=== PATIENT | female | born 1965 | race Caucasian/White ===

== ENCOUNTER 2023-01-10 15:01 | Outpatient (OUT) | payer BC, SELFPAY ==
--- NOTE | 2023-01-10 15:10 | XR_ITS ---
[address] [address] Patient Name: KAYLEEN BINGHAM MRN: [id number] date: 1965 Sex: F Assigned Patient Location: LAB Current Patient Location: LAB Accession/Order Number: [id number] Exam Date: 01/10/2023 15:10 Report Date: 01/10/2023 15:39 At the request of: SHAY MURO Procedure: XR chest 2V PROCEDURE: XR chest 2V DATE: 01/10/2023 2:10 PM CDT COMPARISONS: 12/12/2016 CLINICAL INDICATION: 57 years Female ACUTE COUGH R05.1 FINDINGS: The cardiomediastinal silhouette and pulmonary vasculature are within normal limits. The lungs are clear. There is no evidence of pleural effusion or pneumothorax. XR/XR chest 2V IMPRESSION: Chest radiograph is within normal limits. Electronically authenticated by: MONE PERALES Date: 01/10/2023 15:39
[2023-01-10 15:14] LABS: Basophils Percent Auto 0.5 % (0.2-2.0); Eosinophils Absolute Auto 0.3 10^3/uL (0.0-0.7); Eosinophils Percent Auto 5.9 % (0.9-7.0); Hematocrit 36.6 % (36.0-48.0); Immature Granulocytes Abs Auto 0.01 10^3/uL (0.00-0.03); Immature Granulocytes Pct Auto 0.2 % (0.0-0.5); Lymphocytes Percent Auto 22.7 % (20.5-60.0); Mean Corpuscular HGB Conc 32.8 g/dL (29.9-35.2); Mean Corpuscular Hemoglobin 28.1 pg (26.7-34.0); Mean Corpuscular Volume 85.7 fL (81.0-99.0); Mean Platelet Volume 10.2 fL (9.5-13.5); Monocytes Absolute Auto 0.4 10^3/uL (0.3-0.8); Monocytes Percent Auto 9.4 % (1.7-12.0); Neutrophils Absolute Auto 2.6 10^3/uL (1.4-6.5); Neutrophils Percent Auto 61.3 % (43.0-75.0); Platelet Count 180 10^3/uL (150-450); Red Blood Count 4.27 10^6/uL (4.20-5.40); Red Cell Distribution Width 13.1 % (11.0-15.0); White Blood Count 4.3 10^3/uL (4.0-11.0)
[2023-01-10 15:34] LABS: Alanine Aminotransferase 34 U/L (14-59); Albumin Globulin Ratio 1.4; Albumin Level 3.9 g/dL (3.4-5.0); Alkaline Phosphatase 67 U/L (46-116); Anion Gap 9.5; Aspartate Amino Transferase 24 U/L (15-37); BUN Creatinine Ratio 21.6; Bilirubin Total 0.3 mg/dL (0.2-1.0); Calcium 9.1 mg/dL (8.5-10.1); Carbon Dioxide 27.5 mmol/L (21.0-32.0); Chloride 109 mmol/L (98-107); Estimated GFR (African America >60 (>=60); Estimated GFR (Non-African Ame 56 (>=60); Globulin 2.8 g/dL; Glucose 110 mg/dL (74-106); Sodium 142 mmol/L (136-145); Total Protein 6.7 g/dL (6.4-8.2)
== END 2023-01-10 15:02 | disposition home or self-care (01) ==
LOC: LAB 15:01
PROVIDERS: PCP Family Medicine; Visit Provider Family Medicine
DX: R05.1 Acute cough (principal)
CPT/HCPCS: 36415; 71046; 80053; 85025

== ENCOUNTER 2023-02-16 14:08 | Outpatient (OUT) | payer BC, SELFPAY ==
--- NOTE | 2023-02-16 | CT_ITS ---
[address] [address] Patient Name: KAYLEEN BINGHAM MRN: [id number] date: 1965 Sex: F Assigned Patient Location: CARD Current Patient Location: Accession/Order Number: [id number] Exam Date: 02/16/2023 14:32 Report Date: 02/17/2023 07:52 At the request of: RODNEY GARCIA Procedure: CT chest high res EXAMINATION: CT chest high res HISTORY: Chronic cough R05.3 COMPARISON: No relevant comparison available. TECHNIQUE: Axial images were obtained at 10 mm intervals during inspiration and expiration in the supine and prone positions. No IV contrast given. Dose reduction techniques were achieved by using automated exposure control and/or adjustment of mA and/or kV according to patient size and/or use of iterative reconstruction technique. FINDINGS: LUNGS: A few calcified granulomas. No infiltrates or mass. No significant chronic interstitial changes or air trapping. PLEURA: No mass, effusion, or pneumothorax. COLIN: Calcified right hilar lymph nodes compatible with chronic granulomatous disease. MEDIASTINUM: A few calcified lymph nodes. CHEST WALL: No mass or axillary adenopathy LIMITED ABDOMEN: No suspicious findings. Limited images of the upper abdomen. OTHER: Negative. CT/CT chest high res IMPRESSION: 1. No infiltrates or acute findings. 2. No significant chronic interstitial changes. 3. Incidental chronic granulomatous disease. Electronically authenticated by: JOSEFINA CLAYTON Date: 02/17/2023 07:52
--- NOTE | 2023-02-16 13:45 | RT_ITS ---
[facility] Test Date: 2023-02-16 Pat Name: KAYLEEN BINGHAM Department: Room: - Gender: Female Parish Worker: Darwin Kauffman RRT : 1965 Requested By: Richardson Nolen Order Number: [id number] Reading MD: Richardson Nolen Interpretive Statements Pulmonary function testing was completed according to ATS criteria. Findings were considered accurate and reproducible, with exception of DLCO which did not meet ATS standards. Both pre- and post-bronchodilator values utilized for spirometry. Due to software limitations, any prior studies are unavailable for comparison. Spirometry (based on pre-bronchodilator values): -FEV1/FVC: Low normal @ 73% -FEV1: Normal @ 112% -FVC: Normal @ 119% -There is no significant bronchodilator response. Lung volumes by plethysmography (based on pre-bronchodilator values): -RV: Normal @ 109% -TLC: High normal @ 120% Diffusion capacity: -DLCO: Normal @ 100% when corrected for Hb 12g/dL Flow-volume loop: -Normal variant 'knee shape' Impressions: -Spirometry trends towards a mild obstructive pattern. Normal lung volumes and diffusion capacity. Study may suggest a mild underlying obstructive process such as asthma. Clinical correlation required. Electronically Signed On 02-16-2023 17:27:41 EDT by Richardson Nolen
[2023-02-16] MEDS: ALBUTEROL SULFATE 2.5 MG/3 ML VIAL NEB IH (14:17)
== END 2023-02-16 14:09 | disposition home or self-care (01) ==
LOC: CARD 14:08
PROVIDERS: PCP Family Medicine; Visit Provider Internal Medicine
DX: R05.3 Chronic cough (principal)
CPT/HCPCS: 71250; 94060; 94726; 94729

== ENCOUNTER 2023-05-10 09:08 | Outpatient (OUT) | payer BC, SELFPAY ==
--- NOTE | 2023-05-10 | XR_ITS ---
[address] [address] Patient Name: KAYLEEN BINGHAM MRN: [id number] date: 1965 Sex: F Assigned Patient Location: Current Patient Location: [facility] Accession/Order Number: [id number] Exam Date: 05/10/2023 09:25 Report Date: 05/10/2023 15:49 At the request of: RAYMOND RODRIGUEZ Procedure: XR ankle RT min 3V PROCEDURE: XR ankle RT min 3V COMPARISON: None. HISTORY: RIGHT ANKLE PAIN FINDINGS: BONES:No acute fracture or dislocation. Minimal degenerative changes with marginal osteophyte formation SOFT TISSUES:Negative. No visible soft tissue swelling. EFFUSION:None visible. OTHER: Negative. XR/XR ankle RT min 3V IMPRESSION: Minimal degenerative change Electronically authenticated by: ROCCO CORTEZ Date: 05/10/2023 15:49
--- OUTSIDE RECORDS SUMMARY | 2023-05-18 05:28 | XMS_ITS | CCD ---
Author Name Unknown Address [address] [place] [address] Organization [facility] Care Team Providers Care Full Service Supervisor Name Role Phone Shay Muro Unavailable RAYMOND SMITH Consulting Unavailable RAYMOND SMITH Attending Unavailable VERONICA, DR DAY Primary Care Unavailable RAYMOND SMITH Admitting Unavailable RAYMOND SMITH Consulting Unavailable RAYMOND SMITH Attending Unavailable VERONICA, DR DAY Primary Care Unavailable RAYMOND SMITH Admitting Unavailable BLESSING ., MARIBEL PRIEST Consulting Unavailable SONU II, DODIE Consulting Unavailable FILUTZE, CORDELIA Consulting Unavailable RENETTA SORTO Attending Unavailable MISC, DR DEJESUS Primary Care Unavailable MACARIO, RENETTA Admitting Unavailable ZIEBER, DR JOSEFINA Otero Consulting Unavailable RENETTA SORTO Consulting Unavailable VERONICA, DR DAY Attending Unavailable VERONICA, DR DAY Admitting Unavailable MISEdmundo, DR DEJESUS Primary Care Unavailable VERONICA, DR DAY Consulting Unavailable MISC, DR DJEESUS Primary Care Unavailable VERONICA, DR DAY Consulting Unavailable VERONICA, DR DAY Attending Unavailable VERONICA, DR DAY Admitting Unavailable RAYMOND SMITH Consulting Unavailable MISC, DR DEJESUS Primary Care Unavailable RAYMOND SMITH Attending Unavailable RAYMOND SMITH Admitting Unavailable DELGADOPOLO Gutierrez Consulting Unavailable MISC, DR DEJESUS Primary Care Unavailable RAYMOND SMITH Admitting Unavailable RAYMOND SMITH Attending Unavailable DO Shay Muro Primary Care Provider [phone] DO Vivian Denis Attending Provider DO Shay Muro Attending Provider [phone] Shay Muro Attending Unavailable Shay Muro Primary Care Unavailable Shay Muro Admitting Unavailable Vivian Denis Admitting Unavailable Shay Muro Primary Care Unavailable Vivian Denis Attending Unavailable VIVIAN DENIS Attending Unavailable Medications Current Medications Medication Drug Class(es) Dates Sig (Normalized) Sig (Original) acyclovir 400 mg oral tablet (12 sources) Herpesvirus Nucleoside Analog DNA Polymerase Inhibitor, Herpes Simplex Virus Nucleoside Analog DNA Polymerase Inhibitor, Herpes Zoster Virus Nucleoside Analog DNA Polymerase Inhibitor Start: 09-25-2015 take 1 tablet by mouth four times daily as needed Acyclovir 400 MG 1 tablet Orally qid prn Aug, Active amoxicillin 875 mg / clavulanate 125 mg oral tablet (3 sources) Penicillin-class Antibacterial Start: 01-24-2023 take 1 tablet by mouth every twelve hours Amoxicillin-Pot Clavulanate 875-125 MG 1 tablet Orally every 12 hrs for 10 days Dec, Active azithromycin 250 mg oral tablet (3 sources) Macrolide Antimicrobial Start: 08-17-2022 Zithromax Z-Mayank 250 MG as directed Orally as directed Jul, Active 30 actuat fluticasone furoate 0.1 mg/actuat / umeclidinium 0.0625 mg/actuat / vilanterol 0.025 mg/actuat dry powder inhaler (4 sources) Anticholinergic, Corticosteroid, beta2-Adrenergic Agonist Start: 01-17-2023 take 1 puff(s) by inhalation once daily Trelegy Ellipta 100-62.5-25 MCG/ACT 1 puff Inhalation Once a day sample Dec, Active methylPREDNISolone 4 mg oral tablet (3 sources) Corticosteroid Start: 08-17-2022 Medrol 4 MG as directed Orally as directed Jul, Active Problems Active Problems Problem Classification Problem Date Documented Date Episodic/Chronic Acquired foot deformities (1 source) Other acquired deformities of left foot; Translations: [OTHER ACQUIRED DEFORMITIES LT FOOT] Onset: 07-13-2022 Episodic Asthma (1 source) Unspecified asthma, uncomplicated; Translations: [UNSPECIFIED ASTHMA UNCOMPLICATED] Onset: 07-13-2022 Chronic Diseases of mouth; excluding dental (13 sources) Disorder of lip; Translations: [Diseases of lips] Episodic Diseases of white blood cells (12 sources) Leukopenia; Translations: [Decreased white blood cell count, unspecified] Chronic Disorders of lipid metabolism (13 sources) Hyperlipidemia; Translations: [Hyperlipidemia, unspecified] Onset: 07-13-2022 Chronic Essential hypertension (1 source) Essential (primary) hypertension; Translations: [ESSENTIAL PRIMARY HYPERTENSION] Onset: 07-13-2022 Chronic Osteoarthritis (1 source) Primary osteoarthritis, left ankle and foot; Translations: [PRIMARY OSTEOARTHRITIS LT ANK FOOT] Onset: 04-26-2022 Chronic Other connective tissue disease (1 source) Plantar fascial fibromatosis; Translations: [PLANTAR FASCIAL FIBROMATOSIS] Onset: 04-26-2022 Episodic Other connective tissue disease (1 source) Pain in left hand Episodic Other lower respiratory disease (1 source) Shortness of breath; Translations: [Shortness of breath] Onset: 08-17-2022 Episodic Other lower respiratory disease (1 source) Shortness of breath Episodic Other nervous system disorders (1 source) Unspecified mononeuropathy of left lower limb; Translations: [UNS MONONEUROPATHY LEFT LOWER LIMB] Onset: 07-13-2022 Chronic Other nervous system disorders (5 sources) Lesion of plantar nerve, left lower limb; Translations: [LESION PLANTAR NERVE LT LOWER LIMB] Onset: 06-28-2022 Chronic Other non-traumatic joint disorders (12 sources) Shoulder pain; Translations: [Pain in right shoulder] Episodic Other non-traumatic joint disorders (12 sources) Ankle pain; Translations: [Pain in left ankle and joints of left foot] Episodic Unclassified (4 sources) CONTACT W/AND (SUSP) EXPOS COVID-19; Translations: [CONTACT W/AND (SUSP) EXPOS COVID-19] Onset: 11-04-2021 Unclassified (1 source) COUGH, UNSPECIFIED; Translations: [COUGH, UNSPECIFIED] Onset: 11-04-2021 Unclassified (1 source) Encounter for screening mammogram for malignant neoplasm of breast; Translations: [Encounter for screening mammogram for malignant neoplasm of breast] Onset: 08-09-2022 Past or Other Problems Problem Classification Problem Date Documented Da te Episodic/Chronic Other connective tissue disease (4 sources) Pain in left foot; Translations: [PAIN IN LEFT FOOT] Onset: 03-09-2022 Episodic Unclassified (2 sources) Exposure to COVID-19 virus Z20.822 Onset: 09-01-2021 Resolved: 10-28-2021 Unclassified (2 sources) Cough R05.9 Onset: 10-28-2021 Resolved: 10-28-2021 Unclassified (1 source) CONTACT W/AND (SUSP) EXPOS COVID-19; Translations: [CONTACT W/AND (SUSP) EXPOS COVID-19] Onset: 10-28-2021 Unclassified (1 source) Acute cough R05.1 Unclassified (1 source) Persistent cough R05.3 Viral infection (2 sources) COVID-19; Translations: [COVID-19] Onset: 08-17-2022 Results Test Name Value Interpretation Reference Range Facil ity RSVon 01-17-2023 RSV Ag IA Ql (Unsp spec) Negative [employer] Other Alanine aminotransferase [En zymatic activity/volume] in Serum or PlasmaOrdered By: Shay Muro on 08-17-2022 ALT [Catalytic activity/Vol] 26 U/L Normal 7-52 U/ L [facility] Albumin [Mass/volume] in Ser um or Plasma by Bromocresol green (BCG) dye binding methoOrdered By: Shay Muro on 08-17-2022 Albumin BCG dye [Mass/Vol] 4.5 g/dL 3.5-5.7 [facility] Alkaline phosphatase [Enzyma tic activity/volume] in Serum or PlasmaOrdered By: Shay Muro on 08-17-2022 ALP [Catalytic activity/Vol] 59 U/L Normal 34-104 U/L [facility] Aspartate aminotransferase [ Enzymatic activity/volume] in Serum or PlasmaOrdered By: Shay Muro on 08-17-2022 AST [Catalytic activity/Vol] 26 U/L Normal 13-39 U /L [facility] Basophils Auto (Bld) [#/Vol] Ordered By: Shay Muro on 08-17-2022 Basophils (Bld) [#/Vol] 0.0 10*3/uL 0.0-0.2 [facility] Basophils/100 WBC Auto (Bld) Ordered By: Shay Muro on 08-17-2022 Basophils/100 WBC (Bld) 0.4 % . [facility] Bilirubin.total [Mass/volume ] in Serum or PlasmaOrdered By: Shay Muro on 08-17-2022 Bilirubin [Mass/Vol] 0.2 mg/dL 0.3-1.0 [facility] Calcium [Mass/volume] in Ser um or PlasmaOrdered By: Shay Muro on 08-17-2022 Calcium [Mass/Vol] 10.0 mg/dL 8.6-10.3 [facility] Carbon dioxide, total [Moles /volume] in Serum or PlasmaOrdered By: Shay Muro on 08-17-2022 CO2 [Moles/Vol] 25.6 mmol/L 21.0-31.0 [facility] Chloride [Moles/volume] in S francis or PlasmaOrdered By: Shay Muro on 08-17-2022 Chloride [Moles/Vol] 106 mmol/L Normal 98-107 mmol/L [facility] Complete Blood Count Auto Di ffon 08-17-2022 Basophils (Bld) [#/Vol] 0.0 10*3/uL Normal 0.0-0.2 [facility] Comment on above: Order Comment: Reaso n for Exam COVID-19;Shortness of breath on exertion Result Comment: PERF ORMED BY: [place] [address] PATHOLOGIST CUTTER BARREL DRUM LISANDRA OLVERA M.D. Performed By: #### C MP, CBC #### [facility] [address] [place] [address] [place] Basophils/100 WBC (Bld) 0.4 % Normal . [facility] Comment on above: Order Comment: Reaso n for Exam COVID-19;Shortness of breath on exertion Performed By: #### C MP, CBC #### [facility] [address] [place] [address] [place] Eosinophils (Bld) [#/Vol] 0.1 10*3/uL Normal 0.0-0.45 [facility] Comment on above: Order Comment: Reaso n for Exam COVID-19;Shortness of breath on exertion Performed By: #### C MP, CBC #### [facility] [address] [place] [address] [place] Eosinophils/100 WBC (Bld) 0.9 % Normal . [facility] Comment on above: Order Comment: Reaso n for Exam COVID-19;Shortness of breath on exertion Performed By: #### C MP, CBC #### [address] Erythrocyte distribution wid th (RBC) [Ratio] 13.5 % Normal 11.9-15.3 [facility] Comment on above: Order Comment: Reaso n for Exam COVID-19;Shortness of breath on exertion Performed By: #### C MP, CBC #### [address] Hematocrit (Bld) [Volume fraction] 38.8 % Normal 34.0-46.4 [facility] Comment on above: Order Comment: Reaso n for Exam COVID-19;Shortness of breath on exertion Performed By: #### C MP, CBC #### [address] Hemoglobin (Bld) [Mass/Vol] 12.6 g/dL Normal 11.8-15. 4 [facility] Comment on above: Order Comment: Reaso n for Exam COVID-19;Shortness of breath on exertion Performed By: #### C MP, CBC #### [address] Lymphocytes (Bld) [#/Vol] 0.6 10*3/uL Low 1.00-4.8 [facility] Comment on above: Order Comment: Reaso n for Exam COVID-19;Shortness of breath on exertion Performed By: #### C MP, CBC #### [place] [address] [place] Lymphocytes/100 WBC (Bld) 10.9 % Normal . [facility] Comment on above: Order Comment: Reaso n for Exam COVID-19;Shortness of breath on exertion Performed By: #### C MP, CBC #### [address] MCH (RBC) [Entitic mass] 28.2 pg Normal 24.7-34.3 [facility] Comment on above: Order Comment: Reaso n for Exam COVID-19;Shortness of breath on exertion Performed By: #### C MP, CBC #### [facility] [address] MCV (RBC) [Entitic vol] 86.7 fL Normal 80-100 [facility] Comment on above: Order Comment: Reaso n for Exam COVID-19;Shortness of breath on exertion Performed By: #### C MP, CBC #### [facility] [address] Mean Corpuscular HGB Conc 32.5 g/dL Normal 32.0-35.0 [facility] Comment on above: Order Comment: Reaso n for Exam COVID-19;Shortness of breath on exertion Performed By: #### C MP, CBC #### [address] Monocytes (Bld) [#/Vol] 0.1 10*3/uL Normal 0.0-0.8 [facility] Comment on above: Order Comment: Reaso n for Exam COVID-19;Shortness of breath on exertion Performed By: #### C MP, CBC #### [place] [address] [place] Monocytes/100 WBC (Bld) 2.6 % Normal . [facility] Comment on above: Order Comment: Reaso n for Exam COVID-19;Shortness of breath on exertion Performed By: #### C MP, CBC #### [facility] [address] [place] [address] [place] Neutrophils (Bld) [#/Vol] 5.0 10*3/uL Normal 1.8-7.7 [facility] Comment on above: Order Comment: Reaso n for Exam COVID-19;Shortness of breath on exertion Performed By: #### C MP, CBC #### [address] Neutrophils/100 WBC (Bld) 85.2 % Normal . [facility] Comment on above: Order Comment: Reaso n for Exam COVID-19;Shortness of breath on exertion Performed By: #### C MP, CBC #### [facility] [address] NRBC% 0.0 /100{WBC} Normal 0-0.5 [facility] Comment on above: Order Comment: Reaso n for Exam COVID-19;Shortness of breath on exertion Performed By: #### C MP, CBC #### [facility] [address] Platelet mean volume (Bld) [Entitic vol] 9.7 fL Normal 6.3-10.7 [facility] Comment on above: Order Comment: Reaso n for Exam COVID-19;Shortness of breath on exertion Performed By: #### C MP, CBC #### [facility] [address] Platelets (Bld) [#/Vol] 190 10*3/uL Normal 150-450 [facility] Comment on above: Order Comment: Reaso n for Exam COVID-19;Shortness of breath on exertion Performed By: #### C MP, CBC #### [facility] [address] RBC (Bld) [#/Vol] 4.48 10*6/uL Normal 3.60-5.00 [facility] Comment on above: Order Comment: Reaso n for Exam COVID-19;Shortness of breath on exertion Performed By: #### C MP, CBC #### [facility] [address] WBC (Bld) [#/Vol] 5.8 10*3/uL Normal 3.8-11.6 [facility] Comment on above: Order Comment: Reaso n for Exam COVID-19;Shortness of breath on exertion Performed By: #### C MP, CBC #### [facility] [address] Basophils (Bld) [#/Vol] 0.966305718 10*3/uL Normal 0.0-0.2 10*3/uL [employer] Other Basophils/100 WBC (Bld) 0.400 % . % [employer] Other Eosinophils (Bld) [#/Vol] 0.538891154 10*3/uL Normal 0.0-0.45 10*3/uL [employer] Other Eosinophils/100 WBC (Bld) 0.900 % . % [employer] Other Erythrocyte distribution width (RBC) [Ratio] 13.500 % Normal 11.9-15.3 % [employer] Other Hematocrit (Bld) [Volume fraction] 38.800 % Normal 34.0-46.4 % [employer] Other Hemoglobin (Bld) [Mass/Vol] 12.271978 g/dL Normal 11.8-15.4 g/dL [employer] Other Lymphocytes (Bld) [#/Vol] 0.857031475 10*3/uL Low 1.00-4.8 10*3/uL [employer] Other Lymphocytes/100 WBC (Bld) 10.900 % . % [employer] Other MCH (RBC) [Entitic mass] 28.2000 pg Normal 24.7-34.3 pg [employer] Other MCV (RBC) [Entitic vol] 86.7000 fL Normal 80-100 fL [employer] Other Monocytes (Bld) [#/Vol] 0.871075510 10*3/uL Normal 0.0-0.8 10*3/uL [employer] Other Monocytes/100 WBC (Bld) 2.600 % . % [employer] Other Neutrophils (Bld) [#/Vol] 5.156222940 10*3/uL Normal 1.8-7.7 10*3/uL [employer] Other Neutrophils/100 WBC (Bld) 85.200 % . % [employer] Other Platelet mean volume (Bld) [Entitic vol] 9.7000 fL Normal 6.3-10.7 fL [employer] Other WBC (Bld) [#/Vol] 5.610396770 10*3/uL Normal 3.8-11.6 10*3/uL [employer] Other Complete Blood Count Auto Diff 5.8 10*3/uL Normal 3.8-11.6 10*3/uL [employer] Other Complete Blood Count Auto Diff 32.5 g/dL Normal 32.0-35.0 g/dL [employer] Other Complete Blood Count Auto Diff 0.0 /100{WBC} Normal 0-0.5 /100{WBC} [employer] Other Comprehensive Metabolic Pane [facility] 08-17-2022 Albumin [Mass/Vol] 4.5 g/dL Normal 3.5-5.7 [facility] Comment on above: Order Comment: Reaso n for Exam COVID-19;Shortness of breath on exertion Performed By: #### C MP, CBC #### [facility] [address] Albumin/Globulin [Mass ratio] 2.0 {ratio} Normal [facility] Comment on above: Order Comment: Reaso n for Exam COVID-19;Shortness of breath on exertion Performed By: #### C MP, CBC #### [facility] [address] [place] [address] [place] ALP [Catalytic activity/Vol] 59 U/L Normal 34-104 [facility] Comment on above: Order Comment: Reaso n for Exam COVID-19;Shortness of breath on exertion Result Comment: PERF ORMED BY: [place] [address] PATHOLOGIST CUTTER BARREL DRUM LISANDRA OLVERA M.D. Performed By: #### C MP, CBC #### [facility] [address] [place] [id number] [facility] ALT [Catalytic activity/Vol] 26 U/L Normal 7-52 [facility] Comment on above: Order Comment: Reaso n for Exam COVID-19;Shortness of breath on exertion Performed By: #### C MP, CBC #### [facility] [address] Anion gap [Moles/Vol] 10.9 mmol/L Normal 6.0-15.0 [facility] Comment on above: Order Comment: Reaso n for Exam COVID-19;Shortness of breath on exertion Performed By: #### C MP, CBC #### [facility] [address] AST [Catalytic activity/Vol] 26 U/L Normal 13-39 [facility] Comment on above: Order Comment: Reaso n for Exam COVID-19;Shortness of breath on exertion Performed By: #### C MP, CBC #### [facility] [address] Bilirubin [Mass/Vol] 0.2 mg/dL Low 0.3-1.0 [facility] Comment on above: Order Comment: Reaso n for Exam COVID-19;Shortness of breath on exertion Performed By: #### C MP, CBC #### [facility] [address] Calcium [Mass/Vol] 10.0 mg/dL Normal 8.6-10.3 [facility] Comment on above: Order Comment: Reaso n for Exam COVID-19;Shortness of breath on exertion Performed By: #### C MP, CBC #### [facility] [address] [place] [id number] [place] Chloride [Moles/Vol] 106 mmol/L Normal 98-107 [facility] Comment on above: Order Comment: Reaso n for Exam COVID-19;Shortness of breath on exertion Performed By: #### C MP, CBC #### [facility] [address] [place] [address] [place] CO2 [Moles/Vol] 25.6 mmol/L Normal 21.0-31.0 [facility] Comment on above: Order Comment: Reaso n for Exam COVID-19;Shortness of breath on exertion Performed By: #### C MP, CBC #### [facility] [address] Creatinine [Mass/Vol] 0.92 mg/dL Normal 0.60-1.20 [facility] Comment on above: Order Comment: Reaso n for Exam COVID-19;Shortness of breath on exertion Performed By: #### C MP, CBC #### [facility] [address] GFR/1.73 sq M.predicted MDRD (S/P/Bld) [Vol rate/Area] mL/min/{1.73_m2} Normal [facility] Comment on above: Order Comment: Reaso n for Exam COVID-19;Shortness of breath on exertion Performed By: #### C MP, CBC #### [facility] [address] Globulin (S) [Mass/Vol] 2.2 g/dL Normal [facility] Comment on above: Order Comment: Reaso n for Exam COVID-19;Shortness of breath on exertion Performed By: #### C MP, CBC #### [facility] [address] Glucose [Mass/Vol] 134 mg/dL High 74-109 [facility] Comment on above: Order Comment: Reaso n for Exam COVID-19;Shortness of breath on exertion Result Comment: [place] Glucose Reference Range is dependent on time and content of last meal. Glucose of more than 200 mg/dL in a nonstressed, ambulatory subject supports the diagnosis of Diabetes Mellitus. ADA recommended reference range Performed By: #### C MP, CBC #### [facility] [address] Potassium [Moles/Vol] 4.5 mmol/L Normal 3.5-5.1 [facility] Comment on above: Order Comment: Reaso n for Exam COVID-19;Shortness of breath on exertion Performed By: #### C MP, CBC #### [facility] [address] [place] [id number] [place] Protein [Mass/Vol] 6.7 g/dL Normal 6.4-8.9 [facility] Comment on above: Order Comment: Reaso n for Exam COVID-19;Shortness of breath on exertion Performed By: #### C MP, CBC #### [facility] [address] [place] [id number] [place] Sodium [Moles/Vol] 138 mmol/L Normal 136-145 [facility] Comment on above: Order Comment: Reaso n for Exam COVID-19;Shortness of breath on exertion Performed By: #### C MP, CBC #### [facility] [address] [place] [address] [place] Urea nitrogen [Mass/Vol] 16 mg/dL Normal 7-25 [facility] Comment on above: Order Comment: Reaso n for Exam COVID-19;Shortness of breath on exertion Performed By: #### C MP, CBC #### [facility] [address] [place] [id number] [place] Albumin [Mass/Vol] 4.322571 g/dL Normal 3.5-5.7 g/dL N [employer] Other Bilirubin [Mass/Vol] 0.8687263 mg/dL Low 0.3-1.0 mg /dL [employer] Other Calcium [Mass/Vol] 10.8036784 mg/dL Normal 8.6-10.3 mg /dL [employer] Other CO2 [Moles/Vol] 25.65112450 mmol/L Normal 21.0-31.0 mmol/L [employer] Other Creatinine [Mass/Vol] 0.44477469 mg/dL Normal 0.60-1.2 0 mg/dL [employer] Other Potassium [Moles/Vol] 4.85827419 mmol/L Normal 3.5-5.1 mmol/L [employer] Other Protein [Mass/Vol] 6.518259 g/dL Normal 6.4-8.9 g/dL N [facility] [employer] Other Comprehensive Metabolic Panel 2.2 g/dL [facility] [employer] Other Comprehensive Metabolic Pane lOrdered By: Shay Muro on 08-17-2022 GFR/1.73 sq M.predicted MDRD (S/P/Bld) [Vol rate/Area] mL/min/{1.73_m2} [facility] Creatinine [Mass/volume] in Serum or PlasmaOrdered By: Shay Muro on 08-17-2022 Creatinine [Mass/Vol] 0.92 mg/dL 0.60-1.20 [facility] Eosinophils Auto (Bld) [#/Vo l]Ordered By: Shay Muro on 08-17-2022 Eosinophils (Bld) [#/Vol] 0.1 10*3/uL 0.0-0.45 [facility] Eosinophils/100 WBC Auto (Bl d)Ordered By: Shay Muro on 08-17-2022 Eosinophils/100 WBC (Bld) 0.9 % . [facility] Erythrocyte distribution wid th Auto (RBC) [Ratio]Ordered By: Shay Muro on 08-17-2022 Erythrocyte distribution wid th (RBC) [Ratio] 13.5 % 11.9-15.3 [facility] Erythrocytes [#/volume] in B lood by Automated countOrdered By: Shay Muro on 08-17-2022 RBC (Bld) [#/Vol] 4.48 10*6/uL Normal 3.60-5.00 [facility] Globulin Calc (S) [Mass/Vol] Ordered By: Shay Muro on 08-17-2022 Globulin (S) [Mass/Vol] 2.2 g/dL [facility] Glucose [Mass/volume] in Ser um or PlasmaOrdered By: Shay Muro on 08-17-2022 Glucose [Mass/Vol] 134 mg/dL High 74-109 mg/dL [facility] Comment on above: ADA recommended refe rence rangeRandom Glucose Reference Range is dependent on time and content of last meal. Glucose of more than 200 mg/dL in a nonstressed, ambulatory subject supports the diagnosis of Diabetes Mellitus. Hematocrit Auto (Bld) [Volum e fraction]Ordered By: Shay Muro on 08-17-2022 Hematocrit (Bld) [Volume fraction] 38.8 % 3 4.0-46.4 [facility] Hemoglobin [Mass/volume] in BloodOrdered By: Shay Muro on 08-17-2022 Hemoglobin (Bld) [Mass/Vol] 12.6 g/dL 11.8-15. 4 [facility] Leukocytes [#/volume] correc hermelinda for nucleated erythrocytes in Blood by Automated counOrdered By: Shay Muro on 08-17-2022 WBC corrected for nucl RBC A uto (Bld) [#/Vol] 5.8 10*3/uL 3.8-11.6 [facility] Lymphocytes Auto (Bld) [#/Vo l]Ordered By: Shay Muro on 08-17-2022 Lymphocytes (Bld) [#/Vol] 0.6 10*3/uL 1.00-4.8 [facility] Lymphocytes/100 WBC Auto (Bl d)Ordered By: Shay Muro on 08-17-2022 Lymphocytes/100 WBC (Bld) 10.9 % . [facility] MCH Auto (RBC) [Entitic mass ]Ordered By: Shay Muro on 08-17-2022 MCH (RBC) [Entitic mass] 28.2 pg 24.7-34.3 [facility] MCHC Auto (RBC) [Mass/Vol]Or dered By: Shay Muro on 08-17-2022 MCHC (RBC) [Mass/Vol] 32.5 g/dL 32.0-35.0 [facility] MCV Auto (RBC) [Entitic vol] Ordered By: Shay Muro on 08-17-2022 MCV (RBC) [Entitic vol] 86.7 fL 80-100 [facility] Monocytes Auto (Bld) [#/Vol] Ordered By: Shay Muro on 08-17-2022 Monocytes (Bld) [#/Vol] 0.1 10*3/uL 0.0-0.8 [facility] Monocytes/100 WBC Auto (Bld) Ordered By: Shay Muro on 08-17-2022 Monocytes/100 WBC (Bld) 2.6 % . [facility] Neutrophils Auto (Bld) [#/Vo l]Ordered By: Shay Muro on 08-17-2022 Neutrophils (Bld) [#/Vol] 5.0 10*3/uL 1.8-7.7 [facility] Neutrophils/100 WBC Auto (Bl d)Ordered By: Shay Muro on 08-17-2022 Neutrophils/100 WBC (Bld) 85.2 % . [facility] No Panel InformationOrdered By: Shay Muro on 08-17-2022 Pharmacy Creatinine Clearance (Chem N/A [facility] Nucleated erythrocytes [Pres ence] in Blood by Automated countOrdered By: Shay Muro on 08-17-2022 Nucleated RBC Auto Ql (Bld) 0.0 /100{WBC} 0-0.5 [facility] Platelet mean volume Auto (B ld) [Entitic vol]Ordered By: Shay Muro on 08-17-2022 Platelet mean volume (Bld) [Entitic vol] 9.7 fL 6.3-10.7 [facility] Platelets [#/volume] in Bloo d by Automated countOrdered By: Shay Muro on 08-17-2022 Platelets (Bld) [#/Vol] 190 10*3/uL Normal 150-450 10* 3/uL [facility] Potassium [Moles/volume] in Serum or PlasmaOrdered By: Shay Muro on 08-17-2022 Potassium [Moles/Vol] 4.5 mmol/L 3.5-5.1 [facility] Protein [Mass/volume] in Ser um or PlasmaOrdered By: Shay Muro on 08-17-2022 Protein [Mass/Vol] 6.7 g/dL 6.4-8.9 [facility] Serum or plasma albumin/glob ulin mass ratioOrdered By: Shay Muro on 08-17-2022 Albumin/Globulin [Mass ratio] 2.0 {ratio} [facility] Serum or plasma anion gap de terminationOrdered By: Shay Muro on 08-17-2022 Anion gap [Moles/Vol] 10.9 mmol/L 6.0-15.0 [facility] Sodium [Moles/volume] in Ser um or PlasmaOrdered By: Shay Muro on 08-17-2022 Sodium [Moles/Vol] 138 mmol/L Normal 136-145 mmol/L [facility] Urea nitrogen [Mass/volume] in Serum or PlasmaOrdered By: Shay Muro on 08-17-2022 Urea nitrogen [Mass/Vol] 16 mg/dL Normal 7-25 mg/dL [facility] WBC Auto (Bld) [#/Vol]Ordere d By: Shay Muro on 08-17-2022 WBC (Bld) [#/Vol] 5.8 10*3/uL 3.8-11.6 [facility] XR chest 2V*on 08-17-2022 XR chest 2V* [facility] [place] [address] XRay Report Signed Patient: Kayleen Bingham MR#: [id number] [id number] : 1965 Acct:[id number] Age/Sex: 57 / F ADM Date: 08/17/22 Loc: [place] Room: Type: [facility] Attending Dr: Shay Muro DO Copies to: Shay Muro DO Ordering Provider: Shay Muro DO Date of Service: 08/17/22 XR/XR chest 2V*: COVID-19;Shortness of breath on exertion Plain film chest2 view HISTORY:Shortness of breath COMPARISON:04/02/2020 FINDINGS: SUPPORT DEVICES: None POSTSURGICAL CHANGES:None HEART: Within normal limits PULMONARY COLIN:Within normal limits MEDIASTINUM:Unremarkable LUNGS AND PLEURA: No acute lung process, pleural effusion or pneumothorax identified. BONY STRUCTURES: Intact ADDITIONAL FINDINGS None XR/XR chest 2V* IMPRESSION: No acute process. Impression dictated by: Andrew Lockett M.D.08/17/2022 7:08 PM Dictation Location: [place] [address] Transcribed By: [facility] 08/17/22 190 Dictated By: Andrew Lockett DO 08/17/221906 Signed By: 08/17/221907 Normal [facility] SARS-CoV-2 (COVID-19) RNA JOSÉ MIGUEL+probe Ql (Unsp spec) XR/XR chest 2V*: COVID-19;Shortness of breath on exertion [employer] Other XR chest 2V* [facility] [employer] Other XR chest 2V* [facility] Main [facility] [employer] Other XR chest 2V* [address] [place] [address] [employer] Other XR chest 2V* [place] [address] [facility] [employer] Other XR chest 2V* XRay Report [employer] Other XR chest 2V* Signed [employer] Other XR chest 2V* Patient: Kayleen Bingham MR#: [id number] [place] [employer] Other XR chest 2V* 683 [employer] Other XR chest 2V* : 1965 Acct:[id number] [employer] Other XR chest 2V* Age/Sex: 57 / F ADM Date: 08/17/22 [employer] Other XR chest 2V* Loc: [place] Room: Type: [facility] [employer] Other XR chest 2V* Attending Dr: Shay Muro DO [employer] Other XR chest 2V* Copies to: Shay Muro DO [employer] Other XR chest 2V* Ordering Provider: Shay Muro DO [employer] Other XR chest 2V* Date of Service: 08/17/22 [employer] Other XR chest 2V* Plain film chest2 view [employer] Other XR chest 2V* HISTORY:Shortness of breath [employer] Other XR chest 2V* COMPARISON:04/02/2020 No rt [employer] Other XR chest 2V* FINDINGS: [employer] Other XR chest 2V* SUPPORT DEVICES: None [facility] [employer] Other XR chest 2V* POSTSURGICAL CHANGES:None [employer] Other XR chest 2V* HEART: Within normal limits [employer] Other XR chest 2V* PULMONARY COLIN:Within normal limits [employer] Other XR chest 2V* MEDIASTINUM:Unremarkable [employer] Other XR chest 2V* LUNGS AND PLEURA: No acute lung process, pleural effusion or pneumothorax identified. [employer] Other XR chest 2V* BONY STRUCTURES: Intact [employer] Other XR chest 2V* ADDITIONAL FINDINGS None [employer] Other XR chest 2V* XR/XR chest 2V* [employer] Other XR chest 2V* IMPRESSION: No acute process. [employer] Other XR chest 2V* Impression dictated by: Andrew Lockett M.D.08/17/2022 7:08 PM [employer] Other XR chest 2V* Dictation Location: [place] [address] [employer] Other XR chest 2V* Transcribed By: ROXANNA 08/17/22 1908 [employer] Other XR chest 2V* Dictated By: James Lockett DO 08/17/221906 [facility] [employer] Other XR chest 2V* Signed By: [employer] Other XR chest 2V* 08/17/221907 [facility] [employer] Other MM screening mammo BI w/CADo n 08-09-2022 MM screening mammo BI w/CAD [facility] Main [place] [address] [place] [address] Mammography Report Signed Patient: Kayleen Bingham MR#: [id number] [id number] : 1965 Acct:[id number] Age/Sex: 57 / F ADM Date: 08/09/22 Loc: [place] Room: Type: [facility] Attending Dr: Vivian Denis DO Copies to: DO ESHA Cramer MONA DO Ordering Provider: VIVIAN DENIS DO Date of Service: 08/09/22 MM/MM screening mammo BI w/CAD: screening;Encounter for screening mammogram for malignant ne BILATERAL Screening Full Field digital mammogram with 3-D imaging. Full field digital CC and MLO imaging performed. CAD utilized. COMPARISON: 06/24/2020 HISTORY:Annual screening BREAST COMPOSITION: Scattered fibroglandular densities of the breast parenchyma identified BENIGN BREAST CALCIFICATIONS: Present VASCULAR CALCIFICATIONS:None DEVELOPING ARCHITECTURAL DISTORTION:None DEVELOPING BREAST NODULE:None DEVELOPING MALIGNANT CALCIFICATIONS:None AXILLARY LYMPH NODES:Normal POSTSURGICAL CHANGES:None MM/MM screening mammo BI w/CAD IMPRESSION:No mammographic evidence of malignancy. Routine follow-up recommended in one year. RESULT CODE: 1 Negative DENSITY CODE: 2 (approximately 25-50% glandular) FOLLOW UP: 1YR THE FALSE-NEGATIVE RATE OF MAMMOGRAPHY IS APPROXIMATELY 10%. IMAGING OF A PALPABLE ABNORMALITY MUST BE BASED ON CLINICAL GROUNDS. PATIENT WAS ENTERED INTO A REMINDER SYSTEM WITH A TARGET DUE DATE FOR THE NEXT MAMMOGRAM. Impression dictated by: Andrew Lockett M.D.08/09/2022 4:24 PM Dictation Location: [facility] Transcribed By: [facility] 08/09/22 1627 Dictated By: Andrew Lockett DO 08/09/22 1623 Signed By: 08/09/22 1624 Normal [facility] POINT OF CARE GLUCOSEon 02-0 Glucose [Mass/Vol] 103 mg/dL Normal 74-106 [facility] Comment on above: Performed By: #### P OCGLUC #### [facility] [address] [place] [address] [address] Nhung Henao Glucose [Mass/Vol] 97 mg/dL Normal 74-106 [facility] Comment on above: Performed By: #### P OCGLUC #### [facility] [address] [place], [place] [address] Dr. Nhung Henao Covid-19 PCR (CVDTBH)on 05-31 SARS-CoV-2 (COVID-19) RNA JOSÉ MIGUEL+probe Ql (Unsp spec) Not detected Normal NOT DETECTED [facility] Comment on above: Result Comment: This test is not yet approved or cleared by the [place] FDA. When there are no FDA-approved or cleared tests available, and other criteria are met, FDA can make tests available under an emergency access mechanism called an Emergency Use Authorization (EUA). The EUA for this test is supported by the Irrigation Service Technician of Health and Human Service's (HHS's) declaration that circumstances exist to justify the emergency use of in vitro diagnostics for the detection and/or diagnosis of the virus that causes COVID-19. This EUA will remain in effect (meaning this test can be used) for the duration of the COVID-19 declaration justifying emergency of IVDs, unless it is terminated or revoked by FDA (after which the test may no longer be used). When diagnostic testing is negative, the possibility of a false negative should be considered in the context of a patient's recent exposures and the presence of clinical signs and symptoms consistent with SARS-CoV-2. Performed By: #### C VDTBH #### [facility] [address] [place] [address] Nhung Henao PROF CHEM 8 (BAS METB)on Anion gap [Moles/Vol] 13.5 mmol/L Normal [facility] Comment on above: Performed By: #### B MP #### [facility] [address] [place] [address] [address] Nhung Henao Calcium [Mass/Vol] 9.4 mg/dL Normal 8.5-10.1 [facility] Comment on above: Performed By: #### B MP #### [facility] [address] [place] [address] [address] Nhung Henao Chloride [Moles/Vol] 104 mmol/L Normal 98-107 [facility] Comment on above: Performed By: #### B MP #### [facility] [address] [place] [address] [address] Nhung Henao CO2 [Moles/Vol] 28.2 mmol/L Normal 21.0-32.0 [facility] Comment on above: Performed By: #### B MP #### [facility] [address] [place] [address] Dr. Nhung Henao Creatinine [Mass/Vol] 0.82 mg/dL Normal 0.55-1.02 [facility] Comment on above: Performed By: #### B MP #### [facility] [address] [place] [address] [address] Nhung Henao EGFR-AF BAHAMIAN >60 Normal >=60 [facility] Comment on above: Performed By: #### B MP #### [facility] [address] [place] [address] [address] Nhung Henao EGFR-NON AF BAHAMIAN >60 Normal >=60 [facility] Comment on above: Performed By: #### B MP #### [facility] [address] [place] [address] [address] Nhung Henao Glucose [Mass/Vol] 88 mg/dL Normal 74-106 [facility] Comment on above: Performed By: #### B MP #### [facility] [address] [place] [address] [address] Nhung Henao Potassium [Moles/Vol] 4.7 mmol/L Normal 3.5-5.1 [facility] Comment on above: Performed By: #### B MP #### [facility] [address] [place] [address] [address] Nhung Henao Sodium [Moles/Vol] 141 mmol/L Normal 136-145 [facility] Comment on above: Performed By: #### B MP #### [facility] [address] [place] [id number] Nhung Henao Urea nitrogen [Mass/Vol] 20.0 mg/dL Critically high 7.0-[address] [facility] Comment on above: Performed By: #### B MP #### [facility] [address] [place] [id number] Nhung Henao Urea nitrogen/Creatinine [Mass ratio] 24.4 mg/mg Normal [facility] Comment on above: Performed By: #### B MP #### [facility] [address] [place] [address] [address] Nhung Henao MRI FOOT LT WO CONon --2 022 MRI FOOT LT WO CON EXAM: MRI FOOT LT WO CON HISTORY: Lesion of left plantar nerve. Left third MTP joint pain. Foot injury. COMPARISON: Left foot x-rays 03/09/2022. Left ankle MRI 01/20/2022. TECHNIQUE: Multiplanar multisequence MRI of the left foot was performed without contrast. This included long axis T1, long axis T2, oblique axial PD fat-sat, short axis T2, short axis T1, sagittal PD fat-sat, sagittal T2, and sagittal T1 imaging. FINDINGS: JOINTS: The tarsometatarsal alignment appears preserved on this non-weightbearing study. The interosseous component of the Lisfranc ligament is identified and is intact. Mild marginal spur at the tibiotalar joint with small effusion. Mild marginal spur at the first MTP joint with subchondral cystic change at the inferior first metatarsal head. BONES: No fracture is seen. Sesamoid bones appear intact. There are suture anchors in the lateral malleolus with thickening of the ATFL. TENDONS: Visualized flexor and extensor tendons are intact. No long-segment tenosynovitis is seen. There is mild to moderate thickening of the distal Achilles tendon compatible with tendinosis. PLANTAR FASCIA: Plantar canal spur is noted. No adjacent edema is identified. No fascial tear is seen. SOFT TISSUES: Minor fluid in the third intermetatarsal bursa. Oval low signal in the third webspace measures 12 mm in craniocaudal dimension and may correlate with perineural fibrosis/Newby's neuroma. Plantar plates are intact. Muscular structures appear unremarkable. Normal fat signal in the sinus tarsi. IMPRESSION: 1. 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 2. Mild osteoarthritis of the first MTP joint with mild to moderate osteoarthritis of the talonavicular joint. 3. No tendon tear. No tenosynovitis. 4. Postsurgical change of the distal fibula related to prior ATFL repair. 5. Chronic plantar fasciitis. Electronically authenticated by: POLO DELGADO Date: 2022-04-24 13:21 Normal [facility] Covid-19 PCR (CVDTB)on SARS-CoV-2 (COVID-19) RNA JOSÉ MIGUEL+probe Ql (Unsp spec) Not detected Normal NOT DETECTED [facility] Comment on above: Result Comment: This test is not yet approved or cleared by the [place] FDA. When there are no FDA-approved or cleared tests available, and other criteria are met, FDA can make tests available under an emergency access mechanism called an Emergency Use Authorization (EUA). The EUA for this test is supported by the Sisters of Health and Human Service's (HHS's) declaration that circumstances exist to justify the emergency use of in vitro diagnostics for the detection and/or diagnosis of the virus that causes COVID-19. This EUA will remain in effect (meaning this test can be used) for the duration of the COVID-19 declaration justifying emergency of IVDs, unless it is terminated or revoked by FDA (after which the test may no longer be used). When diagnostic testing is negative, the possibility of a false negative should be considered in the context of a patient's recent exposures and the presence of clinical signs and symptoms consistent with SARS-CoV-2. Performed By: #### C [facility] #### [facility] [address] [place] [address] Dr. Nhung Henao Covid-19 PCR (CVDTB)on SARS-CoV-2 (COVID-19) RNA JOSÉ MIGUEL+probe Ql (Unsp spec) Not detected Normal NOT DETECTED [facility] Comment on above: Result Comment: This test is not yet approved or cleared by the [place] FDA. When there are no FDA-approved or cleared tests available, and other criteria are met, FDA can make tests available under an emergency access mechanism called an Emergency Use Authorization (EUA). The EUA for this test is supported by the Irrigation Service Technician of Health and Human Service's (HHS's) declaration that circumstances exist to justify the emergency use of in vitro diagnostics for the detection and/or diagnosis of the virus that causes COVID-19. This EUA will remain in effect (meaning this test can be used) for the duration of the COVID-19 declaration justifying emergency of IVDs, unless it is terminated or revoked by FDA (after which the test may no longer be used). When diagnostic testing is negative, the possibility of a false negative should be considered in the context of a patient's recent exposures and the presence of clinical signs and symptoms consistent with SARS-CoV-2. Performed By: #### C [facility] #### [facility] [address] [place] [address] Dr. Nhung Henao Vital Signs Date Time Vital Sign Value Performing Clinician Facility 01-17-2023 10:30-0400 Body height 170.18 cm Michael Bieker Other [employer] Other 01-17-2023 10:30-0400 Body mass index (BMI) [Ratio] 30.22 kg/m2 Michael Bieker Other [employer] Other 01-17-2023 10:30-0400 Body weight 87.54 kg Michael Bieker Other [employer] Other 01-17-2023 10:30-0400 Diastolic blood pressure 78 mm[Hg] Michael Bieker Other [employer] Other 01-17-2023 10:30-0400 Respiratory rate 16 /min Michael Bieker Other [employer] Other 01-17-2023 10:30-0400 SaO2% (BldA) [Mass fraction] 97 % Shaymaria t Reinas Other [employer] Other 01-17-2023 10:30-0400 Systolic blood pressure 108 mm[Hg] Shaymaria t Reinas Other [employer] Other Encounters Encounter Date Encounter Type Care Provider Facility Start: 05-12-2023 End: 05-12-2023 ambulatory Shay Nunos Other [employer] Other Start: 05-12-2023 Telephone encounter Shay Nunos [facility] Start: 05-11-2023 End: 05-11-2023 ambulatory VIVIAN DENIS Not Available Start: 01-25-2023 End: 01-25-2023 ambulatory Shay Nunos Other [employer] Other Start: 01-25-2023 Telephone encounter Shay Nunos [facility] [place] Start: 01-24-2023 End: 01-24-2023 ambulatory Shay Kuns Other [employer] Other Start: 01-24-2023 Telephone encounter Shay Nunos [facility] [place] Start: 01-17-2023 (Acute) Acute Visit Shay Nunos [facility] Start: 01-17-2023 End: 01-17-2023 ambulatory Shay Kuns Other [employer] Other Start: 01-13-2023 End: 01-13-2023 ambulatory Shay Kuns Other [employer] Other Start: 01-13-2023 Telephone encounter Shay Nunos [facility] [place] Start: 01-10-2023 End: 01-10-2023 ambulatory Shay Kuns Other [employer] Other Start: 01-10-2023 Telephone encounter Shay Kuns [facility] [place] Start: 08-17-2022 End: 08-17-2022 ambulatory Shay Kuns Facility:[facility] Start: 08-17-2022 End: 08-17-2022 Patient encounter procedure DO Shay Kuns Work Phone: [facility] [place] [facility] [place] Work Phone: Start: 08-17-2022 End: 08-17-2022 ambulatory DO Shay Kuns Work Phone: [facility] Work Phone: Start: 08-17-2022 Telephone encounter Shay Kuns [facility] [address] Start: 08-09-2022 End: 08-09-2022 ambulatory Vivian Nataprawira Facility:[facility] Start: 08-09-2022 End: 08-09-2022 Patient encounter procedure DO Shay Kuns Work Phone: [facility] [place] [facility] Work Phone: Start: 07-01-2022 End: 07-01-2022 ambulatory RAYMOND SMITH Facility:[facility] Start: 06-28-2022 Encounter for preprocedural laboratory examination RAYMOND SMITH [facility] Start: 06-25-2022 End: 06-26-2022 ambulatory RAYMOND SMITH Facility:[facility] Start: 06-25-2022 End: 06-26-2022 Encounter for preprocedural laboratory examination RAYMNOD SMITH Facility:[facility] Start: 06-09-[address] DOCTOR LOPEZ Facility :[facility] Start: 04-21-2022 End: 04-22-2022 ambulatory RAYMOND SMITH Facility:[facility] Start: 04-02-2022 End: 04-02-2022 ambulatory Shay Kuns Other [employer] Other Start: 04-02-2022 Telephone encounter Shay Kuns [facility] [place] Start: 03-15-2022 End: 03-15-2022 ambulatory Shay Muro Other [employer] Other Start: 03-15-2022 Telephone encounter Shay Muro [facility] Start: 03-09-2022 End: 03-10-2022 ambulatory RENETTA SORTO Facility: Start: 12-10-2021 End: 12-10-2021 ambulatory Shay Muro Other [employer] Other Start: 12-10-2021 Telephone encounter Shay Muro [facility] Start: 10-28-2021 Telephone encounter Shay Muro [facility] Start: 10-28-2021 End: 10-28-[address] SHAY MURO [employer] Other Start: 09-01-2021 Telephone encounter Shay Muro [facility] Start: 09-01-2021 End: 09-01-[address] [facility] [employer] Other Procedures Date Procedure Procedure Detail Performing Clinician Start: 08-17-2022 Plain chest X-ray DO Br diana Muro Work Phone: Start: 08-09-2022 Screening mammograph y of bilateral breasts DO Shay Muro Work Phone: Immunizations Immunization Date Immunization Notes Care Provider Fa cili 04-21-2021 COVID-19 Vaccine Pfi zer - Documentation Purposes Only Shay Muro Other [employer] Other 02-27-2021 influenza, seasonal, injectable Shay Muro Other [employer] Other 09-03-2020 COVID-19 Vaccine Pfi zer - Documentation Purposes Only Shay Muro Other [employer] Other 08-13-2020 COVID-19 Vaccine Pfi zer - Documentation Purposes Only Shay Muro Other [employer] Other 03-14-2019 influenza, seasonal, injectable Shay Muro Other [employer] Other 04-12-2018 influenza, seasonal, injectable Shay Muro Other [employer] Other Payers Date Payer Category Payer Self-pay [id number] 1965 Unknown [id number] 2.16.84 [id number] 1965 Unknown [id number] 2.16.84 [id number] 1965 Unknown [id number] 2.16.84 [id number] 1965 Unknown [id number] 2.16.84 [id number] 1965 Unknown [id number] 2.16.84 [id number] 1965 Unknown [id number] 2.16.84 [id number] 1965 Unknown [id number] 2.16.84 [id number] 1965 Unknown [id number] 2.16.840 .[id number] 1960 [facility] [id number] Unknown [employer] [id number] Unknown [id number] 2.16.8 [id number] Unknown [id number] 2.16.8 [id number] Social History Date Type Detail Facility Unknown if ever smoked [employer] Other Sex Assigned At Sex Assigned At Bir th [employer] Other Start: 1965 Sex Assigned At Female F [facility] Clinical Notes 05-29-2015 to 05-12-2023 Note Date & Type Note Facility 05-12-2023 Evaluation note Encounter Date Diagnosis Assessment Notes Apr, Left hand pain (ICD-10 - M79.642) [employer] Other 08-29-2023 Evaluation note* Encounter Date Diagnosis Assessment Notes Treatment Notes Treatment Clinical Notes Dec, Persistent cough (ICD-10 - R05.3) [employer] Other 08-21-2023 Evaluation note* Encounter Date Diagnosis Assessment Notes Treatment Notes Treatment Clinical Notes Dec, Cough (ICD-10 - R05.9) Patient has been suffering with a dry cough for over 4 weeks now per her report. Home Covid testing was negative. I did order lab and CXR for her last week which were normal. I did provide her with some oral steroids and antibiotic to take that patient reports did not help. I would like to give her an in house breathing treatment and also swab her for RSV. RSV testing is negative. The nebulizer that I gave her in office today did not demonstrate any quick relief but I do want her to start using hers at home and she does have the medication for it. I will provide her with Trelegy inhaler sample. I have demonstrated how to use it. One puff daily for 14 days. First dose given in office now. If no improvement then I will refer out to pants maker. 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 She states air quality measures were determined to be safe. Masking is optional at job site. [employer] Other 08-14-2023 Evaluation note* Encounter Date Diagnosis Assessment Notes Treatment Notes Treatment Clinical Notes Dec, Acute cough (ICD-10 - R05.1) [employer] Other 07-16-2023 History general Narrative - Reported* Type Description Date Medical History Follows with Dr. De Anda for her O [facility] care Medical History 2010 Mammogram Medical History hx of seasonal allergies Medical History Dermatofibroma Medical History colonoscopy 12/12 Medical History 05-29-15 Mammogram -Benign Dr. Kimmie pelayo Medical History 12/22/2015 Colonscopy -repeat in [address] Olvera Medical History 07/29/2017 Mammogram - Benign Dr Neftali De Anda Medical History 02/2019 Mammogram Medical History 06/25/2020 Mammogram Surgical History right ankle; Dr. Li 2009 Surgical History tubial ligation Surgical History nasal surgery Surgical History c-sections x 3 Surgical History Right Ankle Surgery - Mircrofra cture - Dr. Li Surgical History Dr. Oliver repair of Left Clavic al bone 04/2012 Surgical History Left ankle surgery t o repair torn tendon per Dr. Smith 03/30/2021 Hospitalization History see [facility] Other 07-16-2023 History general Narrative - Reported* Type Description Date Medical History Follows with Dr. De Anda for her O B [facility] care Medical History 2010 Mammogram Medical History hx of seasonal allergies Medical History Dermatofibroma Medical History colonoscopy 12/12 Medical History 05-29-15 Mammogram -Benign Dr. Kimmie pelayo Medical History 12/22/2015 Colonscopy -repeat in [address] Olvera Medical History 07/29/2017 Mammogram - Benign Dr Neftali De Anda Medical History 02/2019 Mammogram Medical History 06/25/2020 Mammogram Surgical History right ankle; Dr. Li 2009 Surgical History tubial ligation Surgical History nasal surgery Surgical History c-sections x 3 Surgical History Right Ankle Surgery - Mircrofra cture - Dr. Li Surgical History Dr. Oliver repair of Left Clavic al bone 04/2012 Surgical History Left ankle surgery t o repair torn tendon per Dr. Smith 03/30/2021 Surgical History Left Foot Neuroma 06/2022 Hospitalization History see [facility] Other 03-21-2023 Evaluation note* Encounter Date Diagnosis Assessment Notes Treatment Notes Treatment Clinical Notes Jul, COVID-19 (ICD-10 - U07.1) Jul, Shortness of breath on exertion (ICD-10 - R06.02) [facility] Other 10-17-2022 Evaluation note* Encounter Date Diagnosis Assessment Notes Treatment Notes Treatment Clinical Notes Feb, Diseases of lips (ICD-10 - K13.0) [facility] Other 10-12-2022 NotePROCEDURE: XR FOOT LT MIN 3 VIEWS HISTORY: Pain in left foot ; left fourth toe pain for one month following injury COMPARISON: XR foot left 12/04/2020 FINDINGS: BONES:No fracture, acute abnormality, or significant arthropathy. SOFT TISSUES:No visible soft tissue swelling. EFFUSION:None visible. OTHER: Negative. IMPRESSION: 1. No acute bone abnormality or significant degenerative changes. 2. No appreciable soft tissue abnormality. Electronically authenticated by: JOSEFINA CLAYTON Date: 2022-03-09 22:44[facility]07-16-2022 History general Narrative - Reported* Type Description Date Medical History Follows with Dr. De Anda for her O B [facility] care Medical History 2010 Mammogram Medical History hx of seasonal allergies Medical History Dermatofibroma Medical History colonoscopy 12/12 Medical History 05-29-15 Mammogram -Benign Dr. Kimmie pelayo Medical History 12/22/2015 Colonscopy -repeat in [address] Olvera Medical History 07/29/2017 Mammogram - Benign Dr Neftali De Anda Medical History 02/2019 Mammogram Medical History 06/25/2020 Mammogram Surgical History right ankle; Dr. Li 2009 Surgical History tubial ligation Surgical History nasal surgery Surgical History c-sections x 3 Surgical History Right Ankle Surgery - Mircrofra cture - Dr. Li Surgical History Dr. Oliver repair of Left Clavic al bone 04/2012 Surgical History Left ankle surgery t o repair torn tendon per Dr. Smith 03/30/2021 Hospitalization History see surgical [facility] Other 06-01-2022 Evaluation note* Encounter Date Diagnosis Assessment Notes Treatment Notes Treatment Clinical Notes Oct, Cough (ICD-10 - R05.9) Oct, Exposure to COVID-19 virus (ICD-10 - Z20.822) [facility] Other 04-05-2022 Evaluation note* Encounter Date Diagnosis Assessment Notes Treatment Notes Treatment Clinical Notes Aug, Exposure to COVID-19 virus (ICD-10 - Z20.822) [facility] Other [id number] History general Narrative - Reported* Type Description Date Medical History Follows with Dr. De Anda for her O B [facility] care Medical History 2010 Mammogram Medical History hx of seasonal allergies Medical History Dermatofibroma Medical History colonoscopy 12/12 Medical History 05-29-15 Mammogram -Benign Dr. Kimmie pelayo Medical History 12/22/2015 Colonscopy -repeat in [address] Olvera Medical History 07/29/2017 Mammogram - Benign Dr Neftali De Anda Medical History 02/2019 Mammogram Medical History 06/25/2020 Mammogram Surgical History right ankle; Dr. Li 2009 Surgical History tubial ligation Surgical History nasal surgery Surgical History c-sections x 3 Surgical History Right Ankle Surgery - Mircrofra cture - Dr. Li Surgical History Dr. Oliver repair of Left Clavic al bone 04/2012 Surgical History Left ankle surgery t o repair torn tendon per Dr. Smith 03/30/2021 Hospitalization History see surgical [facility] Other Evaluation noteNo InformationNort So[employer]10 Other Evaluation noteNo assessment information available [facility] Work Phone: Summary Purpose Family History No Family History Records FoundNo Family History Records FoundNo Family History Records Found Advance Directives No Advanced Directives Records Found Advance Directive Response Recorded Date/ Time Advance Directives No April 04, 2017 4:31pm Chief Complaint and Reason for Visit Chief Complaint Z12.31 U07.1 R06.02 Reason for Referral Reason *FU 02/03 consult and treat; soonest available Diagnosis 1 Persistent cough (R0 5.3) Referral Organization [facility] [place] Referring Provider First Name Shay Referring Provider Last Name Veronica Referring Provider Specialty Family Prac haider Referred Organization [facility]Central Scheduling Referred Provider Richardsno Nolen Referred Address [address] [place], [place],[address] Referred Provider Specialty Pulmonary Di seases Referral Priority Routine General Notes Fore, Cassandra M 023 12:06:00 PM >Received today and referral was fax. They will review and call patient to schedule Clinical Notes Office Additional Source Comments REASON FOR VISIT (unrecogniz ed section and content) clinicalclinicalno showRefil lsclinicalSOBClinical Acute IllnessClinicalcough wants referralClinicalclinicalClinical INFORMATION SOURCE (unrecogn ized section and content) DATE CREATED AUTHOR 07/13/2022 [facility] DATE CREATED AUTHOR AUTHOR'S ORGANIZ ATION 08/18/2022 [facility] DATE CREATED AUTHOR AUTHOR'S ORGANIZ ATION 05/14/2023 [facility] EPIC Care Teams (unrecognized sec tion and content) Team Status: Active Member Role Status Dates Shay Muro , DO Primary Care Provider Active Team Status: Inactive Member Role Status Dates Shay Muro , DO Primary Care Provider Active Vivian Denis , DO Attending Provider Active Team Status: Inactive Member Role Status Dates Shay Muro , DO Primary Care Provider, Attending Provi rae Active Goals (unrecognized section and content) Goals may be documented in a n alternate section FOR RECORDS PERTAINING TO PATIENTS WHO ARE OR HAVE BEEN ENROLLED IN A CHEMICAL DEPENDENCY/SUBSTANCEABUSE PROGRAM, SOME INFORMATION MAY BE OMITTED. This clinical summary was aggregated from multiple sources. Caution should be exercised in using it in the provision of clinical care. This summary normalizes information from multiple sources, and as a consequence, information in this document may materially change the coding, format and clinical context of patient data. In addition, data may be omitted in some cases. CLINICAL DECISIONS SHOULD BE BASED ON THE PRIMARY CLINICAL RECORDS. [facility]. provides no warranty or guarantee of the accuracy or completeness of information in this document.
== END 2023-05-10 09:09 | disposition home or self-care (01) ==
LOC: RAD 09:08
PROVIDERS: PCP Family Medicine; Visit Provider Podiatrist Foot & Ankle Surgery
DX: M25.571 Pain in right ankle and joints of right foot (principal)
CPT/HCPCS: 73610

== ENCOUNTER 2023-05-13 12:26 | Outpatient (OUT) | payer BC, SELFPAY ==
[2023-05-13 13:37] LABS: TSH W/ REFLEX FT4 3.954 (0.358-3.740)
[2023-05-13 15:58] LABS: Free T4 0.89 ng/dL (0.76-1.46)
== END 2023-05-13 12:27 | disposition home or self-care (01) ==
LOC: LAB 12:26
PROVIDERS: PCP Family Medicine; Visit Provider Obstetrics & Gynecology
DX: Z13.29 Encounter for screening for other suspected endocrine disorder (principal)
CPT/HCPCS: 36415; 84439; 84443

== ENCOUNTER 2023-05-13 12:33 | Outpatient (OUT) | payer BC, SELFPAY ==
--- NOTE | 2023-05-13 12:48 | XR_ITS ---
The [address] [address] Patient Name: KAYLEEN BINGHAM MRN: [id number] date: 1965 Sex: F Assigned Patient Location: [facility] Current Patient Location: [facility] Accession/Order Number: [id number] Exam Date: 05/13/2023 12:40 Report Date: 05/16/2023 11:03 At the request of: SHAY MURO Procedure: XR hand LT min 3V EXAM: XR hand LT min 3V. HISTORY: Left hand pain; M79.642. COMPARISON: None. TECHNIQUE: 3 views of the left hand were obtained. FINDINGS: No definite acute fracture or dislocation. Mild degenerative changes about the DIP joints of the index, middle and little fingers as well as interphalangeal joint of the thumb. Minimal degenerative changes about the first and second metacarpophalangeal joints. Mild degenerative changes about the first metacarpocarpal joint. Soft tissues are grossly within normal limits. XR/XR hand LT min 3V IMPRESSION: Left hand study demonstrates degenerative changes as described. Follow-up as needed. Electronically authenticated by: MARILU RANGEL Date: 05/16/2023 11:03
== END 2023-05-13 12:34 | disposition home or self-care (01) ==
LOC: RAD 12:33
PROVIDERS: PCP Family Medicine; Visit Provider Family Medicine
DX: M79.642 Pain in left hand (principal); Z13.29 Encounter for screening for other suspected endocrine disorder
CPT/HCPCS: 36415; 73130; 84439; 84443

== ENCOUNTER 2023-05-16 07:46 | Outpatient (OUT) | payer BC, SELFPAY ==
--- NOTE | 2023-05-16 07:49 | MR_ITS ---
The [address] [address] Patient Name: KAYLEEN BINGHAM MRN: [id number] date: 1965 Sex: F Assigned Patient Location: [facility] Current Patient Location: [facility] Accession/Order Number: [id number] Exam Date: 05/16/2023 07:52 Report Date: 05/16/2023 22:32 At the request of: RAYMOND RODRIGUEZ Procedure: MR ankle RT wo con EXAM: MR ankle RT wo con HISTORY: Osteochondral Defect Ankle COMPARISON: 05/10/2023 TECHNIQUE: MRI images obtained with multiple sequences. MRI of the right ankle without contrast. Sequences obtained by standard department protocol. FINDINGS: Osteochondritis dissecans of the talar dome. The area measuring approximately 1 x 1 cm with adjacent reactive bone marrow edema. No unstable osteochondral fragment. Small ankle joint effusion. Degenerative reactive edema of the distal tibia. Deltoid ligament fibers are intact. Anterior and posterior syndesmotic ligaments are intact. Anterior talofibular, posterior talofibular and calcaneofibular ligaments are intact. Extensor, flexor and peroneal tendons are intact. There is thickening of the distal Achilles tendon, consistent with Achilles tendinopathy. Plantar fascia is intact. No significant degeneration of the subtalar joint or mid foot. No acute fractures. MR/MR ankle RT wo con IMPRESSION: 1. Osteochondritis dissecans of the talar dome. The area measuring approximately 1 x 1 cm with adjacent reactive bone marrow edema. No unstable osteochondral fragment. 2. No acute ligamentous or tendinous abnormality. Electronically authenticated by: JOSESITO ACKERMAN Date: 05/16/2023 22:32
== END 2023-05-16 07:47 | disposition home or self-care (01) ==
LOC: MRI 07:46
PROVIDERS: PCP Family Medicine; Visit Provider Podiatrist Foot & Ankle Surgery
DX: Q89.8 Other specified congenital malformations (principal)
CPT/HCPCS: 73721

== ENCOUNTER 2023-06-17 08:58 | Outpatient (OUT) | payer BC, SELFPAY ==
--- NOTE | 2023-06-17 09:01 | ECG_ITS ---
[facility] Test Date: 2023-06-17 Pat Name: KAYLEEN BINGHAM Department: Room: - Gender: Female Java Architect: : 1965 Requested By: RAYMOND RODRIGUEZ Order Number: [id number] Reading MD: LULI RIVERA Measurements Intervals Ola Rate: 59 P: 46 CO: 172 QRS: 18 QRSD: 96 T: 39 QT: 373 QTc: 372 Interpretive Statements SINUS BRADYCARDIA Compared to ECG 06/25/2022 09:45:11 No significant changes Electronically Signed On 06-18-2023 10:04:48 EST by LULI RIVERA
--- OUTSIDE RECORDS SUMMARY | 2023-06-17 09:01 | XMS_ITS | CCD ---
Author Name Unknown Address [address] [place] [address] [facility] Team Providers Care Middleware Developer Name Role Phone Shay Muro Unavailable RAYMOND SMITH Consulting Unavailable RAYMOND SMITH Attending Unavailable VERONICA, DR DAY Primary Care Unavailable RAYMOND SMITH Admitting Unavailable RAYMOND SMITH Consulting Unavailable RAYMOND SMITH Attending Unavailable VERONICA, DR DAY Primary Care Unavailable RAYMOND SMITH Admitting Unavailable BLESSING ., MARIBEL PRIEST Consulting Unavailable SONU II, DODIE Consulting Unavailable FILUTZE, CORDELIA Consulting Unavailable RENETTA SORTO Attending Unavailable JESSICA, DR DEJESUS Primary Care Unavailable RENETTA SORTO Admitting Unavailable ZIEBCALVIN, DR JOSEFINA Otero Consulting Unavailable RENETTA SOROT Consulting Unavailable VERONICA, DR DAY Attending Unavailable VERONICA, DR DAY Admitting Unavailable JESSICA, DR DEJESUS Primary Care Unavailable VERONICA, DR DAY Consulting Unavailable JESSICA, DR DEJESUS Primary Care Unavailable VERONICA, DR DAY Consulting Unavailable VERONICA, DR DAY Attending Unavailable VERONICA, DR DAY Admitting Unavailable RAYMOND SMITH Consulting Unavailable JESSICA, DR DEJESUS Primary Care Unavailable RAYMOND SMITH Attending Unavailable RAYMOND SMITH Admitting Unavailable POLO DELGADO Consulting Unavailable JESSICA, DR DEJESUS Primary Care Unavailable RAYMOND SMITH Admitting Unavailable RAYMOND SMITH Attending Unavailable DO Shay Muro Primary Care Provider [phone] DO Vivian Denis Attending Provider [phone] DO Shay Muro Attending Provider VIVIAN DENIS Attending Unavailable DO Shay Muro Primary Care Provider DO Shay Muro Attending Provider Shay Muro Admitting Unavailable Shay Muro Primary Care Unavailable Shay Muro Attending Unavailable Vivian Denis Admitting Unavailable Vivian Denis Attending Unavailable Shay Muro Primary Care Unavailable Shay Muro Admitting Unavailable Shay Muro Primary Care Unavailable Shay Muro Attending Unavailable Medications Current Medications Medication Drug Class(es) Dates Sig (Normalized) Sig (Original) acyclovir 400 mg oral tablet (13 sources) Herpesvirus Nucleoside Analog DNA Polymerase Inhibitor, [...] as directed Orally as directed Jul, Active diclofenac sodium 0.01 mg/mg topical gel (1 source) Nonsteroidal Anti-inflammatory Drug Start: 05-31-2023 Diclofenac Sodium 1 % 2 grams Externally Four times a day OTC May, Active mimvey 1-0.5 mg tablet (1 source) Estrogen Mimvey 1-0.5 MG Oral for 84 Days Active 30 actuat fluticasone furoate 0.1 mg/actuat [...] as directed Orally as directed Jul, Active montelukast 10 mg oral tablet (1 source) Leukotriene Receptor Antagonist take 1 tablet by mouth every twenty-four hours Montelukast Sodium 10 MG 1 tablet Orally Once a day Active Problems Active Problems Problem Classification Problem Date Documented Date Episodic/Chronic Acquired foot deformities (1 source) Other acquired deformities of left foot; Translations: [OTHER ACQUIRED DEFORMITIES LT FOOT] Onset: 07-13-2022 Episodic Asthma (1 source) Unspecified asthma, uncomplicated; Translations: [UNSPECIFIED ASTHMA UNCOMPLICATED] Onset: 07-13-2022 Chronic Diseases of mouth; excluding dental (14 sources) Disorder of lip; Translations: [Diseases of lips] Episodic Diseases of white blood cells (13 sources) Leukopenia; Translations: [Decreased white blood cell count, unspecified] Chronic Disorders of lipid metabolism (14 sources) Hyperlipidemia; Translations: [Hyperlipidemia, unspecified] Onset: 07-13-2022 [...] source) Pain in left hand Episodic Other connective tissue disease (1 source) Pain in left finger(s) Episodic Other connective tissue disease (1 source) Other specified disorders of synovium and tendon, other site Episodic Other lower respiratory disease (1 source) Shortness of breath Episodic Other nervous system disorders (1 source) Unspecified mononeuropathy of left lower limb; Translations: [UNS MONONEUROPATHY LEFT LOWER LIMB] Onset: 07-13-2022 Chronic Other nervous system disorders (5 sources) Lesion of plantar nerve, left lower limb; Translations: [LESION PLANTAR NERVE LT LOWER LIMB] Onset: 06-28-2022 Chronic Other non-traumatic joint disorders (13 sources) Shoulder pain; Translations: [Pain in right shoulder] Episodic Other non-traumatic joint disorders (13 sources) Ankle pain; Translations: [Pain in left ankle and joints of left foot] Episodic Other screening for suspected conditions (not mental disorders or infectious disease) (2 sources) Other specified abnormal findings of blood chemistry; Translations: [Other specified abnormal findings of blood chemistry] Onset: 05-31-2023 Episodic Unclassified (4 sources) CONTACT W/AND (SUSP) EXPOS COVID-19; Translations: [CONTACT W/AND (SUSP) EXPOS COVID-19] Onset: 11-04-2021 Unclassified (1 source) COUGH, UNSPECIFIED; Translations: [COUGH, UNSPECIFIED] Onset: 11-04-2021 Unclassified (1 source) Encounter for screening mammogram for malignant neoplasm of breast; Translations: [Encounter for screening mammogram for malignant neoplasm of breast] Onset: 08-09-2022 Viral infection (2 sources) COVID-19; Translations: [COVID-19] Onset: 08-17-2022 Past or Other Problems Problem Classification Problem Date Documented Da te Episodic/Chronic Other connective tissue disease (4 sources) Pain in left foot; Translations: [PAIN IN LEFT FOOT] Onset: 03-09-2022 Episodic Other lower respiratory disease (1 source) Shortness of breath; Translations: [Shortness of breath] Onset: 08-17-2022 Episodic Unclassified (2 sources) Exposure to COVID-19 virus Z20.822 Onset: 09-01-2021 Resolved: 10-28-2021 Unclassified (2 sources) Cough R05.9 Onset: 10-28-2021 Resolved: 10-28-2021 Unclassified (1 source) CONTACT W/AND (SUSP) EXPOS COVID-19; Translations: [CONTACT W/AND (SUSP) EXPOS COVID-19] Onset: 10-28-2021 Unclassified (1 source) Acute cough R05.1 Unclassified (1 source) Persistent cough R05.3 Results Test Name Value Interpretation Reference Range Facility Thyroid Antibodies TPO+Tg Ab on 05-31-2023 Antithyroglobulin Ab <1.0 Normal 0.0-0.9 [facility] Comment on above: Order Comment: Reaso n for Exam Abnormal thyroid blood test Result Comment: Thyr oglobulin Antibody measured by [employer] Methodology Performed at: - [address] [id number] Director Child: Arben Avelar PhD, Phone: [phone] PERFORMED BY: [place] [address] PATHOLOGIST BREAKFAST SUPERVISOR LISANDRA OLVERA M.D. Performed By: #### T SH3 #### [facility] [address] [place] [address] #### THY AB #### [facility] , Thyroid Peroxidase Antibodies <9 Normal 0-34 [facility] Comment on above: Order Comment: Reaso n for Exam Abnormal thyroid blood test Performed By: #### T SH3 #### [place] [address] [place] #### THY AB #### [facility] , Thyroid Stimulating Hormoneo n 05-31-2023 TSH Qn 3.37 m[IU]/L Normal 0.45-5.33 [facility] Comment on above: Order Comment: Reaso n for Exam Abnormal thyroid blood test Result Comment: PERF ORMED BY: [place] [address] PATHOLOGIST BREAKFAST SUPERVISOR LISANDRA OLVERA M.D. Performed By: #### T SH3 #### [address] #### THY AB #### [facility] , Thyrotropin [Units/volume] i n Serum or PlasmaOrdered By: Shay Muro on 05-31-2023 TSH Qn 3.37 m[IU]/L 0.45-5.33 [facility] RSVon 01-17-2023 RSV Ag IA Ql (Unsp spec) Negative [employer] Other Alanine aminotransferase [En zymatic activity/volume] in Serum or PlasmaOrdered By: Shay Muro on 08-17-2022 ALT [Catalytic activity/Vol] 26 U/L Normal 7-52 U/L [facility] Albumin [Mass/volume] in Ser um or Plasma by Bromocresol green (BCG) dye binding methoOrdered By: Shay Muro on 08-17-2022 Albumin BCG dye [Mass/Vol] 4.5 g/dL 3.5-5.7 [facility] Alkaline phosphatase [Enzyma tic activity/volume] in Serum or PlasmaOrdered By: Shay Muro on 08-17-2022 ALP [Catalytic activity/Vol] 59 U/L Normal 34-104 U/L [facility] Aspartate aminotransferase [ Enzymatic activity/volume] in Serum or PlasmaOrdered By: Shay Muro on 08-17-2022 AST [Catalytic activity/Vol] 26 U/L Normal 13-39 U/L [facility] Basophils Auto (Bld) [#/Vol] Ordered By: Shay Muro on 08-17-2022 Basophils (Bld) [#/Vol] 0.0 10*3/uL 0.0-0.2 [facility] Basophils/100 WBC Auto (Bld) Ordered By: Shay Muro on 08-17-2022 Basophils/100 WBC (Bld) 0.4 % . [facility] Bilirubin.total [Mass/volume ] in Serum or PlasmaOrdered By: Shay uMro on 08-17-2022 Bilirubin [Mass/Vol] 0.2 mg/dL 0.3-1.0 [facility] Calcium [Mass/volume] in Ser um or PlasmaOrdered By: Shay Muro on 08-17-2022 Calcium [Mass/Vol] 10.0 mg/dL 8.6-10.3 [facility] Carbon dioxide, total [Moles /volume] in Serum or PlasmaOrdered By: Shay Muro on 08-17-2022 CO2 [Moles/Vol] 25.6 mmol/L 21.0-31.0 [facility] Chloride [Moles/volume] in S francis or PlasmaOrdered By: Shay Muro on 08-17-2022 Chloride [Moles/Vol] 106 mmol/L Normal 98-107 mmol/L [facility] Complete Blood Count Auto Di ffon 08-17-2022 Basophils (Bld) [#/Vol] 0.0 10*3/uL Normal 0.0-0.2 [facility] Comment on above: Order Comment: Reaso n for Exam COVID-19;Shortness of breath on exertion Result Comment: PERF ORMED BY: [place] [address] PATHOLOGIST BREAKFAST SUPERVISOR LISANDRA OLVERA M.D. Performed By: #### C MP, CBC #### [facility] [address] [place] [address] [place] Basophils/100 WBC (Bld) 0.4 % Normal . [facility] Comment on above: Order Comment: Reaso n for Exam COVID-19;Shortness of breath on exertion Performed By: #### C MP, CBC #### [facility] [address] Eosinophils (Bld) [#/Vol] 0.1 10*3/uL Normal 0.0-0.45 [facility] Comment on above: Order Comment: Reaso n for Exam COVID-19;Shortness of breath on exertion Performed By: #### C MP, CBC #### [place] [address] [place] Eosinophils/100 WBC (Bld) 0.9 % Normal . [facility] Comment on above: Order Comment: Reaso n for Exam COVID-19;Shortness of breath on exertion Performed By: #### C MP, CBC #### [address] Erythrocyte distribution width (RBC) [Ratio] 13.5 % Normal 11.9-15.3 [facility] Comment on above: Order Comment: Reaso n for Exam COVID-19;Shortness of breath on exertion Performed By: #### C MP, CBC #### [address] Hematocrit (Bld) [Volume fraction] 38.8 % Normal 34.0-46.4 [facility] Comment on above: Order Comment: Reaso n for Exam COVID-19;Shortness of breath on exertion Performed By: #### C MP, CBC #### [address] Hemoglobin (Bld) [Mass/Vol] 12.6 g/dL Normal 11.8-15.4 [facility] Comment on above: Order Comment: Reaso n for Exam COVID-19;Shortness of breath on exertion Performed By: #### C MP, CBC #### [address] Lymphocytes (Bld) [#/Vol] 0.6 10*3/uL Low 1.00-4.8 [facility] Comment on above: Order Comment: Reaso n for Exam COVID-19;Shortness of breath on exertion Performed By: #### C MP, CBC #### [address] Lymphocytes/100 WBC (Bld) 10.9 % Normal . [facility] Comment on above: Order Comment: Reaso n for Exam COVID-19;Shortness of breath on exertion Performed By: #### C MP, CBC #### [address] MCH (RBC) [Entitic mass] 28.2 pg Normal 24.7-34.3 [facility] Comment on above: Order Comment: Reaso n for Exam COVID-19;Shortness of breath on exertion Performed By: #### C MP, CBC #### [address] MCV (RBC) [Entitic vol] 86.7 fL Normal 80-100 [facility] Comment on above: Order Comment: Reaso n for Exam COVID-19;Shortness of breath on exertion Performed By: #### C MP, CBC #### [address] Mean Corpuscular HGB Conc 32.5 g/dL Normal 32.0-35.0 [facility] Comment on above: Order Comment: Reaso n for Exam COVID-19;Shortness of breath on exertion Performed By: #### C MP, CBC #### [address] Monocytes (Bld) [#/Vol] 0.1 10*3/uL Normal 0.0-0.8 [facility] Comment on above: Order Comment: Reaso n for Exam COVID-19;Shortness of breath on exertion Performed By: #### C MP, CBC #### [facility] [address] [place] [address] [place] Monocytes/100 WBC (Bld) 2.6 % Normal . [facility] Comment on above: Order Comment: Reaso n for Exam COVID-19;Shortness of breath on exertion Performed By: #### C MP, CBC #### [facility] [address] [place] [address] [place] Neutrophils (Bld) [#/Vol] 5.0 10*3/uL Normal 1.8-7.7 [facility] Comment on above: Order Comment: Reaso n for Exam COVID-19;Shortness of breath on exertion Performed By: #### C MP, CBC #### [facility] [address] Neutrophils/100 WBC (Bld) 85.2 % Normal . [facility] Comment on above: Order Comment: Reaso n for Exam COVID-19;Shortness of breath on exertion Performed By: #### C MP, CBC #### [facility] [address] [place] [address] [place] NRBC% 0.0 /100{WBC} Normal 0-0.5 [facility] Comment on above: Order Comment: Reaso n for Exam COVID-19;Shortness of breath on exertion Performed By: #### C MP, CBC #### [facility] [address] [place] [address] [place] Platelet mean volume (Bld) [Entitic vol] 9.7 fL Normal 6.3-10.7 [facility] Comment on above: Order Comment: Reaso n for Exam COVID-19;Shortness of breath on exertion Performed By: #### C MP, CBC #### [facility] [address] [place] [address] [place] Platelets (Bld) [#/Vol] 190 10*3/uL Normal 150-450 [facility] Comment on above: Order Comment: Reaso n for Exam COVID-19;Shortness of breath on exertion Performed By: #### C MP, CBC #### [facility] [address] RBC (Bld) [#/Vol] 4.48 10*6/uL Normal 3.60-5.00 [facility] Comment on above: Order Comment: Reaso n for Exam COVID-19;Shortness of breath on exertion Performed By: #### C MP, CBC #### [facility] [address] WBC (Bld) [#/Vol] 5.8 10*3/uL Normal 3.8-11.6 [facility] Comment on above: Order Comment: Reaso n for Exam COVID-19;Shortness of breath on exertion Performed By: #### C MP, CBC #### [facility] [address] Basophils (Bld) [#/Vol] 0.114101186 10*3/uL Normal 0.0-0.2 10*3/uL [employer] Other Basophils/100 WBC (Bld) 0.400 % . % N [employer] Other Eosinophils (Bld) [#/Vol] 0.484154043 10*3/uL Normal 0.0-0.45 10*3/uL [employer] Other Eosinophils/100 WBC (Bld) 0.900 % . % [employer] Other Erythrocyte distribution width (RBC) [Ratio] 13.500 % Normal 11.9-15.3 % [employer] Other Hematocrit (Bld) [Volume fraction] 38.800 % Normal 34.0-46.4 % [employer] Other Hemoglobin (Bld) [Mass/Vol] 12.853151 g/dL Normal 11.8-15.4 g/dL [employer] Other Lymphocytes (Bld) [#/Vol] 0.457156020 10*3/uL Low 1.00-4.8 10*3/uL [employer] Other Lymphocytes/100 WBC (Bld) 10.900 % . % [employer] Other MCH (RBC) [Entitic mass] 28.2000 pg Normal 24.7-34.3 p g [employer] Other MCV (RBC) [Entitic vol] 86.7000 fL Normal 80-100 fL N [employer] Other Monocytes (Bld) [#/Vol] 0.823469328 10*3/uL Normal 0.0-0.8 10*3/uL [employer] Other Monocytes/100 WBC (Bld) 2.600 % . % N [employer] Other Neutrophils (Bld) [#/Vol] 5.586967231 10*3/uL Normal 1.8-7.7 10*3/uL [employer] Other Neutrophils/100 WBC (Bld) 85.200 % . % [employer] Other Platelet mean volume (Bld) [Entitic vol] 9.7000 fL Normal 6.3-10.7 fL [employer] Other WBC (Bld) [#/Vol] 5.472409230 10*3/uL Normal 3.8-11.6 10*3/uL [employer] Other Complete Blood Count Auto Diff 5.8 10*3/uL Normal 3.8-11.6 10*3/uL [employer] Other Complete Blood Count Auto Diff 32.5 g/dL Normal 32.0-35.0 g/dL [employer] Other Complete Blood Count Auto Diff 0.0 /100{WBC} Normal 0-0.5 /100{WBC} [employer] Other Comprehensive Metabolic Pane pino 08-17-2022 Albumin [Mass/Vol] 4.5 g/dL Normal 3.5-5.7 [facility] Comment on above: Order Comment: Reaso n for Exam COVID-19;Shortness of breath on exertion Performed By: #### C MP, CBC #### [facility] [address] Albumin/Globulin [Mass ratio] 2.0 {ratio} Normal [facility] Comment on above: Order Comment: Reaso n for Exam COVID-19;Shortness of breath on exertion Performed By: #### C MP, CBC #### [facility] [address] ALP [Catalytic activity/Vol] 59 U/L Normal 34-104 [facility] Comment on above: Order Comment: Reaso n for Exam COVID-19;Shortness of breath on exertion Result Comment: PERF ORMED BY: [place] [address] PATHOLOGIST BREAKFAST SUPERVISOR LISANDRA OLVERA M.D. Performed By: #### C MP, CBC #### [address] ALT [Catalytic activity/Vol] 26 U/L Normal 7-52 [facility] Comment on above: Order Comment: Reaso n for Exam COVID-19;Shortness of breath on exertion Performed By: #### C MP, CBC #### [address] Anion gap [Moles/Vol] 10.9 mmol/L Normal 6.0-15.[address] [facility] Comment on above: Order Comment: Reaso n for Exam COVID-19;Shortness of breath on exertion Performed By: #### C MP, CBC #### [facility] [address] AST [Catalytic activity/Vol] 26 U/L Normal 13-39 [facility] Comment on above: Order Comment: Reaso n for Exam COVID-19;Shortness of breath on exertion Performed By: #### C MP, CBC #### [facility] [address] [place] [address] [place] Bilirubin [Mass/Vol] 0.2 mg/dL Low 0.3-1.0 [facility] Comment on above: Order Comment: Reaso n for Exam COVID-19;Shortness of breath on exertion Performed By: #### C MP, CBC #### [facility] [address] Calcium [Mass/Vol] 10.0 mg/dL Normal 8.6-10.3 [facility] Comment on above: Order Comment: Reaso n for Exam COVID-19;Shortness of breath on exertion Performed By: #### C MP, CBC #### [facility] [address] Chloride [Moles/Vol] 106 mmol/L Normal 98-107 [facility] Comment on above: Order Comment: Reaso n for Exam COVID-19;Shortness of breath on exertion Performed By: #### C MP, CBC #### [facility] [address] CO2 [Moles/Vol] 25.6 mmol/L Normal 21.0-31.0 [facility] Comment on above: Order Comment: Reaso n for Exam COVID-19;Shortness of breath on exertion Performed By: #### C MP, CBC #### [facility] [address] Creatinine [Mass/Vol] 0.92 mg/dL Normal 0.60-1.20 [facility] Comment on above: Order Comment: Reaso n for Exam COVID-19;Shortness of breath on exertion Performed By: #### C MP, CBC #### [facility] [address] [place] [address] [place] GFR/1.73 sq M.predicted MDRD (S/P/Bld) [Vol rate/Area] mL/min/{1.73_m2} [facility] Comment on above: Order Comment: Reaso n for Exam COVID-19;Shortness of breath on exertion Performed By: #### C MP, CBC #### [facility] [address] [place] [address] [place] Globulin (S) [Mass/Vol] 2.2 g/dL Normal [facility] Comment on above: Order Comment: Reaso n for Exam COVID-19;Shortness of breath on exertion Performed By: #### C MP, CBC #### [facility] [address] Glucose [Mass/Vol] 134 mg/dL High 74-109 [facility] Comment on above: Order Comment: Reaso n for Exam COVID-19;Shortness of breath on exertion Result Comment: [facility] Glucose Reference Range is dependent on time and content of last meal. Glucose of more than 200 mg/dL in a nonstressed, ambulatory subject supports the diagnosis of Diabetes Mellitus. ADA recommended reference range Performed By: #### C MP, CBC #### [facility] [address] [place] [address] Potassium [Moles/Vol] 4.5 mmol/L Normal 3.5-5.1 [facility] Comment on above: Order Comment: Reaso n for Exam COVID-19;Shortness of breath on exertion Performed By: #### C MP, CBC #### [facility] [address] [place] [address] Protein [Mass/Vol] 6.7 g/dL Normal 6.4-8.9 [facility] Comment on above: Order Comment: Reaso n for Exam COVID-19;Shortness of breath on exertion Performed By: #### C MP, CBC #### [facility] [address] [place] [address] [place] Sodium [Moles/Vol] 138 mmol/L Normal 136-145 [facility] Comment on above: Order Comment: Reaso n for Exam COVID-19;Shortness of breath on exertion Performed By: #### C MP, CBC #### [facility] [address] [place] [address] [place] Urea nitrogen [Mass/Vol] 16 mg/dL Normal 7-25 [facility] Comment on above: Order Comment: Reaso n for Exam COVID-19;Shortness of breath on exertion Performed By: #### C MP, CBC #### [facility] [address] Albumin [Mass/Vol] 4.137020 g/dL Normal 3.5-5.7 g/dL N [facility] Other Bilirubin [Mass/Vol] 0.8873769 mg/dL Low 0.3- 1.0 mg/dL [employer] Other Calcium [Mass/Vol] 10.0487206 mg/dL Normal 8.6-1 0.3 mg/dL [employer] Other CO2 [Moles/Vol] 25.31764385 mmol/L Normal 21.0-3 1.0 mmol/L [employer] Other Creatinine [Mass/Vol] 0.76433509 mg/dL Normal 0. 60-1.20 mg/dL [employer] Other Potassium [Moles/Vol] 4.52519966 mmol/L Normal 3 .5-5.1 mmol/L [employer] Other Protein [Mass/Vol] 6.322527 g/dL Normal 6.4-8.9 g/dL N [facility] Other Comprehensive Metabolic Panel 2.2 g/dL [employer] Other Comprehensive Metabolic Pane lOrdered By: Shay Muro on 08-17-2022 GFR/1.73 sq M.predicted MDRD (S/P/Bld) [Vol rate/Area] mL/min/{1.73_m2} [facility] Creatinine [Mass/volume] in Serum or PlasmaOrdered By: Shay Muro on 08-17-2022 Creatinine [Mass/Vol] 0.92 mg/dL 0.60-1.20 [facility] Eosinophils Auto (Bld) [#/Vo l]Ordered By: Shay Muro on 08-17-2022 Eosinophils (Bld) [#/Vol] 0.1 10*3/uL 0.0-0.45 [facility] Eosinophils/100 WBC Auto (Bl d)Ordered By: Shay Muro on 08-17-2022 Eosinophils/100 WBC (Bld) 0.9 % . [facility] Erythrocyte distribution wid th Auto (RBC) [Ratio]Ordered By: Shay Muro on 08-17-2022 Erythrocyte distribution width (RBC) [Ratio] 13.5 % 11.9-15.3 [facility] Erythrocytes [#/volume] in B lood by Automated countOrdered By: Shay Muro on 08-17-2022 RBC (Bld) [#/Vol] 4.48 10*6/uL Normal 3.60-5.00 [facility] Globulin Calc (S) [Mass/Vol] Ordered By: Shay Muro on 08-17-2022 Globulin (S) [Mass/Vol] 2.2 g/dL [facility] Glucose [Mass/volume] in Ser um or PlasmaOrdered By: Shay Muro on 08-17-2022 Glucose [Mass/Vol] 134 mg/dL High 74-109 mg/dL [facility] Comment on above: ADA recommended refe rence rangeRandom Glucose Reference Range is dependent on time and content of last meal. Glucose of more than 200 mg/dL in a nonstressed, ambulatory subject supports the diagnosis of Diabetes Mellitus. Hematocrit Auto (Bld) [Volum e fraction]Ordered By: Shay Muro on 08-17-2022 Hematocrit (Bld) [Volume fraction] 38.8 % 34.0-46.4 [facility] Hemoglobin [Mass/volume] in BloodOrdered By: Shay Muro on 08-17-2022 Hemoglobin (Bld) [Mass/Vol] 12.6 g/dL 11.8-15.4 [facility] Leukocytes [#/volume] correc hermelinda for nucleated erythrocytes in Blood by Automated counOrdered By: Shay Muro on 08-17-2022 WBC corrected for nucl RBC Auto (Bld) [#/Vol] 5.8 10*3/uL 3.8-11.6 [facility] Lymphocytes Auto (Bld) [#/Vo l]Ordered By: Shay Muro on 08-17-2022 Lymphocytes (Bld) [#/Vol] 0.6 10*3/uL 1.00-4.8 [facility] Lymphocytes/100 WBC Auto (Bl d)Ordered By: Shay Muro on 08-17-2022 Lymphocytes/100 WBC (Bld) 10.9 % . [facility] MCH Auto (RBC) [Entitic mass ]Ordered By: Shay Muro on 08-17-2022 MCH (RBC) [Entitic mass] 28.2 pg 24.7-34.3 [facility] MCHC Auto (RBC) [Mass/Vol]Or dered By: Shay Muro on 08-17-2022 MCHC (RBC) [Mass/Vol] 32.5 g/dL 32.0-35.0 [facility] MCV Auto (RBC) [Entitic vol] Ordered By: Shay Muro on 08-17-2022 MCV (RBC) [Entitic vol] 86.7 fL 80-100 [facility] Monocytes Auto (Bld) [#/Vol] Ordered By: Shay Muro on 08-17-2022 Monocytes (Bld) [#/Vol] 0.1 10*3/uL 0.0-0.8 [facility] Monocytes/100 WBC Auto (Bld) Ordered By: Shay Muro on 08-17-2022 Monocytes/100 WBC (Bld) 2.6 % . [facility] Neutrophils Auto (Bld) [#/Vo l]Ordered By: Shay Muro on 08-17-2022 Neutrophils (Bld) [#/Vol] 5.0 10*3/uL 1.8-7.7 [facility] Neutrophils/100 WBC Auto (Bl d)Ordered By: Shay Muro on 08-17-2022 Neutrophils/100 WBC (Bld) 85.2 % . [facility] No Panel InformationOrdered By: Shay Muro on 08-17-2022 Pharmacy Creatinine Clearance (Chem N/A [facility] Nucleated erythrocytes [Pres ence] in Blood by Automated countOrdered By: Shay Muro on 08-17-2022 Nucleated RBC Auto Ql (Bld) 0.0 /100{WBC} 0-0.5 [facility] Platelet mean volume Auto (B ld) [Entitic vol]Ordered By: Shay Muro on 08-17-2022 Platelet mean volume (Bld) [Entitic vol] 9.7 fL 6.3-10.7 [facility] Platelets [#/volume] in Bloo d by Automated countOrdered By: Shay Muro on 08-17-2022 Platelets (Bld) [#/Vol] 190 10*3/uL Normal 150- 450 10*3/uL [facility] Potassium [Moles/volume] in Serum or PlasmaOrdered By: Shay Muro on 08-17-2022 Potassium [Moles/Vol] 4.5 mmol/L 3.5-5.1 [facility] Protein [Mass/volume] in Ser um or PlasmaOrdered By: Shay Muro on 08-17-2022 Protein [Mass/Vol] 6.7 g/dL 6.4-8.9 [facility] Serum or plasma albumin/glob ulin mass ratioOrdered By: Shay Muro on 08-17-2022 Albumin/Globulin [Mass ratio] 2.0 {ratio} [facility] Serum or plasma anion gap de terminationOrdered By: Shay Muro on 08-17-2022 Anion gap [Moles/Vol] 10.9 mmol/L 6.0-15.[address] [facility] Sodium [Moles/volume] in Ser um or PlasmaOrdered By: Shay Muro on 08-17-2022 Sodium [Moles/Vol] 138 mmol/L Normal 136-145 mmol/L [facility] Urea nitrogen [Mass/volume] in Serum or PlasmaOrdered By: Shay Muro on 08-17-2022 Urea nitrogen [Mass/Vol] 16 mg/dL Normal 7-25 mg/dL [facility] WBC Auto (Bld) [#/Vol]Ordere d By: Shay Muro on 08-17-2022 WBC (Bld) [#/Vol] 5.8 10*3/uL 3.8-11.6 [facility] XR chest 2V*on 08-17-2022 XR chest 2V* [facility] [address] [address] XRay Report Signed Patient: Shefali Zavala MR#: [id number] : 1965 Acct:[id number] Age/Sex: 57 / F ADM Date: 08/17/22 Loc: [place] Room: Type: [facility] Attending Dr: Shay Muro DO Copies to: Shay Muro DO Ordering Provider: Shay Muro DO Date of Service: 08/17/22 XR/XR chest 2V*: COVID-19;Shortness of breath on exertion Plain film chest2 view HISTORY:Shortness of breath COMPARISON:04/02/20 FINDINGS: SUPPORT DEVICES: None POSTSURGICAL CHANGES:None HEART: Within normal limits PULMONARY COLIN:Within normal limits MEDIASTINUM:Unrema rkable LUNGS AND PLEURA: No acute lung process, pleural effusion or pneumothorax identified. BONY STRUCTURES: Intact ADDITIONAL FINDINGS None XR/XR chest 2V* IMPRESSION: No acute process. Impression dictated by: Andrew Lockett M.D.08/17/2022 7:08 PM Dictation Location: [place] [address] Transcribed By: [facility] 08/17/221907 Dictated By: Andrew Lockett DO 08/17/221906 Signed By: 08/17/221907 Normal [facility] SARS-CoV-2 (COVID-19) RNA JOSÉ MIGUEL+probe Ql (Unsp spec) XR/XR chest 2V*: COVID-19;Shortness of breath on exertion [facility] [employer] Other XR chest 2V* [facility] [employer] Other XR chest 2V* [facility] [employer] Other XR chest 2V* [address] [place] [address] [employer] Other XR chest 2V* [place] [address] [facility] [employer] Other XR chest 2V* XRay Report [facility] [employer] Other XR chest 2V* Signed [facility] [employer] Other XR chest 2V* Patient: Shefali Zavala MR#: [id number] [employer] Other XR chest 2V* 683 [employer] Other XR chest 2V* : 1965 Acct:[id number] [employer] Other XR chest 2V* Age/Sex: 57 / F ADM Date: 08/17/22 [employer] Other XR chest 2V* Loc: [place] Room: Type: [facility] [employer] Other XR chest 2V* Attending Dr: Shay Muro DO [employer] Other XR chest 2V* Copies to: Shay Muro DO [employer] Other XR chest 2V* Ordering Provider: Shay Muro DO [employer] Other XR chest 2V* Date of Service: 08/17/22 [employer] Other XR chest 2V* Plain film chest2 view [employer] Other XR chest 2V* HISTORY:Shortness of breath [employer] Other XR chest 2V* COMPARISON:04/02/20 20 [employer] Other XR chest 2V* FINDINGS: [employer] Other XR chest 2V* SUPPORT DEVICES: None [employer] Other XR chest 2V* POSTSURGICAL CHANGES:None [employer] Other XR chest 2V* HEART: Within normal limits [employer] Other XR chest 2V* PULMONARY COLIN:Within normal limits [employer] Other XR chest 2V* MEDIASTINUM:Unrema rkable [employer] Other XR chest 2V* LUNGS AND PLEURA: No acute lung process, pleural effusion or pneumothorax identified. [employer] Other XR chest 2V* BONY STRUCTURES: Intact [employer] Other XR chest 2V* ADDITIONAL FINDINGS None [employer] Other XR chest 2V* XR/XR chest 2V* [employer] Other XR chest 2V* IMPRESSION: No acute process. [employer] Other XR chest 2V* Impression dictated by: Andrew Lockett M.D.08/17/2022 7:08 PM [employer] Other XR chest 2V* Dictation Location: [place] [address] [employer] Other XR chest 2V* Transcribed By: PWS 08/17/22 [facility] [employer] Other XR chest 2V* Dictated By: Andrew Lockett DO 08/17/22 [employer] Other XR chest 2V* Signed By: [employer] Other XR chest 2V* 08/17/22 [facility] [place] Other MM screening mammo BI w/CADo n 08-09-2022 MM screening mammo BI w/CAD [facility] [place] [address] [place] [address] Mammography Report Signed Patient: Shefali Zavala MR#: [id number] : 1965 Acct:[id number] Age/Sex: 57 / F ADM Date: 08/09/22 Loc: [place] Room: Type: [facility] Attending Dr: Vivian Denis DO Copies to: DO ESHA Cramer MONA DO Ordering Provider: VIVIAN DENIS DO Date of Service: 08/09/22 MM/MM screening mammo BI w/CAD: screening;Encounte r for screening mammogram for malignant ne BILATERAL Screening Full Field digital mammogram with 3-D imaging. Full field digital CC and MLO imaging performed. CAD utilized. COMPARISON: 06/24/2020 HISTORY:Annual screening BREAST COMPOSITION: Scattered fibroglandular densities of the breast parenchyma identified BENIGN BREAST CALCIFICATIONS: Present VASCULAR CALCIFICATIONS:Non e DEVELOPING ARCHITECTURAL DISTORTION:None DEVELOPING BREAST NODULE:None DEVELOPING MALIGNANT CALCIFICATIONS:Non e AXILLARY LYMPH NODES:Normal POSTSURGICAL CHANGES:None MM/MM screening [...] Andrew Lockett M.D.08/09/2022 4:24 PM Dictation Location: [facility] Transcribed By: [facility] 08/09/22 162 Dictated By: Andrew Lockett DO 08/09/221622 Signed By: 08/09/22 1624 Normal [facility] POINT OF CARE GLUCOSEon 02-0 Glucose [Mass/Vol] 103 mg/dL Normal 74-106 [facility] Comment on above: Performed By: #### P OCGLUC #### [facility] [address] [place] [address] [address] Nhung Henao Glucose [Mass/Vol] 97 mg/dL Normal 74-106 [facility] Comment on above: Performed By: #### P OCGLUC #### [facility] [address] [place] [address] [address] Nhung Henao Covid-19 PCR ([facility]on 05-31 SARS-CoV-2 (COVID-19) RNA JOSÉ MIGUEL+probe Ql (Unsp spec) Not detected Normal NOT DETECTED [facility] Comment on above: Result Comment: This test is not yet approved or cleared by the [place] FDA. When there are no FDA-approved or cleared tests available, and other criteria are met, FDA can make tests available under an emergency access mechanism called an Emergency Use Authorization (EUA). The EUA for this test is supported by the [place] of Health and Human Service's (HHS's) declaration [...] consistent with SARS-CoV-2. Performed By: #### C VDTB #### [facility] [address] [place] [address] Dr. Nhung Henao PROF CHEM 8 (BAS METB)on Anion gap [Moles/Vol] 13.5 mmol/L Normal [facility] Comment on above: Performed By: #### B MP #### [facility] [address] [place] [address] Dr. Nhung Henao Calcium [Mass/Vol] 9.4 mg/dL Normal 8.5-10.1 [facility] Comment on above: Performed By: #### B MP #### [facility] [address] [place] [address] Dr. Nhung Henao Chloride [Moles/Vol] 104 mmol/L Normal 98-107 [facility] Comment on above: Performed By: #### B MP #### [facility] [address] [place] [address] Dr. Nhung Henao CO2 [Moles/Vol] 28.2 mmol/L Normal 21.0-32.0 [facility] Comment on above: Performed By: #### B MP #### [facility] [address] [place] [address] Dr. Nhung Henao Creatinine [Mass/Vol] 0.82 mg/dL Normal 0.55-1.02 [facility] Comment on above: Performed By: #### B MP #### [facility] [address] [place] [address] Dr. Nhung Henao EGFR-AF UKRAINIAN >60 Normal >=60 [facility] Comment on above: Performed By: #### B MP #### [facility] [address] [place] [address] [address] Nhung Henao EGFR-NON AF UKRAINIAN >60 Normal >=60 [facility] Comment on above: Performed By: #### B MP #### [facility] [address] [place] [address] [address] Nhung Henao Glucose [Mass/Vol] 88 mg/dL Normal 74-106 [facility] Comment on above: Performed By: #### B MP #### [facility] [address] [place] [address] [address] Nhung Henao Potassium [Moles/Vol] 4.7 mmol/L Normal 3.5-5.1 [facility] Comment on above: Performed By: #### B MP #### [facility] [address] [place] [address] [address] Nhung Henao Sodium [Moles/Vol] 141 mmol/L Normal 136-145 [facility] Comment on above: Performed By: #### B MP #### [facility] [address] [place] [address] [address] Nhung Henao Urea nitrogen [Mass/Vol] 20.0 mg/dL Critically high 7.0-18 .0 [facility] Comment on above: Performed By: #### B MP #### [facility] [address] [place] [address] [address] Nhung Henao Urea nitrogen/Creatinine [Mass ratio] 24.4 mg/mg Normal [facility] Comment on above: Performed By: #### B MP #### [facility] [address] [place] [address] [address] Nhung Henao MRI FOOT LT WO CONon 022 MRI FOOT LT WO CON EXAM: [...] POLO DELGADO Date: 2022-04-24 13:21 Normal [facility] Covid-19 PCR (CVDTB)on SARS-CoV-2 (COVID-19) RNA JOSÉ MIGUEL+probe Ql (Unsp spec) Not detected Normal NOT DETECTED [facility] Comment on above: Result Comment: This test is not yet approved or cleared by the [place] FDA. When there are no FDA-approved or cleared tests available, and other criteria are met, FDA can make tests available under an emergency access mechanism called an Emergency Use Authorization (EUA). The EUA for this test is supported by the [place] of Health and Human Service's (HHS's) declaration [...] consistent with SARS-CoV-2. Performed By: #### C VDTB #### [facility] [address] [place] [address] Dr. Nhung Henao Covid-19 PCR ([facility])on SARS-CoV-2 (COVID-19) RNA JOSÉ MIGUEL+probe Ql (Unsp spec) Not detected Normal NOT DETECTED [facility] Comment on above: Result Comment: This test is not yet approved or cleared by the [place] FDA. When there are no FDA-approved or cleared tests available, and other criteria are met, FDA can make tests available under an emergency access mechanism called an Emergency Use Authorization (EUA). The EUA for this test is supported by the Functional Manager of Health and Human Service's (HHS's) declaration [...] consistent with SARS-CoV-2. Performed By: #### C VDTB #### [facility] [address] [place] [address] [address] Nhung Henao Vital Signs Date Time Vital Sign Value Performing Clinician Facility 05-31-2023 13:45-0500 Body height 170.18 cm Shay Kuns Other [employer] Other 05-31-2023 13:45-0500 Body mass index (BMI) [Ratio] 31.01 kg/m2 Shay Kuns Other [facility] Other 05-31-2023 13:45-0500 Body weight 89.81 kg Shay Kuns Other [employer] Other 05-31-2023 13:45-0500 Diastolic blood pressure 84 mm[Hg] Shay Kuns Other [employer] Other 05-31-2023 13:45-0500 Respiratory rate 18 /min Shay Kuns Other [employer] Other 05-31-2023 13:45-0500 SaO2% (BldA) [Mass fraction] 98 % Shay Kuns Other [employer] Other 05-31-2023 13:45-0500 Systolic blood pressure 130 mm[Hg] Shay Kuns Other [facility] Other 01-17-2023 10:30-0400 Body height 170.18 cm Shay Kuns Other [facility] Other 01-17-2023 10:30-0400 Body mass index (BMI) [Ratio] 30.22 kg/m2 Shay Kuns Other [facility] Other 01-17-2023 10:30-0400 Body weight 87.54 kg Shay Kuns Other [facility] Other 01-17-2023 10:30-0400 Diastolic blood pressure 78 mm[Hg] Shay Kuns Other [facility] Other 01-17-2023 10:30-0400 Respiratory rate 16 /min Shay Kuns Other [employer] Other 01-17-2023 10:30-0400 SaO2% (BldA) [Mass fraction] 97 % Shay Kuns Other [employer] Other 01-17-2023 10:30-0400 Systolic blood pressure 108 mm[Hg] Shay Kuns Other [employer] Other Encounters Encounter Date Encounter Type Care Provider Facility Start: 05-31-2023 End: 05-31-2023 ambulatory Shay Kuns Facility:[facility] Start: 05-31-2023 End: 05-31-2023 Patient encounter procedure DO Shay Kuns Work Phone: [facility] [place] Work Phone: Start: 05-31-2023 End: 05-31-2023 ambulatory DO Shay Kuns Work Phone: [facility] Work Phone: Start: 05-31-2023 Office outpatient vi sit 25 minutes Shay Kuns [facility] [place] Start: 05-12-2023 End: 05-12-2023 ambulatory Shay Kuns Other [employer] Other Start: 05-12-2023 Telephone encounter Shay Kuns [facility] [place] Start: 05-11-2023 End: 05-11-2023 ambulatory VIVIAN DENIS Not Available Start: 01-25-2023 End: 01-25-2023 ambulatory Shay Kuns Other [employer] Other Start: 01-25-2023 Telephone encounter Shay Kuns [facility] [place] Start: 01-24-2023 End: 01-24-2023 ambulatory Shay Kuns Other [employer] Other Start: 01-24-2023 Telephone encounter Shay Kuns [facility] [place] Start: 01-17-2023 (Acute) Acute Visit Shay Kuns [facility] [place] Start: 01-17-2023 End: 01-17-2023 ambulatory Shay Kuns Other [employer] Other Start: 01-13-2023 End: 01-13-2023 ambulatory Shay Kuns Other [facility] Other Start: 01-13-2023 Telephone encounter Shay Kuns [facility] [place] Start: 01-10-2023 End: 01-10-2023 ambulatory Shay Kuns Other [employer] Other Start: 01-10-2023 Telephone encounter Shay Kuns [facility] [place] Start: 08-17-2022 End: 08-17-2022 ambulatory Shay Kuns Facility:[facility] Start: 08-17-2022 End: 08-17-2022 Patient encounter procedure DO Shay Kuns Work Phone: [facility] [place] Work Phone: Start: 08-17-2022 End: 08-17-2022 ambulatory DO Shay Kuns Work Phone: [facility] Work Phone: Start: 08-17-2022 Telephone encounter Shay Kuns [facility] [address] Start: 08-09-2022 End: 08-09-2022 ambulatory Vivian Nataprawira Facility:[facility] Start: 08-09-2022 End: 08-09-2022 Patient encounter procedure DO Shay Kuns Work Phone: [facility] Work Phone: Start: 07-01-2022 End: 07-01-2022 ambulatory RAYMOND SMITH Facility:[facility] Start: 06-28-2022 Encounter for preprocedural laboratory examination RAYMOND SMITH [facility] Start: 06-25-2022 End: 06-26-2022 ambulatory RAYMOND SMITH Facility:[facility] Start: 06-25-2022 End: 06-26-2022 Encounter for preprocedural laboratory examination RAYMOND SMITH Facility:[facility] Start: 06-09-[address] DOCTOR LOPEZ Facility :[facility] Start: 04-21-2022 End: 04-22-2022 ambulatory RAYMOND SMITH Facility:[facility] Start: 04-02-2022 End: 04-02-2022 ambulatory Shay Muro Other [employer] Other Start: 04-02-2022 Telephone encounter Shay Muro [facility] [place] Start: 03-15-2022 End: 03-15-2022 ambulatory Shay Muro Other [employer] Other Start: 03-15-2022 Telephone encounter Shay Muro [facility] [place] Start: 03-09-2022 End: 03-10-2022 ambulatory RENETTA SORTO Facility:[facility] Start: 12-10-2021 End: 12-10-2021 ambulatory Shay Muro Other [employer] Other Start: 12-10-2021 Telephone encounter Shay Muro [facility] [place] Start: 10-28-2021 Telephone encounter Shay Muro [facility] [place] Start: 10-28-2021 End: 10-28-[address] SHAY MURO [employer] Other Start: 09-01-2021 Telephone encounter Shay Muro [facility] [place] Start: 09-01-2021 End: 09-01-[address] [facility] [employer] Other Procedures Date Procedure Procedure Detail Performing Clinician Start: 08-17-2022 Plain chest X-ray DO Br ett Veronica Work Phone: Start: 08-09-2022 Screening mammograph y of bilateral breasts DO Shay Reinas Work Phone: Plan of Treatment Date Care Activity Detail Author Thyroglobulin Ab [Un its/volume] in Serum or Plasma [facility] enter Thyroperoxidase Ab [ Units/volume] in Serum or Plasma [facility] enter Immunizations Immunization Date Immunization Notes Care Provider Fa cili 04-21-2021 COVID-19 Vaccine Pfi zer - Documentation Purposes Only Shay Kuns Other [employer] Other 02-27-2021 influenza, seasonal, injectable Shay Kuns Other [employer] Other 09-03-2020 COVID-19 Vaccine Pfi zer - Documentation Purposes Only Shay Kuns Other [employer] Other 08-13-2020 COVID-19 Vaccine Pfi zer - Documentation Purposes Only Shay Kuns Other [employer] Other 03-14-2019 influenza, seasonal, injectable Shay Kuns Other [employer] Other 04-12-2018 influenza, seasonal, injectable Shay Kuns Other [employer] Other Payers Date Payer Category Payer Self-pay [id number] 1965 Unknown [id number] 2.16.84 [id number] 1965 Unknown [id number] 2.16.84 [id number] 1965 Unknown [id number] 2.16.84 [id number] 1965 Unknown [id number] 2.16.84 [id number] 1965 Unknown [id number] 2.16.84 [id number] 1965 Unknown [id number] 2.16.84 0.1.152571.3.579.2.593 1965 Unknown [id number] 2.16.84 [id number] 1965 Unknown [id number] 2.16.840 .[id number] 1960 [employer] Cross Blue Shield [id number] Unknown [place] BC/BS [id number] Unknown [id number] 2.16.8 [id number] Unknown [id number] 2.16.8 [id number] Unknown [id number] 2.16.8 [id number] Social History Date Type Detail Facility Unknown if ever smoked [employer] Other Sex Assigned At Sex Assigned At Bir th [employer] Other Start: 1965 Sex Assigned At Female F [facility] Clinical Notes 05-29-2015 to 05-31-2023 Note Date & Type Note Facility 05-31-2023 Evaluation note Encounter Date Diagnosis Assessment Notes May, Pain of left thumb (ICD-10 - M79.645) I have reviewed recent xray results of the left hand. This does demonstrate arthritic changes of the left hand/ thumb region. I do recommend patient try some Voltaren Gel to the left thumb joint 3 - 4 times per day to see if this does help. May need a referral to hand surgeon Dr. 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 Smith and will soon have surgical intervention of the achilles tendon of the right foot. I do encourage her to continue with the plan of care as outlined by surgeon May, Abnormal thyroid blood test (ICD-10 - R79.89) Slightly abnormal TSH noted on current lab results. I do want her to get additional lab done to look at this further. TSH and thyroid antibodies will be ordered and she is in agreement. She does exhibit some fatigue and associated hot flashes. She was recently evaluated by Dr. Park, CRM MARKETING SPECIALIST, and started on an estrogen replacement for hot flashes. 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 She states air quality measures were determined to be safe. Masking is optional at job site. [employer] Other 08-14-2023 Evaluation note* Encounter Date Diagnosis Assessment Notes Treatment Notes Treatment Clinical Notes Dec, Acute cough (ICD-10 - R05.1) [employer] Other 07-16-2023 History general Narrative - Reported* Type Description Date Medical History Follows with Dr. De Anda for her O B [employer] MARKET[employer]IST care Medical History 2010 Mammogram Medical History [...] Dr. Smith 03/30/2021 Hospitalization History see surgical [facility] Other 07-16-2023 History general Narrative - Reported* Type Description Date Medical History Follows with Dr. De Anda for her O B [employer] MARK[employer]IST care Medical History 2010 Mammogram Medical History [...] Left Foot Neuroma 06/2022 Hospitalization History see surgical [facility] Other 03-21-2023 Evaluation note* Encounter Date Diagnosis Assessment Notes Treatment Notes Treatment Clinical Notes Jul, COVID-19 (ICD-10 - U07.1) Jul, Shortness of breath on exertion (ICD-10 - R06.02) [facility] Other 10-17-2022 Evaluation note* Encounter Date Diagnosis Assessment Notes Treatment Notes Treatment Clinical Notes Feb, Diseases of lips (ICD-10 - K13.0) [facility] Other 10-12-2022 NotePROCEDURE: XR FOOT LT MIN [...] Electronically authenticated by: JOSEFINA CLAYTON Date: 2022-03-09 22:44[facility]07-16-2022 History general Narrative - Reported* Type Description Date Medical History Follows with Dr. De Anda for her O B [employer]IST care Medical History 2010 Mammogram Medical History [...] per Dr. Smith 03/30/2021 Hospitalization History see [employer] Other 06-01-2022 Evaluation note* Encounter Date Diagnosis Assessment Notes Treatment Notes Treatment Clinical Notes Oct, Cough (ICD-10 - R05.9) Oct, Exposure to COVID-19 virus (ICD-10 - Z20.822) [facility] Other 04-05-2022 Evaluation note* Encounter Date Diagnosis Assessment Notes Treatment Notes Treatment Clinical Notes Aug, Exposure to COVID-19 virus (ICD-10 - Z20.822) [facility] Other 12-31-2015 History general Narrative - Reported* Type Description Date Medical History Follows with Dr. De Anda for her O B [employer]IST care Medical History 2010 Mammogram Medical History [...] Dr. Smith 03/30/2021 Hospitalization History see surgical [facility] Other Evaluation noteNo InformationNort Swank Other Evaluation noteNo assessment information available [facility] Work Phone: Summary Purpose Family History No Family History Records FoundNo Family History Records FoundNo Family History Records Found Advance Directives No Advanced Directives Records Found Advance Directive Response Recorded Date/ Time Advance Directives No April 04, 2017 4:31pm Advance Directive Response Recorded Date/ Time Advance Directives No April 04, 2017 3:31pm Chief Complaint and Reason for Visit Chief Complaint Z12.31 U07.1 R06.02 Reason for Referral Reason *FU 02/03 consult and treat; soonest available Diagnosis 1 Persistent cough (R0 5.3) Referral Organization [facility] Alexa Velazquez Referring Provider First Name Shay Referring Provider Last Name Veronica Referring Provider Specialty Family Prac haider Referred Organization [facility] Scheduling Referred Provider CallumRichardson Referred Address [address] [place], [place],[address] Referred Provider Specialty Pulmonary Deedee seasfidelia Referral Priority Routine General Notes Cassandra James 023 12:06:00 PM >Received today and referral was fax. They will review and call patient to schedule Clinical Notes Office [phone] Additional Source Comments REASON FOR VISIT (unrecogniz ed section and content) clinicalclinicalno showRefil lsclinicalSOBClinical Acute IllnessClinicalcough wants referralClinicalclinicalClinicalLeft hand pain/ wanting MRI INFORMATION SOURCE (unrecogn ized section and content) DATE CREATED AUTHOR 07/13/2022 [facility] pital DATE CREATED AUTHOR AUTHOR'S ORGANIZ ATION 05/14/2023 [facility] EPIC DATE CREATED AUTHOR AUTHOR'S ORGANIZ ATION 06/03/2023 [facility] Care Teams (unrecognized sec tion and content) Team Status: Active Member Role Status Rafat Muro DO Primary Care Provider Active Team Status: Inactive Member Role Status Rafat Muro DO Primary Care Provider Active Vivian Denis DO Attending Provider Active Team Status: Inactive Member Role Status Rafat Muro DO Primary Care Provider, Attending Alexa rae Active Goals (unrecognized section and content) [...] BE BASED ON THE PRIMARY CLINICAL RECORDS. [facility]. provides no warranty or guarantee of the accuracy or completeness of information in this document.
[2023-06-17 09:50] LABS: Basophils Percent Auto 0.5 % (0.2-2.0); Eosinophils Absolute Auto 0.3 10^3/uL (0.0-0.7); Eosinophils Percent Auto 6.8 % (0.9-7.0); Hematocrit 38.9 % (36.0-48.0); Hemoglobin 12.6 g/dL (12.0-16.0); Immature Granulocytes Abs Auto 0.02 10^3/uL (0.00-0.03); Immature Granulocytes Pct Auto 0.5 % (0.0-0.5); Lymphocytes Absolute Auto 1.2 10^3/uL (1.2-3.8); Lymphocytes Percent Auto 26.2 % (20.5-60.0); Mean Corpuscular HGB Conc 32.4 g/dL (29.9-35.2); Mean Corpuscular Hemoglobin 29.7 pg (26.7-34.0); Mean Corpuscular Volume 91.7 fL (81.0-99.0); Mean Platelet Volume 10.6 fL (9.5-13.5); Monocytes Absolute Auto 0.4 10^3/uL (0.3-0.8); Monocytes Percent Auto 7.9 % (1.7-12.0); Neutrophils Absolute Auto 2.6 10^3/uL (1.4-6.5); Neutrophils Percent Auto 58.1 % (43.0-75.0); Platelet Count 183 10^3/uL (150-450); Red Blood Count 4.24 10^6/uL (4.20-5.40); Red Cell Distribution Width 12.9 % (11.0-15.0); White Blood Count 4.4 10^3/uL (4.0-11.0)
== END 2023-06-17 08:59 | disposition home or self-care (01) ==
LOC: PST 08:58
PROVIDERS: PCP Family Medicine; Visit Provider Podiatrist Foot & Ankle Surgery
DX: Z01.810 Encounter for preprocedural cardiovascular examination (principal); Z01.812 Encounter for preprocedural laboratory examination; M95.8 Other specified acquired deformities of musculoskeletal system; M25.371 Other instability, right ankle
CPT/HCPCS: 85025; 93005

== ENCOUNTER 2023-07-07 17:10 | Observation (INO) | payer BC, SELFPAY ==
[2023-06-17 09:32] VITALS: BP 135/90; PULSE 73; RESP 16; TEMP 36.3; O2SAT 96; BMI 31.5
[2023-07-07] VITALS (18 sets, daily range): BP systolic 122–171; BP diastolic 55–94; PULSE 65–99; RESP 6–21; TEMP 36.2–36.6; O2SAT 88–98; BMI 31.0
--- NOTE | 2023-07-07 | FL_ITS ---
[address] [address] Patient Name: KAYLEEN BINGHAM MRN: [id number]:[id number] date: 1965 Sex: F Assigned Patient Location: [facility] Current Patient Location: Accession/Order Number: [id number] Exam Date: 07/07/2023 13:00 Report Date: 07/11/2023 09:19 At the request of: RAYMOND RODRIGUEZ Procedure: FL fluoroscopy <1hr NON-READ EXAM: FL fluoroscopy <1hr NON-READ HISTORY: TECHNIQUE: FINDINGS: Please see Operative Report. Electronically authenticated by: RADIOLOGIST NO Date: 07/11/2023 09:19
--- OUTSIDE RECORDS SUMMARY | 2023-07-07 07:23 | XMS_ITS | CCD ---
Author Name Unknown Address [address] [address] [place] [address] Organization [facility] Care Team Providers Care Drill Foreman Name Role Phone Shay Muro Unavailable RAYMOND [...] VERONICA, DR DAY Consulting Unavailable MISC, DR DEJESUS Primary Care Unavailable VERONICA, DR DAY Consulting Unavailable VERONICA, DR DAY Attending Unavailable VERONICA, DR DAY Admitting Unavailable RAYMOND SMITH Consulting Unavailable MISC, DR DEJESUS Primary Care Unavailable RAYMOND SMITH Attending Unavailable RAYMOND SMITH Admitting Unavailable DELGADOPOLO Gutierrez Consulting Unavailable MISC, DR DEJESUS Primary Care Unavailable RAYMOND SMITH Admitting Unavailable RAYMOND SMITH Attending Unavailable DO Shay Muro Primary Care Provider DO Vivian Denis Attending Provider DO Shay Muro Attending Provider [phone] VIVIAN DENIS Attending Unavailable DO Shay Muro Primary Care Provider DO Shay Muro Attending Provider Kuns, Shay Primary Care Unavailable Nunos, Shay Attending Unavailable Veronica, Shay Admitting Unavailable Nunos, Shay Primary Care Unavailable Veronica, Shay Attending Unavailable Nunos, Shay Admitting Unavailable Nunos, Shay Primary Care Unavailable Nataprawira, Vivian Admitting Unavailable Nataprawira, Vivian Attending Unavailable Nunos, Shay Attending Unavailable Nunos, Shay Admitting Unavailable Nunos, Shay Primary Care Unavailable Allergies Allergy Classification Reported Allergen(s) Allergy Type Date of Onset Reaction(s) Facility (2 sources) Estradiol / Norethindrone Drug Allergy vaginal itching [employer] Other (2 sources) Seasonal allergy Propensity to adverse reactions Unknown [employer] Other Medications Current Medications Medication Drug Class(es) Dates Sig (Normalized) Sig (Original) acyclovir 400 mg oral tablet (15 sources) Herpesvirus Nucleoside Analog DNA Polymerase Inhibitor, [...] Active diclofenac sodium 0.01 mg/mg topical gel (3 sources) Nonsteroidal Anti-inflammatory Drug Start: 05-31-2023 Diclofenac Sodium [...] Jul, Active montelukast 10 mg oral tablet (3 sources) Leukotriene Receptor Antagonist take 1 tablet by [...] 07-13-2022 Chronic Diseases of mouth; excluding dental (17 sources) Disorder of lip; Translations: [Diseases of lips] Episodic Diseases of white blood cells (15 sources) Leukopenia; Translations: [Decreased white blood cell count, unspecified] Chronic Disorders of lipid metabolism (17 sources) Hyperlipidemia; Translations: [Hyperlipidemia, unspecified] Onset: 07-13-2022 [...] left hand Episodic Other connective tissue disease (2 sources) Pain in left finger(s) Episodic Other connective tissue disease (1 source) Other specified disorders of synovium and tendon, other site Episodic Other connective tissue disease (1 source) Trigger finger, unspecified finger Episodic Other injuries and conditions due to external causes (1 source) Unspecified injury of right ankle, initial encounter Episodic Other lower respiratory disease (1 source) Shortness of breath Episodic Other nervous system disorders (1 source) Unspecified mononeuropathy of left lower limb; Translations: [UNS MONONEUROPATHY LEFT LOWER LIMB] Onset: 07-13-2022 Chronic Other nervous system disorders (5 sources) Lesion of plantar nerve, left lower limb; Translations: [LESION PLANTAR NERVE LT LOWER LIMB] Onset: 06-28-2022 Chronic Other nervous system disorders (1 source) Chronic pain; Translations: [Other chronic pain] Chronic Other non-traumatic joint disorders (15 sources) Shoulder pain; Translations: [Pain in right shoulder] Episodic Other non-traumatic joint disorders (15 sources) Ankle pain; Translations: [Pain in left ankle and joints of left foot] Episodic Other screening for suspected conditions (not mental disorders or infectious disease) (4 sources) Other specified abnormal findings of blood chemistry; Translations: [Abnormal results of thyroid function studies] Onset: 05-31-2023 Episodic Unclassified (4 sources) CONTACT W/AND (SUSP) EXPOS COVID-19; Translations: [CONTACT W/AND (SUSP) EXPOS COVID-19] Onset: 11-04-2021 Unclassified (1 source) COUGH, UNSPECIFIED; Translations: [COUGH, UNSPECIFIED] Onset: 11-04-2021 Unclassified (1 source) Encounter for general adult medical examination without abnormal findings; Translations: [Encounter for general adult medical examination without abnormal findings] Onset: 06-20-2023 Unclassified (1 source) Encounter for screening mammogram for malignant neoplasm of breast; Translations: [Encounter for screening mammogram for malignant neoplasm of breast] Onset: 08-09-2022 Urinary tract infections (3 sources) Urinary tract infection, site not specified; Translations: [Urinary tract infection, site not specified] Onset: 06-20-2023 Episodic Viral infection (2 sources) COVID-19; Translations: [COVID-19] [...] Test Name Value Interpretation Reference Range Facility Alanine aminotransferase [En zymatic activity/volume] in Serum or PlasmaOrdered By: Shay Muro on 06-20-2023 ALT [Catalytic activity/Vol] 27 U/L Normal 7-52 U/L [facility] Albumin [Mass/volume] in Ser um or Plasma by Bromocresol green (BCG) dye binding methoOrdered By: Shay Muro on 06-20-2023 Albumin BCG dye [Mass/Vol] 4.4 g/dL 3.5-5.7 [facility] Alkaline phosphatase [Enzyma tic activity/volume] in Serum or PlasmaOrdered By: Shay Muro on 06-20-2023 ALP [Catalytic activity/Vol] 51 U/L Normal 34-104 U/L [facility] Aspartate aminotransferase [ Enzymatic activity/volume] in Serum or PlasmaOrdered By: Shay Muro on 06-20-2023 AST [Catalytic activity/Vol] 25 U/L Normal 13-39 U/L [facility] Basophils Auto (Bld) [#/Vol] Ordered By: Shay Muro on 06-20-2023 Basophils (Bld) [#/Vol] 0.0 10*3/uL 0.0-0.2 [facility] Basophils/100 WBC Auto (Bld) Ordered By: Shay Muro on 06-20-2023 Basophils/100 WBC (Bld) 1.0 % . [facility] Bilirubin.total [Mass/volume ] in Serum or PlasmaOrdered By: Shay Muro on 06-20-2023 Bilirubin [Mass/Vol] 0.3 mg/dL 0.3-1.0 [facility] Calcium [Mass/volume] in Ser um or PlasmaOrdered By: Shay Muro on 06-20-2023 Calcium [Mass/Vol] 9.6 mg/dL 8.6-10.3 [facility] Carbon dioxide, total [Moles /volume] in Serum or PlasmaOrdered By: Shay Muro on 06-20-2023 CO2 [Moles/Vol] 29.9 mmol/L 21.0-31.0 [facility] Chloride [Moles/volume] in S francis or PlasmaOrdered By: Shay Muro on 06-20-2023 Chloride [Moles/Vol] 108 mmol/L High 98-107 mmol/L [facility] Cholesterol [Mass/volume] in Serum or PlasmaOrdered By: Shay Muro on 06-20-2023 Cholesterol [Mass/Vol] 185 mg/dL Normal 140-200 mg/dL [facility] Comment on above: Chol less than 200 m g/dl low riskChol 201-239 mg/dl borderline riskChol 240 mg/dl and greater high risk Cholesterol in LDL Calc [Mas s/Vol]Ordered By: Shay Muro on 06-20-2023 Cholesterol in LDL [Mass/Vol] 116 mg/dL 0-100 [facility] Comment on above: LDL ATP III CLASSIFI CATIONLDL less than 100 mg/dL OptimalLDL 100-129 mg/dL Near or above optimalLDL 130-159 mg/dL Borderline highLDL 160-189 mg/dL HighLDL greater than 189 mg/dL Very high Cholesterol in VLDL Calc [Ma ss/Vol]Ordered By: Shay Muro on 06-20-2023 Cholesterol in VLDL [Mass/Vol] 23 mg/dL [facility] Complete Blood Count Auto Di ffon 06-20-2023 Basophils (Bld) [#/Vol] 0.137377876 10*3/uL Normal 0.0-0.2 10*3/uL [employer] Other Basophils/100 WBC (Bld) 1.000 % . % [employer] Other Eosinophils (Bld) [#/Vol] 0.277388959 10*3/uL Normal 0.0-0.45 10*3/uL [employer] Other Eosinophils/100 WBC (Bld) 6.200 % . % [employer] Other Erythrocyte distribution width (RBC) [Ratio] 13.200 % Normal 11.9-15.3 % [employer] Other Hematocrit (Bld) [Volume fraction] 38.800 % Normal 34.0-46.4 % [employer] Other Hemoglobin (Bld) [Mass/Vol] 13.439904 g/dL Normal 11.8-15.4 g/dL [employer] Other Lymphocytes (Bld) [#/Vol] 1.480024997 10*3/uL Normal 1.00-4.8 10*3/uL [employer] Other Lymphocytes/100 WBC (Bld) 25.700 % . % [employer] Other MCH (RBC) [Entitic mass] 29.9000 pg Normal 24.7-34.3 pg [employer] Other MCV (RBC) [Entitic vol] 89.2000 fL Normal 80-100 fL [employer] Other Monocytes (Bld) [#/Vol] 0.353206897 10*3/uL Normal 0.0-0.8 10*3/uL [employer] Other Monocytes/100 WBC (Bld) 10.400 % . % [employer] Other Neutrophils (Bld) [#/Vol] 2.795596221 10*3/uL Normal 1.8-7.7 10*3/uL [employer] Other Neutrophils/100 WBC (Bld) 56.700 % . % [employer] Other Platelet mean volume (Bld) [Entitic vol] 9.5000 fL Normal 6.3-10.7 fL [employer] Other WBC (Bld) [#/Vol] 4.038941561 10*3/uL Normal 3.8 -11.6 10*3/uL [employer] Other Complete Blood Count Auto Diff 4.3 10*3/uL Normal 3.8-11.6 10*3/uL [employer] Other Complete Blood Count Auto Diff 33.5 g/dL Normal 32.0-35.0 g/dL [employer] Other Complete Blood Count Auto Diff 0.0 /100{WBC} Normal 0-0.5 /100{WBC} [employer] [facility] [employer] Other Basophils (Bld) [#/Vol] 0.0 10*3/uL Normal 0.0-0.2 [facility] Comment on above: Order Comment: Reaso n for Exam Wellness examination Result Comment: PERF ORMED BY: [place] [address] PATHOLOGIST [employer]ENT LISANDRA OLVERA M.D. Performed By: #### C MP, CUU, CBC, LIPID, TSH3 #### [address] Basophils/100 WBC (Bld) 1.0 % Normal . [facility] Comment on above: Order Comment: Reaso n for Exam Wellness examination Performed By: #### C MP, CUU, CBC, LIPID, TSH3 #### [facility] [address] [place] [address] [place] Eosinophils (Bld) [#/Vol] 0.3 10*3/uL Normal 0.0-0.45 [facility] Comment on above: Order Comment: Reaso n for Exam Wellness examination Performed By: #### C MP, CUU, CBC, LIPID, TSH3 #### [facility] [address] [place] [address] [place] Eosinophils/100 WBC (Bld) 6.2 % Normal . [facility] Comment on above: Order Comment: Reaso n for Exam Wellness examination Performed By: #### C MP, CUU, CBC, LIPID, TSH3 #### [place] [address] [place] Erythrocyte distribution width (RBC) [Ratio] 13.2 % Normal 11.9-15.3 [facility] Comment on above: Order Comment: Reaso n for Exam Wellness examination Performed By: #### C MP, CUU, CBC, LIPID, TSH3 #### [address] Hematocrit (Bld) [Volume fraction] 38.8 % Normal 34.0-46.4 [facility] Comment on above: Order Comment: Reaso n for Exam Wellness examination Performed By: #### C MP, CUU, CBC, LIPID, TSH3 #### [address] Hemoglobin (Bld) [Mass/Vol] 13.0 g/dL Normal 11.8-15.4 [facility] Comment on above: Order Comment: Reaso n for Exam Wellness examination Performed By: #### C MP, CUU, CBC, LIPID, TSH3 #### [address] Lymphocytes (Bld) [#/Vol] 1.1 10*3/uL Normal 1.00-4.8 [facility] Comment on above: Order Comment: Reaso n for Exam Wellness examination Performed By: #### C MP, CUU, CBC, LIPID, TSH3 #### [address] Lymphocytes/100 WBC (Bld) 25.7 % Normal . [facility] Comment on above: Order Comment: Reaso n for Exam Wellness examination Performed By: #### C MP, CUU, CBC, LIPID, TSH3 #### [address] MCH (RBC) [Entitic mass] 29.9 pg Normal 24.7-34.3 [facility] Comment on above: Order Comment: Reaso n for Exam Wellness examination Performed By: #### C MP, CUU, CBC, LIPID, TSH3 #### [address] MCV (RBC) [Entitic vol] 89.2 fL Normal 80-100 [facility] Comment on above: Order Comment: Reaso n for Exam Wellness examination Performed By: #### C MP, CUU, CBC, LIPID, TSH3 #### [address] Mean Corpuscular HGB Conc 33.5 g/dL Normal 32.0-35.0 [facility] Comment on above: Order Comment: Reaso n for Exam Wellness examination Performed By: #### C MP, CUU, CBC, LIPID, TSH3 #### [address] Monocytes (Bld) [#/Vol] 0.4 10*3/uL Normal 0.0-0.8 [facility] Comment on above: Order Comment: Reaso n for Exam Wellness examination Performed By: #### C MP, CUU, CBC, LIPID, TSH3 #### [address] Monocytes/100 WBC (Bld) 10.4 % Normal . [facility] Comment on above: Order Comment: Reaso n for Exam Wellness examination Performed By: #### C MP, CUU, CBC, LIPID, TSH3 #### [address] Neutrophils (Bld) [#/Vol] 2.4 10*3/uL Normal 1.8-7.7 [facility] Comment on above: Order Comment: Reaso n for Exam Wellness examination Performed By: #### C MP, CUU, CBC, LIPID, TSH3 #### [address] Neutrophils/100 WBC (Bld) 56.7 % Normal . [facility] Comment on above: Order Comment: Reaso n for Exam Wellness examination Performed By: #### C MP, CUU, CBC, LIPID, TSH3 #### [address] NRBC% 0.0 /100{WBC} Normal 0-0.5 [facility] Comment on above: Order Comment: Reaso n for Exam Wellness examination Performed By: #### C MP, CUU, CBC, LIPID, TSH3 #### [facility] [address] Platelet mean volume (Bld) [Entitic vol] 9.5 fL Normal 6.3-10.7 [facility] Comment on above: Order Comment: Reaso n for Exam Wellness examination Performed By: #### C MP, CUU, CBC, LIPID, TSH3 #### [facility] [address] Platelets (Bld) [#/Vol] 182 10*3/uL Normal 150-450 [facility] Comment on above: Order Comment: Reaso n for Exam Wellness examination Performed By: #### C MP, CUU, CBC, LIPID, TSH3 #### [facility] [address] RBC (Bld) [#/Vol] 4.34 10*6/uL Normal 3.60-5.00 [facility] Comment on above: Order Comment: Reaso n for Exam Wellness examination Performed By: #### C MP, CUU, CBC, LIPID, TSH3 #### [facility] [address] WBC (Bld) [#/Vol] 4.3 10*3/uL Normal 3.8-11.6 [facility] Comment on above: Order Comment: Reaso n for Exam Wellness examination Performed By: #### C MP, CUU, CBC, LIPID, TSH3 #### [address] Comprehensive Metabolic Pane pino 06-20-2023 Albumin [Mass/Vol] 4.651959 g/dL Normal 3.5-5.7 g/dL [employer] [facility] [employer] Other Bilirubin [Mass/Vol] 0.2109347 mg/dL Normal 0.3- 1.0 mg/dL [employer] Other Calcium [Mass/Vol] 9.1251388 mg/dL Normal 8.6-10 .3 mg/dL [employer] Other CO2 [Moles/Vol] 29.99526368 mmol/L Normal 21.0-3 1.0 mmol/L [employer] [facility] [employer] Other Creatinine [Mass/Vol] 0.22987278 mg/dL Normal 0. 60-1.20 mg/dL [employer] Other Potassium [Moles/Vol] 4.81618691 mmol/L Normal 3 .5-5.1 mmol/L [employer] Other Protein [Mass/Vol] 6.694134 g/dL Normal 6.4-8.9 g/dL [employer] Other Comprehensive Metabolic Panel 2.1 g/dL [employer] [facility] [employer] Other Albumin [Mass/Vol] 4.4 g/dL Normal 3.5-5.7 [facility] Comment on above: Order Comment: Reaso n for Exam Wellness examination Performed By: #### C MP, CUU, CBC, LIPID, TSH3 #### [facility] [address] Albumin/Globulin [Mass ratio] 2.1 {ratio} Normal [facility] Comment on above: Order Comment: Reaso n for Exam Wellness examination Performed By: #### C MP, CUU, CBC, LIPID, TSH3 #### [facility] [address] [place] [address] [place] ALP [Catalytic activity/Vol] 51 U/L Normal 34-104 [facility] Comment on above: Order Comment: Reaso n for Exam Wellness examination Performed By: #### C MP, CUU, CBC, LIPID, TSH3 #### [facility] [address] [place] [address] [place] ALT [Catalytic activity/Vol] 27 U/L Normal 7-52 [facility] Comment on above: Order Comment: Reaso n for Exam Wellness examination Performed By: #### C MP, CUU, CBC, LIPID, TSH3 #### [facility] [address] [place] [id number] [facility] Anion gap [Moles/Vol] 7.7 mmol/L Normal 6.0-15.0 [facility] Comment on above: Order Comment: Reaso n for Exam Wellness examination Performed By: #### C MP, CUU, CBC, LIPID, TSH3 #### [facility] [address] [place] [address] AST [Catalytic activity/Vol] 25 U/L Normal 13-39 [facility] Comment on above: Order Comment: Reaso n for Exam Wellness examination Performed By: #### C MP, CUU, CBC, LIPID, TSH3 #### [facility] [address] [place] [address] Bilirubin [Mass/Vol] 0.3 mg/dL Normal 0.3-1.0 [facility] Comment on above: Order Comment: Reaso n for Exam Wellness examination Performed By: #### C MP, CUU, CBC, LIPID, TSH3 #### [facility] [address] [place] [address] Calcium [Mass/Vol] 9.6 mg/dL Normal 8.6-10.3 [facility] Comment on above: Order Comment: Reaso n for Exam Wellness examination Performed By: #### C MP, CUU, CBC, LIPID, TSH3 #### [facility] [address] [place] [address] Chloride [Moles/Vol] 108 mmol/L High 98-107 [facility] Comment on above: Order Comment: Reaso n for Exam Wellness examination Performed By: #### C MP, CUU, CBC, LIPID, TSH3 #### [facility] [address] [place] [address] CO2 [Moles/Vol] 29.9 mmol/L Normal 21.0-31.0 [facility] Comment on above: Order Comment: Reaso n for Exam Wellness examination Performed By: #### C MP, CUU, CBC, LIPID, TSH3 #### [facility] [address] [place] [address] Creatinine [Mass/Vol] 0.98 mg/dL Normal 0.60-1.20 [facility] Comment on above: Order Comment: Reaso n for Exam Wellness examination Performed By: #### C MP, CUU, CBC, LIPID, TSH3 #### [facility] [address] [place] [address] [place] GFR/1.73 sq M.predicted MDRD (S/P/Bld) [Vol rate/Area] mL/min/{1.73_m2} Normal [facility] [employer] Other Comment on above: Order Comment: Reaso n for Exam Wellness examination Performed By: #### C MP, CUU, CBC, LIPID, TSH3 #### [facility] [address] Globulin (S) [Mass/Vol] 2.1 g/dL Normal [facility] Comment on above: Order Comment: Reaso n for Exam Wellness examination Performed By: #### C MP, CUU, CBC, LIPID, TSH3 #### [facility] [address] Glucose [Mass/Vol] 97 mg/dL Normal 70-100 [facility] Comment on above: Order Comment: Reaso n for Exam Wellness examination Result Comment: [facility] Glucose Reference Range is dependent on time and content of last meal. Glucose of more than 200 mg/dL in a nonstressed, ambulatory subject supports the diagnosis of Diabetes Mellitus. ADA recommended reference range Performed By: #### C MP, CUU, CBC, LIPID, TSH3 #### [facility] [address] Potassium [Moles/Vol] 4.6 mmol/L Normal 3.5-5.1 [facility] Comment on above: Order Comment: Reaso n for Exam Wellness examination Performed By: #### C MP, CUU, CBC, LIPID, TSH3 #### [facility] [address] Protein [Mass/Vol] 6.5 g/dL Normal 6.4-8.9 [facility] Comment on above: Order Comment: Reaso n for Exam Wellness examination Performed By: #### C MP, CUU, CBC, LIPID, TSH3 #### [facility] [address] Sodium [Moles/Vol] 141 mmol/L Normal 136-145 [facility] Comment on above: Order Comment: Reaso n for Exam Wellness examination Performed By: #### C MP, CUU, CBC, LIPID, TSH3 #### [facility] [address] Urea nitrogen [Mass/Vol] 15 mg/dL Normal 7-25 [facility] Comment on above: Order Comment: Reaso n for Exam Wellness examination Performed By: #### C MP, CUU, CBC, LIPID, TSH3 #### [facility] [address] Creatinine [Mass/volume] in Serum or PlasmaOrdered By: Shay Muro on 06-20-2023 Creatinine [Mass/Vol] 0.98 mg/dL 0.60-1.20 [facility] Eosinophils Auto (Bld) [#/Vo l]Ordered By: Shay Muro on 06-20-2023 Eosinophils (Bld) [#/Vol] 0.3 10*3/uL 0.0-0.45 [facility] Eosinophils/100 WBC Auto (Bl d)Ordered By: Shay Muro on 06-20-2023 Eosinophils/100 WBC (Bld) 6.2 % . [facility] Erythrocyte distribution wid th Auto (RBC) [Ratio]Ordered By: Shay Muro on 06-20-2023 Erythrocyte distribution width (RBC) [Ratio] 13.2 % 11.9-15.3 [facility] Erythrocytes [#/volume] in B lood by Automated countOrdered By: Shay Muro on 06-20-2023 RBC (Bld) [#/Vol] 4.34 10*6/uL Normal 3.60-5.00 [facility] Globulin Calc (S) [Mass/Vol] Ordered By: Shay Muro on 06-20-2023 Globulin (S) [Mass/Vol] 2.1 g/dL [facility] Glucose [Mass/volume] in Ser um or PlasmaOrdered By: Shay Muro on 06-20-2023 Glucose [Mass/Vol] 97 mg/dL Normal 70-100 mg/dL [facility] Comment on above: ADA recommended refe rence rangeRandom Glucose Reference Range is dependent on time and content of last meal. Glucose of more than 200 mg/dL in a nonstressed, ambulatory subject supports the diagnosis of Diabetes Mellitus. Hematocrit Auto (Bld) [Volum e fraction]Ordered By: Shay Muro on 06-20-2023 Hematocrit (Bld) [Volume fraction] 38.8 % 34.0-46.4 [facility] Hemoglobin [Mass/volume] in BloodOrdered By: Shay Muro on 06-20-2023 Hemoglobin (Bld) [Mass/Vol] 13.0 g/dL 11.8-15.4 [facility] Leukocytes [#/volume] correc hermelinda for nucleated erythrocytes in Blood by Automated counOrdered By: Shay Muro on 06-20-2023 WBC corrected for nucl RBC Auto (Bld) [#/Vol] 4.3 10*3/uL 3.8-11.6 [facility] Lipid Panelon 06-20-2023 Cholesterol in LDL Elph Qn 116 mg/dL High 0-100 mg/dL [facility] [employer] Other Lipid Panel 116 mg/dL Normal 0-149 mg/dL [facility] [employer] Other Lipid Panel 23 mg/dL [facility] [employer] Other Cholesterol [Mass/Vol] 185 mg/dL Normal 140-200 [facility] Comment on above: Order Comment: Reaso n for Exam Wellness examination Result Comment: Chol less than 200 mg/dl low risk Chol 201-239 mg/dl borderline risk Chol 240 mg/dl and greater high risk Performed By: #### C MP, CUU, CBC, LIPID, TSH3 #### [facility] [address] [place] [id number] [place] Cholesterol in HDL [Mass/Vol] 46 mg/dL Normal 23-92 [facility] Comment on above: Order Comment: Reaso n for Exam Wellness examination Result Comment: HDL CHOL ATP-III CLASSIFICATION Cardiovascular Risk HDL > or equal to 60 mg/dL LOW HDL < 40 mg/dL HIGH Performed By: #### C MP, CUU, CBC, LIPID, TSH3 #### [facility] [address] [place] [address] Cholesterol.total/Cho lesterol in HDL [Mass ratio] 4.0 {ratio} Normal <5.0 [facility] Comment on above: Order Comment: Reaso n for Exam Wellness examination Performed By: #### C MP, CUU, CBC, LIPID, TSH3 #### [facility] [address] LDL Cholesterol,Calculate d 116 mg/dL High 0-100 [facility] Comment on above: Order Comment: Reaso n for Exam Wellness examination Result Comment: LDL ATP III CLASSIFICATION LDL less than 100 mg/dL Optimal LDL 100-129 mg/dL Near or above optimal LDL 130-159 mg/dL Borderline high LDL 160-189 mg/dL High LDL greater than 189 mg/dL Very high Performed By: #### C MP, CUU, CBC, LIPID, TSH3 #### [facility] [address] Triglyceride w/Reflex 116 mg/dL Normal 0-149 [facility] Comment on above: Order Comment: Reaso n for Exam Wellness examination Result Comment: TRIG ATP III CLASSIFICATION TRIG less than 150 mg/dL Normal TRIG 150-199 mg/dL Borderline high TRIG 200-500 mg/dL High TRIG greater than 500 mg/dL Very high Standard traceable to the Center for Disease Conrtrol and Prevention (CDC) test method. Performed By: #### C MP, CUU, CBC, LIPID, TSH3 #### [facility] [address] VLDL CHOLESTEROL 23 mg/dL Normal [facility] Comment on above: Order Comment: Reaso n for Exam Wellness examination Performed By: #### C MP, CUU, CBC, LIPID, TSH3 #### [facility] [address] Lymphocytes Auto (Bld) [#/Vo l]Ordered By: Shay Muro on 06-20-2023 Lymphocytes (Bld) [#/Vol] 1.1 10*3/uL 1.00-4.8 [facility] Lymphocytes/100 WBC Auto (Bl d)Ordered By: Shay Muro on 06-20-2023 Lymphocytes/100 WBC (Bld) 25.7 % . [facility] MCH Auto (RBC) [Entitic mass ]Ordered By: Shay Muro on 06-20-2023 MCH (RBC) [Entitic mass] 29.9 pg 24.7-34.3 [facility] MCHC Auto (RBC) [Mass/Vol]Or dered By: Shay Muro on 06-20-2023 MCHC (RBC) [Mass/Vol] 33.5 g/dL 32.0-35.0 [facility] MCV Auto (RBC) [Entitic vol] Ordered By: Shay Muro on 06-20-2023 MCV (RBC) [Entitic vol] 89.2 fL 80-100 [facility] Monocytes Auto (Bld) [#/Vol] Ordered By: Shay Muro on 06-20-2023 Monocytes (Bld) [#/Vol] 0.4 10*3/uL 0.0-0.8 [facility] Monocytes/100 WBC Auto (Bld) Ordered By: Shay Muro on 06-20-2023 Monocytes/100 WBC (Bld) 10.4 % . [facility] Neutrophils Auto (Bld) [#/Vo l]Ordered By: Shay Muro on 06-20-2023 Neutrophils (Bld) [#/Vol] 2.4 10*3/uL 1.8-7.7 [facility] Neutrophils/100 WBC Auto (Bl d)Ordered By: Shay Muro on 06-20-2023 Neutrophils/100 WBC (Bld) 56.7 % . [facility] No Panel InformationOrdered By: Shay Muro on 06-20-2023 Estimated GFR (CKD-EPI) > 60.0 mL/Min [facility] Creatinine Clearance (Chem N/A [facility] Nucleated erythrocytes [Pres ence] in Blood by Automated countOrdered By: Shay Muro on 06-20-2023 Nucleated RBC Auto Ql (Bld) 0.0 /100{WBC} 0-0.5 [facility] Platelet mean volume Auto (B ld) [Entitic vol]Ordered By: Shay Muro on 06-20-2023 Platelet mean volume (Bld) [Entitic vol] 9.5 fL 6.3-10.7 [facility] Platelets [#/volume] in Bloo d by Automated countOrdered By: Shay Muro on 06-20-2023 Platelets (Bld) [#/Vol] 182 10*3/uL Normal 150-450 10*3/uL [facility] Potassium [Moles/volume] in Serum or PlasmaOrdered By: Shay Muro on 06-20-2023 Potassium [Moles/Vol] 4.6 mmol/L 3.5-5.1 [facility] Protein [Mass/volume] in Ser um or PlasmaOrdered By: Shay Muro on 06-20-2023 Protein [Mass/Vol] 6.5 g/dL 6.4-8.9 [facility] Serum or plasma albumin/glob ulin mass ratioOrdered By: Shay Muro on 06-20-2023 Albumin/Globulin [Mass ratio] 2.1 {ratio} [facility] Serum or plasma anion gap de terminationOrdered By: Shay Muro on 06-20-2023 Anion gap [Moles/Vol] 7.7 mmol/L 6.0-15.0 [facility] Serum or plasma high density lipoprotein (HDL) cholesterol measurementOrdered By: Shay Muro on 06-20-2023 Cholesterol in HDL [Mass/Vol] 46 mg/dL Normal 23-92 mg/dL [facility] Comment on above: HDL CHOL ATP-III CLA SSIFICATION Cardiovascular RiskHDL > or equal to 60 mg/dL LOWHDL < 40 mg/dL HIGH Serum or plasma total choles terol/high density lipoprotein (HDL) cholesterol mass ratOrdered By: Shay Muro on 06-20-2023 Cholesterol.total/Cho lesterol in HDL [Mass ratio] 4.0 {ratio} <5.0 [facility] Sodium [Moles/volume] in Ser um or PlasmaOrdered By: Shay Muro on 06-20-2023 Sodium [Moles/Vol] 141 mmol/L Normal 136-145 mmol/L [facility] Thyroid Stimulating Hormoneo n 06-20-2023 TSH Qn 3.88636305896 m[IU]/L Normal 0.45-5 .33 u[iU]/mL [employer] Other TSH Qn 3.62 m[IU]/L Normal 0.45-5.33 [facility] Comment on above: Order Comment: Reaso n for Exam Wellness examination Result Comment: PERF ORMED BY: [facility] [address] [place] [address] PATHOLOGIST HOME INSURANCE AGENT LISANDRA OLVERA M.D. Performed By: #### C MP, CUU, CBC, LIPID, TSH3 #### [facility] [address] Thyrotropin [Units/volume] i n Serum or PlasmaOrdered By: Shay Muro on 06-20-2023 TSH Qn 3.62 m[IU]/L 0.45-5.33 [facility] Triglyceride [Mass/volume] i n Serum or PlasmaOrdered By: Shay Muro on 06-20-2023 Triglyceride [Mass/Vol] 116 mg/dL 0-149 [facility] Comment on above: TRIG ATP III CLASSIF ICATIONTRIG less than 150 mg/dL NormalTRIG 150-199 mg/dL Borderline highTRIG 200-500 mg/dL High TRIG greater than 500 mg/dL Very highStandard traceable to the Center for Disease Conrtrol and Prevention (CDC) test method. Urea nitrogen [Mass/volume] in Serum or PlasmaOrdered By: Shay Muro on 06-20-2023 Urea nitrogen [Mass/Vol] 15 mg/dL Normal 7-25 mg/dL [facility] Urine 10 SGon 06-20-2023 Albumin DL <= 20 mg/L (U) [Mass/Vol] Negative [employer] Other Albumin DL <= 20 mg/L (U) [Mass/Vol] small [employer] Other pH (U) 5.5 [pH] [employer] Other Urine 10 SG Negative [employer] Other Urine 10 SG >=1.030 [employer] Other Urine 10 SG 0.2 [employer] Other Urine Cultureon 06-20-2023 Bacteria identified Cx Nom (U) Reason for Exam Leukocytes in urine Urine Reason for Exam: Leukocytes in urine : Urine ORGANISM: Lactobacillus jensenii (O:LACJEN) [place] Count >100,000 PERFORMED BY: [place] [address] PATHOLOGIST HOME INSURANCE AGENT LISANDRA OLVERA M.D. [facility] Comment on above: Performed By: #### T SH3 #### [facility] [address] [place] [address] [place] #### THY AB #### [facility] , Bacteria identified Cx Nom (U) [employer] Other WBC Auto (Bld) [#/Vol]Ordere d By: Shay Muro on 06-20-2023 WBC (Bld) [#/Vol] 4.3 10*3/uL 3.8-11.6 [facility] Serum or plasma thyroglobuli n antibody assay (units/volume)Ordered By: Shay Muro on 05-31-2023 Thyroglobulin Ab Qn [IU]/mL 0.0-0.9 [facility] Comment on above: Thyroglobulin Antibo dy measured by [employer] Exchange TechnologiesMethodologyPerformed at: [employer] [address] [id number] Director: Arben Avelar PhD, Phone: [phone] Serum or plasma thyroperoxid ase antibody assay (units/volume)Ordered By: Shay Muro on 05-31-2023 TPO Ab Qn [IU]/mL 0-34 [facility] Thyroid Antibodies TPO+Tg Ab on 05-31-2023 Antithyroglobulin Ab <1.0 Normal 0.0-0.9 [facility] Comment on above: Order Comment: Reaso n for Exam Abnormal thyroid blood test Result Comment: Thyr oglobulin Antibody measured by [employer] Methodology Performed at: [employer] [place] [address] [place], [place] [id number] Purse Seiner: Arben Avelar PhD, Phone: [phone] PERFORMED BY: [place] [address] PATHOLOGIST HOME INSURANCE AGENT LISANDRA OLVERA M.D. Performed By: #### T SH3 #### [facility] [address] [place] [address] #### THY AB #### [facility] , Thyroid Peroxidase Antibodies <9 Normal 0-34 [facility] Comment on above: Order Comment: Reaso n for Exam Abnormal thyroid blood test Performed By: #### T SH3 #### [address] #### THY AB #### [facility] , Thyroid Stimulating Hormoneo n 05-31-2023 TSH Qn 3.37 m[IU]/L Normal 0.45-5.33 [facility] Comment on above: Order Comment: Reaso n for Exam Abnormal thyroid blood test Result Comment: PERF ORMED BY: [place] [address] PATHOLOGIST HOME INSURANCE AGENT LISANDRA OLVERA M.D. Performed By: #### T SH3 #### [facility] [address] [place] [address] #### THY AB #### [facility] , Thyrotropin [Units/volume] i n Serum or PlasmaOrdered By: Shay Muro on 05-31-2023 TSH Qn 3.37 m[IU]/L 0.45-5.33 [facility] RSVon 01-17-2023 RSV Ag IA Ql (Unsp spec) Negative [employer] Other Alanine aminotransferase [En zymatic activity/volume] in Serum or PlasmaOrdered By: Shay Muro on 08-17-2022 ALT [Catalytic activity/Vol] 26 U/L Normal 7-52 U/L [facility] Albumin [Mass/volume] in Ser um or Plasma by Bromocresol green (BCG) dye binding methoOrdered By: Shay Muro on 08-17-2022 Albumin BCG dye [Mass/Vol] 4.5 g/dL 3.5-5.7 [facility] Alkaline phosphatase [Enzyma tic activity/volume] in Serum or PlasmaOrdered By: Shay Muro on 08-17-2022 ALP [Catalytic activity/Vol] 59 U/L Normal 34-104 U/L [facility] Aspartate aminotransferase [ Enzymatic activity/volume] in Serum or PlasmaOrdered By: Shay Muro on 08-17-2022 AST [Catalytic activity/Vol] 26 U/L Normal 13-39 U/L [facility] Basophils Auto (Bld) [#/Vol] Ordered By: Shay Muro on 08-17-2022 Basophils (Bld) [#/Vol] 0.0 10*3/uL 0.0-0.2 [facility] Basophils/100 WBC Auto (Bld) Ordered By: Shay Muro on 08-17-2022 Basophils/100 WBC (Bld) 0.4 % . [facility] Bilirubin.total [Mass/volume ] in Serum or PlasmaOrdered By: Shay Muro on 08-17-2022 Bilirubin [Mass/Vol] 0.2 mg/dL 0.3-1.0 [facility] Calcium [Mass/volume] in Ser um or PlasmaOrdered By: Shay Muro on 08-17-2022 Calcium [Mass/Vol] 10.0 mg/dL 8.6-10.3 [facility] Carbon dioxide, total [Moles /volume] in Serum or PlasmaOrdered By: Shay Muro on 08-17-2022 CO2 [Moles/Vol] 25.6 mmol/L 21.0-31.0 [facility] Chloride [Moles/volume] in S francis or PlasmaOrdered By: Shay Muro on 08-17-2022 Chloride [Moles/Vol] 106 mmol/L Normal 98-107 mmol/L [facility] Complete Blood Count Auto Di ffon 08-17-2022 Basophils (Bld) [#/Vol] 0.0 10*3/uL Normal 0.0-0.2 [facility] Comment on above: Order Comment: Reaso n for Exam COVID-19;Shortness of breath on exertion Result Comment: PERF ORMED BY: [place] [address] PATHOLOGIST HOME INSURANCE AGENT LISANDRA OLVERA M.D. Performed By: #### C BC, CMP #### [address] Basophils/100 WBC (Bld) 0.4 % Normal . [facility] Comment on above: Order Comment: Reaso n for Exam COVID-19;Shortness of breath on exertion Performed By: #### C BC, CMP #### [address] Eosinophils (Bld) [#/Vol] 0.1 10*3/uL Normal 0.0-0.45 [facility] Comment on above: Order Comment: Reaso n for Exam COVID-19;Shortness of breath on exertion Performed By: #### C BC, CMP #### [place] [address] [place] Eosinophils/100 WBC (Bld) 0.9 % Normal . [facility] Comment on above: Order Comment: Reaso n for Exam COVID-19;Shortness of breath on exertion Performed By: #### C BC, CMP #### [address] Erythrocyte distribution width (RBC) [Ratio] 13.5 % Normal 11.9-15.3 [facility] Comment on above: Order Comment: Reaso n for Exam COVID-19;Shortness of breath on exertion Performed By: #### C BC, CMP #### [address] Hematocrit (Bld) [Volume fraction] 38.8 % Normal 34.0-46.4 [facility] Comment on above: Order Comment: Reaso n for Exam COVID-19;Shortness of breath on exertion Performed By: #### C BC, CMP #### [address] Hemoglobin (Bld) [Mass/Vol] 12.6 g/dL Normal 11.8-15.4 [facility] Comment on above: Order Comment: Reaso n for Exam COVID-19;Shortness of breath on exertion Performed By: #### C BC, CMP #### [address] Lymphocytes (Bld) [#/Vol] 0.6 10*3/uL Low 1.00-4.8 [facility] Comment on above: Order Comment: Reaso n for Exam COVID-19;Shortness of breath on exertion Performed By: #### C BC, CMP #### [address] Lymphocytes/100 WBC (Bld) 10.9 % Normal . [facility] Comment on above: Order Comment: Reaso n for Exam COVID-19;Shortness of breath on exertion Performed By: #### C BC, CMP #### [address] MCH (RBC) [Entitic mass] 28.2 pg Normal 24.7-34.3 [facility] Comment on above: Order Comment: Reaso n for Exam COVID-19;Shortness of breath on exertion Performed By: #### C BC, CMP #### [address] MCV (RBC) [Entitic vol] 86.7 fL Normal 80-100 [facility] Comment on above: Order Comment: Reaso n for Exam COVID-19;Shortness of breath on exertion Performed By: #### C BC, CMP #### [address] Mean Corpuscular HGB Conc 32.5 g/dL Normal 32.0-35.0 [facility] Comment on above: Order Comment: Reaso n for Exam COVID-19;Shortness of breath on exertion Performed By: #### C BC, CMP #### [address] Monocytes (Bld) [#/Vol] 0.1 10*3/uL Normal 0.0-0.8 [facility] Comment on above: Order Comment: Reaso n for Exam COVID-19;Shortness of breath on exertion Performed By: #### C BC, CMP #### [facility] [address] [place] [address] [place] Monocytes/100 WBC (Bld) 2.6 % Normal . [facility] Comment on above: Order Comment: Reaso n for Exam COVID-19;Shortness of breath on exertion Performed By: #### C BC, CMP #### [facility] [address] [place] [address] [place] Neutrophils (Bld) [#/Vol] 5.0 10*3/uL Normal 1.8-7.7 [facility] Comment on above: Order Comment: Reaso n for Exam COVID-19;Shortness of breath on exertion Performed By: #### C BC, CMP #### [address] Neutrophils/100 WBC (Bld) 85.2 % Normal . [facility] Comment on above: Order Comment: Reaso n for Exam COVID-19;Shortness of breath on exertion Performed By: #### C BC, CMP #### [facility] [address] NRBC% 0.0 /100{WBC} Normal 0-0.5 [facility] Comment on above: Order Comment: Reaso n for Exam COVID-19;Shortness of breath on exertion Performed By: #### C BC, CMP #### [address] Platelet mean volume (Bld) [Entitic vol] 9.7 fL Normal 6.3-10.7 [facility] Comment on above: Order Comment: Reaso n for Exam COVID-19;Shortness of breath on exertion Performed By: #### C BC, CMP #### [facility] [address] [place] [address] [place] Platelets (Bld) [#/Vol] 190 10*3/uL Normal 150-450 [facility] Comment on above: Order Comment: Reaso n for Exam COVID-19;Shortness of breath on exertion Performed By: #### C BC, CMP #### [address] RBC (Bld) [#/Vol] 4.48 10*6/uL Normal 3.60-5.00 [facility] Comment on above: Order Comment: Reaso n for Exam COVID-19;Shortness of breath on exertion Performed By: #### C BC, CMP #### [facility] [address] [place] [id number] [facility] WBC (Bld) [#/Vol] 5.8 10*3/uL Normal 3.8-11.6 [facility] Comment on above: Order Comment: Reaso n for Exam COVID-19;Shortness of breath on exertion Performed By: #### C BC, CMP #### [facility] [address] Basophils (Bld) [#/Vol] 0.151227458 10*3/uL Normal 0.0-0.2 10*3/uL [employer] Other Basophils/100 WBC (Bld) 0.400 % . % [employer] Other Eosinophils (Bld) [#/Vol] 0.433834819 10*3/uL Normal 0.0-0.45 10*3/uL [employer] Other Eosinophils/100 WBC (Bld) 0.900 % . % [employer] Other Erythrocyte distribution width (RBC) [Ratio] 13.500 % Normal 11.9-15.3 % [employer] Other Hematocrit (Bld) [Volume fraction] 38.800 % Normal 34.0-46.4 % [employer] Other Hemoglobin (Bld) [Mass/Vol] 12.321492 g/dL Normal 11.8-15.4 g/dL [employer] Other Lymphocytes (Bld) [#/Vol] 0.715178179 10*3/uL Low 1.00-4.8 10*3/uL [employer] Other Lymphocytes/100 WBC (Bld) 10.900 % . % [employer] Other MCH (RBC) [Entitic mass] 28.2000 pg Normal 24.7-34.3 pg [employer] Other MCV (RBC) [Entitic vol] 86.7000 fL Normal 80-100 fL [employer] Other Monocytes (Bld) [#/Vol] 0.395391654 10*3/uL Normal 0.0-0.8 10*3/uL [employer] Other Monocytes/100 WBC (Bld) 2.600 % . % [employer] Other Neutrophils (Bld) [#/Vol] 5.764170662 10*3/uL Normal 1.8-7.7 10*3/uL [employer] Other Neutrophils/100 WBC (Bld) 85.200 % . % [employer] Other Platelet mean volume (Bld) [Entitic vol] 9.7000 fL Normal 6.3-10.7 fL [employer] Other WBC (Bld) [#/Vol] 5.208586925 10*3/uL Normal 3.8 -11.6 10*3/uL [employer] Other Complete Blood Count Auto Diff 5.8 10*3/uL Normal 3.8-11.6 10*3/uL [employer] Other Complete Blood Count Auto Diff 32.5 g/dL Normal 32.0-35.0 g/dL [employer] Other Complete Blood Count Auto Diff 0.0 /100{WBC} Normal 0-0.5 /100{WBC} [employer] Other Comprehensive Metabolic Pane pino 08-17-2022 Albumin [Mass/Vol] 4.5 g/dL Normal 3.5-5.7 [facility] Comment on above: Order Comment: Reaso n for Exam COVID-19;Shortness of breath on exertion Performed By: #### C BC, CMP #### [facility] [address] [place] [address] Albumin/Globulin [Mass ratio] 2.0 {ratio} Normal [facility] Comment on above: Order Comment: Reaso n for Exam COVID-19;Shortness of breath on exertion Performed By: #### C BC, CMP #### [address] ALP [Catalytic activity/Vol] 59 U/L Normal 34-104 [facility] Comment on above: Order Comment: Reaso n for Exam COVID-19;Shortness of breath on exertion Result Comment: PERF ORMED BY: [place] [address] PATHOLOGIST HOME INSURANCE AGENT LISANDRA OLVERA M.D. Performed By: #### C BC, CMP #### [address] ALT [Catalytic activity/Vol] 26 U/L Normal 7-52 [facility] Comment on above: Order Comment: Reaso n for Exam COVID-19;Shortness of breath on exertion Performed By: #### C BC, CMP #### [address] Anion gap [Moles/Vol] 10.9 mmol/L Normal 6.0-15.0 [facility] Comment on above: Order Comment: Reaso n for Exam COVID-19;Shortness of breath on exertion Performed By: #### C BC, CMP #### [address] AST [Catalytic activity/Vol] 26 U/L Normal 13-39 [facility] Comment on above: Order Comment: Reaso n for Exam COVID-19;Shortness of breath on exertion Performed By: #### C BC, CMP #### [address] Bilirubin [Mass/Vol] 0.2 mg/dL Low 0.3-1.0 [facility] Comment on above: Order Comment: Reaso n for Exam COVID-19;Shortness of breath on exertion Performed By: #### C BC, CMP #### [facility] [address] Calcium [Mass/Vol] 10.0 mg/dL Normal 8.6-10.3 [facility] Comment on above: Order Comment: Reaso n for Exam COVID-19;Shortness of breath on exertion Performed By: #### C BC, CMP #### [facility] [address] Chloride [Moles/Vol] 106 mmol/L Normal 98-107 [facility] Comment on above: Order Comment: Reaso n for Exam COVID-19;Shortness of breath on exertion Performed By: #### C BC, CMP #### [address] CO2 [Moles/Vol] 25.6 mmol/L Normal 21.0-31.0 [facility] Comment on above: Order Comment: Reaso n for Exam COVID-19;Shortness of breath on exertion Performed By: #### C BC, CMP #### [facility] [address] [place] [address] Creatinine [Mass/Vol] 0.92 mg/dL Normal 0.60-1.20 [facility] Comment on above: Order Comment: Reaso n for Exam COVID-19;Shortness of breath on exertion Performed By: #### C BC, CMP #### [address] GFR/1.73 sq M.predicted MDRD (S/P/Bld) [Vol rate/Area] mL/min/{1.73_m2} [facility] Comment on above: Order Comment: Reaso n for Exam COVID-19;Shortness of breath on exertion Performed By: #### C BC, CMP #### [facility] [address] Globulin (S) [Mass/Vol] 2.2 g/dL [facility] Comment on above: Order Comment: Reaso n for Exam COVID-19;Shortness of breath on exertion Performed By: #### C BC, CMP #### [facility] [address] [place] [id number] [place] Glucose [Mass/Vol] 134 mg/dL High 74-109 [facility] Comment on above: Order Comment: Reaso n for Exam COVID-19;Shortness of breath on exertion Result Comment: [facility] Glucose Reference Range is dependent on time and content of last meal. Glucose of more than 200 mg/dL in a nonstressed, ambulatory subject supports the diagnosis of Diabetes Mellitus. ADA recommended reference range Performed By: #### C BC, CMP #### [facility] [address] [place] [address] [place] Potassium [Moles/Vol] 4.5 mmol/L Normal 3.5-5.1 [facility] Comment on above: Order Comment: Reaso n for Exam COVID-19;Shortness of breath on exertion Performed By: #### C BC, CMP #### [facility] [address] [place] [address] [place] Protein [Mass/Vol] 6.7 g/dL Normal 6.4-8.9 [facility] Comment on above: Order Comment: Reaso n for Exam COVID-19;Shortness of breath on exertion Performed By: #### C BC, CMP #### [facility] [address] [place] [id number] [place] Sodium [Moles/Vol] 138 mmol/L Normal 136-145 [facility] Comment on above: Order Comment: Reaso n for Exam COVID-19;Shortness of breath on exertion Performed By: #### C BC, CMP #### [facility] [address] [place] [id number] [place] Urea nitrogen [Mass/Vol] 16 mg/dL Normal 7-25 [facility] Comment on above: Order Comment: Reaso n for Exam COVID-19;Shortness of breath on exertion Performed By: #### C BC, CMP #### [facility] [address] [place] [id number] [place] Albumin [Mass/Vol] 4.388996 g/dL Normal 3.5-5.7 g/dL [employer] Other Bilirubin [Mass/Vol] 0.5468296 mg/dL Low 0.3- 1.0 mg/dL [employer] Other Calcium [Mass/Vol] 10.7650622 mg/dL Normal 8.6-1 0.3 mg/dL [employer] Other CO2 [Moles/Vol] 25.87807568 mmol/L Normal 21.0-3 1.0 mmol/L [employer] Other Creatinine [Mass/Vol] 0.23083835 mg/dL Normal 0. 60-1.20 mg/dL [employer] Other Potassium [Moles/Vol] 4.88864745 mmol/L Normal 3 .5-5.1 mmol/L [employer] Other Protein [Mass/Vol] 6.193027 g/dL Normal 6.4-8.9 g/dL [employer] Other Comprehensive Metabolic Panel 2.2 g/dL [employer] Other Comprehensive Metabolic Pane lOrdered By: Shay Muro on 08-17-2022 GFR/1.73 sq M.predicted MDRD (S/P/Bld) [Vol rate/Area] mL/min/{1.73_m2} [facility] Creatinine [Mass/volume] in Serum or PlasmaOrdered By: Shay Muro on 08-17-2022 Creatinine [Mass/Vol] 0.92 mg/dL 0.60-1.20 [facility] Eosinophils Auto (Bld) [#/Vo l]Ordered By: Shay Muro on 08-17-2022 Eosinophils (Bld) [#/Vol] 0.1 10*3/uL 0.0-0.45 [facility] Eosinophils/100 WBC Auto (Bl d)Ordered By: Shay Muro on 08-17-2022 Eosinophils/100 WBC (Bld) 0.9 % . [facility] Erythrocyte distribution wid th Auto (RBC) [Ratio]Ordered By: Shay Muro on 08-17-2022 Erythrocyte distribution width (RBC) [Ratio] 13.5 % 11.9-15.3 [facility] Erythrocytes [#/volume] in B lood by Automated countOrdered By: Shay Muro on 08-17-2022 RBC (Bld) [#/Vol] 4.48 10*6/uL Normal 3.60-5.00 [facility] Globulin Calc (S) [Mass/Vol] Ordered By: Shay Muro on 08-17-2022 Globulin (S) [Mass/Vol] 2.2 g/dL [facility] Glucose [Mass/volume] in Ser um or PlasmaOrdered By: Shay Muro on 08-17-2022 Glucose [Mass/Vol] 134 mg/dL High 74-109 mg/dL [facility] Comment on above: ADA recommended refe rence rangeRandom Glucose Reference Range is dependent on time and content of last meal. Glucose of more than 200 mg/dL in a nonstressed, ambulatory subject supports the diagnosis of Diabetes Mellitus. Hematocrit Auto (Bld) [Volum e fraction]Ordered By: Shay Muro on 08-17-2022 Hematocrit (Bld) [Volume fraction] 38.8 % 34.0-46.4 [facility] Hemoglobin [Mass/volume] in BloodOrdered By: Shay Muro on 08-17-2022 Hemoglobin (Bld) [Mass/Vol] 12.6 g/dL 11.8-15.4 [facility] Leukocytes [#/volume] correc hermelinda for nucleated erythrocytes in Blood by Automated counOrdered By: Shay Muro on 08-17-2022 WBC corrected for nucl RBC Auto (Bld) [#/Vol] 5.8 10*3/uL 3.8-11.6 [facility] Lymphocytes Auto (Bld) [#/Vo l]Ordered By: Shay Muro on 08-17-2022 Lymphocytes (Bld) [#/Vol] 0.6 10*3/uL 1.00-4.8 [facility] Lymphocytes/100 WBC Auto (Bl d)Ordered By: Shay Muro on 08-17-2022 Lymphocytes/100 WBC (Bld) 10.9 % . [facility] MCH Auto (RBC) [Entitic mass ]Ordered By: Shay Muro on 08-17-2022 MCH (RBC) [Entitic mass] 28.2 pg 24.7-34.3 [facility] MCHC Auto (RBC) [Mass/Vol]Or dered By: Shay Muro on 08-17-2022 MCHC (RBC) [Mass/Vol] 32.5 g/dL 32.0-35.0 [facility] MCV Auto (RBC) [Entitic vol] Ordered By: Shay Muro on 08-17-2022 MCV (RBC) [Entitic vol] 86.7 fL 80-100 [facility] Monocytes Auto (Bld) [#/Vol] Ordered By: Shay Muro on 08-17-2022 Monocytes (Bld) [#/Vol] 0.1 10*3/uL 0.0-0.8 [facility] Monocytes/100 WBC Auto (Bld) Ordered By: Shay Muro on 08-17-2022 Monocytes/100 WBC (Bld) 2.6 % . [facility] Neutrophils Auto (Bld) [#/Vo l]Ordered By: Shay Muro on 08-17-2022 Neutrophils (Bld) [#/Vol] 5.0 10*3/uL 1.8-7.7 [facility] Neutrophils/100 WBC Auto (Bl d)Ordered By: Shay Muro on 08-17-2022 Neutrophils/100 WBC (Bld) 85.2 % . [facility] No Panel InformationOrdered By: Shay Muro on 08-17-2022 Pharmacy Creatinine Clearance (Chem N/A [facility] Nucleated erythrocytes [Pres ence] in Blood by Automated countOrdered By: Shay Muro on 08-17-2022 Nucleated RBC Auto Ql (Bld) 0.0 /100{WBC} 0-0.5 [facility] Platelet mean volume Auto (B ld) [Entitic vol]Ordered By: Shay Muro on 08-17-2022 Platelet mean volume (Bld) [Entitic vol] 9.7 fL 6.3-10.7 [facility] Platelets [#/volume] in Bloo d by Automated countOrdered By: Shay Muro on 08-17-2022 Platelets (Bld) [#/Vol] 190 10*3/uL Normal 150-450 10*3/uL [facility] Potassium [Moles/volume] in Serum or PlasmaOrdered By: Shay Muro on 08-17-2022 Potassium [Moles/Vol] 4.5 mmol/L 3.5-5.1 [facility] Protein [Mass/volume] in Ser um or PlasmaOrdered By: Shay Muro on 08-17-2022 Protein [Mass/Vol] 6.7 g/dL 6.4-8.9 [facility] Serum or plasma albumin/glob ulin mass ratioOrdered By: Shay Muro on 08-17-2022 Albumin/Globulin [Mass ratio] 2.0 {ratio} [facility] Serum or plasma anion gap de terminationOrdered By: Shay Muro on 08-17-2022 Anion gap [Moles/Vol] 10.9 mmol/L 6.0-15.0 [facility] Sodium [Moles/volume] in Ser um or PlasmaOrdered By: Shay Muro on 08-17-2022 Sodium [Moles/Vol] 138 mmol/L Normal 136-145 mmol/L [facility] Urea nitrogen [Mass/volume] in Serum or PlasmaOrdered By: Shay Muro on 08-17-2022 Urea nitrogen [Mass/Vol] 16 mg/dL Normal 7-25 mg/dL [facility] WBC Auto (Bld) [#/Vol]Ordere d By: Shay Muro on 08-17-2022 WBC (Bld) [#/Vol] 5.8 10*3/uL 3.8-11.6 [facility] XR chest 2V*on 08-17-2022 XR chest 2V* [facility] Main [address] [address] XRay Report Signed Patient: Kayleen Bingham MR#: [id number] [id number] : 1965 Acct:[id number] Age/Sex: 57 / F ADM Date: 08/17/22 Loc: [place] Room: Type: [facility] Attending Dr: Shay Muro DO Copies [...] Andrew Lockett M.D.08/17/2022 7:08 PM Dictation Location: [place] [address] Transcribed By: [facility] 08/17/221907 Dictated By: Andrew Lockett DO 08/17/221906 Signed By: 08/17/221907 Normal [facility] SARS-CoV-2 (COVID-19) RNA JOSÉ MIGUEL+probe Ql (Unsp spec) XR/XR chest 2V*: COVID-19;Shortness of breath on exertion [facility] [employer] Other XR chest 2V* [facility] [employer] Other XR chest 2V* [facility] [employer] Other XR chest 2V* [address] [place] [address] [employer] Other XR chest 2V* [place] [address] [facility] [employer] Other XR chest 2V* XRay Report [facility] [employer] Other XR chest 2V* Signed [employer] Other XR chest 2V* Patient: Lurdes Bingham M MR#: [id number] [facility] [employer] Other XR chest 2V* 683 [employer] Other XR chest 2V* : 1965 Acct:[id number] [employer] Other XR chest 2V* Age/Sex: 57 / F ADM Date: 08/17/22 [employer] Other XR chest 2V* Loc: [place] Room: Type: [facility] [employer] Other XR chest 2V* Attending Dr: Shay Muro DO [employer] Other XR chest 2V* Copies to: Shay Muro, [employer] Other XR chest 2V* Ordering Provider: Tereso Muro DO [employer] Other XR chest 2V* Date of Service: 08/17/22 [employer] Other XR chest 2V* Plain film chest2 view [employer] Other XR chest 2V* HISTORY:Shortness of breath [employer] Other XR chest 2V* COMPARISON:04/02/2020 No rt [employer] Other XR chest 2V* FINDINGS: [employer] Other XR chest 2V* SUPPORT DEVICES: None N [facility] [employer] Other XR chest 2V* POSTSURGICAL CHANGES:None [employer] Other XR chest 2V* HEART: Within normal limits [employer] Other XR chest 2V* PULMONARY COLIN:Withi n normal limits [employer] Other XR chest 2V* MEDIASTINUM:Unremarkable [employer] Other XR chest 2V* LUNGS AND PLEURA: No acute lung process, pleural effusion or pneumothorax identified. [employer] Other XR chest 2V* BONY STRUCTURES: Intact [employer] Other XR chest 2V* ADDITIONAL FINDINGS None [employer] Other XR chest 2V* X R/XR chest 2V* [employer] Other XR chest 2V* IMPRESSION: No acute process. [employer] Other XR chest 2V* Impression dictated by: Andrew Lockett M.D.08/17/2022 7:08 PM [employer] Other XR chest 2V* Dictation Location: [place] [address] [employer] Other XR chest 2V* Transcribed By: ROXANNA 08/17/221907 [employer] Other XR chest 2V* Dictated By: James Lockett DO 08/17/221906 [employer] Other XR chest 2V* Signed By: [employer] Other XR chest 2V* 08/17/221907 [facility] Other MM screening mammo BI w/CADo n 08-09-2022 MM screening mammo BI w/CAD [facility] [place] [address] Mammography Report Signed Patient: Kayleen Bingham MR#: [id number] : 1965 Acct:[id number] Age/Sex: 57 / F ADM Date: 08/09/22 Loc: [place] Room: Type: [facility] Attending Dr: Vivian Denis DO Copies to: DO ADEEL Cramer MONA DO Ordering Provider: VIVIAN DENIS [...] Andrew Lockett M.D.08/09/2022 4:24 PM Dictation Location: [facility] Transcribed By: [facility] 08/09/221623 Dictated By: Andrew Lockett DO 08/09/221622 Signed By: 08/09/221623 [facility] POINT OF CARE GLUCOSEon 02-0 Glucose [Mass/Vol] 103 mg/dL Normal 74-[address] [facility] Comment on above: Performed By: #### P OCGLUC #### [facility] [address] [place] [address] Dr. Nhung Henao Glucose [Mass/Vol] 97 mg/dL Normal 74-[address] [facility] Comment on above: Performed By: #### P OCGLUC #### [facility] [address] [place] [address] Dr. Nhung Henao Covid-19 PCR (CVDTB)on 05-31 SARS-CoV-2 (COVID-19) RNA JOSÉ MIGUEL+probe Ql (Unsp spec) Not detected Normal NOT DETECTED [facility] Comment on above: Result Comment: This test is not yet approved or cleared by the [place] FDA. When there are no FDA-approved or cleared tests available, and other criteria are met, FDA can make tests available under an emergency access mechanism called an Emergency Use Authorization (EUA). The EUA for this test is supported by the [place] of Health and Human Service's (HHS's) declaration [...] SARS-CoV-2. Performed By: #### C VDTB #### [facility] [address] [place] [address] Dr. Nhung Henao PROF CHEM 8 (BAS METB)on Anion gap [Moles/Vol] 13.5 mmol/L Normal [facility] Comment on above: Performed By: #### B MP #### [facility] [address] [place] [address] Dr. Nhung Henao Calcium [Mass/Vol] 9.4 mg/dL Normal 8.5-10.1 [facility] Comment on above: Performed By: #### B MP #### [facility] [address] [place] [address] Dr. Nhung Henao Chloride [Moles/Vol] 104 mmol/L Normal 98-107 [facility] Comment on above: Performed By: #### B MP #### [facility] [address] [place] [address] Dr. Nhung Henao CO2 [Moles/Vol] 28.2 mmol/L Normal 21.0-32.0 [facility] Comment on above: Performed By: #### B MP #### [facility] [address] [place] [address] Dr. Nhung Henao Creatinine [Mass/Vol] 0.82 mg/dL Normal 0.55-1.02 [facility] Comment on above: Performed By: #### B MP #### [facility] [address] [place] [address] Dr. Nhung Henao EGFR-AF ROMANIAN >60 Normal >=60 [facility] Comment on above: Performed By: #### B MP #### [facility] [address] [place] [address] [address] Nhung Henao EGFR-NON AF ROMANIAN >60 Normal >=60 [facility] Comment on above: Performed By: #### B MP #### [facility] [address] [place] [address] [address] Nhung Henao Glucose [Mass/Vol] 88 mg/dL Normal 74-106 [facility] Comment on above: Performed By: #### B MP #### [facility] [address] [place] [address] [address] Nhung Henao Potassium [Moles/Vol] 4.7 mmol/L Normal 3.5-5.1 [facility] Comment on above: Performed By: #### B MP #### [facility] [address] [place] [address] [address] Nhung Henao Sodium [Moles/Vol] 141 mmol/L Normal 136-145 [facility] Comment on above: Performed By: #### B MP #### [facility] [address] [place] [address] [address] Nhung Henao Urea nitrogen [Mass/Vol] 20.0 mg/dL Critically high 7.0-18.0 [facility] Comment on above: Performed By: #### B MP #### [facility] [address] [place] [address] [address] Nhung Henao Urea nitrogen/Creatinine [Mass ratio] 24.4 mg/mg Normal [facility] Comment on above: Performed By: #### B MP #### [facility] [address] [place] [address] [address] Nhung Henao MRI FOOT LT WO CONon 04-24-2 022 MRI FOOT LT WO CON EXAM: [...] POLO DELGADO Date: 2022-04-24 13:21 Normal [facility] Covid-19 PCR (CVDTB)on 06 SARS-CoV-2 (COVID-19) RNA JOSÉ MIGUEL+probe Ql (Unsp spec) Not detected Normal NOT DETECTED [facility] Comment on above: Result Comment: This test is not yet approved or cleared by the [place] FDA. When there are no FDA-approved or cleared tests available, and other criteria are met, FDA can make tests available under an emergency access mechanism called an Emergency Use Authorization (EUA). The EUA for this test is supported by the [place] of Health and Human Service's (HHS's) declaration [...] SARS-CoV-2. Performed By: #### C VDTB #### [facility] [address] [place] [address] [address] Nhung Henao Covid-19 PCR ([facility])on SARS-CoV-2 (COVID-19) RNA JOSÉ MIGUEL+probe Ql (Unsp spec) Not detected Normal NOT DETECTED [facility] Comment on above: Result Comment: This test is not yet approved or cleared by the [place] FDA. When there are no FDA-approved or cleared tests available, and other criteria are met, FDA can make tests available under an emergency access mechanism called an Emergency Use Authorization (EUA). The EUA for this test is supported by the [place] of Health and Human Service's (HHS's) declaration [...] SARS-CoV-2. Performed By: #### C VDTB #### [facility] [address] [place] [address] Nhung Henao Vital Signs Date Time Vital Sign Value Performing Clinician Facility 07-04-2023 10:30-0500 Body height 170.18 cm Shay Muro Other [employer] Other 06-20-2023 07:45-0500 Body height 170.18 cm Shay Kuns Other [employer] Other 06-20-2023 07:45-0500 Body mass index (BMI) [Ratio] 31.48 kg/m2 Shay Kuns Other [employer] Other 06-20-2023 07:45-0500 Body weight 91.17 kg Shay Kuns Other [employer] Other 06-20-2023 07:45-0500 Diastolic blood pressure 84 mm[Hg] Shay Kuns Other [employer] Other 06-20-2023 07:45-0500 Respiratory rate 16 /min Shay Kuns Other [employer] Other 06-20-2023 07:45-0500 SaO2% (BldA) [Mass fraction] 97 % Shay Kuns Other [employer] Other 06-20-2023 07:45-0500 Systolic blood pressure 122 mm[Hg] Shay Kuns Other [employer] Other 05-31-2023 13:45-0500 Body height 170.18 cm Shay Kuns Other [employer] Other 05-31-2023 13:45-0500 Body mass index (BMI) [Ratio] 31.01 kg/m2 Shay Kuns Other [employer] Other 05-31-2023 13:45-0500 Body weight 89.81 kg Shay Kuns Other [employer] Other 05-31-2023 13:45-0500 Diastolic blood pressure 84 mm[Hg] Shay Kuns Other [employer] Other 05-31-2023 13:45-0500 Respiratory rate 18 /min Shay Kuns Other [employer] Other 05-31-2023 13:45-0500 SaO2% (BldA) [Mass fraction] 98 % Shay Kuns Other [employer] Other 05-31-2023 13:45-0500 Systolic blood pressure 130 mm[Hg] Shay Kuns Other [employer] Other 01-17-2023 10:30-0400 Body height 170.18 cm Shay Kuns Other [employer] Other 01-17-2023 10:30-0400 Body mass index (BMI) [Ratio] 30.22 kg/m2 Shay Kuns Other [employer] Other 01-17-2023 10:30-0400 Body weight 87.54 kg Shay Kuns Other [employer] Other 01-17-2023 10:30-0400 Diastolic blood pressure 78 mm[Hg] Shay Kuns Other [employer] Other 01-17-2023 10:30-0400 Respiratory rate 16 /min Shay Kuns Other [employer] Other 01-17-2023 10:30-0400 SaO2% (BldA) [Mass fraction] 97 % Shay Kuns Other [employer] Other 01-17-2023 10:30-0400 Systolic blood pressure 108 mm[Hg] Shay Muro Other [employer] Other Encounters Encounter Date Encounter Type Care Provider Facility Start: 07-04-2023 (Televisit) Televisit Shay Muro [facility] Start: 07-04-2023 End: 07-04-2023 ambulatory Shay Muro Other [employer] Other Start: 06-20-2023 Encounter for genera l adult medical examination without abnormal findings Shay Muro [facility] Start: 06-20-2023 Periodic preventive med est patient 40-64yrs Shay Muro [facility] Start: 06-20-2023 End: 06-20-2023 ambulatory Shay Kuns Facility:[facility] Start: 06-20-2023 End: 06-20-2023 ambulatory DO Shay Kuns Work Phone: [facility] Work Phone: Start: 06-20-2023 End: 06-20-2023 Patient encounter procedure DO Shay Kuns Work Phone: [facility] [place] Work Phone: Start: 05-31-2023 End: 05-31-2023 ambulatory Shay Kuns Facility:[facility] Start: 05-31-2023 End: 05-31-2023 Patient encounter procedure DO Shay Kuns Work Phone: [facility] [place] Work Phone: Start: 05-31-2023 End: 05-31-2023 ambulatory DO Shay Kuns Work Phone: [facility] Work Phone: Start: 05-31-2023 Office outpatient vi sit 25 minutes Shay Nunos [facility] [place] Start: 05-31-2023 End: 05-31-2023 Patient encounter procedure DO Shaymaria t Reinas Work Phone: [facility] [place] Work Phone: Start: 05-12-2023 End: 05-12-2023 ambulatory Shay Kuns Other [employer] Other Start: 05-12-2023 Telephone encounter Shay Nunos [facility] [place] Start: 05-11-2023 End: 05-11-2023 ambulatory VIVIAN DRAKEAWIRA Not Available Start: 01-25-2023 End: 01-25-2023 ambulatory Shay Kuns Other [employer] Other Start: 01-25-2023 Telephone encounter Shay Kuns [facility] [place] Start: 01-24-2023 End: 01-24-2023 ambulatory Shay Kuns Other [employer] Other Start: 01-24-2023 Telephone encounter Shay Kuns [facility] [place] Start: 01-17-2023 (Acute) Acute Visit Shay Kuns [facility] [place] Start: 01-17-2023 End: 01-17-2023 ambulatory Shay Kuns Other [employer] Other Start: 01-13-2023 End: 01-13-2023 ambulatory Shay Kuns Other [employer] Other Start: 01-13-2023 Telephone encounter Shay Kuns [facility] [place] Start: 01-10-2023 End: 01-10-2023 ambulatory Shay Kuns Other [employer] Other Start: 01-10-2023 Telephone encounter Shay Kuns [facility] [place] Start: 08-17-2022 End: 08-17-2022 ambulatory Shay Kuns Facility:[facility] Start: 08-17-2022 End: 08-17-2022 Patient encounter procedure DO Shay Kuns Work Phone: [facility] [place] Work Phone: Start: 08-17-2022 End: 08-17-2022 ambulatory DO Shay Kuns Work Phone: [facility] Work Phone: Start: 08-17-2022 Telephone encounter Shay Kuns [facility] [address] Start: 08-09-2022 End: 08-09-2022 ambulatory Shay Kuns Facility:[facility] Start: 08-09-2022 End: 08-09-2022 Patient encounter procedure DO Shay Kuns Work Phone: [facility] Work Phone: Start: 07-01-2022 End: 07-01-2022 ambulatory RAYMOND Bach [facility] Facility:[facility] Start: 06-28-2022 Encounter for preprocedural laboratory examination RAYMOND SMITH [facility] Start: 06-25-2022 End: 06-26-2022 ambulatory RAYMOND Bach [facility] Facility:[facility] Start: 06-25-2022 End: 06-26-2022 Encounter for preprocedural laboratory examination RAYMOND SMITH Facility:[facility] Start: 06-09-[address] DOCTOR LOPEZ Facility :[facility] Start: 04-21-2022 End: 04-22-2022 ambulatory RAYMOND Bach [facility] Facility:[facility] Start: 04-02-2022 End: 04-02-2022 ambulatory Shay Kuns Other [employer] Other Start: 04-02-2022 Telephone encounter Shay Kuns [facility] [place] Start: 03-15-2022 End: 03-15-2022 ambulatory Shay Nunos Other [employer] Other Start: 03-15-2022 Telephone encounter Shay Muro [facility] [place] Start: 03-09-2022 End: 03-10-2022 ambulatory RENETTA SORTO Facility:[facility] Start: 12-10-2021 End: 12-10-2021 ambulatory Shay Muro Other [employer] Other Start: 12-10-2021 Telephone encounter Shay Muro [facility] [place] Start: 10-28-2021 Telephone encounter Shay Muro [facility] [place] Start: 10-28-2021 End: 10-28-[address] SHAY MURO [employer] Other Start: 09-01-2021 Telephone encounter Shay Muro [facility] Start: 09-01-2021 End: 09-01-[address] DOCTOR LOPEZ [employer] Other Procedures Date Procedure Procedure Detail Performing Clinician Start: 08-17-2022 Plain chest X-ray DO Lonnie Muro Work Phone: Start: 08-09-2022 Screening mammograph y of bilateral breasts DO Shay Muro Work Phone: Plan of Treatment Date Care Activity Detail Author Start: 06-20-2023 Bacteria identified in Urine by Culture [facility] Thyroglobulin Ab [Un its/volume] in Serum or Plasma [facility] Thyroperoxidase Ab [ Units/volume] in Serum or Plasma [facility] Immunizations Immunization Date Immunization Notes Care Provider Fa cility 03-25-2023 Flu Shot - Documentation Purposes Only Shay Muro Other [employer] Other 04-21-2021 COVID-19 Vaccine Pfi zer - Documentation Purposes Only Shay Muro Other [employer] Other 02-27-2021 influenza, seasonal, injectable Shay Muro Other [employer] Other 09-03-2020 COVID-19 Vaccine Pfi zer - Documentation Purposes Only Shaymaria t Reinas Other [employer] Other 08-13-2020 COVID-19 Vaccine Pfi zer - Documentation Purposes Only Shay Kuns Other [employer] Other 03-14-2019 influenza, seasonal, injectable Shay Kuns Other [employer] Other 04-12-2018 influenza, seasonal, injectable Shay Kuns Other [employer] Other Payers Date Payer Category Payer Self-pay [id number] 1965 Unknown [id number] 2.16.84 [id number] 1965 Unknown [id number] 2.16.84 [id number] 1965 Unknown [id number] 2.16.84 [id number] 1965 Unknown [id number] 2.16.84 [id number] 1965 Unknown [id number] 2.16.84 [id number] 1965 Unknown [id number] 2.16.84 [id number] 1965 Unknown [id number] 2.16.84 [id number] 1965 Unknown [id number] 2.16.840 .[id number] 1960 [facility] [id number] Unknown [place] [employer] [id number] Unknown [id number] 2.16.8 [id number] Unknown [id number] 2.16.8 [id number] Unknown [id number] 2.16.8 [id number] Unknown [id number] 2.16.8 [id number] Social History Date Type Detail Facility Unknown if ever smoked [employer] Other Sex Assigned At Sex Assigned At Bir th [employer] Other Start: 1965 Sex Assigned At Female F [facility] Clinical Notes 05-29-2015 to 07-04-2023 Note Date & Type Note Facility 07-04-2023 Evaluation note Encounter Date Diagnosis Assessment Notes Jun, Hyperlipidemia (ICD-10 - E78.5) Blood work results reviewed with the patient. Cholesterol levels have improved from last check. Patient is to continue to monitor diet and exercise. Jun, Abnormal thyroid blood test (ICD-10 - R94.6) Blood work results reviewed Jun, Bacteria in urine (ICD-10 - N39.0) Urine culture noted lactobacillus jensenii. Patient is to continue to follow with Dr. Park as scheduled. Jun, Diseases of lips (ICD-10 - K13.0) Refill provided of the above medication. [employer] Other [id number] Evaluation note* Encounter Date Diagnosis Assessment Notes Treatment Notes Treatment Clinical Notes May, Wellness examination (ICD-10 - Z00.00) Personalized health advice was given to the beneficiary to health education of preventative counseling services or programs aimed at reducing identified risk factors and improving self-management or community-based lifestyle interventions to reduce health risks and promote self-management and wellness, including physical activity and nutrition. A written plan for screenings was discussed, flu vaccination, routine lab studies, eye exams, as well as risk factors for other medical problems. May, Leukocytes in urine (ICD-10 - N39.0) Noted in todays urinalysis. We will send out for a culture. Patient is asymptomatic. May, Right ankle injury (ICD-10 - S99.911A) Patient is scheduled to have the right ankle repaired with Dr. Smith. May, Trigger finger of left hand (ICD-10 - M65.30) Noted of the thumb. Patient had voiced interest to see Dr. Evangelista for a consult. I am agreeable, therefore referral was initiated. May, Thumb pain, left (ICD-10 - M79.645) Referral intiated to Dr. Evangelista. May, Abnormal thyroid blood test (ICD-10 - R94.6) I did review the recheck thyroid levels with the patient. Thyroid antibodies are negative. T4 and TSH are both WNL as well. We will continue to monitor. May, Other Patient pend ing lab work EKG revealed sinus bradycardia, at this time avoid see any medical limitations to undergoing general anesthesia and surgery. [employer] Other 01-02-2024 Evaluation note* Encounter Date Diagnosis Assessment Notes Treatment Notes Treatment Clinical Notes May, Pain of left thumb (ICD-10 [...] She was recently evaluated by Dr. Park, [employer], and started on an estrogen replacement for hot flashes. [employer] Other 12-14-2023 Evaluation note* Encounter Date Diagnosis Assessment Notes Treatment Notes Treatment Clinical Notes Apr, Left hand pain (ICD-10 - M79.642) [employer] Other 08-29-2023 Evaluation note* Encounter Date Diagnosis Assessment Notes Treatment Notes Treatment Clinical Notes Dec, Persistent cough (ICD-10 - R05.3) [employer] Other 08-21-2023 Evaluation note* Encounter Date Diagnosis [...] improvement then I will refer out to silver buffer. 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 She states air quality measures were determined to be safe. Masking is optional at job site. [employer] Other 08-14-2023 Evaluation note* Encounter Date Diagnosis Assessment Notes Treatment Notes Treatment Clinical Notes Dec, Acute cough (ICD-10 - R05.1) [employer] Other 07-16-2023 History general Narrative - Reported* Type Description Date Medical History Follows with Dr. De Anda for her [employer] care Medical History 2010 Mammogram Medical History [...] Dr. Smith 03/30/2021 Hospitalization History see surgical [employer] Other 07-16-2023 History general Narrative - Reported* Type Description Date Medical History Follows with Dr. De Anda for her [employer] care Medical History 2010 Mammogram Medical History [...] Foot Neuroma 06/2022 Hospitalization History see surgical [employer] Other 03-21-2023 Evaluation note* Encounter Date Diagnosis Assessment Notes Treatment Notes Treatment Clinical Notes Jul, COVID-19 (ICD-10 - U07.1) Jul, Shortness of breath on exertion (ICD-10 - R06.02) [employer] Other 10-17-2022 Evaluation note* Encounter Date Diagnosis Assessment Notes Treatment Notes Treatment Clinical Notes Feb, Diseases of lips (ICD-10 - K13.0) [employer] Other 10-12-2022 NotePROCEDURE: XR FOOT LT MIN [...] Electronically authenticated by: JOSEFINA CLAYTON Date: 2022-03-09 22:44[facility]07-16-2022 History general Narrative - Reported* Type Description Date Medical History Follows with Dr. De Anda for her O [employer] care Medical History 2010 Mammogram Medical History [...] Dr. Smith 03/30/2021 Hospitalization History see surgical [employer] Other 06-01-2022 Evaluation note* Encounter Date Diagnosis Assessment Notes Treatment Notes Treatment Clinical Notes Oct, Cough (ICD-10 - R05.9) Oct, Exposure to COVID-19 virus (ICD-10 - Z20.822) [employer] Other 04-05-2022 Evaluation note* Encounter Date Diagnosis Assessment Notes Treatment Notes Treatment Clinical Notes Aug, Exposure to COVID-19 virus (ICD-10 - Z20.822) [employer] Other 12-31-2015 History general Narrative - Reported* Type Description Date Medical History Follows with Dr. De Anda for her [employer] care Medical History 2010 Mammogram Medical History [...] per Dr. Smith 03/30/2021 Hospitalization History see [employer] Other 12-31-2015 History general Narrative - Reported* Type Description Date Medical History Follows with Dr. De Anda for her [employer] care Medical History 2010 Mammogram Medical History [...] Left Foot Neuroma 06/2022 Hospitalization History see [employer] Other Evaluation noteNo InformationN[employer] Other Evaluation noteNo assessment information available [facility] Work Phone: Summary Purpose Family History No Family History Records FoundNo Family History Records FoundNo Family History Records Found Advance Directives Advance Directive Response Recorded Date/ Time Advance Directives No April 04, 2017 4:31pm Advance Directive Response Recorded Date/ Time Advance Directives No April 04, 2017 3:31pm Chief Complaint and Reason for Visit Chief Complaint Z12.31 U07.1 R06.02 Chief Complaint Left Hand Pain/ Want ing Mri R79.89 Reason for Referral Reason *FU 06/27 consult and treat Diagnosis 1 Trigger finger of le ft hand (M65.30) Diagnosis 2 Thumb pain, left (M7 9.645) Referral Organization [facility] [place] Referring Provider First Name Shay Referring Provider Last Name Veronica Referring Provider Specialty Family Prac haider Referred Organization [facility] Referred Provider Johnna Evangelista Referred Address [address] [facility] [place],[address] Referred Provider Specialty Hand Surgery Referral Priority Routine General Notes Ameena Carrera 09:30:14 AM > received today. Sent p2p Reason *FU 02/03 consult and treat; soonest available Diagnosis 1 Persistent cough (R0 5.3) Referral Organization [facility] [place] Referring Provider First Name Shay Referring Provider Last Name Veronica Referring Provider Specialty Family Prac ahider Referred Organization [facility] Referred Provider Richardson Nolen Referred Address [address] [place], [place],[address] Referred Provider Specialty Pulmonary Di seases Referral Priority Routine General Notes Jacob Cassandra M 023 12:06:00 PM >Received today and referral was fax. They will review and call patient to schedule Clinical Notes Office [phone] Additional Source Comments REASON FOR VISIT (unrecogniz ed section and content) clinicalclinicalno showRefil lsclinicalSOBClinical Acute IllnessClinicalcough wants referralClinicalclinicalClinicalLeft hand pain/ wanting MRIwellnessREVIEW LABS INFORMATION SOURCE (unrecogn ized section and content) DATE CREATED AUTHOR 07/13/2022 [facility] DATE CREATED AUTHOR AUTHOR'S ORGANIZ ATION 05/14/2023 [facility] EPIC DATE CREATED AUTHOR AUTHOR'S ORGANIZ ATION 06/25/[address] [facility] Care Teams (unrecognized sec tion and content) Team Status: Active Member Role Status Dates Shay Nunos , DO Primary Care Provider Active Team Status: Inactive Member Role Status Dates Shay Reinas , DO Primary Care Provider Active Vivian Adeel , DO Attending Provider Active Team Status: Inactive Member Role Status Dates Shay Nunos , DO Primary Care Provider, Attending Provi rae Active Team Status: Inactive Member Role Status Dates Shay Kuns , DO Attending Provider Active Start: May 31, 2023 End: May 31, 2023 Team Status: Inactive Member Role Status Dates Shaymaria t Reinas , DO Primary Care Provide r, Attending Provider Active Start: May 31, 2023 End: May 31, 2023 Team Status: Inactive Member Role Status Dates Shay Kuns , DO Primary Care Provide r, Attending Provider Active Start: June 20, 2023 End: June 20, 2023 Goals (unrecognized section and content) Goals may [...] BE BASED ON THE PRIMARY CLINICAL RECORDS. [employer] provides no warranty or guarantee of the accuracy or completeness of information in this document.
[2023-07-07 07:41] LABS: Basophils Absolute Auto 0.1 10^3/uL (0.0-0.1); Basophils Percent Auto 1.1 % (0.2-2.0); Eosinophils Absolute Auto 0.4 10^3/uL (0.0-0.7); Eosinophils Percent Auto 8.3 % (0.9-7.0); Hematocrit 41.4 % (36.0-48.0); Hemoglobin 13.2 g/dL (12.0-16.0); Immature Granulocytes Abs Auto 0.01 10^3/uL (0.00-0.03); Immature Granulocytes Pct Auto 0.2 % (0.0-0.5); Lymphocytes Absolute Auto 1.1 10^3/uL (1.2-3.8); Lymphocytes Percent Auto 24.6 % (20.5-60.0); Mean Corpuscular HGB Conc 31.9 g/dL (29.9-35.2); Mean Corpuscular Hemoglobin 29.2 pg (26.7-34.0); Mean Corpuscular Volume 91.6 fL (81.0-99.0); Mean Platelet Volume 10.6 fL (9.5-13.5); Monocytes Absolute Auto 0.5 10^3/uL (0.3-0.8); Monocytes Percent Auto 11.5 % (1.7-12.0); Neutrophils Absolute Auto 2.5 10^3/uL (1.4-6.5); Neutrophils Percent Auto 54.3 % (43.0-75.0); Platelet Count 180 10^3/uL (150-450); Red Blood Count 4.52 10^6/uL (4.20-5.40); Red Cell Distribution Width 12.4 % (11.0-15.0); White Blood Count 4.6 10^3/uL (4.0-11.0)
[2023-07-07 07:41] LABS: Glucometer 108 mg/dL (74-106)
[2023-07-07] MEDS: LACTATED RINGER'S SOLUTION 1,000 ML 50 ML IV ×2 (07:59→14:03)
[2023-07-07] MEDS: PREGABALIN 75 MG CAPSULE PO (08:37)
[2023-07-07] MEDS: FAMOTIDINE 20 MG TABLET PO (08:37)
[2023-07-07] MEDS: ACETAMINOPHEN 500 MG TABLET 1000 MG PO ×2 (08:37→21:19)
[2023-07-07] MEDS: CELECOXIB 200 MG CAPSULE PO (08:38)
--- NOTE | 2023-07-07 12:17 | PC.NURSE ---
1150 this literary writer positioned patient as directed by Dr. Blood. 1200 Time out performed with Dr. Jeremi Concepcion patient verified body part verified right ankle 1200 4 mg zofran given, 2 mg versed given via IV by Dr. Blood. 1202 physician locates area to be blocked . picture was taken, procedure performed and was completed at 1207. patient tolerated well.
[2023-07-07] MEDS: CEFAZOLIN SODIUM/DEXTROSE,ISO 2 GM/50 ML PIGGYBACK IV (12:53)
--- NOTE | 2023-07-07 13:54 | P.ORON_ITS ---
Brief Operative Note Date of procedure: 07/07/23 Pre-op diagnosis: right ankle osteochondral defect, arthritis possible instabi lity Post-op diagnosis: other (right ankle osteochondral defect and arthritis) Procedure: procedures performed: Right ankle arthroplasty and arthroscopy, bone marrow aspirate concentrate, stress examination under intraoperative fluoroscopy and application of short leg splint indications for procedure: Patient is a 58-year-old female with a long-standing history of right ankle problems stemming from an injury sustained in 2009. Patient had cartilage debridement and arthroscopy performed by an outside surgeon which did help for several years however over the last two years her pain and dysfunction have only worsened. Patient attempted nonsurgical treatment with bracing, shoe and activity modification and rice therapy without much help. MRI was obtained which shows an osteotomy, defect on the talar dome in the central to central medial aspect in both the coronal and sagittal planes. I went over the risks and benefits of surgical intervention and patient elected to proceed with the above procedures. Intraoperative findings: Arthroscopy revealed a significant amount of chronic impingement tissue and soft tissue synovitis as well as full-thickness cartilage defect in the central aspect of the dome. Joint space is narrowed consistent with arthritis. Procedure in detail: Patient was identified in pre op and consent was reviewed. Correct side and site were identified and marked. Pre-op antibiotics were started. Patient was brought to OR suite and place on table in a supine position. General anesthesia was administered. Thigh tourniquet applied. Operative extremity was prepped and draped in usual sterile fashion and place in a well-padded leg camejo. Formal time-out was performed. The intermediate dorsal cutaneous nerve was identified and marked. Stab incision was created just medial to the tibial tubercle blunt dissection down to bone was performed. The lightning needle trochar was drilled into the proximal tibia metaphysis and tochar was removed. Then 60 mL of bone marrow aspirate was obtained. The BMA was then passed off the field to be concentrated with use of a centrifuge. 60 mL of intravenous blood was obtained by anesthesia and also concentrated for platelet rich plasma for later use. The stab incision was closed with nonabsorbable skin suture. The ankle was insufflated with 15 cc of sterile saline and the foot, ankle and calf were exsanguinated and tourniquet inflated. Standard anterior medial ankle portal was created with a scalpel. Blunt dissection was performed then the trochar and cannula were inserted with the ankle held in maximum dorsiflexion. Inspection of the ankle demonstrated significant acute and chronic synovitis with impingement. A needle was inserted into the anterior lateral ankle in standard safe zone and was identified then removed. A second 1 cm incision was created over anterior lateral ankle followed by blunt dissection to ensure the intermediate dorsal cutaneous nerve was protected. A 3.5 mm aggressive shaver was inserted into this portal and used to resect all impingement and synovitic tissue. the osteochondral defect in the central aspect of the talar dome was identified and further inspected with a blunt probe noting loose in cartilage tissue. The lesion was curetted and it was notable that there was a full- thickness cartilage defect. Once the lesion was aggressively debrided the lesion measured approximately 1 cm in diameter. Due to the size and location of the defect decision was made to extend the medial portal performing arthrotomy with combination sharp and blunt dissection. The lesion was then further debrided and then drilled with a 1.3 mm drill into the subchondral bone. surgical site was irrigated copiously. Then anish was placed into the surgical site to ensure the field was dry. On the back table a small portion of the bone marrow aspirate concentrate was mixed with InQ allograft. Once the graft mixture was mixed and set into a putty consistency it was packed into the defect and 2-3 drops of fibrin glue were placed over the graft and allowed to dry for over five minutes. The graft site within the defect was then checked to ensure its stability. Once the glue was dry the surgical site was lightly irrigated an deep fascia was closed. The remaining bone marrow aspirate concentrate as well as the platelet rich plasma was then injected into the joint. platelet poor plasma was then sprayed onto the incisions which were then closed in layers. The tourniquet was deflated with a prompt hyperemic response. A dry sterile dressing was applied all by multiple layers of cast padding then a layer of Bib wraps followed by additional layers of cast padding. A plaster posterior splint was then applied and allowed to dry while holding the foot and ankle in a neutral position. The plaster splint was held in place with an additional layer of Bib wraps. Patient tolerated the procedure and anesthesia well was transferred to recovery room with vital signs stable and brisk capillary refill to the toes. POSTOPERATIVE PLAN: Discharge home under family's care Post op instructions provided verbally and written prescription(s) were placed in chart NWB operative foot/ankle x3 wks Follow-up in 1 week to be placed into a fiberglass cast versus another splint pending pain and swelling Implants: [employer] InQ allograft mixed with BMAc and fibrin glue Anesthesia: regional and General-LMA Surgeon: Bhargav Smith Veneer Taping Machine Operator: Richardson Benson Estimated blood loss (mL): 100 Pathology: none sent Condition: stable Disposition: PACU
--- NOTE | 2023-07-07 15:24 | XR_ITS ---
[address] [address] Patient Name: KAYLEEN BINGHAM MRN: [id number] date: 1965 Sex: F Assigned Patient Location: [facility] Current Patient Location: [place] Accession/Order Number: [id number] Exam Date: 07/07/2023 15:40 Report Date: 07/08/2023 07:19 At the request of: RODNEY DENG Procedure: XR ankle RT min 3V PROCEDURE: XR ankle RT min 3V COMPARISON: 05/10/2023 HISTORY: Postop x-ray PACU FINDINGS: BONES:No acute fracture or dislocation. Moderate plantar enthesopathic spurring of the calcaneus SOFT TISSUES:Soft tissue swelling anterior ankle EFFUSION:None visible. OTHER: Bone detail obscured by a posterior cast XR/XR ankle RT min 3V IMPRESSION: Anterior ankle postoperative soft tissue swelling Electronically authenticated by: ROCCO CORTEZ Date: 07/08/2023 07:19
[2023-07-07 15:31] LABS: Glucometer 100 mg/dL (74-106)
[2023-07-07] MEDS: HYDROMORPHONE HCL 0.5 MG/0.5 ML SYRINGE IV ×5 (15:37→15:59)
[2023-07-07] MEDS: OXYCODONE HCL/ACETAMINOPHEN 5MG/325MG 1 TAB PO (15:40)
[2023-07-07] MEDS: ONDANSETRON PF 4 MG/2 ML VIAL IV ×2 (16:00→20:20)
--- OUTSIDE RECORDS SUMMARY | 2023-07-07 17:25 | XMS_ITS | CCD ---
Author Name Unknown Address [address] [place] [address] Organization [facility] Care Team Providers Care Adjunct Instructor Of Women'S Studies Name Role Phone Shay Muro Unavailable RAYMOND [...] DO Shay Muro Primary Care Provider DO Vivain Denis Attending Provider DO Shay Muro Attending Provider [phone] VIVIAN DENIS Attending Unavailable DO Shay [...] Estradiol / Norethindrone Drug Allergy vaginal itching Buru Buru Other (2 sources) Seasonal allergy Propensity to adverse reactions Unknown [facility] Other Medications Current Medications Medication Drug Class(es) [...] [Catalytic activity/Vol] 27 U/L Normal 7-52 U/L [facility] Albumin [Mass/volume] in Ser um or Plasma by Bromocresol green (BCG) dye binding methoOrdered By: Shay Muro on 06-20-2023 Albumin BCG dye [Mass/Vol] 4.4 g/dL 3.5-5.7 [facility] Alkaline phosphatase [Enzyma tic activity/volume] in Serum or PlasmaOrdered By: Shay Muro on 06-20-2023 ALP [Catalytic activity/Vol] 51 U/L Normal 34-104 U/L [facility] Aspartate aminotransferase [ Enzymatic activity/volume] in Serum or PlasmaOrdered By: Shay Muro on 06-20-2023 AST [Catalytic activity/Vol] 25 U/L Normal 13-39 U/L [facility] Basophils Auto (Bld) [#/Vol] Ordered By: Shay Muro on 06-20-2023 Basophils (Bld) [#/Vol] 0.0 10*3/uL 0.0-0.2 [facility] Basophils/100 WBC Auto (Bld) Ordered By: Shay Muro on 06-20-2023 Basophils/100 WBC (Bld) 1.0 % . [facility] Bilirubin.total [Mass/volume ] in Serum or PlasmaOrdered By: Shay Muro on 06-20-2023 Bilirubin [Mass/Vol] 0.3 mg/dL 0.3-1.0 [facility] Calcium [Mass/volume] in Ser um or PlasmaOrdered By: Shay Muro on 06-20-2023 Calcium [Mass/Vol] 9.6 mg/dL 8.6-10.3 [facility] Carbon dioxide, total [Moles /volume] in Serum or PlasmaOrdered By: Shay Muro on 06-20-2023 CO2 [Moles/Vol] 29.9 mmol/L 21.0-31.0 [facility] Chloride [Moles/volume] in S francis or PlasmaOrdered By: Shay Muro on 06-20-2023 Chloride [Moles/Vol] 108 mmol/L High 98-107 mmol/L [facility] Cholesterol [Mass/volume] in Serum or PlasmaOrdered By: Shay Muro on 06-20-2023 Cholesterol [Mass/Vol] 185 mg/dL Normal 140-200 mg/dL [facility] Comment on above: Chol less than 200 m g/dl low riskChol 201-239 mg/dl borderline riskChol 240 mg/dl and greater high risk Cholesterol in LDL Calc [Mas s/Vol]Ordered By: Shay Muro on 06-20-2023 Cholesterol in LDL [Mass/Vol] 116 mg/dL 0-100 [facility] Comment on above: LDL ATP III CLASSIFI CATIONLDL less than 100 mg/dL OptimalLDL 100-129 mg/dL Near or above optimalLDL 130-159 mg/dL Borderline highLDL 160-189 mg/dL HighLDL greater than 189 mg/dL Very high Cholesterol in VLDL Calc [Ma ss/Vol]Ordered By: Shay Muro on 06-20-2023 Cholesterol in VLDL [Mass/Vol] 23 mg/dL [facility] Complete Blood Count Auto Di ffon 06-20-2023 Basophils (Bld) [#/Vol] 0.236158901 10*3/uL Normal 0.0-0.2 10*3/uL [facility] Other Basophils/100 WBC (Bld) 1.000 % . % [facility] Other Eosinophils (Bld) [#/Vol] 0.895246007 10*3/uL Normal 0.0-0.45 10*3/uL [facility] Other Eosinophils/100 WBC (Bld) 6.200 % . % [facility] Other Erythrocyte distribution width (RBC) [Ratio] 13.200 % Normal 11.9-15.3 % [facility] Other Hematocrit (Bld) [Volume fraction] 38.800 % Normal 34.0-46.4 % [facility] Other Hemoglobin (Bld) [Mass/Vol] 13.237263 g/dL Normal 11.8-15.4 g/dL [facility] Other Lymphocytes (Bld) [#/Vol] 1.466304655 10*3/uL Normal 1.00-4.8 10*3/uL [facility] Other Lymphocytes/100 WBC (Bld) 25.700 % . % [facility] Other MCH (RBC) [Entitic mass] 29.9000 pg Normal 24.7-34.3 pg [facility] Other MCV (RBC) [Entitic vol] 89.2000 fL Normal 80-100 fL [facility] Other Monocytes (Bld) [#/Vol] 0.232782800 10*3/uL Normal 0.0-0.8 10*3/uL [facility] Other Monocytes/100 WBC (Bld) 10.400 % . % [facility] Other Neutrophils (Bld) [#/Vol] 2.852849690 10*3/uL Normal 1.8-7.7 10*3/uL [facility] Other Neutrophils/100 WBC (Bld) 56.700 % . % [facility] Other Platelet mean volume (Bld) [Entitic vol] 9.5000 fL Normal 6.3-10.7 fL [facility] Other WBC (Bld) [#/Vol] 4.526355115 10*3/uL Normal 3.8 -11.6 10*3/uL [facility] Other Complete Blood Count Auto Diff 4.3 10*3/uL Normal 3.8-11.6 10*3/uL [facility] Other Complete Blood Count Auto Diff 33.5 g/dL Normal 32.0-35.0 g/dL [facility] Other Complete Blood Count Auto Diff 0.0 /100{WBC} Normal 0-0.5 /100{WBC} [employer] [facility] Other Basophils (Bld) [#/Vol] 0.0 10*3/uL Normal 0.0-0.2 [facility] Comment on above: Order Comment: Reaso n for Exam Wellness examination Result Comment: PERF ORMED BY: [place] [address] PATHOLOGIST DROP [employer]LE DRIVER OPERATOR LISANDRA OLVERA M.D. Performed By: #### C MP, CUU, CBC, LIPID, TSH3 #### [address] Basophils/100 WBC (Bld) 1.0 % Normal . [facility] Comment on above: Order Comment: Reaso n for Exam Wellness examination Performed By: #### C MP, CUU, CBC, LIPID, TSH3 #### [facility] [address] [place] [address] [place] Eosinophils (Bld) [#/Vol] 0.3 10*3/uL Normal 0.0-0.45 [facility] Comment on above: Order Comment: Reaso n for Exam Wellness examination Performed By: #### C MP, CUU, CBC, LIPID, TSH3 #### [facility] [address] [place] [address] [place] Eosinophils/100 WBC (Bld) 6.2 % Normal . [facility] Comment on above: Order Comment: Reaso n for Exam Wellness examination Performed By: #### C MP, CUU, CBC, LIPID, TSH3 #### [place] [address] [place] Erythrocyte distribution width (RBC) [Ratio] 13.2 % Normal 11.9-15.3 [facility] Comment on above: Order Comment: Reaso n for Exam Wellness examination Performed By: #### C MP, CUU, CBC, LIPID, TSH3 #### [address] Hematocrit (Bld) [Volume fraction] 38.8 % Normal 34.0-46.4 [facility] Comment on above: Order Comment: Reaso n for Exam Wellness examination Performed By: #### C MP, CUU, CBC, LIPID, TSH3 #### [address] Hemoglobin (Bld) [Mass/Vol] 13.0 g/dL Normal 11.8-15.4 [facility] Comment on above: Order Comment: Reaso n for Exam Wellness examination Performed By: #### C MP, CUU, CBC, LIPID, TSH3 #### [address] Lymphocytes (Bld) [#/Vol] 1.1 10*3/uL Normal 1.00-4.8 [facility] Comment on above: Order Comment: Reaso n for Exam Wellness examination Performed By: #### C MP, CUU, CBC, LIPID, TSH3 #### [address] Lymphocytes/100 WBC (Bld) 25.7 % Normal . [facility] Comment on above: Order Comment: Reaso n for Exam Wellness examination Performed By: #### C MP, CUU, CBC, LIPID, TSH3 #### [address] MCH (RBC) [Entitic mass] 29.9 pg Normal 24.7-34.3 [facility] Comment on above: Order Comment: Reaso n for Exam Wellness examination Performed By: #### C MP, CUU, CBC, LIPID, TSH3 #### [address] MCV (RBC) [Entitic vol] 89.2 fL Normal 80-100 [facility] Comment on above: Order Comment: Reaso n for Exam Wellness examination Performed By: #### C MP, CUU, CBC, LIPID, TSH3 #### [address] Mean Corpuscular HGB Conc 33.5 g/dL Normal 32.0-35.0 [facility] Comment on above: Order Comment: Reaso n for Exam Wellness examination Performed By: #### C MP, CUU, CBC, LIPID, TSH3 #### [address] Monocytes (Bld) [#/Vol] 0.4 10*3/uL Normal 0.0-0.8 [facility] Comment on above: Order Comment: Reaso n for Exam Wellness examination Performed By: #### C MP, CUU, CBC, LIPID, TSH3 #### [address] Monocytes/100 WBC (Bld) 10.4 % Normal . [facility] Comment on above: Order Comment: Reaso n for Exam Wellness examination Performed By: #### C MP, CUU, CBC, LIPID, TSH3 #### [address] Neutrophils (Bld) [#/Vol] 2.4 10*3/uL Normal 1.8-7.7 [facility] Comment on above: Order Comment: Reaso n for Exam Wellness examination Performed By: #### C MP, CUU, CBC, LIPID, TSH3 #### [address] Neutrophils/100 WBC (Bld) 56.7 % Normal . [facility] Comment on above: Order Comment: Reaso n for Exam Wellness examination Performed By: #### C MP, CUU, CBC, LIPID, TSH3 #### [address] NRBC% 0.0 /100{WBC} Normal 0-0.5 [facility] Comment on above: Order Comment: Reaso n for Exam Wellness examination Performed By: #### C MP, CUU, CBC, LIPID, TSH3 #### [facility] [address] Platelet mean volume (Bld) [Entitic vol] 9.5 fL Normal 6.3-10.7 [facility] Comment on above: Order Comment: Reaso n for Exam Wellness examination Performed By: #### C MP, CUU, CBC, LIPID, TSH3 #### [facility] [address] Platelets (Bld) [#/Vol] 182 10*3/uL Normal 150-450 [facility] Comment on above: Order Comment: Reaso n for Exam Wellness examination Performed By: #### C MP, CUU, CBC, LIPID, TSH3 #### [facility] [address] RBC (Bld) [#/Vol] 4.34 10*6/uL Normal 3.60-5.00 [facility] Comment on above: Order Comment: Reaso n for Exam Wellness examination Performed By: #### C MP, CUU, CBC, LIPID, TSH3 #### [facility] [address] WBC (Bld) [#/Vol] 4.3 10*3/uL Normal 3.8-11.6 [facility] Comment on above: Order Comment: Reaso n for Exam Wellness examination Performed By: #### C MP, CUU, CBC, LIPID, TSH3 #### [address] Comprehensive Metabolic Pane pino 06-20-2023 Albumin [Mass/Vol] 4.575069 g/dL Normal 3.5-5.7 g/dL [employer] [facility] Other Bilirubin [Mass/Vol] 0.9993600 mg/dL Normal 0.3- 1.0 mg/dL [facility] Other Calcium [Mass/Vol] 9.7509306 mg/dL Normal 8.6-10 .3 mg/dL [facility] Other CO2 [Moles/Vol] 29.32393689 mmol/L Normal 21.0-3 1.0 mmol/L [employer] [facility] Other Creatinine [Mass/Vol] 0.85589105 mg/dL Normal 0. 60-1.20 mg/dL [facility] Other Potassium [Moles/Vol] 4.75834273 mmol/L Normal 3 .5-5.1 mmol/L [facility] Other Protein [Mass/Vol] 6.189173 g/dL Normal 6.4-8.9 g/dL [facility] Other Comprehensive Metabolic Panel 2.1 g/dL [employer] [facility] Other Albumin [Mass/Vol] 4.4 g/dL Normal 3.5-5.7 [facility] Comment on above: Order Comment: Reaso n for Exam Wellness examination Performed By: #### C MP, CUU, CBC, LIPID, TSH3 #### [facility] [address] Albumin/Globulin [Mass ratio] 2.1 {ratio} Normal [facility] Comment on above: Order Comment: Reaso n for Exam Wellness examination Performed By: #### C MP, CUU, CBC, LIPID, TSH3 #### [facility] [address] [place] [address] [place] ALP [Catalytic activity/Vol] 51 U/L Normal 34-104 [facility] Comment on above: Order Comment: Reaso n for Exam Wellness examination Performed By: #### C MP, CUU, CBC, LIPID, TSH3 #### [facility] [address] [place] [address] [place] ALT [Catalytic activity/Vol] 27 U/L Normal 7-52 [facility] Comment on above: Order Comment: Reaso n for Exam Wellness examination Performed By: #### C MP, CUU, CBC, LIPID, TSH3 #### [facility] [address] [place] [id number] [facility] Anion gap [Moles/Vol] 7.7 mmol/L Normal 6.0-15.0 [facility] Comment on above: Order Comment: Reaso n for Exam Wellness examination Performed By: #### C MP, CUU, CBC, LIPID, TSH3 #### [facility] [address] [place] [address] AST [Catalytic activity/Vol] 25 U/L Normal 13-39 [facility] Comment on above: Order Comment: Reaso n for Exam Wellness examination Performed By: #### C MP, CUU, CBC, LIPID, TSH3 #### [facility] [address] [place] [address] Bilirubin [Mass/Vol] 0.3 mg/dL Normal 0.3-1.0 [facility] Comment on above: Order Comment: Reaso n for Exam Wellness examination Performed By: #### C MP, CUU, CBC, LIPID, TSH3 #### [facility] [address] [place] [address] Calcium [Mass/Vol] 9.6 mg/dL Normal 8.6-10.3 [facility] Comment on above: Order Comment: Reaso n for Exam Wellness examination Performed By: #### C MP, CUU, CBC, LIPID, TSH3 #### [facility] [address] [place] [address] Chloride [Moles/Vol] 108 mmol/L High 98-107 [facility] Comment on above: Order Comment: Reaso n for Exam Wellness examination Performed By: #### C MP, CUU, CBC, LIPID, TSH3 #### [facility] [address] [place] [address] CO2 [Moles/Vol] 29.9 mmol/L Normal 21.0-31.0 [facility] Comment on above: Order Comment: Reaso n for Exam Wellness examination Performed By: #### C MP, CUU, CBC, LIPID, TSH3 #### [facility] [address] [place] [address] Creatinine [Mass/Vol] 0.98 mg/dL Normal 0.60-1.20 [facility] Comment on above: Order Comment: Reaso n for Exam Wellness examination Performed By: #### C MP, CUU, CBC, LIPID, TSH3 #### [facility] [address] [place] [address] [place] GFR/1.73 sq M.predicted MDRD (S/P/Bld) [Vol rate/Area] mL/min/{1.73_m2} Normal [facility] Other Comment on above: Order Comment: Reaso n for Exam Wellness examination Performed By: #### C MP, CUU, CBC, LIPID, TSH3 #### [facility] [address] Globulin (S) [Mass/Vol] 2.1 g/dL Normal [facility] Comment on above: Order Comment: Reaso n for Exam Wellness examination Performed By: #### C MP, CUU, CBC, LIPID, TSH3 #### [facility] [address] Glucose [Mass/Vol] 97 mg/dL Normal 70-100 [facility] Comment on above: Order Comment: Reaso n for Exam Wellness examination Result Comment: [facility] Glucose Reference Range is dependent on time and content of last meal. Glucose of more than 200 mg/dL in a nonstressed, ambulatory subject supports the diagnosis of Diabetes Mellitus. ADA recommended reference range Performed By: #### C MP, CUU, CBC, LIPID, TSH3 #### [facility] [address] Potassium [Moles/Vol] 4.6 mmol/L Normal 3.5-5.1 [facility] Comment on above: Order Comment: Reaso n for Exam Wellness examination Performed By: #### C MP, CUU, CBC, LIPID, TSH3 #### [facility] [address] Protein [Mass/Vol] 6.5 g/dL Normal 6.4-8.9 [facility] Comment on above: Order Comment: Reaso n for Exam Wellness examination Performed By: #### C MP, CUU, CBC, LIPID, TSH3 #### [facility] [address] Sodium [Moles/Vol] 141 mmol/L Normal 136-145 [facility] Comment on above: Order Comment: Reaso n for Exam Wellness examination Performed By: #### C MP, CUU, CBC, LIPID, TSH3 #### [facility] [address] Urea nitrogen [Mass/Vol] 15 mg/dL Normal 7-25 [facility] Comment on above: Order Comment: Reaso n for Exam Wellness examination Performed By: #### C MP, CUU, CBC, LIPID, TSH3 #### [facility] [address] Creatinine [Mass/volume] in Serum or PlasmaOrdered By: Shay Muro on 06-20-2023 Creatinine [Mass/Vol] 0.98 mg/dL 0.60-1.20 [facility] Eosinophils Auto (Bld) [#/Vo l]Ordered By: Shay Muro on 06-20-2023 Eosinophils (Bld) [#/Vol] 0.3 10*3/uL 0.0-0.45 [facility] Eosinophils/100 WBC Auto (Bl d)Ordered By: Shay Muro on 06-20-2023 Eosinophils/100 WBC (Bld) 6.2 % . [facility] Erythrocyte distribution wid th Auto (RBC) [Ratio]Ordered By: Shay Muro on 06-20-2023 Erythrocyte distribution width (RBC) [Ratio] 13.2 % 11.9-15.3 [facility] Erythrocytes [#/volume] in B lood by Automated countOrdered By: Shay Muro on 06-20-2023 RBC (Bld) [#/Vol] 4.34 10*6/uL Normal 3.60-5.00 [facility] Globulin Calc (S) [Mass/Vol] Ordered By: Shay Muro on 06-20-2023 Globulin (S) [Mass/Vol] 2.1 g/dL [facility] Glucose [Mass/volume] in Ser um or PlasmaOrdered By: Shay Muro on 06-20-2023 Glucose [Mass/Vol] 97 mg/dL Normal 70-100 mg/dL [facility] Comment on above: ADA recommended refe rence rangeRandom Glucose Reference Range is dependent on time and content of last meal. Glucose of more than 200 mg/dL in a nonstressed, ambulatory subject supports the diagnosis of Diabetes Mellitus. Hematocrit Auto (Bld) [Volum e fraction]Ordered By: Shay Muro on 06-20-2023 Hematocrit (Bld) [Volume fraction] 38.8 % 34.0-46.4 [facility] Hemoglobin [Mass/volume] in BloodOrdered By: Shay Muro on 06-20-2023 Hemoglobin (Bld) [Mass/Vol] 13.0 g/dL 11.8-15.4 [facility] Leukocytes [#/volume] correc hermelinda for nucleated erythrocytes in Blood by Automated counOrdered By: Shay Muro on 06-20-2023 WBC corrected for nucl RBC Auto (Bld) [#/Vol] 4.3 10*3/uL 3.8-11.6 [facility] Lipid Panelon 06-20-2023 Cholesterol in LDL Elph Qn 116 mg/dL High 0-100 mg/dL [facility] Other Lipid Panel 116 mg/dL Normal 0-149 mg/dL [facility] Other Lipid Panel 23 mg/dL [facility] Other Cholesterol [Mass/Vol] 185 mg/dL Normal 140-200 [facility] Comment on above: Order Comment: Reaso n for Exam Wellness examination Result Comment: Chol less than 200 mg/dl low risk Chol 201-239 mg/dl borderline risk Chol 240 mg/dl and greater high risk Performed By: #### C MP, CUU, CBC, LIPID, TSH3 #### [facility] [address] [place] [id number] [place] Cholesterol in HDL [Mass/Vol] 46 mg/dL Normal 23-92 [facility] Comment on above: Order Comment: Reaso n for Exam Wellness examination Result Comment: HDL CHOL ATP-III CLASSIFICATION Cardiovascular Risk HDL > or equal to 60 mg/dL LOW HDL < 40 mg/dL HIGH Performed By: #### C MP, CUU, CBC, LIPID, TSH3 #### [facility] [address] [place] [address] Cholesterol.total/Cho lesterol in HDL [Mass ratio] 4.0 {ratio} Normal <5.0 [facility] Comment on above: Order Comment: Reaso n for Exam Wellness examination Performed By: #### C MP, CUU, CBC, LIPID, TSH3 #### [facility] [address] LDL Cholesterol,Calculate d 116 mg/dL High 0-100 [facility] Comment on above: Order Comment: Reaso n for Exam Wellness examination Result Comment: LDL ATP III CLASSIFICATION LDL less than 100 mg/dL Optimal LDL 100-129 mg/dL Near or above optimal LDL 130-159 mg/dL Borderline high LDL 160-189 mg/dL High LDL greater than 189 mg/dL Very high Performed By: #### C MP, CUU, CBC, LIPID, TSH3 #### [facility] [address] Triglyceride w/Reflex 116 mg/dL Normal 0-149 [facility] Comment on above: Order Comment: Reaso n for Exam Wellness examination Result Comment: TRIG ATP III CLASSIFICATION TRIG less than 150 mg/dL Normal TRIG 150-199 mg/dL Borderline high TRIG 200-500 mg/dL High TRIG greater than 500 mg/dL Very high Standard traceable to the Center for Disease Conrtrol and Prevention (CDC) test method. Performed By: #### C MP, CUU, CBC, LIPID, TSH3 #### [facility] [address] VLDL CHOLESTEROL 23 mg/dL Normal [facility] Comment on above: Order Comment: Reaso n for Exam Wellness examination Performed By: #### C MP, CUU, CBC, LIPID, TSH3 #### [facility] [address] Lymphocytes Auto (Bld) [#/Vo l]Ordered By: Shay Muro on 06-20-2023 Lymphocytes (Bld) [#/Vol] 1.1 10*3/uL 1.00-4.8 [facility] Lymphocytes/100 WBC Auto (Bl d)Ordered By: Shay Muro on 06-20-2023 Lymphocytes/100 WBC (Bld) 25.7 % . [facility] MCH Auto (RBC) [Entitic mass ]Ordered By: Shay Muro on 06-20-2023 MCH (RBC) [Entitic mass] 29.9 pg 24.7-34.3 [facility] MCHC Auto (RBC) [Mass/Vol]Or dered By: Shay Muro on 06-20-2023 MCHC (RBC) [Mass/Vol] 33.5 g/dL 32.0-35.0 [facility] MCV Auto (RBC) [Entitic vol] Ordered By: Shay Muro on 06-20-2023 MCV (RBC) [Entitic vol] 89.2 fL 80-100 [facility] Monocytes Auto (Bld) [#/Vol] Ordered By: Shay Muro on 06-20-2023 Monocytes (Bld) [#/Vol] 0.4 10*3/uL 0.0-0.8 [facility] Monocytes/100 WBC Auto (Bld) Ordered By: Shay Muro on 06-20-2023 Monocytes/100 WBC (Bld) 10.4 % . [facility] Neutrophils Auto (Bld) [#/Vo l]Ordered By: Shay Muro on 06-20-2023 Neutrophils (Bld) [#/Vol] 2.4 10*3/uL 1.8-7.7 [facility] Neutrophils/100 WBC Auto (Bl d)Ordered By: Shay Muro on 06-20-2023 Neutrophils/100 WBC (Bld) 56.7 % . [facility] No Panel InformationOrdered By: Shay Muro on 06-20-2023 Estimated GFR (CKD-EPI) > 60.0 mL/Min [facility] Creatinine Clearance (Chem N/A [facility] Nucleated erythrocytes [Pres ence] in Blood by Automated countOrdered By: Shay Muro on 06-20-2023 Nucleated RBC Auto Ql (Bld) 0.0 /100{WBC} 0-0.5 [facility] Platelet mean volume Auto (B ld) [Entitic vol]Ordered By: Shay Muro on 06-20-2023 Platelet mean volume (Bld) [Entitic vol] 9.5 fL 6.3-10.7 [facility] Platelets [#/volume] in Bloo d by Automated countOrdered By: Shay Muro on 06-20-2023 Platelets (Bld) [#/Vol] 182 10*3/uL Normal 150-450 10*3/uL [facility] Potassium [Moles/volume] in Serum or PlasmaOrdered By: Shay Muro on 06-20-2023 Potassium [Moles/Vol] 4.6 mmol/L 3.5-5.1 [facility] Protein [Mass/volume] in Ser um or PlasmaOrdered By: Shay Muro on 06-20-2023 Protein [Mass/Vol] 6.5 g/dL 6.4-8.9 [facility] Serum or plasma albumin/glob ulin mass ratioOrdered By: Shay Muro on 06-20-2023 Albumin/Globulin [Mass ratio] 2.1 {ratio} [facility] Serum or plasma anion gap de terminationOrdered By: Shay Muro on 06-20-2023 Anion gap [Moles/Vol] 7.7 mmol/L 6.0-15.0 [facility] Serum or plasma high density lipoprotein (HDL) cholesterol measurementOrdered By: Shay Muro on 06-20-2023 Cholesterol in HDL [Mass/Vol] 46 mg/dL Normal 23-92 mg/dL [facility] Comment on above: HDL CHOL ATP-III CLA SSIFICATION Cardiovascular RiskHDL > or equal to 60 mg/dL LOWHDL < 40 mg/dL HIGH Serum or plasma total choles terol/high density lipoprotein (HDL) cholesterol mass ratOrdered By: Shay Muro on 06-20-2023 Cholesterol.total/Cho lesterol in HDL [Mass ratio] 4.0 {ratio} <5.0 [facility] Sodium [Moles/volume] in Ser um or PlasmaOrdered By: Shay Muro on 06-20-2023 Sodium [Moles/Vol] 141 mmol/L Normal 136-145 mmol/L [facility] Thyroid Stimulating Hormoneo n 06-20-2023 TSH Qn 3.90986150566 m[IU]/L Normal 0.45-5 .33 u[iU]/mL [facility] Other TSH Qn 3.62 m[IU]/L Normal 0.45-5.33 [facility] Comment on above: Order Comment: Reaso n for Exam Wellness examination Result Comment: PERF ORMED BY: [facility] [address] [place] [address] PATHOLOGIST [employer] OPERATOR LISANDRA OLVERA M.D. Performed By: #### C MP, CUU, CBC, LIPID, TSH3 #### [facility] [address] Thyrotropin [Units/volume] i n Serum or PlasmaOrdered By: Shay Muro on 06-20-2023 TSH Qn 3.62 m[IU]/L 0.45-5.33 [facility] Triglyceride [Mass/volume] i n Serum or PlasmaOrdered By: Shay Muro on 06-20-2023 Triglyceride [Mass/Vol] 116 mg/dL 0-149 [facility] Comment on above: TRIG ATP III CLASSIF ICATIONTRIG less than 150 mg/dL NormalTRIG 150-199 mg/dL Borderline highTRIG 200-500 mg/dL High TRIG greater than 500 mg/dL Very highStandard traceable to the Center for Disease Conrtrol and Prevention (CDC) test method. Urea nitrogen [Mass/volume] in Serum or PlasmaOrdered By: Shay Muro on 06-20-2023 Urea nitrogen [Mass/Vol] 15 mg/dL Normal 7-25 mg/dL [facility] Urine 10 SGon 06-20-2023 Albumin DL <= 20 mg/L (U) [Mass/Vol] Negative [facility] Other Albumin DL <= 20 mg/L (U) [Mass/Vol] small [facility] Other pH (U) 5.5 [pH] [facility] Other Urine 10 SG Negative [facility] Other Urine 10 SG >=1.030 [facility] Other Urine 10 SG 0.2 [facility] Other Urine Cultureon 06-20-2023 Bacteria identified Cx Nom (U) Reason for Exam Leukocytes in urine Urine Reason for Exam: Leukocytes in urine : Urine ORGANISM: Lactobacillus jensenii (O:LACJEN) [place] Count >100,000 PERFORMED BY: [place] [address] PATHOLOGIST DR[employer] HAMMER [employer]LE DRIVER OPERATOR LISANDRA OLVERA M.D. [facility] Comment on above: Performed By: #### T SH3 #### [facility] [address] [place] [address] [place] #### THY AB #### [facility] , Bacteria identified Cx Nom (U) [facility] Other WBC Auto (Bld) [#/Vol]Ordere d By: Shay Muro on 06-20-2023 WBC (Bld) [#/Vol] 4.3 10*3/uL 3.8-11.6 [facility] Serum or plasma thyroglobuli n antibody assay (units/volume)Ordered By: Shay Muro on 05-31-2023 Thyroglobulin Ab Qn [IU]/mL 0.0-0.9 [facility] Comment on above: Thyroglobulin Antibo dy measured by [employer] [facility] HuntersMethodologyPerformed at: [facility] [address] [id number] Director: Arben Avelar PhD, Phone: [phone] Serum or plasma thyroperoxid ase antibody assay (units/volume)Ordered By: Shay Muro on 05-31-2023 TPO Ab Qn [IU]/mL 0-34 [facility] Thyroid Antibodies TPO+Tg Ab on 05-31-2023 Antithyroglobulin Ab <1.0 Normal 0.0-0.9 [facility] Comment on above: Order Comment: Reaso n for Exam Abnormal thyroid blood test Result Comment: Thyr oglobulin Antibody measured by [employer] Performed at: [facility] [address] [place], [place] [id number] Correctional Lieutenant: Arben Avelar PhD, Phone: [phone] PERFORMED BY: [place] [address] PATHOLOGIST DR[employer] HAM[employer]LE DRIVER OPERATOR LISANDRA OLVERA M.D. Performed By: #### T SH3 #### [facility] [address] [place] [address] #### THY AB #### [facility] , Thyroid Peroxidase Antibodies <9 Normal 0-34 [facility] Comment on above: Order Comment: Reaso n for Exam Abnormal thyroid blood test Performed By: #### T SH3 #### [address] #### THY AB #### [facility] , Thyroid Stimulating Hormoneo n 05-31-2023 TSH Qn 3.37 m[IU]/L Normal 0.45-5.33 [facility] Comment on above: Order Comment: Reaso n for Exam Abnormal thyroid blood test Result Comment: PERF ORMED BY: [place] [address] PATHOLOGIST [employer] HAM[employer] DRIVER OPERATOR LISANDRA OLVERA M.D. Performed By: #### T SH3 #### [facility] [address] [place] [address] #### THY AB #### [facility] , Thyrotropin [Units/volume] i n Serum or PlasmaOrdered By: Shay Muro on 05-31-2023 TSH Qn 3.37 m[IU]/L 0.45-5.33 [facility] RSVon 01-17-2023 RSV Ag IA Ql (Unsp spec) Negative [facility] Other Alanine aminotransferase [En zymatic activity/volume] in Serum or PlasmaOrdered By: Shay Muro on 08-17-2022 ALT [Catalytic activity/Vol] 26 U/L Normal 7-52 U/L [facility] Albumin [Mass/volume] in Ser um or Plasma by Bromocresol green (BCG) dye binding methoOrdered By: Shay Muro on 08-17-2022 Albumin BCG dye [Mass/Vol] 4.5 g/dL 3.5-5.7 [facility] Alkaline phosphatase [Enzyma tic activity/volume] in Serum or PlasmaOrdered By: Shay Muro on 08-17-2022 ALP [Catalytic activity/Vol] 59 U/L Normal 34-104 U/L [facility] Aspartate aminotransferase [ Enzymatic activity/volume] in Serum or PlasmaOrdered By: Shay Muro on 08-17-2022 AST [Catalytic activity/Vol] 26 U/L Normal 13-39 U/L [facility] Basophils Auto (Bld) [#/Vol] Ordered By: Shay Muro on 08-17-2022 Basophils (Bld) [#/Vol] 0.0 10*3/uL 0.0-0.2 [facility] Basophils/100 WBC Auto (Bld) Ordered By: Shay Muro on 08-17-2022 Basophils/100 WBC (Bld) 0.4 % . [facility] Bilirubin.total [Mass/volume ] in Serum or PlasmaOrdered By: Shay Muro on 08-17-2022 Bilirubin [Mass/Vol] 0.2 mg/dL 0.3-1.0 [facility] Calcium [Mass/volume] in Ser um or PlasmaOrdered By: Shay Muro on 08-17-2022 Calcium [Mass/Vol] 10.0 mg/dL 8.6-10.3 [facility] Carbon dioxide, total [Moles /volume] in Serum or PlasmaOrdered By: Shay Muro on 08-17-2022 CO2 [Moles/Vol] 25.6 mmol/L 21.0-31.0 [facility] Chloride [Moles/volume] in S francis or PlasmaOrdered By: Shay Muro on 08-17-2022 Chloride [Moles/Vol] 106 mmol/L Normal 98-107 mmol/L [facility] Complete Blood Count Auto Di ffon 08-17-2022 Basophils (Bld) [#/Vol] 0.0 10*3/uL Normal 0.0-0.2 [facility] Comment on above: Order Comment: Reaso n for Exam COVID-19;Shortness of breath on exertion Result Comment: PERF ORMED BY: [place] [address] PATHOLOGIST [employer] HAM[employer] DRIVER OPERATOR LISANDRA OLVERA M.D. Performed By: #### C BC, CMP #### [address] Basophils/100 WBC (Bld) 0.4 % Normal . [facility] Comment on above: Order Comment: Reaso n for Exam COVID-19;Shortness of breath on exertion Performed By: #### C BC, CMP #### [address] Eosinophils (Bld) [#/Vol] 0.1 10*3/uL Normal 0.0-0.45 [facility] Comment on above: Order Comment: Reaso n for Exam COVID-19;Shortness of breath on exertion Performed By: #### C BC, CMP #### [place] [address] [place] Eosinophils/100 WBC (Bld) 0.9 % Normal . [facility] Comment on above: Order Comment: Reaso n for Exam COVID-19;Shortness of breath on exertion Performed By: #### C BC, CMP #### [address] Erythrocyte distribution width (RBC) [Ratio] 13.5 % Normal 11.9-15.3 [facility] Comment on above: Order Comment: Reaso n for Exam COVID-19;Shortness of breath on exertion Performed By: #### C BC, CMP #### [address] Hematocrit (Bld) [Volume fraction] 38.8 % Normal 34.0-46.4 [facility] Comment on above: Order Comment: Reaso n for Exam COVID-19;Shortness of breath on exertion Performed By: #### C BC, CMP #### [address] Hemoglobin (Bld) [Mass/Vol] 12.6 g/dL Normal 11.8-15.4 [facility] Comment on above: Order Comment: Reaso n for Exam COVID-19;Shortness of breath on exertion Performed By: #### C BC, CMP #### [address] Lymphocytes (Bld) [#/Vol] 0.6 10*3/uL Low 1.00-4.8 [facility] Comment on above: Order Comment: Reaso n for Exam COVID-19;Shortness of breath on exertion Performed By: #### C BC, CMP #### [address] Lymphocytes/100 WBC (Bld) 10.9 % Normal . [facility] Comment on above: Order Comment: Reaso n for Exam COVID-19;Shortness of breath on exertion Performed By: #### C BC, CMP #### [address] MCH (RBC) [Entitic mass] 28.2 pg Normal 24.7-34.3 [facility] Comment on above: Order Comment: Reaso n for Exam COVID-19;Shortness of breath on exertion Performed By: #### C BC, CMP #### [address] MCV (RBC) [Entitic vol] 86.7 fL Normal 80-100 [facility] Comment on above: Order Comment: Reaso n for Exam COVID-19;Shortness of breath on exertion Performed By: #### C BC, CMP #### [address] Mean Corpuscular HGB Conc 32.5 g/dL Normal 32.0-35.0 [facility] Comment on above: Order Comment: Reaso n for Exam COVID-19;Shortness of breath on exertion Performed By: #### C BC, CMP #### [address] Monocytes (Bld) [#/Vol] 0.1 10*3/uL Normal 0.0-0.8 [facility] Comment on above: Order Comment: Reaso n for Exam COVID-19;Shortness of breath on exertion Performed By: #### C BC, CMP #### [facility] [address] [place] [address] [place] Monocytes/100 WBC (Bld) 2.6 % Normal . [facility] Comment on above: Order Comment: Reaso n for Exam COVID-19;Shortness of breath on exertion Performed By: #### C BC, CMP #### [facility] [address] [place] [address] [place] Neutrophils (Bld) [#/Vol] 5.0 10*3/uL Normal 1.8-7.7 [facility] Comment on above: Order Comment: Reaso n for Exam COVID-19;Shortness of breath on exertion Performed By: #### C BC, CMP #### [address] Neutrophils/100 WBC (Bld) 85.2 % Normal . [facility] Comment on above: Order Comment: Reaso n for Exam COVID-19;Shortness of breath on exertion Performed By: #### C BC, CMP #### [facility] [address] NRBC% 0.0 /100{WBC} Normal 0-0.5 [facility] Comment on above: Order Comment: Reaso n for Exam COVID-19;Shortness of breath on exertion Performed By: #### C BC, CMP #### [address] Platelet mean volume (Bld) [Entitic vol] 9.7 fL Normal 6.3-10.7 [facility] Comment on above: Order Comment: Reaso n for Exam COVID-19;Shortness of breath on exertion Performed By: #### C BC, CMP #### [facility] [address] [place] [address] [place] Platelets (Bld) [#/Vol] 190 10*3/uL Normal 150-450 [facility] Comment on above: Order Comment: Reaso n for Exam COVID-19;Shortness of breath on exertion Performed By: #### C BC, CMP #### [address] RBC (Bld) [#/Vol] 4.48 10*6/uL Normal 3.60-5.00 [facility] Comment on above: Order Comment: Reaso n for Exam COVID-19;Shortness of breath on exertion Performed By: #### C BC, CMP #### [facility] [address] [place] [id number] [facility] WBC (Bld) [#/Vol] 5.8 10*3/uL Normal 3.8-11.6 [facility] Comment on above: Order Comment: Reaso n for Exam COVID-19;Shortness of breath on exertion Performed By: #### C BC, CMP #### [facility] [address] Basophils (Bld) [#/Vol] 0.540856067 10*3/uL Normal 0.0-0.2 10*3/uL [facility] Other Basophils/100 WBC (Bld) 0.400 % . % [facility] Other Eosinophils (Bld) [#/Vol] 0.690432891 10*3/uL Normal 0.0-0.45 10*3/uL [facility] Other Eosinophils/100 WBC (Bld) 0.900 % . % [facility] Other Erythrocyte distribution width (RBC) [Ratio] 13.500 % Normal 11.9-15.3 % [facility] Other Hematocrit (Bld) [Volume fraction] 38.800 % Normal 34.0-46.4 % [facility] Other Hemoglobin (Bld) [Mass/Vol] 12.047515 g/dL Normal 11.8-15.4 g/dL [facility] Other Lymphocytes (Bld) [#/Vol] 0.163931085 10*3/uL Low 1.00-4.8 10*3/uL [facility] Other Lymphocytes/100 WBC (Bld) 10.900 % . % [facility] Other MCH (RBC) [Entitic mass] 28.2000 pg Normal 24.7-34.3 pg [facility] Other MCV (RBC) [Entitic vol] 86.7000 fL Normal 80-100 fL [facility] Other Monocytes (Bld) [#/Vol] 0.483461366 10*3/uL Normal 0.0-0.8 10*3/uL [facility] Other Monocytes/100 WBC (Bld) 2.600 % . % [facility] Other Neutrophils (Bld) [#/Vol] 5.565421788 10*3/uL Normal 1.8-7.7 10*3/uL [facility] Other Neutrophils/100 WBC (Bld) 85.200 % . % [facility] Other Platelet mean volume (Bld) [Entitic vol] 9.7000 fL Normal 6.3-10.7 fL [facility] Other WBC (Bld) [#/Vol] 5.754516987 10*3/uL Normal 3.8 -11.6 10*3/uL [facility] Other Complete Blood Count Auto Diff 5.8 10*3/uL Normal 3.8-11.6 10*3/uL [facility] Other Complete Blood Count Auto Diff 32.5 g/dL Normal 32.0-35.0 g/dL [facility] Other Complete Blood Count Auto Diff 0.0 /100{WBC} Normal 0-0.5 /100{WBC} [facility] Other Comprehensive Metabolic Pane pino 08-17-2022 Albumin [Mass/Vol] 4.5 g/dL Normal 3.5-5.7 [facility] Comment on above: Order Comment: Reaso n for Exam COVID-19;Shortness of breath on exertion Performed By: #### C BC, CMP #### [facility] [address] [place] [address] Albumin/Globulin [Mass ratio] 2.0 {ratio} Normal [facility] Comment on above: Order Comment: Reaso n for Exam COVID-19;Shortness of breath on exertion Performed By: #### C BC, CMP #### [address] ALP [Catalytic activity/Vol] 59 U/L Normal 34-104 [facility] Comment on above: Order Comment: Reaso n for Exam COVID-19;Shortness of breath on exertion Result Comment: PERF ORMED BY: [place] [address] PATHOLOGIST [employer] DR[employer] OPERATOR LISANDRA OLVERA M.D. Performed By: #### C BC, CMP #### [address] ALT [Catalytic activity/Vol] 26 U/L Normal 7-52 [facility] Comment on above: Order Comment: Reaso n for Exam COVID-19;Shortness of breath on exertion Performed By: #### C BC, CMP #### [address] Anion gap [Moles/Vol] 10.9 mmol/L Normal 6.0-15.0 [facility] Comment on above: Order Comment: Reaso n for Exam COVID-19;Shortness of breath on exertion Performed By: #### C BC, CMP #### [address] AST [Catalytic activity/Vol] 26 U/L Normal 13-39 [facility] Comment on above: Order Comment: Reaso n for Exam COVID-19;Shortness of breath on exertion Performed By: #### C BC, CMP #### [address] Bilirubin [Mass/Vol] 0.2 mg/dL Low 0.3-1.0 [facility] Comment on above: Order Comment: Reaso n for Exam COVID-19;Shortness of breath on exertion Performed By: #### C BC, CMP #### [facility] [address] Calcium [Mass/Vol] 10.0 mg/dL Normal 8.6-10.3 [facility] Comment on above: Order Comment: Reaso n for Exam COVID-19;Shortness of breath on exertion Performed By: #### C BC, CMP #### [facility] [address] Chloride [Moles/Vol] 106 mmol/L Normal 98-107 [facility] Comment on above: Order Comment: Reaso n for Exam COVID-19;Shortness of breath on exertion Performed By: #### C BC, CMP #### [address] CO2 [Moles/Vol] 25.6 mmol/L Normal 21.0-31.0 [facility] Comment on above: Order Comment: Reaso n for Exam COVID-19;Shortness of breath on exertion Performed By: #### C BC, CMP #### [facility] [address] [place] [address] Creatinine [Mass/Vol] 0.92 mg/dL Normal 0.60-1.20 [facility] Comment on above: Order Comment: Reaso n for Exam COVID-19;Shortness of breath on exertion Performed By: #### C BC, CMP #### [address] GFR/1.73 sq M.predicted MDRD (S/P/Bld) [Vol rate/Area] mL/min/{1.73_m2} [facility] Comment on above: Order Comment: Reaso n for Exam COVID-19;Shortness of breath on exertion Performed By: #### C BC, CMP #### [facility] [address] Globulin (S) [Mass/Vol] 2.2 g/dL [facility] Comment on above: Order Comment: Reaso n for Exam COVID-19;Shortness of breath on exertion Performed By: #### C BC, CMP #### [facility] [address] [place] [id number] [place] Glucose [Mass/Vol] 134 mg/dL High 74-109 [facility] Comment on above: Order Comment: Reaso n for Exam COVID-19;Shortness of breath on exertion Result Comment: [facility] Glucose Reference Range is dependent on time and content of last meal. Glucose of more than 200 mg/dL in a nonstressed, ambulatory subject supports the diagnosis of Diabetes Mellitus. ADA recommended reference range Performed By: #### C BC, CMP #### [facility] [address] [place] [address] [place] Potassium [Moles/Vol] 4.5 mmol/L Normal 3.5-5.1 [facility] Comment on above: Order Comment: Reaso n for Exam COVID-19;Shortness of breath on exertion Performed By: #### C BC, CMP #### [facility] [address] [place] [address] [place] Protein [Mass/Vol] 6.7 g/dL Normal 6.4-8.9 [facility] Comment on above: Order Comment: Reaso n for Exam COVID-19;Shortness of breath on exertion Performed By: #### C BC, CMP #### [facility] [address] [place] [id number] [place] Sodium [Moles/Vol] 138 mmol/L Normal 136-145 [facility] Comment on above: Order Comment: Reaso n for Exam COVID-19;Shortness of breath on exertion Performed By: #### C BC, CMP #### [facility] [address] [place] [id number] [place] Urea nitrogen [Mass/Vol] 16 mg/dL Normal 7-25 [facility] Comment on above: Order Comment: Reaso n for Exam COVID-19;Shortness of breath on exertion Performed By: #### C BC, CMP #### [facility] [address] [place] [id number] [place] Albumin [Mass/Vol] 4.869630 g/dL Normal 3.5-5.7 g/dL [facility] Other Bilirubin [Mass/Vol] 0.1273572 mg/dL Low 0.3- 1.0 mg/dL [facility] Other Calcium [Mass/Vol] 10.5186696 mg/dL Normal 8.6-1 0.3 mg/dL [facility] Other CO2 [Moles/Vol] 25.45821948 mmol/L Normal 21.0-3 1.0 mmol/L [facility] Other Creatinine [Mass/Vol] 0.56295178 mg/dL Normal 0. 60-1.20 mg/dL [facility] Other Potassium [Moles/Vol] 4.36529311 mmol/L Normal 3 .5-5.1 mmol/L [facility] Other Protein [Mass/Vol] 6.552721 g/dL Normal 6.4-8.9 g/dL [facility] Other Comprehensive Metabolic Panel 2.2 g/dL [facility] Other Comprehensive Metabolic Pane lOrdered By: Shay Muro on 08-17-2022 GFR/1.73 sq M.predicted MDRD (S/P/Bld) [Vol rate/Area] mL/min/{1.73_m2} [facility] Creatinine [Mass/volume] in Serum or PlasmaOrdered By: Shay Muro on 08-17-2022 Creatinine [Mass/Vol] 0.92 mg/dL 0.60-1.20 [facility] Eosinophils Auto (Bld) [#/Vo l]Ordered By: Shay Muro on 08-17-2022 Eosinophils (Bld) [#/Vol] 0.1 10*3/uL 0.0-0.45 [facility] Eosinophils/100 WBC Auto (Bl d)Ordered By: Shay Muro on 08-17-2022 Eosinophils/100 WBC (Bld) 0.9 % . [facility] Erythrocyte distribution wid th Auto (RBC) [Ratio]Ordered By: Shay Muro on 08-17-2022 Erythrocyte distribution width (RBC) [Ratio] 13.5 % 11.9-15.3 [facility] Erythrocytes [#/volume] in B lood by Automated countOrdered By: Shay Muro on 08-17-2022 RBC (Bld) [#/Vol] 4.48 10*6/uL Normal 3.60-5.00 [facility] Globulin Calc (S) [Mass/Vol] Ordered By: Shay Muro on 08-17-2022 Globulin (S) [Mass/Vol] 2.2 g/dL [facility] Glucose [Mass/volume] in Ser um or PlasmaOrdered By: Shay Muro on 08-17-2022 Glucose [Mass/Vol] 134 mg/dL High 74-109 mg/dL [facility] Comment on above: ADA recommended refe rence rangeRandom Glucose Reference Range is dependent on time and content of last meal. Glucose of more than 200 mg/dL in a nonstressed, ambulatory subject supports the diagnosis of Diabetes Mellitus. Hematocrit Auto (Bld) [Volum e fraction]Ordered By: Shay Muro on 08-17-2022 Hematocrit (Bld) [Volume fraction] 38.8 % 34.0-46.4 [facility] Hemoglobin [Mass/volume] in BloodOrdered By: Shay Muro on 08-17-2022 Hemoglobin (Bld) [Mass/Vol] 12.6 g/dL 11.8-15.4 [facility] Leukocytes [#/volume] correc hermelinda for nucleated erythrocytes in Blood by Automated counOrdered By: Shay Muro on 08-17-2022 WBC corrected for nucl RBC Auto (Bld) [#/Vol] 5.8 10*3/uL 3.8-11.6 [facility] Lymphocytes Auto (Bld) [#/Vo l]Ordered By: Shay Muro on 08-17-2022 Lymphocytes (Bld) [#/Vol] 0.6 10*3/uL 1.00-4.8 [facility] Lymphocytes/100 WBC Auto (Bl d)Ordered By: Shay Muro on 08-17-2022 Lymphocytes/100 WBC (Bld) 10.9 % . [facility] MCH Auto (RBC) [Entitic mass ]Ordered By: Shay Muro on 08-17-2022 MCH (RBC) [Entitic mass] 28.2 pg 24.7-34.3 [facility] MCHC Auto (RBC) [Mass/Vol]Or dered By: Shay Muro on 08-17-2022 MCHC (RBC) [Mass/Vol] 32.5 g/dL 32.0-35.0 [facility] MCV Auto (RBC) [Entitic vol] Ordered By: Shay Muro on 08-17-2022 MCV (RBC) [Entitic vol] 86.7 fL 80-100 [facility] Monocytes Auto (Bld) [#/Vol] Ordered By: Shay Muro on 08-17-2022 Monocytes (Bld) [#/Vol] 0.1 10*3/uL 0.0-0.8 [facility] Monocytes/100 WBC Auto (Bld) Ordered By: Shay Muro on 08-17-2022 Monocytes/100 WBC (Bld) 2.6 % . [facility] Neutrophils Auto (Bld) [#/Vo l]Ordered By: Shay Muro on 08-17-2022 Neutrophils (Bld) [#/Vol] 5.0 10*3/uL 1.8-7.7 [facility] Neutrophils/100 WBC Auto (Bl d)Ordered By: Shay Muro on 08-17-2022 Neutrophils/100 WBC (Bld) 85.2 % . [facility] No Panel InformationOrdered By: Shay Muro on 08-17-2022 Pharmacy Creatinine Clearance (Chem N/A [facility] Nucleated erythrocytes [Pres ence] in Blood by Automated countOrdered By: Shay Muro on 08-17-2022 Nucleated RBC Auto Ql (Bld) 0.0 /100{WBC} 0-0.5 [facility] Platelet mean volume Auto (B ld) [Entitic vol]Ordered By: Shay Muro on 08-17-2022 Platelet mean volume (Bld) [Entitic vol] 9.7 fL 6.3-10.7 [facility] Platelets [#/volume] in Bloo d by Automated countOrdered By: Shay Muro on 08-17-2022 Platelets (Bld) [#/Vol] 190 10*3/uL Normal 150-450 10*3/uL [facility] Potassium [Moles/volume] in Serum or PlasmaOrdered By: Shay Muro on 08-17-2022 Potassium [Moles/Vol] 4.5 mmol/L 3.5-5.1 [facility] Protein [Mass/volume] in Ser um or PlasmaOrdered By: Shay Muro on 08-17-2022 Protein [Mass/Vol] 6.7 g/dL 6.4-8.9 [facility] Serum or plasma albumin/glob ulin mass ratioOrdered By: Shay Muro on 08-17-2022 Albumin/Globulin [Mass ratio] 2.0 {ratio} [facility] Serum or plasma anion gap de terminationOrdered By: Shay Muro on 08-17-2022 Anion gap [Moles/Vol] 10.9 mmol/L 6.0-15.0 [facility] Sodium [Moles/volume] in Ser um or PlasmaOrdered By: Shay Muro on 08-17-2022 Sodium [Moles/Vol] 138 mmol/L Normal 136-145 mmol/L [facility] Urea nitrogen [Mass/volume] in Serum or PlasmaOrdered By: Shay Muro on 08-17-2022 Urea nitrogen [Mass/Vol] 16 mg/dL Normal 7-25 mg/dL [facility] WBC Auto (Bld) [#/Vol]Ordere d By: Sahy Muro on 08-17-2022 WBC (Bld) [#/Vol] 5.8 10*3/uL 3.8-11.6 [facility] XR chest 2V*on 08-17-2022 XR chest 2V* [facility] Main [address] [address] XRay Report Signed Patient: Kayleen Bingham MR#: [id number] : 1965 Acct:[id number] Age/Sex: 57 / F ADM Date: 08/17/22 Loc: [place] Room: Type: [facility] Attending Dr: Shay Muro DO Copies to: [...] Andrew Lockett M.D.08/17/2022 7:08 PM Dictation Location: [place] [address] Transcribed By: [facility] 08/17/221907 Dictated By: Andrew Lockett DO 08/17/221906 Signed By: 08/17/221907 Normal [facility] SARS-CoV-2 (COVID-19) RNA JOSÉ MIGUEL+probe Ql (Unsp spec) XR/XR chest 2V*: COVID-19;Shortness of breath on exertion [facility] Other XR chest 2V* [facility] Other XR chest 2V* [facility] Main [facility] [employer] Other XR chest 2V* [address] [place] [address] [facility] Other XR chest 2V* [place] [address] [facility] Other XR chest 2V* XRay Report [facility] Other XR chest 2V* Signed [facility] Other XR chest 2V* Patient: Lurdes Bingham M MR#: [id number] [facility] Other XR chest 2V* [address] [facility] Other XR chest 2V* : 1965 Acct:[id number] [facility] Other XR chest 2V* Age/Sex: 57 / F ADM Date: 08/17/22 [facility] Other XR chest 2V* Loc: [place] Room: Type: [facility] Other XR chest 2V* Attending Dr: Shay Muro DO [facility] Other XR chest 2V* Copies to: Shay Muro, [facility] Other XR chest 2V* Ordering Provider: Tereso Muro DO [facility] Other XR chest 2V* Date of Service: 08/17/22 [facility] Other XR chest 2V* Plain film chest2 view [facility] Other XR chest 2V* HISTORY:Shortness of breath [facility] Other XR chest 2V* COMPARISON:04/02/2020 No rt [employer] Other XR chest 2V* FINDINGS: [facility] Other XR chest 2V* SUPPORT DEVICES: None N [facility] [employer] Other XR chest 2V* POSTSURGICAL CHANGES:None [facility] Other XR chest 2V* HEART: Within normal limits [facility] Other XR chest 2V* PULMONARY COLIN:Withi n normal limits [facility] Other XR chest 2V* MEDIASTINUM:Unremarkable [facility] Other XR chest 2V* LUNGS AND PLEURA: No acute lung process, pleural effusion or pneumothorax identified. [facility] Other XR chest 2V* BONY STRUCTURES: Intact [facility] Other XR chest 2V* ADDITIONAL FINDINGS None [facility] Other XR chest 2V* X R/XR chest 2V* [facility] Other XR chest 2V* IMPRESSION: No acute process. [facility] Other XR chest 2V* Impression dictated by: Andrew Lockett M.D.08/17/2022 7:08 PM [facility] Other XR chest 2V* Dictation Location: [place] [address] [facility] Other XR chest 2V* Transcribed By: ROXANNA 08/17/221907 [facility] Other XR chest 2V* Dictated By: James Lockett DO 08/17/221906 [facility] Other XR chest 2V* Signed By: [facility] Other XR chest 2V* 08/17/221907 [employer] Other MM screening mammo BI w/CADo n 08-09-2022 MM screening mammo BI w/CAD [facility] [address] Mammography Report Signed Patient: Kayleen Bingham MR#: [id number] : 1965 Acct:[id number] Age/Sex: 57 / F ADM Date: 08/09/22 Loc: ID Room: Type: [facility] Attending Dr: Vivian Denis DO Copies to: [...] Andrew Lockett M.D.08/09/2022 4:24 PM Dictation Location: [facility] Transcribed By: [facility] 08/09/221623 Dictated By: Andrew Lockett DO 08/09/221622 Signed By: 08/09/221623 [facility] POINT OF CARE GLUCOSEon 02-0 Glucose [Mass/Vol] 103 mg/dL Normal 74-106 [facility] Comment on above: Performed By: #### P OCGLUC #### [facility] [address] [place] [address] Dr. Nhung Henao Glucose [Mass/Vol] 97 mg/dL Normal 74-106 [facility] Comment on above: Performed By: #### P OCGLUC #### [facility] [address] [place] [address] Dr. Nhung Henao Covid-19 PCR (CVDTB)on 05-31 SARS-CoV-2 (COVID-19) RNA JOSÉ MIGUEL+probe Ql (Unsp spec) Not detected Normal NOT DETECTED [facility] Comment on above: Result Comment: This test is not yet approved or cleared by the [place] FDA. When there are no FDA-approved or cleared tests available, and other criteria are met, FDA can make tests available under an emergency access mechanism called an Emergency Use Authorization (EUA). The EUA for this test is supported by the [place] of Health and Human Service's (HHS's) declaration [...] SARS-CoV-2. Performed By: #### C VDTB #### [facility] [address] [place] [address] Dr. Nhung Henao PROF CHEM 8 (BAS METB)on Anion gap [Moles/Vol] 13.5 mmol/L Normal [facility] Comment on above: Performed By: #### B MP #### [facility] [address] [place] [address] Dr. Nhung Henao Calcium [Mass/Vol] 9.4 mg/dL Normal 8.5-10.1 [facility] Comment on above: Performed By: #### B MP #### [facility] [address] [place] [address] Dr. Nhung Henao Chloride [Moles/Vol] 104 mmol/L Normal 98-107 [facility] Comment on above: Performed By: #### B MP #### [facility] [address] [place] [address] Dr. Nhung Henao CO2 [Moles/Vol] 28.2 mmol/L Normal 21.0-32.0 [facility] Comment on above: Performed By: #### B MP #### [facility] [address] [place] [address] Dr. Nhung Henao Creatinine [Mass/Vol] 0.82 mg/dL Normal 0.55-1.02 [facility] Comment on above: Performed By: #### B MP #### [facility] [address] [place] [address] Dr. Nhung Henao EGFR-AF FRENCH >60 Normal >=60 [facility] Comment on above: Performed By: #### B MP #### [facility] [address] [address] [address] Nhung Henao EGFR-NON AF FRENCH >60 Normal >=60 [facility] Comment on above: Performed By: #### B MP #### [facility] [address] [address] [address] Nhung Henao Glucose [Mass/Vol] 88 mg/dL Normal 74-106 [facility] Comment on above: Performed By: #### B MP #### [facility] [address] [address] [address] Nhung Henao Potassium [Moles/Vol] 4.7 mmol/L Normal 3.5-5.1 [facility] Comment on above: Performed By: #### B MP #### [facility] [address] [address] [address] Nhung Henao Sodium [Moles/Vol] 141 mmol/L Normal 136-145 [facility] Comment on above: Performed By: #### B MP #### [facility] [address] [address] [address] Nhung Henao Urea nitrogen [Mass/Vol] 20.0 mg/dL Critically high 7.0-18.0 [facility] Comment on above: Performed By: #### B MP #### [facility] [address] [address] [address] Nhung Henao Urea nitrogen/Creatinine [Mass ratio] 24.4 mg/mg Normal [facility] Comment on above: Performed By: #### B MP #### [facility] [address] [address] [address] Nhung Henao MRI FOOT LT WO [...] POLO DELGADO Date: 2022-04-24 13:21 Normal [facility] Covid-19 PCR (CVDTB)on 06 SARS-CoV-2 (COVID-19) RNA JOSÉ MIGUEL+probe Ql (Unsp spec) Not detected Normal NOT DETECTED [facility] Comment on above: Result Comment: This test is not yet approved or cleared by the [place] FDA. When there are no FDA-approved or cleared tests available, and other criteria are met, FDA can make tests available under an emergency access mechanism called an Emergency Use Authorization (EUA). The EUA for this test is supported by the [place] [employer] of Health and Human Service's (HHS's) declaration [...] SARS-CoV-2. Performed By: #### C VDTB #### [facility] [address] [place] [id number] Nhung Henao Covid-19 PCR ([facility])on SARS-CoV-2 (COVID-19) RNA JOSÉ MIGUEL+probe Ql (Unsp spec) Not detected Normal NOT DETECTED [facility] Comment on above: Result Comment: This test is not yet approved or cleared by the [place] FDA. When there are no FDA-approved or cleared tests available, and other criteria are met, FDA can make tests available under an emergency access mechanism called an Emergency Use Authorization (EUA). The EUA for this test is supported by the [employer] of Health and Human Service's (HHS's) declaration [...] SARS-CoV-2. Performed By: #### C VDTB #### [facility] [address] [place] [address] Nhung Henao Vital Signs Date Time Vital Sign Value Performing Clinician Facility 07-04-2023 10:30-0500 Body height 170.18 cm Shay Muro Other [facility] Other 06-20-2023 07:45-0500 Body height 170.18 cm Shay Kuns Other [facility] Other 06-20-2023 07:45-0500 Body mass index (BMI) [Ratio] 31.48 kg/m2 Shay Kuns Other [facility] Other 06-20-2023 07:45-0500 Body weight 91.17 kg Shay Kuns Other [facility] Other 06-20-2023 07:45-0500 Diastolic blood pressure 84 mm[Hg] Shay Kuns Other [facility] Other 06-20-2023 07:45-0500 Respiratory rate 16 /min Shay Kuns Other [facility] Other 06-20-2023 07:45-0500 SaO2% (BldA) [Mass fraction] 97 % Shay Kuns Other [facility] Other 06-20-2023 07:45-0500 Systolic blood pressure 122 mm[Hg] Shay Kuns Other [facility] Other 05-31-2023 13:45-0500 Body height 170.18 cm Shay Kuns Other [facility] Other 05-31-2023 13:45-0500 Body mass index (BMI) [Ratio] 31.01 kg/m2 Shay Kuns Other [facility] Other 05-31-2023 13:45-0500 Body weight 89.81 kg Shay Kuns Other [facility] Other 05-31-2023 13:45-0500 Diastolic blood pressure 84 mm[Hg] Shay Kuns Other [facility] Other 05-31-2023 13:45-0500 Respiratory rate 18 /min Shay Kuns Other [facility] Other 05-31-2023 13:45-0500 SaO2% (BldA) [Mass fraction] 98 % Shay Kuns Other [facility] Other 05-31-2023 13:45-0500 Systolic blood pressure 130 mm[Hg] Shay Kuns Other [facility] Other 01-17-2023 10:30-0400 Body height 170.18 cm Shay Kuns Other [facility] Other 01-17-2023 10:30-0400 Body mass index (BMI) [Ratio] 30.22 kg/m2 Shay Kuns Other [facility] Other 01-17-2023 10:30-0400 Body weight 87.54 kg Shay Kuns Other [facility] Other 01-17-2023 10:30-0400 Diastolic blood pressure 78 mm[Hg] Shay Kuns Other [facility] Other 01-17-2023 10:30-0400 Respiratory rate 16 /min Shay Kuns Other [facility] Other 01-17-2023 10:30-0400 SaO2% (BldA) [Mass fraction] 97 % Shay Kuns Other [facility] Other 01-17-2023 10:30-0400 Systolic blood pressure 108 mm[Hg] Shay Muro Other [facility] Other Encounters Encounter Date Encounter Type Care Provider Facility Start: 07-04-2023 (Televisit) Televisit Shay Muro [facility] Start: 07-04-2023 End: 07-04-2023 ambulatory Shay Muro Other [facility] Other Start: 06-20-2023 Encounter for genera l adult medical examination without abnormal findings Shay Muro [facility] Start: 06-20-2023 Periodic preventive med est patient 40-64yrs Shay Muro [facility] Start: 06-20-2023 End: 06-20-2023 ambulatory Shay Kuns Facility:[facility] Start: 06-20-2023 End: 06-20-2023 ambulatory DO Shay Kuns Work Phone: [facility] Work Phone: Start: 06-20-2023 End: 06-20-2023 Patient encounter procedure DO Shay Kuns Work Phone: [facility] [place] Work Phone: Start: 05-31-2023 End: 05-31-2023 ambulatory Shay Kuns Facility:[facility] Start: 05-31-2023 End: 05-31-2023 Patient encounter procedure DO Shay Kuns Work Phone: [facility] [place] Work Phone: Start: 05-31-2023 End: 05-31-2023 ambulatory DO Shay Kuns Work Phone: [facility] Work Phone: Start: 05-31-2023 Office outpatient vi sit 25 minutes Shay Nunos [facility] [place] Start: 05-31-2023 End: 05-31-2023 Patient encounter procedure DO Shaymaria t Reinas Work Phone: [facility] [place] Work Phone: Start: 05-12-2023 End: 05-12-2023 ambulatory Shay Kuns Other [facility] Other Start: 05-12-2023 Telephone encounter Shay Nunos [facility] [place] Start: 05-11-2023 End: 05-11-2023 ambulatory VIVIAN DRAKEAWIRA Not Available Start: 01-25-2023 End: 01-25-2023 ambulatory Shay Kuns Other [facility] Other Start: 01-25-2023 Telephone encounter Shay Kuns [facility] [place] Start: 01-24-2023 End: 01-24-2023 ambulatory Shay Kuns Other [facility] Other Start: 01-24-2023 Telephone encounter Shay Kuns [facility] [place] Start: 01-17-2023 (Acute) Acute Visit Shay Kuns [facility] [place] Start: 01-17-2023 End: 01-17-2023 ambulatory Shay Kuns Other [facility] Other Start: 01-13-2023 End: 01-13-2023 ambulatory Shay Kuns Other [facility] Other Start: 01-13-2023 Telephone encounter Shay Kuns [facility] [place] Start: 01-10-2023 End: 01-10-2023 ambulatory Shay Kuns Other [facility] Other Start: 01-10-2023 Telephone encounter Shay Kuns [facility] [place] Start: 08-17-2022 End: 08-17-2022 ambulatory Shay Kuns Facility:[facility] Start: 08-17-2022 End: 08-17-2022 Patient encounter procedure DO Shay Kuns Work Phone: [facility] [place] Work Phone: Start: 08-17-2022 End: 08-17-2022 ambulatory DO Shay Kuns Work Phone: [facility] Work Phone: Start: 08-17-2022 Telephone encounter Shay Kuns [facility] [address] Start: 08-09-2022 End: 08-09-2022 ambulatory Shay Kuns Facility:[facility] Start: 08-09-2022 End: 08-09-2022 Patient encounter procedure DO Shay Kuns Work Phone: [facility] Work Phone: Start: 07-01-2022 End: 07-01-2022 ambulatory RAYMOND Bach [facility] Facility:[facility] Start: 06-28-2022 Encounter for preprocedural laboratory examination RAYMOND SMITH [facility] Start: 06-25-2022 End: 06-26-2022 ambulatory RAYMOND Bach [facility] Facility:[facility] Start: 06-25-2022 End: 06-26-2022 Encounter for preprocedural laboratory examination RAYMOND SMITH Facility:[facility] Start: 06-09-[address] DOCTOR LOPEZ Facility :[facility] Start: 04-21-2022 End: 04-22-2022 ambulatory RAYMOND Bach [facility] Facility:[facility] Start: 04-02-2022 End: 04-02-2022 ambulatory Shay Kuns Other [facility] Other Start: 04-02-2022 Telephone encounter Shay Kuns [facility] [place] Start: 03-15-2022 End: 03-15-2022 ambulatory Shay Nunos Other [facility] Other Start: 03-15-2022 Telephone encounter Shay Muro [facility] [place] Start: 03-09-2022 End: 03-10-2022 ambulatory RENETTA SORTO Facility:[facility] Start: 12-10-2021 End: 12-10-2021 ambulatory Shay Muro Other [facility] Other Start: 12-10-2021 Telephone encounter Shay Muro [facility] [place] Start: 10-28-2021 Telephone encounter Shay Muro [facility] [place] Start: 10-28-2021 End: 10-28-[address] SHAY MURO [facility] Other Start: 09-01-2021 Telephone encounter [facility] Start: 09-01-2021 End: 09-01-[address] DOCTOR LOPEZ [facility] Other Procedures Date Procedure Procedure Detail Performing Clinician Start: 08-17-2022 Plain chest X-ray DO Lonnie Muro Work Phone: Start: 08-09-2022 Screening mammograph y of bilateral breasts DO Shay Muro Work Phone: Plan of Treatment Date Care Activity Detail Author Start: 06-20-2023 Bacteria identified in Urine by Culture [facility] Thyroglobulin Ab [Un its/volume] in Serum or Plasma [facility] Thyroperoxidase Ab [ Units/volume] in Serum or Plasma [facility] Immunizations Immunization Date Immunization Notes Care Provider Fa cility 03-25-2023 Flu Shot - Documentation Purposes Only Shay Muro Other [facility] Other 04-21-2021 COVID-19 Vaccine Pfi zer - Documentation Purposes Only Shay Muro Other [facility] Other 02-27-2021 influenza, seasonal, injectable Shay Muro Other [facility] Other 09-03-2020 COVID-19 Vaccine Pfi zer - Documentation Purposes Only Shaymaria t Reinas Other [facility] Other 08-13-2020 COVID-19 Vaccine Pfi zer - Documentation Purposes Only Shay Kuns Other [facility] Other 03-14-2019 influenza, seasonal, injectable Shay Kuns Other [facility] Other 04-12-2018 influenza, seasonal, injectable Shay Kuns Other [facility] Other Payers Date Payer Category Payer Self-pay [id number] 1965 Unknown [id number] 2.16.84 [id number] 1965 Unknown [id number] 2.16.84 [id number] 1965 Unknown [id number] 2.16.84 [id number] 1965 Unknown [id number] 2.16.84 [id number] 1965 Unknown [id number] 2.16.84 [id number] 1965 Unknown [id number] 2.16.84 [id number] 1965 Unknown [id number] 2.16.84 [id number] 1965 Unknown [id number] 2.16.840 .[id number] 1960 [facility] [id number] Unknown [facility] BC/BS [id number] Unknown [id number] 2.16.8 [id number] Unknown [id number] 2.16.8 [id number] Unknown [id number] 2.16.8 [id number] Unknown [id number] 2.16.8 [id number] Social History Date Type Detail Facility Unknown if ever smoked [facility] Other Sex Assigned At Sex Assigned At Bir th [facility] Other Start: 1965 Sex Assigned At Female F [facility] Clinical Notes 05-29-2015 to 07-04-2023 Note [...] K13.0) Refill provided of the above medication. [facility] Other [id number] Evaluation note* Encounter Date Diagnosis Assessment Notes [...] limitations to undergoing general anesthesia and surgery. [facility] Other 01-02-2024 Evaluation note* Encounter Date Diagnosis [...] She was recently evaluated by Dr. Park, [employer], and started on an estrogen replacement for hot flashes. 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 She states air quality measures were determined to be safe. Masking is optional at job site. [facility] Other 08-14-2023 Evaluation note* Encounter Date Diagnosis Assessment Notes Treatment Notes Treatment Clinical Notes Dec, Acute cough (ICD-10 - R05.1) [facility] Other 07-16-2023 History general Narrative - Reported* Type Description Date Medical History Follows with Dr. De Anda for her O B [employer] care Medical History 2010 Mammogram Medical History [...] Dr. Smith 03/30/2021 Hospitalization History see surgical [facility] Other 07-16-2023 History general Narrative - Reported* Type Description Date Medical History Follows with Dr. De Anda for her O B [employer] care Medical History 2010 Mammogram Medical History [...] Foot Neuroma 06/2022 Hospitalization History see surgical [facility] Other 03-21-2023 Evaluation note* Encounter Date Diagnosis Assessment Notes Treatment Notes Treatment Clinical Notes Jul, COVID-19 (ICD-10 - U07.1) Jul, Shortness of breath on exertion (ICD-10 - R06.02) [facility] Other 10-17-2022 Evaluation note* Encounter Date Diagnosis Assessment Notes Treatment Notes Treatment Clinical Notes Feb, Diseases of lips (ICD-10 - K13.0) [facility] Other 10-12-2022 NotePROCEDURE: XR FOOT LT MIN [...] Electronically authenticated by: JOSEFINA CLAYTON Date: 2022-03-09 22:44[facility]07-16-2022 History general Narrative - Reported* Type Description Date Medical History Follows with Dr. De Anda for her O B [employer] care Medical History 2010 Mammogram Medical History [...] Dr. Smith 03/30/2021 Hospitalization History see surgical [facility] Other 06-01-2022 Evaluation note* Encounter Date Diagnosis Assessment Notes Treatment Notes Treatment Clinical Notes Oct, Cough (ICD-10 - R05.9) Oct, Exposure to COVID-19 virus (ICD-10 - Z20.822) [facility] Other 04-05-2022 Evaluation note* Encounter Date Diagnosis Assessment Notes Treatment Notes Treatment Clinical Notes Aug, Exposure to COVID-19 virus (ICD-10 - Z20.822) [facility] Other 12-31-2015 History general Narrative - Reported* Type Description Date Medical History Follows with Dr. De Anda for her O B [employer] care Medical History 2010 Mammogram Medical History [...] per Dr. Smith 03/30/2021 Hospitalization History see [facility] Other 12-31-2015 History general Narrative - Reported* Type Description Date Medical History Follows with Dr. De Anda for her O B [employer] care Medical History 2010 Mammogram Medical History [...] Left Foot Neuroma 06/2022 Hospitalization History see [facility] Other Evaluation noteNo InformationNort [employer] Other Evaluation noteNo assessment information available [facility] Work Phone: Summary Purpose Family History No [...] Thumb pain, left (M7 9.645) Referral Organization [facility] [place] Referring Provider First Name Shay Referring Provider Last Name Veronica Referring Provider Specialty Family Prac haider Referred Organization [facility] Referred Provider Johnna Evangelista Referred Address [address] [place] Referred Provider Specialty Hand Surgery Referral Priority Routine General Notes Ameena Carrera 09:30:14 AM > received today. Sent p2p Reason *FU 02/03 consult and treat; soonest available Diagnosis 1 Persistent cough (R0 5.3) Referral Organization [facility] Family [facility] [place] Referring Provider First Name Shay Referring Provider Last Name Veronica Referring Provider Specialty Family Prac haider Referred Organization [facility] Referred Provider Richardson Nolen Referred Address [address] [place], [place],[address] Referred Provider Specialty Pulmonary Di seases Referral [...] and content) DATE CREATED AUTHOR 07/13/2022 [facility] DATE CREATED AUTHOR AUTHOR'S ORGANIZ ATION 05/14/2023 [facility] EPIC DATE CREATED AUTHOR AUTHOR'S ORGANIZ ATION 06/25/2023 [facility] Care Teams (unrecognized sec tion and [...] BE BASED ON THE PRIMARY CLINICAL RECORDS. [employer] provides no warranty or guarantee of the accuracy or completeness of information in this document.
--- NOTE | 2023-07-07 17:34 | PC.NURSE ---
1700 DR. RODRIGUEZ NOTIFIED OF PT'S PAIN , NAUSEA AND LOW O2 LEVEL. INSTRUCTED TO ADMIT PT OBSERVATION. Aquiles SPICER RN
[2023-07-07] MEDS: PREGABALIN 50 MG CAPSULE PO (21:19)
[2023-07-07] MEDS: MONTELUKAST SODIUM 10 MG TABLET PO (21:19)
[2023-07-08] MEDS: ACETAMINOPHEN 500 MG TABLET 1000 MG PO ×2 (05:07→10:28)
[2023-07-08] MEDS: PREGABALIN 50 MG CAPSULE PO (05:07)
[2023-07-08 05:11] VITALS: BP 133/81; PULSE 81; RESP 18; TEMP 36.4; O2SAT 94
[2023-07-08] MEDS: PROMETHAZINE HCL 25 MG/ML VIAL IV (05:32)
[2023-07-08] MEDS: KETOROLAC TROMETHAMINE 30 MG/ML VIAL 15 MG IVP (05:32)
--- NOTE | 2023-07-08 08:43 | CM.NOTE ---
Rounds made with Dr. Reagan. Potential plan for discharge today if no further nausea. Ms. Zavala verbalizes understanding.
--- NOTE | 2023-07-08 08:58 | P.PN_ITS ---
Progress Note: Subjective Subjective Interval history: Patient seen resting comfortably at bedside this a.m. POD #1 s/p right ankle joint arthroscopic debridement, ankle arthrotomy and open repair of osteochondral defect of talus with bone marrow aspirate concentrate, DOS 07/07/2023. She is admitted for observation overnight due to nausea and vomiting, states this morning she feels this has subsided and is able to keep down some crackers this morning. She admits to mild pain along the medial aspect of the r ight ankle controlled with p.o. medications. Denies any other acute lower extremity complaints time of visit denies any constitutional symptoms. Exam Narrative Exam Narrative: RLE dressing left CDI. CFT intact to digits. Skin temperature warm and symmetric proximal distal dressing. No erythema edema or ecchymosis proximally. Light touch sensation and active range of motion diminished to digits likely secondary to nerve block. Compartment soft compressible, no pain with calf or thigh compression. Constitutional Vital Signs, click to edit/add: Last Vital Signs Temp 97.5 F L 07/08/23 05:11 Pulse 81 07/08/23 05:11 Resp 18 07/08/23 05:11 BP 133/81 07/08/23 05:11 Pulse Ox 94 L 07/08/23 05:11 O2 Del Method Room Air 07/08/23 05:11 O2 Flow Rate 3 07/07/23 17:00 Progress Note: A&P Assessment and Plan (1) Other specified acquired deformities of musculoskeletal system: (2) Osteochondritis dissecans of right ankle: (3) Postoperative nausea: Plan Patient examined evaluated. All findings discussed with patient all questions answered to patient's satisfaction. Pertinent labs and imaging reviewed. RLE dressing to be left CDI until follow-up. Maintain strict nonweightbearing to right lower extremity with crutches walker knee scooter for assistance. PT on board. Significantly improved, will see how she tolerates her breakfast and if so she will be cleared to discharge from podiatry's perspective today. Postoperative home-going medications sent to pharmacy. She will follow-up in [address] Smith's office. Rest per primary, please call with questions or concerns.
--- NOTE | 2023-07-08 09:25 | P.HP_ITS ---
<Statement entered by Juan Carlos Reagan MD - 07/08/23 17:08> This documentation has been reviewed and approved. Patient seen and examined this morning. Fairly good pain control. Some pain persisting. No issues overnight other than persistent nausea. Consideration for change to Zofran. Agree with input and diagnoses provided by nurse practitioner H&P: HPI History of Present Illness Chief complaint: other specific acquired deformities, instability Narrative: 07/08/23 0750 This is a 58-year-old female patient with a past medical history as outlined below, primarily notable for asthma and osteochondritis of the right ankle, who was admitted to observation postoperatively last night due to postop nausea. She is a patient of Dr Smith and is postop day 1 s/p right ankle joint arthroscopic debridement, ankle arthrotomy, and open repair of osteochondral defect of the talus. Please see podiatry's operative note and outpatient documentation regarding history leading to this operative procedure. At the time of my exam the patient is resting comfortably in bed. She currently denies nausea but noted nausea and vomiting overnight, especially after taking pills on an empty stomach. She has been nausea free for almost 8 hours and is going to attempt to eat breakfast this morning. If her nausea remains controlled, we plan to discharge her home in stable condition later today. She is to follow Dr Smith's postoperative discharge instructions including nonweightbearing status of the surgical extremity for at least 3 weeks. She is to follow-up with Dr Smith as previously scheduled next week. All post-op medications have already been prescribed by the podiatry service. Review of Systems ROS Status of ROS 10 or more systems reviewed and unremark able except as noted in history and below [facility] Medical History (Updated 07/08/23 @ 09:43 by Lorna Gerber NP) Asthma ?J45.909 - Unspecified asthma, uncomplicated (ICD-10) PONV (postoperative nausea and vomiting) ?R11.2 - Nausea with vomiting, unspecified (ICD-10) ?Z98.890 - Other specified postprocedural states (ICD-10) Menopausal state ?N95.1 - Menopausal and female climacteric states (ICD-10) Clavicle fracture ?S42.009A - Fracture of unspecified part of unspecified clavicle, initial encounter for closed fracture (ICD-10) Calcified lymph nodes ?I89.8 - Other specified noninfective disorders of lymphatic vessels and lymph nodes (ICD-10) Calcified granuloma of lung ?J84.10 - Pulmonary fibrosis, unspecified (ICD-10) Peripheral eosinophilia ?D72.19 - Other eosinophilia (ICD-10) Migraine ?G43.909 - Migraine, unspecified, not intractable, without status migrainosus (ICD-10) Impingement syndrome of left ankle ?M25.872 - Other specified joint disorders, left ankle and foot (ICD-10) Tear of peroneal tendon of left foot ?S86.312A - Strain of muscle(s) and tendon(s) of peroneal muscle group at lower leg level, left leg, initial encounter (ICD-10) Disorder of left sural nerve ?G57.82 - Other specified mononeuropathies of left lower limb (ICD-10) Defect of articular cartilage ?M24.10 - Other articular cartilage disorders, unspecified site (ICD-10) Entrapment neuropathy of lower extremity ?G57.80 - Other specified mononeuropathies of unspecified lower limb (ICD-10) Ankle instability ?M25.373 - Other instability, unspecified ankle (ICD-10) Peroneal tendinitis of left lower extremity ?M76.72 - Peroneal tendinitis, left leg (ICD-10) Newby's neuroma of left foot ?G57.62 - Lesion of plantar nerve, left lower limb (ICD-10) Anemia ?D64.9 - Anemia, unspecified (ICD-10) Surgical History (Updated 07/08/23 @ 09:56 by Lorna Gerber NP) H/O colonoscopy ?Z98.890 - Other specified postprocedural states (ICD-10) Hx of LASIK ?Z98.890 - Other specified postprocedural states (ICD-10) Status post peroneal tendon repair ?Z98.890 - Other specified postprocedural states (ICD-10) History of ankle surgery ?Z98.890 - Other specified postprocedural states (ICD-10) H/O section ?Z98.891 - History of uterine scar from previous surgery (ICD-10) H/O tubal ligation ?Z98.51 - Tubal ligation status (ICD-10) History of nasal surgery ?Z98.890 - Other specified postprocedural states (ICD-10) Family History (Updated 06/17/23 @ 09:18 by Phylicia Jauregui RN) Other Family history of diabetes mellitus Family history of hypertension Leukemia Social History (Updated 06/17/23 @ 09:20 by Phylicia Jauregui, RN) Within the past year, how often did you have a drink containing alcohol: monthly or less Within the past year, how many standard drinks containing alcohol did you have on a typical day: 1 or 2 Within the past year, how often did you have six or more drinks on one occasion: never Total score: 0 Score interpretation: A score less than 3 is consistent with normal alcohol consumption. 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 Highest level of school completed/degree received: Bachelor's degree Meds Home Medications and Allergies Home Medications Medication Instructions Recorded Confirmed Type acyclovir 400 mg tablet 400 mg PO Q6H PRN cold sores 06/17/23 06/17/23 History albuterol sulfate 90 mcg/actuation 2 inh inhalation QID PRN shortness 06/17/23 06/17/23 History breath activated powder of breath or wheezing inhaler,sensor budesonide 160 mcg-glycopyr 9 2 inh inhalation BID 06/17/23 06/17/23 History mcg-formot 4.8 mcg/actuation HFA inhaler (Breztri Aerosphere) montelukast 10 mg tablet 10 mg PO DAILY 06/17/23 06/17/23 History (Singulair) aspirin 81 mg tablet,delayed 81 mg PO BID 30 days #60 tabs 07/07/23 Rx release (Adult Low Dose Aspirin) cefadroxil 500 mg capsule 500 mg PO BID 7 days #14 caps 07/07/23 Rx cholecalciferol (vitamin D3) 125 125 mcg PO DAILY 90 days #90 caps 07/07/23 Rx mcg (5,000 unit) capsule docusate sodium 100 mg capsule 100 mg PO BID PRN constipation 7 07/07/23 Rx (Colace) days #14 caps ondansetron 4 mg disintegrating 4 mg PO Q8H PRN nausea and 07/07/23 Rx tablet vomiting 5 days #15 tabs oxycodone-acetaminophen 5 mg-325 1 tab PO Q6H PRN pain 7 days #28 07/07/23 Rx mg tablet (Percocet) tabs tizanidine 2 mg tablet 2 mg PO TID PRN muscle spasticity 07/07/23 Rx 7 days #21 tabs Allergies Allergy/AdvReac Type Severity Reaction Status Date / Time No Known Drug Allergies Allergy Verified 06/17/23 09:20 Exam Constitutional Vital Signs, click to edit/add: Last Vital Signs Temp 97.5 F L 07/08/23 05:11 Pulse 81 07/08/23 05:11 Resp 18 07/08/23 05:11 BP 133/81 07/08/23 05:11 Pulse Ox 94 L 07/08/23 05:11 O2 Del Method Room Air 07/08/23 05:11 O2 Flow Rate 3 07/07/23 17:00 Common normals: no apparent distress, oriented x3, alert and well nourished General appearance: cooperative Orientation/consciousness: Yes awake HENMT Common normals: normocephalic, head/scalp atraumatic, hearing grossly normal bilaterally, external nose normal and moist oral mucous membranes Eye Common normals: PERRL, EOMs intact bilaterally, conjunctivae normal and no scleral icterus Alignment: alignment normal Eyelid: eyelids normal Neck & C-Spine Common normals: full ROM, supple and no JVD Chest Common normals: inspection of chest normal Chest: symmetrical chest wall rise Respiratory Common normals: normal respiratory effort, no retractions, no use of accessory muscles and clear to auscultation bilaterally Effort & inspection: able to speak in complete sentences Cardio Common normals: no JVD, regular rate, regular rhythm, S1 normal heart sound, S2 normal heart sound, no gallops, no clicks, no rub and peripheral pulses 2+ throughout Heart sounds: murmur (faint HSM 2/6) GI Common normals: Normal to inspection, nondistended, normoactive bowel sounds present, soft to palpation, non-tender, no hepatosplenomegaly, no masses and no bruits Bladder/kidney exam: bladder normal to palpation Back & Pelvis Common normals: thoracic and lumbar spine normal to inspection Extremity Common normals: normal capillary refill and no pedal edema General: normal exam except as noted; no clubbing and no cyanosis Right lower extremity: lower leg (Post op splint in place w/ mild swelling noted. Warm, good cap refill) Neuro Margaret Coma Scale: GCS not evaluated Common normals: CN's II-XII intact bilaterally, moves all extremities, no focal motor deficits and no sensory deficits noted Speech: speech normal Sensory exam: other (RLE numb s/p intra-op nerve block) Motor exam: strength 5/5 throughout Psych Common normals: mental status grossly normal, thought process normal, affect normal and activity/motor behavior normal Results Pulse Oximetry Attestation: I have reviewed the pertinent pulse oximetry results. Imaging R Ankle XR: Radiologist's impression: IMPRESSION: Anterior ankle postoperative soft tissue swelling Assessment and Plan Assessment and Plan (1) S/P ankle joint replacement: Assessment and Plan: ACUTE * Adm observation 07/07/23 for post op monitoring * POD#1 - Right ankle arthroplasty and arthroscopy, bone marrow aspirate concentrate, stress examination under intraoperative fluoroscopy and application of short leg splint, 07/07/2023, per Dr Smith * Defer antibiotics, post-op pain & nausea management, WB & PT orders to the podiatry service * Post op course unremarkable except for N/V overnight * See post op nausea (2) Postoperative nausea: Assessment and Plan: ACUTE * Post op nausea noted overnight, currently resolved * Pt reports persistent nausea and vomiting after taking oral meds until midnight * If nausea remains adequately controlled, plan to d/c later today (3) 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
[2023-07-08] MEDS: ENOXAPARIN SODIUM 40 MG/0.4 ML SYRINGE SUBQ (10:28)
--- NOTE | 2023-07-11 14:55 | CM.DCFOLLOWU ---
Person spoke with: patient How are you feeling? well How is your pain? no pain Did you understand your discharge instructions? yes Do you have any questions about your discharge instructions? no Were you given any prescriptions at discharge? yes Were you able to get your prescriptions filled? yes Do you understand how to take your medications as ordered? yes Do you have any questions about your follow up appointment and do you plan to keep your follow up appointment? no questions, follow up 07/14/23 Is there anything else that you would like to discuss? no Questions/Comments/Concerns/Other: N/A
== END 2023-07-08 10:47 | disposition home or self-care (01) ==
LOC: MS 17:21
PROVIDERS: Podiatrist Foot & Ankle Surgery; Admitting Provider Family Medicine; PCP Family Medicine; Visit Provider Nurse Practitioner
PROC: (CPT 1480; principal; 2023-07-07 10:30)
DX: M21.6X1 Other acquired deformities of right foot (principal); M25.371 Other instability, right ankle; M65.9 Synovitis and tenosynovitis, unspecified; M19.071 Primary osteoarthritis, right ankle and foot; R11.0 Nausea; J45.909 Unspecified asthma, uncomplicated; Z79.899 Other long term (current) drug therapy; Z98.890 Other specified postprocedural states; Z98.51 Tubal ligation status; Z98.891 History of uterine scar from previous surgery
CPT/HCPCS: 27899; 36415; 64445; 73610; 76000; 82948; 85025; 96372; 96374; 96375; G0378; J0690; J1100; J1170; J1644; J1650; J1885; J2250; J2405; J2704; J2795; J3010

== ENCOUNTER 2023-07-26 10:08 | Outpatient (OUT) | payer BC, SELFPAY ==
--- NOTE | 2023-07-26 | XR_ITS ---
[address] [address] Patient Name: KAYLEEN BINGHAM MRN: [id number] date: 1965 Sex: F Assigned Patient Location: Current Patient Location: Accession/Order Number: [id number] Exam Date: 07/26/2023 10:14 Report Date: 07/26/2023 10:52 At the request of: RAYMOND RODRIGUEZ Procedure: XR ankle RT min 3V PROCEDURE: XR ankle RT min 3V COMPARISON: 07/07/2023, 05/10/2023 HISTORY: RIGHT ANKLE PAIN FINDINGS: BONES:No fracture, acute abnormality, or significant arthropathy. SOFT TISSUES:Negative. No visible soft tissue swelling. EFFUSION:None visible. OTHER: Negative. XR/XR ankle RT min 3V IMPRESSION: No acute radiographic abnormality Electronically authenticated by: ROCCO CORTEZ Date: 07/26/2023 10:52
--- OUTSIDE RECORDS SUMMARY | 2023-07-26 10:11 | XMS_ITS | CCD ---
Author Name Unknown Address [address] [place] [address] Organization [facility] Care Team Providers Care Transition Nurse Name Role Phone Shay Muro Unavailable RAYMOND [...] Care Provider DO Vivian Denis Attending Provider [phone] DO Shay Muro Attending Provider VIVIAN DENIS Attending Unavailable DO Shay Muro Primary Care Provider [phone] DO Shay Muro Attending Provider [phone] Kuns, Shay Primary Care Unavailable Nunos, Shay [...] Estradiol / Norethindrone Drug Allergy vaginal itching [facility] Other (2 sources) Seasonal allergy Propensity to adverse reactions Unknown [facility] Other Medications Current Medications Medication Drug Class(es) [...] [Catalytic activity/Vol] 27 U/L Normal 7-52 U/L [facility] Albumin [Mass/volume] in Ser um or Plasma by Bromocresol green (BCG) dye binding methoOrdered By: Shay Muro on 06-20-2023 Albumin BCG dye [Mass/Vol] 4.4 g/dL 3.5-5.7 [facility] Alkaline phosphatase [Enzyma tic activity/volume] in Serum or PlasmaOrdered By: Shay Muro on 06-20-2023 ALP [Catalytic activity/Vol] 51 U/L Normal 34-104 U/L [facility] Aspartate aminotransferase [ Enzymatic activity/volume] in Serum or PlasmaOrdered By: Shay Muro on 06-20-2023 AST [Catalytic activity/Vol] 25 U/L Normal 13-39 U/L [facility] Basophils Auto (Bld) [#/Vol] Ordered By: Shay Muro on 06-20-2023 Basophils (Bld) [#/Vol] 0.0 10*3/uL 0.0-0.2 [facility] Basophils/100 WBC Auto (Bld) Ordered By: Shay Muro on 06-20-2023 Basophils/100 WBC (Bld) 1.0 % . [facility] Bilirubin.total [Mass/volume ] in Serum or PlasmaOrdered By: Shay Muro on 06-20-2023 Bilirubin [Mass/Vol] 0.3 mg/dL 0.3-1.0 [facility] Calcium [Mass/volume] in Ser um or PlasmaOrdered By: Shay Muro on 06-20-2023 Calcium [Mass/Vol] 9.6 mg/dL 8.6-10.3 [facility] Carbon dioxide, total [Moles /volume] in Serum or PlasmaOrdered By: Shay Muro on 06-20-2023 CO2 [Moles/Vol] 29.9 mmol/L 21.0-31.0 [facility] Chloride [Moles/volume] in S francis or PlasmaOrdered By: Shay Muro on 06-20-2023 Chloride [Moles/Vol] 108 mmol/L High 98-107 mmol/L [facility] Cholesterol [Mass/volume] in Serum or PlasmaOrdered By: Shay Muro on 06-20-2023 Cholesterol [Mass/Vol] 185 mg/dL Normal 140-200 mg/dL [facility] Comment on above: Chol less than 200 m g/dl low riskChol 201-239 mg/dl borderline riskChol 240 mg/dl and greater high risk Cholesterol in LDL Calc [Mas s/Vol]Ordered By: Shay Muro on 06-20-2023 Cholesterol in LDL [Mass/Vol] 116 mg/dL 0-100 [facility] Comment on above: LDL ATP III CLASSIFI CATIONLDL less than 100 mg/dL OptimalLDL 100-129 mg/dL Near or above optimalLDL 130-159 mg/dL Borderline highLDL 160-189 mg/dL HighLDL greater than 189 mg/dL Very high Cholesterol in VLDL Calc [Ma ss/Vol]Ordered By: Shay Muro on 06-20-2023 Cholesterol in VLDL [Mass/Vol] 23 mg/dL [facility] Complete Blood Count Auto Di ffon 06-20-2023 Basophils (Bld) [#/Vol] 0.169863211 10*3/uL Normal 0.0-0.2 10*3/uL [facility] Other Basophils/100 WBC (Bld) 1.000 % . % [facility] Other Eosinophils (Bld) [#/Vol] 0.910014413 10*3/uL Normal 0.0-0.45 10*3/uL [facility] Other Eosinophils/100 WBC (Bld) 6.200 % . % [facility] Other Erythrocyte distribution width (RBC) [Ratio] 13.200 % Normal 11.9-15.3 % [facility] Other Hematocrit (Bld) [Volume fraction] 38.800 % Normal 34.0-46.4 % [facility] Other Hemoglobin (Bld) [Mass/Vol] 13.347734 g/dL Normal 11.8-15.4 g/dL [facility] Other Lymphocytes (Bld) [#/Vol] 1.803770264 10*3/uL Normal 1.00-4.8 10*3/uL [facility] Other Lymphocytes/100 WBC (Bld) 25.700 % . % [facility] Other MCH (RBC) [Entitic mass] 29.9000 pg Normal 24.7-34.3 pg [facility] Other MCV (RBC) [Entitic vol] 89.2000 fL Normal 80-100 fL [facility] Other Monocytes (Bld) [#/Vol] 0.871229059 10*3/uL Normal 0.0-0.8 10*3/uL [facility] Other Monocytes/100 WBC (Bld) 10.400 % . % [facility] Other Neutrophils (Bld) [#/Vol] 2.217528856 10*3/uL Normal 1.8-7.7 10*3/uL [facility] Other Neutrophils/100 WBC (Bld) 56.700 % . % [facility] Other Platelet mean volume (Bld) [Entitic vol] 9.5000 fL Normal 6.3-10.7 fL [facility] Other WBC (Bld) [#/Vol] 4.902679639 10*3/uL Normal 3.8 -11.6 10*3/uL [facility] Other Complete Blood Count Auto Diff 4.3 10*3/uL Normal 3.8-11.6 10*3/uL [facility] Other Complete Blood Count Auto Diff 33.5 g/dL Normal 32.0-35.0 g/dL [facility] Other Complete Blood Count Auto Diff 0.0 /100{WBC} Normal 0-0.5 /100{WBC} [facility] [employer] Other Basophils (Bld) [#/Vol] 0.0 10*3/uL Normal 0.0-0.2 [facility] Comment on above: Order Comment: Reaso n for Exam Wellness examination Result Comment: PERF ORMED BY: [place] [address] PATHOLOGIST WASHING MACHINE MECHANIC LISANDRA OLVERA M.D. Performed By: #### C MP, CUU, CBC, LIPID, TSH3 #### [address] Basophils/100 WBC (Bld) 1.0 % Normal . [facility] Comment on above: Order Comment: Reaso n for Exam Wellness examination Performed By: #### C MP, CUU, CBC, LIPID, TSH3 #### [facility] [address] [place] [address] [place] Eosinophils (Bld) [#/Vol] 0.3 10*3/uL Normal 0.0-0.45 [facility] Comment on above: Order Comment: Reaso n for Exam Wellness examination Performed By: #### C MP, CUU, CBC, LIPID, TSH3 #### [facility] [address] [place] [address] [place] Eosinophils/100 WBC (Bld) 6.2 % Normal . [facility] Comment on above: Order Comment: Reaso n for Exam Wellness examination Performed By: #### C MP, CUU, CBC, LIPID, TSH3 #### [place] [address] [place] Erythrocyte distribution width (RBC) [Ratio] 13.2 % Normal 11.9-15.3 [facility] Comment on above: Order Comment: Reaso n for Exam Wellness examination Performed By: #### C MP, CUU, CBC, LIPID, TSH3 #### [address] Hematocrit (Bld) [Volume fraction] 38.8 % Normal 34.0-46.4 [facility] Comment on above: Order Comment: Reaso n for Exam Wellness examination Performed By: #### C MP, CUU, CBC, LIPID, TSH3 #### [address] Hemoglobin (Bld) [Mass/Vol] 13.0 g/dL Normal 11.8-15.4 [facility] Comment on above: Order Comment: Reaso n for Exam Wellness examination Performed By: #### C MP, CUU, CBC, LIPID, TSH3 #### [address] Lymphocytes (Bld) [#/Vol] 1.1 10*3/uL Normal 1.00-4.8 [facility] Comment on above: Order Comment: Reaso n for Exam Wellness examination Performed By: #### C MP, CUU, CBC, LIPID, TSH3 #### [address] Lymphocytes/100 WBC (Bld) 25.7 % Normal . [facility] Comment on above: Order Comment: Reaso n for Exam Wellness examination Performed By: #### C MP, CUU, CBC, LIPID, TSH3 #### [address] MCH (RBC) [Entitic mass] 29.9 pg Normal 24.7-34.3 [facility] Comment on above: Order Comment: Reaso n for Exam Wellness examination Performed By: #### C MP, CUU, CBC, LIPID, TSH3 #### [address] MCV (RBC) [Entitic vol] 89.2 fL Normal 80-100 [facility] Comment on above: Order Comment: Reaso n for Exam Wellness examination Performed By: #### C MP, CUU, CBC, LIPID, TSH3 #### [address] Mean Corpuscular HGB Conc 33.5 g/dL Normal 32.0-35.0 [facility] Comment on above: Order Comment: Reaso n for Exam Wellness examination Performed By: #### C MP, CUU, CBC, LIPID, TSH3 #### [address] Monocytes (Bld) [#/Vol] 0.4 10*3/uL Normal 0.0-0.8 [facility] Comment on above: Order Comment: Reaso n for Exam Wellness examination Performed By: #### C MP, CUU, CBC, LIPID, TSH3 #### [address] Monocytes/100 WBC (Bld) 10.4 % Normal . [facility] Comment on above: Order Comment: Reaso n for Exam Wellness examination Performed By: #### C MP, CUU, CBC, LIPID, TSH3 #### [address] Neutrophils (Bld) [#/Vol] 2.4 10*3/uL Normal 1.8-7.7 [facility] Comment on above: Order Comment: Reaso n for Exam Wellness examination Performed By: #### C MP, CUU, CBC, LIPID, TSH3 #### [address] Neutrophils/100 WBC (Bld) 56.7 % Normal . [facility] Comment on above: Order Comment: Reaso n for Exam Wellness examination Performed By: #### C MP, CUU, CBC, LIPID, TSH3 #### [address] NRBC% 0.0 /100{WBC} Normal 0-0.5 [facility] Comment on above: Order Comment: Reaso n for Exam Wellness examination Performed By: #### C MP, CUU, CBC, LIPID, TSH3 #### [facility] [address] Platelet mean volume (Bld) [Entitic vol] 9.5 fL Normal 6.3-10.7 [facility] Comment on above: Order Comment: Reaso n for Exam Wellness examination Performed By: #### C MP, CUU, CBC, LIPID, TSH3 #### [facility] [address] Platelets (Bld) [#/Vol] 182 10*3/uL Normal 150-450 [facility] Comment on above: Order Comment: Reaso n for Exam Wellness examination Performed By: #### C MP, CUU, CBC, LIPID, TSH3 #### [facility] [address] RBC (Bld) [#/Vol] 4.34 10*6/uL Normal 3.60-5.00 [facility] Comment on above: Order Comment: Reaso n for Exam Wellness examination Performed By: #### C MP, CUU, CBC, LIPID, TSH3 #### [facility] [address] WBC (Bld) [#/Vol] 4.3 10*3/uL Normal 3.8-11.6 [facility] Comment on above: Order Comment: Reaso n for Exam Wellness examination Performed By: #### C MP, CUU, CBC, LIPID, TSH3 #### [address] Comprehensive Metabolic Pane pino 06-20-2023 Albumin [Mass/Vol] 4.458773 g/dL Normal 3.5-5.7 g/dL [facility] [employer] Other Bilirubin [Mass/Vol] 0.1335149 mg/dL Normal 0.3- 1.0 mg/dL [facility] Other Calcium [Mass/Vol] 9.7555541 mg/dL Normal 8.6-10 .3 mg/dL [facility] Other CO2 [Moles/Vol] 29.35628555 mmol/L Normal 21.0-3 1.0 mmol/L [facility] [employer] Other Creatinine [Mass/Vol] 0.39645566 mg/dL Normal 0. 60-1.20 mg/dL [facility] Other Potassium [Moles/Vol] 4.28123017 mmol/L Normal 3 .5-5.1 mmol/L [facility] Other Protein [Mass/Vol] 6.571761 g/dL Normal 6.4-8.9 g/dL [facility] Other Comprehensive Metabolic Panel 2.1 g/dL [facility] [employer] Other Albumin [Mass/Vol] 4.4 g/dL Normal 3.5-5.7 [facility] Comment on above: Order Comment: Reaso n for Exam Wellness examination Performed By: #### C MP, CUU, CBC, LIPID, TSH3 #### [facility] [address] Albumin/Globulin [Mass ratio] 2.1 {ratio} Normal [facility] Comment on above: Order Comment: Reaso n for Exam Wellness examination Performed By: #### C MP, CUU, CBC, LIPID, TSH3 #### [facility] [address] [place] [address] [place] ALP [Catalytic activity/Vol] 51 U/L Normal 34-104 [facility] Comment on above: Order Comment: Reaso n for Exam Wellness examination Performed By: #### C MP, CUU, CBC, LIPID, TSH3 #### [facility] [address] [place] [address] [place] ALT [Catalytic activity/Vol] 27 U/L Normal 7-52 [facility] Comment on above: Order Comment: Reaso n for Exam Wellness examination Performed By: #### C MP, CUU, CBC, LIPID, TSH3 #### [facility] [address] [place] [id number] [facility] Anion gap [Moles/Vol] 7.7 mmol/L Normal 6.0-15.0 [facility] Comment on above: Order Comment: Reaso n for Exam Wellness examination Performed By: #### C MP, CUU, CBC, LIPID, TSH3 #### [facility] [address] [place] [address] AST [Catalytic activity/Vol] 25 U/L Normal 13-39 [facility] Comment on above: Order Comment: Reaso n for Exam Wellness examination Performed By: #### C MP, CUU, CBC, LIPID, TSH3 #### [facility] [address] [place] [address] Bilirubin [Mass/Vol] 0.3 mg/dL Normal 0.3-1.0 [facility] Comment on above: Order Comment: Reaso n for Exam Wellness examination Performed By: #### C MP, CUU, CBC, LIPID, TSH3 #### [facility] [address] [place] [address] Calcium [Mass/Vol] 9.6 mg/dL Normal 8.6-10.3 [facility] Comment on above: Order Comment: Reaso n for Exam Wellness examination Performed By: #### C MP, CUU, CBC, LIPID, TSH3 #### [facility] [address] [place] [address] Chloride [Moles/Vol] 108 mmol/L High 98-107 [facility] Comment on above: Order Comment: Reaso n for Exam Wellness examination Performed By: #### C MP, CUU, CBC, LIPID, TSH3 #### [facility] [address] [place] [address] CO2 [Moles/Vol] 29.9 mmol/L Normal 21.0-31.0 [facility] Comment on above: Order Comment: Reaso n for Exam Wellness examination Performed By: #### C MP, CUU, CBC, LIPID, TSH3 #### [facility] [address] [place] [address] Creatinine [Mass/Vol] 0.98 mg/dL Normal 0.60-1.20 [facility] Comment on above: Order Comment: Reaso n for Exam Wellness examination Performed By: #### C MP, CUU, CBC, LIPID, TSH3 #### [facility] [address] [place] [address] [place] GFR/1.73 sq M.predicted MDRD (S/P/Bld) [Vol rate/Area] mL/min/{1.73_m2} Normal [facility] [employer] Other Comment on above: Order Comment: Reaso n for Exam Wellness examination Performed By: #### C MP, CUU, CBC, LIPID, TSH3 #### [facility] [address] Globulin (S) [Mass/Vol] 2.1 g/dL Normal [facility] Comment on above: Order Comment: Reaso n for Exam Wellness examination Performed By: #### C MP, CUU, CBC, LIPID, TSH3 #### [facility] [address] Glucose [Mass/Vol] 97 mg/dL Normal 70-100 [facility] Comment on above: Order Comment: Reaso n for Exam Wellness examination Result Comment: [facility] Glucose Reference Range is dependent on time and content of last meal. Glucose of more than 200 mg/dL in a nonstressed, ambulatory subject supports the diagnosis of Diabetes Mellitus. ADA recommended reference range Performed By: #### C MP, CUU, CBC, LIPID, TSH3 #### [facility] [address] Potassium [Moles/Vol] 4.6 mmol/L Normal 3.5-5.1 [facility] Comment on above: Order Comment: Reaso n for Exam Wellness examination Performed By: #### C MP, CUU, CBC, LIPID, TSH3 #### [facility] [address] Protein [Mass/Vol] 6.5 g/dL Normal 6.4-8.9 [facility] Comment on above: Order Comment: Reaso n for Exam Wellness examination Performed By: #### C MP, CUU, CBC, LIPID, TSH3 #### [facility] [address] Sodium [Moles/Vol] 141 mmol/L Normal 136-145 [facility] Comment on above: Order Comment: Reaso n for Exam Wellness examination Performed By: #### C MP, CUU, CBC, LIPID, TSH3 #### [facility] [address] Urea nitrogen [Mass/Vol] 15 mg/dL Normal 7-25 [facility] Comment on above: Order Comment: Reaso n for Exam Wellness examination Performed By: #### C MP, CUU, CBC, LIPID, TSH3 #### [facility] [address] Creatinine [Mass/volume] in Serum or PlasmaOrdered By: Shay Muro on 06-20-2023 Creatinine [Mass/Vol] 0.98 mg/dL 0.60-1.20 [facility] Eosinophils Auto (Bld) [#/Vo l]Ordered By: Shay Muro on 06-20-2023 Eosinophils (Bld) [#/Vol] 0.3 10*3/uL 0.0-0.45 [facility] Eosinophils/100 WBC Auto (Bl d)Ordered By: Shay Muro on 06-20-2023 Eosinophils/100 WBC (Bld) 6.2 % . [facility] Erythrocyte distribution wid th Auto (RBC) [Ratio]Ordered By: Shay Muro on 06-20-2023 Erythrocyte distribution width (RBC) [Ratio] 13.2 % 11.9-15.3 [facility] Erythrocytes [#/volume] in B lood by Automated countOrdered By: Shay Muro on 06-20-2023 RBC (Bld) [#/Vol] 4.34 10*6/uL Normal 3.60-5.00 [facility] Globulin Calc (S) [Mass/Vol] Ordered By: Shay Muro on 06-20-2023 Globulin (S) [Mass/Vol] 2.1 g/dL [facility] Glucose [Mass/volume] in Ser um or PlasmaOrdered By: Shay Muro on 06-20-2023 Glucose [Mass/Vol] 97 mg/dL Normal 70-100 mg/dL [facility] Comment on above: ADA recommended refe rence rangeRandom Glucose Reference Range is dependent on time and content of last meal. Glucose of more than 200 mg/dL in a nonstressed, ambulatory subject supports the diagnosis of Diabetes Mellitus. Hematocrit Auto (Bld) [Volum e fraction]Ordered By: Shay Muro on 06-20-2023 Hematocrit (Bld) [Volume fraction] 38.8 % 34.0-46.4 [facility] Hemoglobin [Mass/volume] in BloodOrdered By: Shay Muro on 06-20-2023 Hemoglobin (Bld) [Mass/Vol] 13.0 g/dL 11.8-15.4 [facility] Leukocytes [#/volume] correc hermelinda for nucleated erythrocytes in Blood by Automated counOrdered By: Shay Muro on 06-20-2023 WBC corrected for nucl RBC Auto (Bld) [#/Vol] 4.3 10*3/uL 3.8-11.6 [facility] Lipid Panelon 06-20-2023 Cholesterol in LDL Elph Qn 116 mg/dL High 0-100 mg/dL [facility] [employer] Other Lipid Panel 116 mg/dL Normal 0-149 mg/dL [facility] [employer] Other Lipid Panel 23 mg/dL [facility] [employer] Other Cholesterol [Mass/Vol] 185 mg/dL Normal 140-200 [facility] Comment on above: Order Comment: Reaso n for Exam Wellness examination Result Comment: Chol less than 200 mg/dl low risk Chol 201-239 mg/dl borderline risk Chol 240 mg/dl and greater high risk Performed By: #### C MP, CUU, CBC, LIPID, TSH3 #### [facility] [address] [place] [id number] [place] Cholesterol in HDL [Mass/Vol] 46 mg/dL Normal 23-92 [facility] Comment on above: Order Comment: Reaso n for Exam Wellness examination Result Comment: HDL CHOL ATP-III CLASSIFICATION Cardiovascular Risk HDL > or equal to 60 mg/dL LOW HDL < 40 mg/dL HIGH Performed By: #### C MP, CUU, CBC, LIPID, TSH3 #### [facility] [address] [place] [address] Cholesterol.total/Cho lesterol in HDL [Mass ratio] 4.0 {ratio} Normal <5.0 [facility] Comment on above: Order Comment: Reaso n for Exam Wellness examination Performed By: #### C MP, CUU, CBC, LIPID, TSH3 #### [facility] [address] LDL Cholesterol,Calculate d 116 mg/dL High 0-100 [facility] Comment on above: Order Comment: Reaso n for Exam Wellness examination Result Comment: LDL ATP III CLASSIFICATION LDL less than 100 mg/dL Optimal LDL 100-129 mg/dL Near or above optimal LDL 130-159 mg/dL Borderline high LDL 160-189 mg/dL High LDL greater than 189 mg/dL Very high Performed By: #### C MP, CUU, CBC, LIPID, TSH3 #### [facility] [address] Triglyceride w/Reflex 116 mg/dL Normal 0-149 [facility] Comment on above: Order Comment: [...] C MP, CUU, CBC, LIPID, TSH3 #### [facility] [address] VLDL CHOLESTEROL 23 mg/dL Normal [facility] Comment on above: Order Comment: Reaso n for Exam Wellness examination Performed By: #### C MP, CUU, CBC, LIPID, TSH3 #### [facility] [address] Lymphocytes Auto (Bld) [#/Vo l]Ordered By: Shay Muro on 06-20-2023 Lymphocytes (Bld) [#/Vol] 1.1 10*3/uL 1.00-4.8 [facility] Lymphocytes/100 WBC Auto (Bl d)Ordered By: Shay Muro on 06-20-2023 Lymphocytes/100 WBC (Bld) 25.7 % . [facility] MCH Auto (RBC) [Entitic mass ]Ordered By: Shay Muro on 06-20-2023 MCH (RBC) [Entitic mass] 29.9 pg 24.7-34.3 [facility] MCHC Auto (RBC) [Mass/Vol]Or dered By: Shay Muro on 06-20-2023 MCHC (RBC) [Mass/Vol] 33.5 g/dL 32.0-35.0 [facility] MCV Auto (RBC) [Entitic vol] Ordered By: Shay Muro on 06-20-2023 MCV (RBC) [Entitic vol] 89.2 fL 80-100 [facility] Monocytes Auto (Bld) [#/Vol] Ordered By: Shay Muro on 06-20-2023 Monocytes (Bld) [#/Vol] 0.4 10*3/uL 0.0-0.8 [facility] Monocytes/100 WBC Auto (Bld) Ordered By: Shay Muro on 06-20-2023 Monocytes/100 WBC (Bld) 10.4 % . [facility] Neutrophils Auto (Bld) [#/Vo l]Ordered By: Shay Muro on 06-20-2023 Neutrophils (Bld) [#/Vol] 2.4 10*3/uL 1.8-7.7 [facility] Neutrophils/100 WBC Auto (Bl d)Ordered By: Shay Muro on 06-20-2023 Neutrophils/100 WBC (Bld) 56.7 % . [facility] No Panel InformationOrdered By: Shay Muro on 06-20-2023 Estimated GFR (CKD-EPI) > 60.0 mL/Min [facility] Creatinine Clearance (Chem N/A [facility] Nucleated erythrocytes [Pres ence] in Blood by Automated countOrdered By: Shay Muro on 06-20-2023 Nucleated RBC Auto Ql (Bld) 0.0 /100{WBC} 0-0.5 [facility] Platelet mean volume Auto (B ld) [Entitic vol]Ordered By: Shay Muro on 06-20-2023 Platelet mean volume (Bld) [Entitic vol] 9.5 fL 6.3-10.7 [facility] Platelets [#/volume] in Bloo d by Automated countOrdered By: Shay Muro on 06-20-2023 Platelets (Bld) [#/Vol] 182 10*3/uL Normal 150-450 10*3/uL [facility] Potassium [Moles/volume] in Serum or PlasmaOrdered By: Shay Muro on 06-20-2023 Potassium [Moles/Vol] 4.6 mmol/L 3.5-5.1 [facility] Protein [Mass/volume] in Ser um or PlasmaOrdered By: Shay Muro on 06-20-2023 Protein [Mass/Vol] 6.5 g/dL 6.4-8.9 [facility] Serum or plasma albumin/glob ulin mass ratioOrdered By: Shay Muro on 06-20-2023 Albumin/Globulin [Mass ratio] 2.1 {ratio} [facility] Serum or plasma anion gap de terminationOrdered By: Shay Muro on 06-20-2023 Anion gap [Moles/Vol] 7.7 mmol/L 6.0-15.0 [facility] Serum or plasma high density lipoprotein (HDL) cholesterol measurementOrdered By: Shay Muro on 06-20-2023 Cholesterol in HDL [Mass/Vol] 46 mg/dL Normal 23-92 mg/dL [facility] Comment on above: HDL CHOL ATP-III CLA SSIFICATION Cardiovascular RiskHDL > or equal to 60 mg/dL LOWHDL < 40 mg/dL HIGH Serum or plasma total choles terol/high density lipoprotein (HDL) cholesterol mass ratOrdered By: Shay Muro on 06-20-2023 Cholesterol.total/Cho lesterol in HDL [Mass ratio] 4.0 {ratio} <5.0 [facility] Sodium [Moles/volume] in Ser um or PlasmaOrdered By: Shay Muro on 06-20-2023 Sodium [Moles/Vol] 141 mmol/L Normal 136-145 mmol/L [facility] Thyroid Stimulating Hormoneo n 06-20-2023 TSH Qn 3.51164457952 m[IU]/L Normal 0.45-5 .33 u[iU]/mL [facility] Other TSH Qn 3.62 m[IU]/L Normal 0.45-5.33 [facility] Comment on above: Order Comment: Reaso n for Exam Wellness examination Result Comment: PERF ORMED BY: [facility] [address] [place] [address] PATHOLOGIST WASHING MACHINE MECHANIC LISANDRA OLVERA M.D. Performed By: #### C MP, CUU, CBC, LIPID, TSH3 #### [facility] [address] Thyrotropin [Units/volume] i n Serum or PlasmaOrdered By: Shay Muro on 06-20-2023 TSH Qn 3.62 m[IU]/L 0.45-5.33 [facility] Triglyceride [Mass/volume] i n Serum or PlasmaOrdered By: Shay Muro on 06-20-2023 Triglyceride [Mass/Vol] 116 mg/dL 0-149 [facility] Comment on above: TRIG ATP III CLASSIF ICATIONTRIG less than 150 mg/dL NormalTRIG 150-199 mg/dL Borderline highTRIG 200-500 mg/dL High TRIG greater than 500 mg/dL Very highStandard traceable to the Center for Disease Conrtrol and Prevention (CDC) test method. Urea nitrogen [Mass/volume] in Serum or PlasmaOrdered By: Shay Muro on 06-20-2023 Urea nitrogen [Mass/Vol] 15 mg/dL Normal 7-25 mg/dL [facility] Urine 10 SGon 06-20-2023 Albumin DL <= 20 mg/L (U) [Mass/Vol] Negative [facility] Other Albumin DL <= 20 mg/L (U) [Mass/Vol] small [facility] Other pH (U) 5.5 [pH] [facility] Other Urine 10 SG Negative [facility] Other Urine 10 SG >=1.030 [facility] Other Urine 10 SG 0.2 [facility] Other Urine Cultureon 06-20-2023 Bacteria identified Cx Nom (U) Reason for Exam Leukocytes in urine Urine Reason for Exam: Leukocytes in urine : Urine ORGANISM: Lactobacillus jensenii (O:LACJEN) [place] Count >100,000 PERFORMED BY: [place] [address] PATHOLOGIST WASHING MACHINE MECHANIC LISANDRA OLVERA M.D. [facility] Comment on above: Performed By: #### T SH3 #### [facility] [address] [place] [address] [place] #### THY AB #### [facility] , Bacteria identified Cx Nom (U) [facility] Other WBC Auto (Bld) [#/Vol]Ordere d By: Shay Muro on 06-20-2023 WBC (Bld) [#/Vol] 4.3 10*3/uL 3.8-11.6 [facility] Serum or plasma thyroglobuli n antibody assay (units/volume)Ordered By: Shay Muro on 05-31-2023 Thyroglobulin Ab Qn [IU]/mL 0.0-0.9 [facility] Comment on above: Thyroglobulin Antibo dy measured by RevolutionCreditMethodologyPerformed at: [facility] [address] [id number] Director: Arben Avelar PhD, Phone: [phone] Serum or plasma thyroperoxid ase antibody assay (units/volume)Ordered By: Shay Muro on 05-31-2023 TPO Ab Qn [IU]/mL 0-34 [facility] Thyroid Antibodies TPO+Tg Ab on 05-31-2023 Antithyroglobulin Ab <1.0 Normal 0.0-0.9 [facility] Comment on above: Order Comment: Reaso n for Exam Abnormal thyroid blood test Result Comment: Thyr oglobulin Antibody measured by [employer] Performed at: [facility] [address] [place], [place] [id number] Painter Plate: Arben Avelar PhD, Phone: [phone] PERFORMED BY: [place] [address] PATHOLOGIST WASHING MACHINE MECHANIC LISANDRA OLVERA M.D. Performed By: #### T SH3 #### [facility] [address] [place] [address] #### THY AB #### [facility] , Thyroid Peroxidase Antibodies <9 Normal 0-34 [facility] Comment on above: Order Comment: Reaso n for Exam Abnormal thyroid blood test Performed By: #### T SH3 #### [address] #### THY AB #### [facility] , Thyroid Stimulating Hormoneo n 05-31-2023 TSH Qn 3.37 m[IU]/L Normal 0.45-5.33 [facility] Comment on above: Order Comment: Reaso n for Exam Abnormal thyroid blood test Result Comment: PERF ORMED BY: [place] [address] PATHOLOGIST WASHING MACHINE MECHANIC LISANDRA OLVERA M.D. Performed By: #### T SH3 #### [facility] [address] [place] [address] #### THY AB #### [facility] , Thyrotropin [Units/volume] i n Serum or PlasmaOrdered By: Shay Muro on 05-31-2023 TSH Qn 3.37 m[IU]/L 0.45-5.33 [facility] RSVon 01-17-2023 RSV Ag IA Ql (Unsp spec) Negative [facility] Other Alanine aminotransferase [En zymatic activity/volume] in Serum or PlasmaOrdered By: Shay Muro on 08-17-2022 ALT [Catalytic activity/Vol] 26 U/L Normal 7-52 U/L [facility] Albumin [Mass/volume] in Ser um or Plasma by Bromocresol green (BCG) dye binding methoOrdered By: Shay Muro on 08-17-2022 Albumin BCG dye [Mass/Vol] 4.5 g/dL 3.5-5.7 [facility] Alkaline phosphatase [Enzyma tic activity/volume] in Serum or PlasmaOrdered By: Shay Muro on 08-17-2022 ALP [Catalytic activity/Vol] 59 U/L Normal 34-104 U/L [facility] Aspartate aminotransferase [ Enzymatic activity/volume] in Serum or PlasmaOrdered By: Shay Muro on 08-17-2022 AST [Catalytic activity/Vol] 26 U/L Normal 13-39 U/L [facility] Basophils Auto (Bld) [#/Vol] Ordered By: Shay Muro on 08-17-2022 Basophils (Bld) [#/Vol] 0.0 10*3/uL 0.0-0.2 [facility] Basophils/100 WBC Auto (Bld) Ordered By: Shay Muro on 08-17-2022 Basophils/100 WBC (Bld) 0.4 % . [facility] Bilirubin.total [Mass/volume ] in Serum or PlasmaOrdered By: Sahy Muro on 08-17-2022 Bilirubin [Mass/Vol] 0.2 mg/dL 0.3-1.0 [facility] Calcium [Mass/volume] in Ser um or PlasmaOrdered By: Shay Muro on 08-17-2022 Calcium [Mass/Vol] 10.0 mg/dL 8.6-10.3 [facility] Carbon dioxide, total [Moles /volume] in Serum or PlasmaOrdered By: Shay Muro on 08-17-2022 CO2 [Moles/Vol] 25.6 mmol/L 21.0-31.0 [facility] Chloride [Moles/volume] in S francis or PlasmaOrdered By: Shay Muro on 08-17-2022 Chloride [Moles/Vol] 106 mmol/L Normal 98-107 mmol/L [facility] Complete Blood Count Auto Di ffon 08-17-2022 Basophils (Bld) [#/Vol] 0.0 10*3/uL Normal 0.0-0.2 [facility] Comment on above: Order Comment: Reaso n for Exam COVID-19;Shortness of breath on exertion Result Comment: PERF ORMED BY: [place] [address] PATHOLOGIST WASHING MACHINE MECHANIC LISANDRA OLVERA M.D. Performed By: #### C BC, CMP #### [address] Basophils/100 WBC (Bld) 0.4 % Normal . [facility] Comment on above: Order Comment: Reaso n for Exam COVID-19;Shortness of breath on exertion Performed By: #### C BC, CMP #### [address] Eosinophils (Bld) [#/Vol] 0.1 10*3/uL Normal 0.0-0.45 [facility] Comment on above: Order Comment: Reaso n for Exam COVID-19;Shortness of breath on exertion Performed By: #### C BC, CMP #### [place] [address] [place] Eosinophils/100 WBC (Bld) 0.9 % Normal . [facility] Comment on above: Order Comment: Reaso n for Exam COVID-19;Shortness of breath on exertion Performed By: #### C BC, CMP #### [address] Erythrocyte distribution width (RBC) [Ratio] 13.5 % Normal 11.9-15.3 [facility] Comment on above: Order Comment: Reaso n for Exam COVID-19;Shortness of breath on exertion Performed By: #### C BC, CMP #### [address] Hematocrit (Bld) [Volume fraction] 38.8 % Normal 34.0-46.4 [facility] Comment on above: Order Comment: Reaso n for Exam COVID-19;Shortness of breath on exertion Performed By: #### C BC, CMP #### [address] Hemoglobin (Bld) [Mass/Vol] 12.6 g/dL Normal 11.8-15.4 [facility] Comment on above: Order Comment: Reaso n for Exam COVID-19;Shortness of breath on exertion Performed By: #### C BC, CMP #### [address] Lymphocytes (Bld) [#/Vol] 0.6 10*3/uL Low 1.00-4.8 [facility] Comment on above: Order Comment: Reaso n for Exam COVID-19;Shortness of breath on exertion Performed By: #### C BC, CMP #### [address] Lymphocytes/100 WBC (Bld) 10.9 % Normal . [facility] Comment on above: Order Comment: Reaso n for Exam COVID-19;Shortness of breath on exertion Performed By: #### C BC, CMP #### [address] MCH (RBC) [Entitic mass] 28.2 pg Normal 24.7-34.3 [facility] Comment on above: Order Comment: Reaso n for Exam COVID-19;Shortness of breath on exertion Performed By: #### C BC, CMP #### [address] MCV (RBC) [Entitic vol] 86.7 fL Normal 80-100 [facility] Comment on above: Order Comment: Reaso n for Exam COVID-19;Shortness of breath on exertion Performed By: #### C BC, CMP #### [address] Mean Corpuscular HGB Conc 32.5 g/dL Normal 32.0-35.0 [facility] Comment on above: Order Comment: Reaso n for Exam COVID-19;Shortness of breath on exertion Performed By: #### C BC, CMP #### [address] Monocytes (Bld) [#/Vol] 0.1 10*3/uL Normal 0.0-0.8 [facility] Comment on above: Order Comment: Reaso n for Exam COVID-19;Shortness of breath on exertion Performed By: #### C BC, CMP #### [facility] [address] [place] [address] [place] Monocytes/100 WBC (Bld) 2.6 % Normal . [facility] Comment on above: Order Comment: Reaso n for Exam COVID-19;Shortness of breath on exertion Performed By: #### C BC, CMP #### [facility] [address] [place] [address] [place] Neutrophils (Bld) [#/Vol] 5.0 10*3/uL Normal 1.8-7.7 [facility] Comment on above: Order Comment: Reaso n for Exam COVID-19;Shortness of breath on exertion Performed By: #### C BC, CMP #### [address] Neutrophils/100 WBC (Bld) 85.2 % Normal . [facility] Comment on above: Order Comment: Reaso n for Exam COVID-19;Shortness of breath on exertion Performed By: #### C BC, CMP #### [facility] [address] NRBC% 0.0 /100{WBC} Normal 0-0.5 [facility] Comment on above: Order Comment: Reaso n for Exam COVID-19;Shortness of breath on exertion Performed By: #### C BC, CMP #### [address] Platelet mean volume (Bld) [Entitic vol] 9.7 fL Normal 6.3-10.7 [facility] Comment on above: Order Comment: Reaso n for Exam COVID-19;Shortness of breath on exertion Performed By: #### C BC, CMP #### [facility] [address] [place] [address] [place] Platelets (Bld) [#/Vol] 190 10*3/uL Normal 150-450 [facility] Comment on above: Order Comment: Reaso n for Exam COVID-19;Shortness of breath on exertion Performed By: #### C BC, CMP #### [address] RBC (Bld) [#/Vol] 4.48 10*6/uL Normal 3.60-5.00 [facility] Comment on above: Order Comment: Reaso n for Exam COVID-19;Shortness of breath on exertion Performed By: #### C BC, CMP #### [facility] [address] [place] [id number] [facility] WBC (Bld) [#/Vol] 5.8 10*3/uL Normal 3.8-11.6 [facility] Comment on above: Order Comment: Reaso n for Exam COVID-19;Shortness of breath on exertion Performed By: #### C BC, CMP #### [facility] [address] Basophils (Bld) [#/Vol] 0.731410334 10*3/uL Normal 0.0-0.2 10*3/uL [facility] Other Basophils/100 WBC (Bld) 0.400 % . % [facility] Other Eosinophils (Bld) [#/Vol] 0.195269960 10*3/uL Normal 0.0-0.45 10*3/uL [facility] Other Eosinophils/100 WBC (Bld) 0.900 % . % [facility] Other Erythrocyte distribution width (RBC) [Ratio] 13.500 % Normal 11.9-15.3 % [facility] Other Hematocrit (Bld) [Volume fraction] 38.800 % Normal 34.0-46.4 % [facility] Other Hemoglobin (Bld) [Mass/Vol] 12.824943 g/dL Normal 11.8-15.4 g/dL [facility] Other Lymphocytes (Bld) [#/Vol] 0.427737643 10*3/uL Low 1.00-4.8 10*3/uL [facility] Other Lymphocytes/100 WBC (Bld) 10.900 % . % [facility] Other MCH (RBC) [Entitic mass] 28.2000 pg Normal 24.7-34.3 pg [facility] Other MCV (RBC) [Entitic vol] 86.7000 fL Normal 80-100 fL [facility] Other Monocytes (Bld) [#/Vol] 0.971452960 10*3/uL Normal 0.0-0.8 10*3/uL [facility] Other Monocytes/100 WBC (Bld) 2.600 % . % [facility] Other Neutrophils (Bld) [#/Vol] 5.485927977 10*3/uL Normal 1.8-7.7 10*3/uL [facility] Other Neutrophils/100 WBC (Bld) 85.200 % . % [facility] Other Platelet mean volume (Bld) [Entitic vol] 9.7000 fL Normal 6.3-10.7 fL [facility] Other WBC (Bld) [#/Vol] 5.234237605 10*3/uL Normal 3.8 -11.6 10*3/uL [facility] Other Complete Blood Count Auto Diff 5.8 10*3/uL Normal 3.8-11.6 10*3/uL [facility] Other Complete Blood Count Auto Diff 32.5 g/dL Normal 32.0-35.0 g/dL [facility] Other Complete Blood Count Auto Diff 0.0 /100{WBC} Normal 0-0.5 /100{WBC} [facility] Other Comprehensive Metabolic Pane pino 08-17-2022 Albumin [Mass/Vol] 4.5 g/dL Normal 3.5-5.7 [facility] Comment on above: Order Comment: Reaso n for Exam COVID-19;Shortness of breath on exertion Performed By: #### C BC, CMP #### [facility] [address] [place] [address] Albumin/Globulin [Mass ratio] 2.0 {ratio} Normal [facility] Comment on above: Order Comment: Reaso n for Exam COVID-19;Shortness of breath on exertion Performed By: #### C BC, CMP #### [address] ALP [Catalytic activity/Vol] 59 U/L Normal 34-104 [facility] Comment on above: Order Comment: Reaso n for Exam COVID-19;Shortness of breath on exertion Result Comment: PERF ORMED BY: [place] [address] PATHOLOGIST WASHING MACHINE MECHANIC LISANDRA OLVERA M.D. Performed By: #### C BC, CMP #### [address] ALT [Catalytic activity/Vol] 26 U/L Normal 7-52 [facility] Comment on above: Order Comment: Reaso n for Exam COVID-19;Shortness of breath on exertion Performed By: #### C BC, CMP #### [address] Anion gap [Moles/Vol] 10.9 mmol/L Normal 6.0-15.0 [facility] Comment on above: Order Comment: Reaso n for Exam COVID-19;Shortness of breath on exertion Performed By: #### C BC, CMP #### [address] AST [Catalytic activity/Vol] 26 U/L Normal 13-39 [facility] Comment on above: Order Comment: Reaso n for Exam COVID-19;Shortness of breath on exertion Performed By: #### C BC, CMP #### [address] Bilirubin [Mass/Vol] 0.2 mg/dL Low 0.3-1.0 [facility] Comment on above: Order Comment: Reaso n for Exam COVID-19;Shortness of breath on exertion Performed By: #### C BC, CMP #### [facility] [address] Calcium [Mass/Vol] 10.0 mg/dL Normal 8.6-10.3 [facility] Comment on above: Order Comment: Reaso n for Exam COVID-19;Shortness of breath on exertion Performed By: #### C BC, CMP #### [facility] [address] Chloride [Moles/Vol] 106 mmol/L Normal 98-107 [facility] Comment on above: Order Comment: Reaso n for Exam COVID-19;Shortness of breath on exertion Performed By: #### C BC, CMP #### [address] CO2 [Moles/Vol] 25.6 mmol/L Normal 21.0-31.0 [facility] Comment on above: Order Comment: Reaso n for Exam COVID-19;Shortness of breath on exertion Performed By: #### C BC, CMP #### [facility] [address] [place] [address] Creatinine [Mass/Vol] 0.92 mg/dL Normal 0.60-1.20 [facility] Comment on above: Order Comment: Reaso n for Exam COVID-19;Shortness of breath on exertion Performed By: #### C BC, CMP #### [address] GFR/1.73 sq M.predicted MDRD (S/P/Bld) [Vol rate/Area] mL/min/{1.73_m2} [facility] Comment on above: Order Comment: Reaso n for Exam COVID-19;Shortness of breath on exertion Performed By: #### C BC, CMP #### [facility] [address] Globulin (S) [Mass/Vol] 2.2 g/dL [facility] Comment on above: Order Comment: Reaso n for Exam COVID-19;Shortness of breath on exertion Performed By: #### C BC, CMP #### [facility] [address] [place] [id number] [place] Glucose [Mass/Vol] 134 mg/dL High 74-109 [facility] Comment on above: Order Comment: Reaso n for Exam COVID-19;Shortness of breath on exertion Result Comment: [facility] Glucose Reference Range is dependent on time and content of last meal. Glucose of more than 200 mg/dL in a nonstressed, ambulatory subject supports the diagnosis of Diabetes Mellitus. ADA recommended reference range Performed By: #### C BC, CMP #### [facility] [address] [place] [address] [place] Potassium [Moles/Vol] 4.5 mmol/L Normal 3.5-5.1 [facility] Comment on above: Order Comment: Reaso n for Exam COVID-19;Shortness of breath on exertion Performed By: #### C BC, CMP #### [facility] [address] [place] [address] [place] Protein [Mass/Vol] 6.7 g/dL Normal 6.4-8.9 [facility] Comment on above: Order Comment: Reaso n for Exam COVID-19;Shortness of breath on exertion Performed By: #### C BC, CMP #### [facility] [address] [place] [id number] [place] Sodium [Moles/Vol] 138 mmol/L Normal 136-145 [facility] Comment on above: Order Comment: Reaso n for Exam COVID-19;Shortness of breath on exertion Performed By: #### C BC, CMP #### [facility] [address] [place] [id number] [place] Urea nitrogen [Mass/Vol] 16 mg/dL Normal 7-25 [facility] Comment on above: Order Comment: Reaso n for Exam COVID-19;Shortness of breath on exertion Performed By: #### C BC, CMP #### [facility] [address] [place] [id number] [place] Albumin [Mass/Vol] 4.672407 g/dL Normal 3.5-5.7 g/dL [facility] Other Bilirubin [Mass/Vol] 0.3163233 mg/dL Low 0.3- 1.0 mg/dL [facility] Other Calcium [Mass/Vol] 10.0105374 mg/dL Normal 8.6-1 0.3 mg/dL [facility] Other CO2 [Moles/Vol] 25.17351519 mmol/L Normal 21.0-3 1.0 mmol/L [facility] Other Creatinine [Mass/Vol] 0.35844928 mg/dL Normal 0. 60-1.20 mg/dL [facility] Other Potassium [Moles/Vol] 4.81002025 mmol/L Normal 3 .5-5.1 mmol/L [facility] Other Protein [Mass/Vol] 6.180485 g/dL Normal 6.4-8.9 g/dL [facility] Other Comprehensive Metabolic Panel 2.2 g/dL [facility] Other Comprehensive Metabolic Pane lOrdered By: Shay Muro on 08-17-2022 GFR/1.73 sq M.predicted MDRD (S/P/Bld) [Vol rate/Area] mL/min/{1.73_m2} [facility] Creatinine [Mass/volume] in Serum or PlasmaOrdered By: Shay Muro on 08-17-2022 Creatinine [Mass/Vol] 0.92 mg/dL 0.60-1.20 [facility] Eosinophils Auto (Bld) [#/Vo l]Ordered By: Shay Muro on 08-17-2022 Eosinophils (Bld) [#/Vol] 0.1 10*3/uL 0.0-0.45 [facility] Eosinophils/100 WBC Auto (Bl d)Ordered By: Shay Muro on 08-17-2022 Eosinophils/100 WBC (Bld) 0.9 % . [facility] Erythrocyte distribution wid th Auto (RBC) [Ratio]Ordered By: Shay Muro on 08-17-2022 Erythrocyte distribution width (RBC) [Ratio] 13.5 % 11.9-15.3 [facility] Erythrocytes [#/volume] in B lood by Automated countOrdered By: Shay Muro on 08-17-2022 RBC (Bld) [#/Vol] 4.48 10*6/uL Normal 3.60-5.00 [facility] Globulin Calc (S) [Mass/Vol] Ordered By: Shay Muro on 08-17-2022 Globulin (S) [Mass/Vol] 2.2 g/dL [facility] Glucose [Mass/volume] in Ser um or PlasmaOrdered By: Shay Muro on 08-17-2022 Glucose [Mass/Vol] 134 mg/dL High 74-109 mg/dL [facility] Comment on above: ADA recommended refe rence rangeRandom Glucose Reference Range is dependent on time and content of last meal. Glucose of more than 200 mg/dL in a nonstressed, ambulatory subject supports the diagnosis of Diabetes Mellitus. Hematocrit Auto (Bld) [Volum e fraction]Ordered By: Shay Muro on 08-17-2022 Hematocrit (Bld) [Volume fraction] 38.8 % 34.0-46.4 [facility] Hemoglobin [Mass/volume] in BloodOrdered By: Shay Muro on 08-17-2022 Hemoglobin (Bld) [Mass/Vol] 12.6 g/dL 11.8-15.4 [facility] Leukocytes [#/volume] correc hermelinda for nucleated erythrocytes in Blood by Automated counOrdered By: Shay Muro on 08-17-2022 WBC corrected for nucl RBC Auto (Bld) [#/Vol] 5.8 10*3/uL 3.8-11.6 [facility] Lymphocytes Auto (Bld) [#/Vo l]Ordered By: Shay Muro on 08-17-2022 Lymphocytes (Bld) [#/Vol] 0.6 10*3/uL 1.00-4.8 [facility] Lymphocytes/100 WBC Auto (Bl d)Ordered By: Shay Muro on 08-17-2022 Lymphocytes/100 WBC (Bld) 10.9 % . [facility] MCH Auto (RBC) [Entitic mass ]Ordered By: Shay Muro on 08-17-2022 MCH (RBC) [Entitic mass] 28.2 pg 24.7-34.3 [facility] MCHC Auto (RBC) [Mass/Vol]Or dered By: Shay Muro on 08-17-2022 MCHC (RBC) [Mass/Vol] 32.5 g/dL 32.0-35.0 [facility] MCV Auto (RBC) [Entitic vol] Ordered By: Shay Muro on 08-17-2022 MCV (RBC) [Entitic vol] 86.7 fL 80-100 [facility] Monocytes Auto (Bld) [#/Vol] Ordered By: Shay Muro on 08-17-2022 Monocytes (Bld) [#/Vol] 0.1 10*3/uL 0.0-0.8 [facility] Monocytes/100 WBC Auto (Bld) Ordered By: Shay Muro on 08-17-2022 Monocytes/100 WBC (Bld) 2.6 % . [facility] Neutrophils Auto (Bld) [#/Vo l]Ordered By: Shay Muro on 08-17-2022 Neutrophils (Bld) [#/Vol] 5.0 10*3/uL 1.8-7.7 [facility] Neutrophils/100 WBC Auto (Bl d)Ordered By: Shay Muro on 08-17-2022 Neutrophils/100 WBC (Bld) 85.2 % . [facility] No Panel InformationOrdered By: Shay Muro on 08-17-2022 Pharmacy Creatinine Clearance (Chem N/A [facility] Nucleated erythrocytes [Pres ence] in Blood by Automated countOrdered By: Shay Muro on 08-17-2022 Nucleated RBC Auto Ql (Bld) 0.0 /100{WBC} 0-0.5 [facility] Platelet mean volume Auto (B ld) [Entitic vol]Ordered By: Shay Muro on 08-17-2022 Platelet mean volume (Bld) [Entitic vol] 9.7 fL 6.3-10.7 [facility] Platelets [#/volume] in Bloo d by Automated countOrdered By: Shay Muro on 08-17-2022 Platelets (Bld) [#/Vol] 190 10*3/uL Normal 150-450 10*3/uL [facility] Potassium [Moles/volume] in Serum or PlasmaOrdered By: Shay Muro on 08-17-2022 Potassium [Moles/Vol] 4.5 mmol/L 3.5-5.1 [facility] Protein [Mass/volume] in Ser um or PlasmaOrdered By: Shay Muro on 08-17-2022 Protein [Mass/Vol] 6.7 g/dL 6.4-8.9 [facility] Serum or plasma albumin/glob ulin mass ratioOrdered By: Shay Muro on 08-17-2022 Albumin/Globulin [Mass ratio] 2.0 {ratio} [facility] Serum or plasma anion gap de terminationOrdered By: Shay Muro on 08-17-2022 Anion gap [Moles/Vol] 10.9 mmol/L 6.0-15.0 [facility] Sodium [Moles/volume] in Ser um or PlasmaOrdered By: Shay Muro on 08-17-2022 Sodium [Moles/Vol] 138 mmol/L Normal 136-145 mmol/L [facility] Urea nitrogen [Mass/volume] in Serum or PlasmaOrdered By: Shay Muro on 08-17-2022 Urea nitrogen [Mass/Vol] 16 mg/dL Normal 7-25 mg/dL [facility] WBC Auto (Bld) [#/Vol]Ordere d By: Shay Muro on 08-17-2022 WBC (Bld) [#/Vol] 5.8 10*3/uL 3.8-11.6 [facility] XR chest 2V*on 08-17-2022 XR chest 2V* [facility] Main [address] [address] XRay Report Signed Patient: Kayleen Bingham MR#: [id number] : 1965 Acct:[id number] Age/Sex: 57 / F ADM Date: 08/17/22 Loc: [place] Room: Type: [facility] Attending Dr: Shay Muro DO Copies to: [...] Andrew Lockett M.D.08/17/2022 7:08 PM Dictation Location: [place] [address] Transcribed By: [facility] 08/17/221907 Dictated By: Andrew Lockett DO 08/17/221906 Signed By: 08/17/221907 Normal [facility] SARS-CoV-2 (COVID-19) RNA JOSÉ MIGUEL+probe Ql (Unsp spec) XR/XR chest 2V*: COVID-19;Shortness of breath on exertion [facility] [employer] Other XR chest 2V* [facility] [employer] Other XR chest 2V* [facility] [employer] Other XR chest 2V* [address] [place] [address] [employer] Other XR chest 2V* [place] [address] [facility] [employer] Other XR chest 2V* XRay Report [facility] [employer] Other XR chest 2V* Signed [facility] Other XR chest 2V* Patient: Lurdes Bingham M MR#: [id number] [facility] [employer] Other XR chest 2V* [address] [facility] Other XR chest 2V* : 1965 Acct:[id number] [facility] Other XR chest 2V* Age/Sex: 57 / F ADM Date: 08/17/22 [facility] Other XR chest 2V* Loc: [place] Room: Type: [facility] Other XR chest 2V* Attending Dr: Shay Muro DO [facility] Other XR chest 2V* Copies to: Shay Muro, [facility] Other XR chest 2V* Ordering Provider: Tereso Muro DO [facility] Other XR chest 2V* Date of Service: 08/17/22 [facility] Other XR chest 2V* Plain film chest2 view [facility] Other XR chest 2V* HISTORY:Shortness of breath [facility] Other XR chest 2V* COMPARISON:04/02/2020 No rt [facility] Other XR chest 2V* FINDINGS: [facility] Other XR chest 2V* SUPPORT DEVICES: None N [facility] Other XR chest 2V* POSTSURGICAL CHANGES:None [facility] Other XR chest 2V* HEART: Within normal limits [facility] Other XR chest 2V* PULMONARY COLIN:Withi n normal limits [facility] Other XR chest 2V* MEDIASTINUM:Unremarkable [facility] Other XR chest 2V* LUNGS AND PLEURA: No acute lung process, pleural effusion or pneumothorax identified. [facility] Other XR chest 2V* BONY STRUCTURES: Intact [facility] Other XR chest 2V* ADDITIONAL FINDINGS None [facility] Other XR chest 2V* X R/XR chest 2V* [facility] Other XR chest 2V* IMPRESSION: No acute process. [facility] Other XR chest 2V* Impression dictated by: Andrew Lockett M.D.08/17/2022 7:08 PM [facility] Other XR chest 2V* Dictation Location: [place] [address] [facility] Other XR chest 2V* Transcribed By: ROXANNA 08/17/221907 [facility] Other XR chest 2V* Dictated By: James Lockett DO 08/17/221906 [facility] Other XR chest 2V* Signed By: [facility] Other XR chest 2V* 08/17/221907 [employer] Other MM screening mammo BI w/CADo n 08-09-2022 MM screening mammo BI w/CAD [facility] [place] [address] Mammography Report Signed Patient: Kayleen Bingham MR#: [id number] : 1965 Acct:[id number] Age/Sex: 57 / F ADM Date: 08/09/22 Loc: [place] Room: Type: [facility] Attending Dr: Vivian Denis DO Copies to: [...] Andrew Lockett M.D.08/09/2022 4:24 PM Dictation Location: [facility] Transcribed By: [facility] 08/09/221623 Dictated By: Andrew Lockett DO 08/09/221622 Signed By: 08/09/221623 [facility] POINT OF CARE GLUCOSEon 02-0 Glucose [Mass/Vol] 103 mg/dL Normal 74-106 [facility] Comment on above: Performed By: #### P OCGLUC #### [facility] [address] [place] [address] Dr. Nhung Henao Glucose [Mass/Vol] 97 mg/dL Normal 74-106 [facility] Comment on above: Performed By: #### P OCGLUC #### [facility] [address] [place] [address] Dr. Nhung Henao Covid-19 PCR (CVDTB)on 05-31 SARS-CoV-2 (COVID-19) RNA JOSÉ MIGUEL+probe Ql (Unsp spec) Not detected Normal NOT DETECTED [facility] Comment on above: Result Comment: This test is not yet approved or cleared by the [place] FDA. When there are no FDA-approved or cleared tests available, and other criteria are met, FDA can make tests available under an emergency access mechanism called an Emergency Use Authorization (EUA). The EUA for this test is supported by the [place] of Health and Human Service's (HHS's) declaration [...] SARS-CoV-2. Performed By: #### C VDTB #### [facility] [address] [place] [address] Dr. Nhung Henao PROF CHEM 8 (BAS METB)on Anion gap [Moles/Vol] 13.5 mmol/L Normal [facility] Comment on above: Performed By: #### B MP #### [facility] [address] [place] [address] Dr. Nhung Henao Calcium [Mass/Vol] 9.4 mg/dL Normal 8.5-10.1 [facility] Comment on above: Performed By: #### B MP #### [facility] [address] [place] [address] Dr. Nhung Henao Chloride [Moles/Vol] 104 mmol/L Normal 98-107 [facility] Comment on above: Performed By: #### B MP #### [facility] [address] [place] [address] Dr. Nhung Henao CO2 [Moles/Vol] 28.2 mmol/L Normal 21.0-32.0 [facility] Comment on above: Performed By: #### B MP #### [facility] [address] [place] [address] Dr. Nhung Henao Creatinine [Mass/Vol] 0.82 mg/dL Normal 0.55-1.02 [facility] Comment on above: Performed By: #### B MP #### [facility] [address] [place] [address] Dr. Nhung Henao EGFR-AF MARSHALLESE >60 Normal >=60 [facility] Comment on above: Performed By: #### B MP #### [facility] [address] [address] [address] Nhung Henao EGFR-NON AF MARSHALLESE >60 Normal >=60 [facility] Comment on above: Performed By: #### B MP #### [facility] [address] [place] [address] [address] Nhung Henao Glucose [Mass/Vol] 88 mg/dL Normal 74-106 [facility] Comment on above: Performed By: #### B MP #### [facility] [address] [place] [address] [address] Nhung Henao Potassium [Moles/Vol] 4.7 mmol/L Normal 3.5-5.1 [facility] Comment on above: Performed By: #### B MP #### [facility] [address] [place] [address] [address] Nhung Henao Sodium [Moles/Vol] 141 mmol/L Normal 136-145 [facility] Comment on above: Performed By: #### B MP #### [facility] [address] [place] [address] [address] Nhung Henao Urea nitrogen [Mass/Vol] 20.0 mg/dL Critically high 7.0-18.0 [facility] Comment on above: Performed By: #### B MP #### [facility] [address] [place] [address] [address] Nhung Henao Urea nitrogen/Creatinine [Mass ratio] 24.4 mg/mg Normal [facility] Comment on above: Performed By: #### B MP #### [facility] [address] [place] [address] [address] Nhung Henao MRI FOOT LT WO [...] POLO DELGADO Date: 2022-04-24 13:21 Normal [facility] Covid-19 PCR (CVDTB)on 06 SARS-CoV-2 (COVID-19) RNA JOSÉ MIGUEL+probe Ql (Unsp spec) Not detected Normal NOT DETECTED [facility] Comment on above: Result Comment: This test is not yet approved or cleared by the [place] FDA. When there are no FDA-approved or cleared tests available, and other criteria are met, FDA can make tests available under an emergency access mechanism called an Emergency Use Authorization (EUA). The EUA for this test is supported by the [employer] of Health and Human Service's (HHS's) declaration [...] SARS-CoV-2. Performed By: #### C VDTB #### [facility] [address] [place] [address] Nhung Henao Covid-19 PCR ([facility])on SARS-CoV-2 (COVID-19) RNA JOSÉ MIGUEL+probe Ql (Unsp spec) Not detected Normal NOT DETECTED [facility] Comment on above: Result Comment: This test is not yet approved or cleared by the [place] FDA. When there are no FDA-approved or cleared tests available, and other criteria are met, FDA can make tests available under an emergency access mechanism called an Emergency Use Authorization (EUA). The EUA for this test is supported by the [place] of Health and Human Service's (HHS's) declaration [...] SARS-CoV-2. Performed By: #### C VDTB #### [facility] [address] [place] [address] Nhung Henao Vital Signs Date Time Vital Sign Value Performing Clinician Facility 07-04-2023 10:30-0500 Body height 170.18 cm Shay Muro Other [facility] Other 06-20-2023 07:45-0500 Body height 170.18 cm Shay Kuns Other [facility] Other 06-20-2023 07:45-0500 Body mass index (BMI) [Ratio] 31.48 kg/m2 Shay Kuns Other [facility] Other 06-20-2023 07:45-0500 Body weight 91.17 kg Shay Kuns Other [facility] Other 06-20-2023 07:45-0500 Diastolic blood pressure 84 mm[Hg] Shay Kuns Other [facility] Other 06-20-2023 07:45-0500 Respiratory rate 16 /min Shay Kuns Other [facility] Other 06-20-2023 07:45-0500 SaO2% (BldA) [Mass fraction] 97 % Shay Kuns Other [facility] Other 06-20-2023 07:45-0500 Systolic blood pressure 122 mm[Hg] Shay Kuns Other [facility] Other 05-31-2023 13:45-0500 Body height 170.18 cm Shay Kuns Other [facility] Other 05-31-2023 13:45-0500 Body mass index (BMI) [Ratio] 31.01 kg/m2 Shay Kuns Other [facility] Other 05-31-2023 13:45-0500 Body weight 89.81 kg Shay Kuns Other [facility] Other 05-31-2023 13:45-0500 Diastolic blood pressure 84 mm[Hg] Shay Kuns Other [facility] Other 05-31-2023 13:45-0500 Respiratory rate 18 /min Shay Kuns Other [facility] Other 05-31-2023 13:45-0500 SaO2% (BldA) [Mass fraction] 98 % Shay Kuns Other [facility] Other 05-31-2023 13:45-0500 Systolic blood pressure 130 mm[Hg] Shay Kuns Other [facility] Other 01-17-2023 10:30-0400 Body height 170.18 cm Shay Kuns Other [facility] Other 01-17-2023 10:30-0400 Body mass index (BMI) [Ratio] 30.22 kg/m2 Shay Kuns Other [facility] Other 01-17-2023 10:30-0400 Body weight 87.54 kg Shay Kuns Other [facility] Other 01-17-2023 10:30-0400 Diastolic blood pressure 78 mm[Hg] Shay Kuns Other [facility] Other 01-17-2023 10:30-0400 Respiratory rate 16 /min Shay Kuns Other [facility] Other 01-17-2023 10:30-0400 SaO2% (BldA) [Mass fraction] 97 % Shay Kuns Other [facility] Other 01-17-2023 10:30-0400 Systolic blood pressure 108 mm[Hg] Shay Muro Other [facility] Other Encounters Encounter Date Encounter Type Care Provider Facility Start: 07-04-2023 (Televisit) Televisit Shay Muro [facility] Start: 07-04-2023 End: 07-04-2023 ambulatory Shay Muro Other [facility] Other Start: 06-20-2023 Encounter for genera l adult medical examination without abnormal findings Shay Muro [facility] Start: 06-20-2023 Periodic preventive med est patient 40-64yrs Shay Muro [facility] Start: 06-20-2023 End: 06-20-2023 ambulatory Shay Kuns Facility:[facility] Start: 06-20-2023 End: 06-20-2023 ambulatory DO Shay Kuns Work Phone: [facility] Work Phone: Start: 06-20-2023 End: 06-20-2023 Patient encounter procedure DO Shay Kuns Work Phone: [facility] [place] Work Phone: Start: 05-31-2023 End: 05-31-2023 ambulatory Shay Kuns Facility:[facility] Start: 05-31-2023 End: 05-31-2023 Patient encounter procedure DO Shay Kuns Work Phone: [facility] [place] Work Phone: Start: 05-31-2023 End: 05-31-2023 ambulatory DO Shay Kuns Work Phone: [facility] Work Phone: Start: 05-31-2023 Office outpatient vi sit 25 minutes Shay Nunos [facility] [place] Start: 05-31-2023 End: 05-31-2023 Patient encounter procedure DO Shaymaria t Reinas Work Phone: [facility] [place] Work Phone: Start: 05-12-2023 End: 05-12-2023 ambulatory Shay Kuns Other [facility] Other Start: 05-12-2023 Telephone encounter Shay Nunos [facility] [place] Start: 05-11-2023 End: 05-11-2023 ambulatory VIVIAN DRAKEAWIRA Not Available Start: 01-25-2023 End: 01-25-2023 ambulatory Shay Kuns Other [facility] Other Start: 01-25-2023 Telephone encounter Shay Kuns [facility] [place] Start: 01-24-2023 End: 01-24-2023 ambulatory Shay Kuns Other [facility] Other Start: 01-24-2023 Telephone encounter Shay Kuns [facility] [place] Start: 01-17-2023 (Acute) Acute Visit Shay Kuns [facility] [place] Start: 01-17-2023 End: 01-17-2023 ambulatory Shay Kuns Other [facility] Start: 01-13-2023 End: 01-13-2023 ambulatory Shay Kuns Other [facility] Other Start: 01-13-2023 Telephone encounter Shay Kuns [facility] [place] Start: 01-10-2023 End: 01-10-2023 ambulatory Shay Kuns Other [facility] Other Start: 01-10-2023 Telephone encounter Shay Kuns [facility] [place] Start: 08-17-2022 End: 08-17-2022 ambulatory Shay Kuns Facility:[facility] Start: 08-17-2022 End: 08-17-2022 Patient encounter procedure DO Shay Kuns Work Phone: [facility] [place] Work Phone: Start: 08-17-2022 End: 08-17-2022 ambulatory DO Shay Kuns Work Phone: [facility] Work Phone: Start: 08-17-2022 Telephone encounter Shay Kuns [facility] [address] Start: 08-09-2022 End: 08-09-2022 ambulatory Shay Kuns Facility:[facility] Start: 08-09-2022 End: 08-09-2022 Patient encounter procedure DO Shay Kuns Work Phone: [facility] Work Phone: Start: 07-01-2022 End: 07-01-2022 ambulatory RAYMOND Bach [facility] Facility:[facility]1 Start: 06-28-2022 Encounter for preprocedural laboratory examination RAYMOND SMITH [facility] Start: 06-25-2022 End: 06-26-2022 ambulatory RAYMOND Bach [facility] Facility:[facility]1 Start: 06-25-2022 End: 06-26-2022 Encounter for preprocedural laboratory examination RAYMOND SMITH Facility:[facility] Start: 06-09-[address] DOCTOR LOPEZ Facility :[facility]1 Start: 04-21-2022 End: 04-22-2022 ambulatory RAYMOND Bach [facility] Facility:H1 Start: 04-02-2022 End: 04-02-2022 ambulatory Shay Kuns Other [facility] Other Start: 04-02-2022 Telephone encounter Shay Kuns [facility] [place] Start: 03-15-2022 End: 03-15-2022 ambulatory Shay Nunos Other [facility] Other Start: 03-15-2022 Telephone encounter Shay Muro [facility] [place] Start: 03-09-2022 End: 03-10-2022 ambulatory RENETTA SORTO Facility:[facility]1 Start: 12-10-2021 End: 12-10-2021 ambulatory Shay Muro Other [facility] Other Start: 12-10-2021 Telephone encounter Shay Muro [facility] [place] Start: 10-28-2021 Telephone encounter Shay Muro [facility] [place] Start: 10-28-2021 End: 10-28-[address] SHAY MURO [facility] Start: 09-01-2021 Telephone encounter [facility]uro [facility] Start: 09-01-2021 End: 09-01-[address] DOCTOR LOPEZ [facility] Other Procedures Date Procedure Procedure Detail Performing Clinician Start: 08-17-2022 Plain chest X-ray DO Lonnie Muro Work Phone: Start: 08-09-2022 Screening mammograph y of bilateral breasts DO Shay Muro Work Phone: Plan of Treatment Date Care Activity Detail Author Start: 06-20-2023 Bacteria identified in Urine by Culture [facility] Thyroglobulin Ab [Un its/volume] in Serum or Plasma [facility] Thyroperoxidase Ab [ Units/volume] in Serum or Plasma [facility] Immunizations Immunization Date Immunization Notes Care Provider Fa cility 03-25-2023 Flu Shot - Documentation Purposes Only Shay Muro Other [facility] Other 04-21-2021 COVID-19 Vaccine Pfi zer - Documentation Purposes Only Shay Muro Other [facility] Other 02-27-2021 influenza, seasonal, injectable Shay Muro Other [facility] Other 09-03-2020 COVID-19 Vaccine Pfi zer - Documentation Purposes Only Shaymaria t Reinas Other [facility] Other 08-13-2020 COVID-19 Vaccine Pfi zer - Documentation Purposes Only Shay Kuns Other [facility] Other 03-14-2019 influenza, seasonal, injectable Shay Kuns Other [facility] Other 04-12-2018 influenza, seasonal, injectable Shay Kuns Other [facility] Other Payers Date Payer Category Payer Self-pay [id number] 1965 Unknown [id number] 2.16.84 [id number] 1965 Unknown [id number] 2.16.84 [id number] 1965 Unknown [id number] 2.16.84 [id number] 1965 Unknown [id number] 2.16.84 [id number] 1965 Unknown [id number] 2.16.84 [id number] 1965 Unknown [id number] 2.16.84 [id number] 1965 Unknown [id number] 2.16.84 [id number] 1965 Unknown [id number] 2.16.840 .[id number] 1960 [facility] [id number] Unknown [place] BC/BS [id number] Unknown [id number] 2.16.8 [id number] Unknown [id number] 2.16.8 [id number] Unknown [id number] 2.16.8 [id number] Unknown [id number] 2.16.8 [id number] Social History Date Type Detail Facility Unknown if ever smoked [facility] Other Sex Assigned At Sex Assigned At Bir th [facility] Other Start: 1965 Sex Assigned At Female F [facility] Clinical Notes 05-29-2015 to 07-04-2023 Note Date [...] K13.0) Refill provided of the above medication. [facility] Other [id number] Evaluation note* Encounter Date Diagnosis Assessment Notes [...] limitations to undergoing general anesthesia and surgery. [facility] Other 01-02-2024 Evaluation note* Encounter Date Diagnosis [...] She was recently evaluated by Dr. Park, LOCK FITTER, and started on an estrogen replacement for hot flashes. [facility] Other 12-14-2023 Evaluation note* Encounter Date Diagnosis Assessment Notes Treatment Notes Treatment Clinical Notes Apr, Left hand pain (ICD-10 - M79.642) [facility] Other 08-29-2023 Evaluation note* Encounter Date Diagnosis Assessment Notes Treatment Notes Treatment Clinical Notes Dec, Persistent cough (ICD-10 - R05.3) [facility] Other 08-21-2023 Evaluation note* Encounter Date Diagnosis [...] improvement then I will refer out to plsql developer. 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 She states air quality measures were determined to be safe. Masking is optional at job site. [facility] Other 08-14-2023 Evaluation note* Encounter Date Diagnosis Assessment Notes Treatment Notes Treatment Clinical Notes Dec, Acute cough (ICD-10 - R05.1) [facility] Other 07-16-2023 History general Narrative - Reported* Type Description Date Medical History Follows with Dr. 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 Kimmie pelayo Medical History 12/22/2015 Colonscopy -repeat in [address] Olvera Medical History 07/29/2017 Mammogram - Benign Dr Neftali De Anda Medical History 02/2019 Mammogram Medical History 06/25/2020 Mammogram Surgical History right ankle; Dr. iL 2009 Surgical History tubial ligation Surgical History nasal surgery Surgical History c-sections x 3 Surgical History Right Ankle Surgery - Mircrofra cture - Dr. Li Surgical History Dr. Oliver repair of Left Clavic al bone 04/2012 Surgical History Left ankle surgery t o repair torn tendon per Dr. Smith 03/30/2021 Hospitalization History see surgical [facility] Other 07-16-2023 History general Narrative - Reported* Type Description Date Medical History Follows with Dr. De Anda for her O B LOCK FITTER care Medical History 2010 Mammogram Medical History [...] Foot Neuroma 06/2022 Hospitalization History see surgical [facility] Other 03-21-2023 Evaluation note* Encounter Date Diagnosis Assessment Notes Treatment Notes Treatment Clinical Notes Jul, COVID-19 (ICD-10 - U07.1) Jul, Shortness of breath on exertion (ICD-10 - R06.02) [facility] Other 10-17-2022 Evaluation note* Encounter Date Diagnosis Assessment Notes Treatment Notes Treatment Clinical Notes Feb, Diseases of lips (ICD-10 - K13.0) [facility] Other 10-12-2022 NotePROCEDURE: XR FOOT LT MIN [...] Electronically authenticated by: JOSEFINA CLAYTON Date: 2022-03-09 22:44[facility]07-16-2022 History general Narrative - Reported* Type Description Date Medical History Follows with Dr. De Anda for her O B LOCK FITTER care Medical History 2010 Mammogram Medical History [...] Dr. Smith 03/30/2021 Hospitalization History see surgical [facility] Other 06-01-2022 Evaluation note* Encounter Date Diagnosis Assessment Notes Treatment Notes Treatment Clinical Notes Oct, Cough (ICD-10 - R05.9) Oct, Exposure to COVID-19 virus (ICD-10 - Z20.822) [facility] Other 04-05-2022 Evaluation note* Encounter Date Diagnosis Assessment Notes Treatment Notes Treatment Clinical Notes Aug, Exposure to COVID-19 virus (ICD-10 - Z20.822) [facility] Other 12-31-2015 History general Narrative - Reported* Type Description Date Medical History Follows with Dr. De Anda for her O B LOCK FITTER care Medical History 2010 Mammogram Medical History [...] per Dr. Smith 03/30/2021 Hospitalization History see [facility] Other 12-31-2015 History general Narrative - Reported* Type Description Date Medical History Follows with Dr. De Anda for her O B LOCK FITTER care Medical History 2010 Mammogram Medical History [...] Left Foot Neuroma 06/2022 Hospitalization History see [facility] Other Evaluation noteNo InformationNort [facility] Other Evaluation noteNo assessment information available [facility] Work Phone: Summary Purpose Family History [...] Thumb pain, left (M7 9.645) Referral Organization [facility] [place] Referring Provider First Name Shay Referring Provider Last Name Veronica Referring Provider Specialty Family Prac haider Referred Organization [facility] Page [facility] Referred Provider Johnna Evangelista Referred Address [address] [facility] [place],[address] Referred Provider Specialty Hand Surgery Referral Priority Routine General Notes Ameena Carrera 09:30:14 AM > received today. Sent p2p Reason *FU 02/03 consult and treat; soonest available Diagnosis 1 Persistent cough (R0 5.3) Referral Organization [facility] [place] Referring Provider First Name Shay Referring Provider Last Name Veronica Referring Provider Specialty Family Prac haider Referred Organization [facility] Referred Provider Rcihardson Nolen Referred Address [address] [place], [place],[address] Referred Provider Specialty Pulmonary Di seases Referral [...] and content) DATE CREATED AUTHOR 07/13/2022 [facility] DATE CREATED AUTHOR AUTHOR'S ORGANIZ ATION 05/14/2023 [facility] EPIC DATE CREATED AUTHOR AUTHOR'S ORGANIZ ATION 06/25/2023 [facility] Care Teams (unrecognized sec tion and [...] BE BASED ON THE PRIMARY CLINICAL RECORDS. [employer] provides no warranty or guarantee of the accuracy or completeness of information in this document.
== END 2023-07-26 10:09 | disposition home or self-care (01) ==
LOC: EC 10:08
PROVIDERS: PCP Family Medicine; Visit Provider Podiatrist Foot & Ankle Surgery
DX: M19.071 Primary osteoarthritis, right ankle and foot (principal)
CPT/HCPCS: 73610

== ENCOUNTER 2023-10-04 08:59 | Outpatient (OUT) | payer BC, SELFPAY ==
--- NOTE | 2023-10-04 | XR_ITS ---
The [address] [address] Patient Name: KAYLEEN BINGHAM MRN: [id number] date: 1965 Sex: F Assigned Patient Location: Current Patient Location: Accession/Order Number: [id number] Exam Date: 10/04/2023 09:10 Report Date: 10/05/2023 06:24 At the request of: RAYMOND RODRIGUEZ Procedure: XR ankle RT min 3V PROCEDURE: XR ankle RT min 3V HISTORY: RIGHT ANKLE PAIN COMPARISON: XR ankle right 07/26/2023 FINDINGS: BONES:Tiny corticated ossification distal to the medial malleolus favoring sequela of remote injury or heterotopic bone formation. Intact, uniform appearance of ankle joint. Small calcaneal plantar spur. SOFT TISSUES:No visible soft tissue swelling. EFFUSION:None visible. OTHER: Negative. XR/XR ankle RT min 3V IMPRESSION: 1. No acute bone abnormality or significant degenerative changes. Electronically authenticated by: JOSEFINA CLAYTON Date: 10/05/2023 06:24
== END 2023-10-04 09:00 | disposition home or self-care (01) ==
LOC: EC 08:59
PROVIDERS: PCP Family Medicine; Visit Provider Podiatrist Foot & Ankle Surgery
DX: M19.071 Primary osteoarthritis, right ankle and foot (principal)
CPT/HCPCS: 73610

== ENCOUNTER 2024-01-03 14:34 | Outpatient (OUT) | payer BC, SELFPAY ==
--- NOTE | 2024-01-03 | XR_ITS ---
The [address] [address] Patient Name: KAYLEEN BINGHAM MRN: [id number] date: 1965 Sex: F Assigned Patient Location: Current Patient Location: Accession/Order Number: [id number] Exam Date: 01/03/2024 14:35 Report Date: 01/05/2024 06:42 At the request of: RAYMOND RODRIGUEZ Procedure: XR ankle RT min 3V PROCEDURE: XR ankle RT min 3V HISTORY: RIGHT ANKLE PAIN COMPARISON: XR ankle right 10/04/2023 FINDINGS: BONES:Stable tiny corticated ossification distal to the medial malleolus consistent with sequela of remote injury. No acute fracture, dislocation, or joint space irregularity. Small calcaneal plantar spur. SOFT TISSUES:No visible soft tissue swelling. EFFUSION:None visible. OTHER: Negative. XR/XR ankle RT min 3V IMPRESSION: 1. No acute bone abnormality or significant degenerative joint disease. Electronically authenticated by: JOSEFINA CLAYTON Date: 01/05/2024 06:42
== END 2024-01-03 14:35 | disposition home or self-care (01) ==
LOC: EC 14:34
PROVIDERS: PCP Family Medicine; Visit Provider Podiatrist Foot & Ankle Surgery
DX: M25.571 Pain in right ankle and joints of right foot (principal)
CPT/HCPCS: 73610

== ENCOUNTER 2024-05-02 14:53 | Outpatient (OUT) | payer BC, SELFPAY ==
--- NOTE | 2024-05-02 14:56 | XR_ITS ---
The [address] [address] Patient Name: KAYLEEN BINGHAM MRN: [id number] date: 1965 Sex: F Assigned Patient Location: [facility] Current Patient Location: [facility] Accession/Order Number: [id number] Exam Date: 05/02/2024 15:00 Report Date: 05/02/2024 15:56 At the request of: RAYMOND RODRIGUEZ Procedure: XR ankle CHRISTOFER min 3V EXAMINATION: XR ankle CHRISTOFER min 3V HISTORY: Bilateral Ankle Pain COMPARISON: No relevant comparison available. FINDINGS: RIGHT FINDINGS: BONES: Normal. No significant arthropathy or acute abnormality. SOFT TISSUES: Negative. No visible soft tissue swelling. OTHER: Negative. LEFT FINDINGS: BONES: Normal. No significant arthropathy or acute abnormality. Enthesopathic spurring of the calcaneus SOFT TISSUES: Negative. No visible soft tissue swelling. OTHER: Negative. XR/XR ankle CHRISTOFER min 3V IMPRESSION: RIGHT CONCLUSION: No acute abnormality LEFT CONCLUSION: No acute abnormality Electronically authenticated by: ROCCO CORTEZ Date: 05/02/2024 15:56
== END 2024-05-02 14:54 | disposition home or self-care (01) ==
LOC: RAD 14:53
PROVIDERS: PCP Family Medicine; Visit Provider Podiatrist Foot & Ankle Surgery
DX: M25.571 Pain in right ankle and joints of right foot (principal); M25.572 Pain in left ankle and joints of left foot
CPT/HCPCS: 73610

== ENCOUNTER 2024-05-09 07:39 | Outpatient (OUT) | payer BC, SELFPAY ==
--- NOTE | 2024-05-09 07:41 | MR_ITS ---
The [address] [address] Patient Name: KAYLEEN BINGHAM MRN: [facility]:[id number] date: 1965 Sex: F Assigned Patient Location: MRI Current Patient Location: Accession/Order Number: [id number] Exam Date: 05/09/2024 07:55 Report Date: 05/10/2024 10:24 At the request of: RAYMOND RODRIGUEZ Procedure: MR ankle LT wo con HISTORY: Chronic left ankle pain. The patient has reportedly rolled the ankle multiple times. Instability of the ankle. MR ankle LT wo con: 05/09/2024 7:55 AM EST COMPARISON: MRI left ankle 12/31/2020 and radiographs left ankle 05/02/2024. TECHNIQUE: Multiplanar, multisequence MRI images of the ankle were obtained without contrast. FINDINGS: Several images are slightly degraded by motion artifact. LIGAMENTS: The anterior talofibular ligament now appears mildly thickened but of low signal intensity. There are also new soft tissue anchors in the adjacent anterior aspect of the lateral malleolus in this region from interval surgery. The calcaneofibular ligament, posterior talofibular ligament, and distal tibiofibular ligaments appear within normal limits. The deltoid ligament complex appears within normal limits. There appears to be probable postsurgical scarring in the region of the superior peroneal retinaculum with small susceptibility artifacts in this region. However, the retinaculum appears grossly intact. TENDONS: There is a similar appearance of mild fusiform thickening and low signal intensity involving the mid Achilles tendon when compared to the prior MRI. No tear of the Achilles tendon is seen. The other tendons of the ankle appear within normal limits. No tenosynovitis is seen. SINUS TARSI AND TARSAL TUNNEL: No space-occupying mass is seen in the tarsal tunnel or the sinus tarsi. BONES AND JOINTS: The bone marrow signal intensity is age appropriate. No unstable osteochondral defect of the tibiotalar joint is identified. There is a small tibiotalar joint effusion. PLANTAR FASCIA: A plantar calcaneal enthesophyte is again seen. There is moderate thickening and low signal intensity involving the proximal central band of the plantar fascia in this region compatible to sequela of remote plantar fasciitis. No evidence of active plantar fasciitis is seen. SOFT TISSUES: No significant soft tissue swelling is seen. MR/MR ankle LT wo con IMPRESSION: 1. There appear to be postsurgical changes from interval reconstruction surgery of the anterior talofibular ligament since the prior MRI of 01/20/2021. No recurrent ligament injury is seen. 2. There is a similar appearance of chronic mild tendinopathy of the mid Achilles tendon. The other tendons of the ankle appear within normal limits and no tenosynovitis is seen. 3. There has been resolution of the acute plantar fasciitis seen on the prior MRI and there is now evidence of the sequela of remote plantar fasciitis involving the proximal central band of the plantar fascia. There is a plantar calcaneal enthesophyte again seen in this region. Electronically authenticated by: ESPERANZA VIZCARRA Date: 05/10/2024 10:24
--- OUTSIDE RECORDS SUMMARY | 2024-05-09 07:42 | XMS_ITS | CCD ---
Author Organization [facility] Care Team Providers Care [employer]ilingual [employer] Psychologist Name Role Phone Shay Muro Unavailable RAYMOND [...] Unavailable MISC, DR DEJESUS Primary Care Unavailable RENETTA SORTO Admitting Unavailable ZIEBER, DR JOSEFINA Otero Consulting Unavailable RENETTA SORTO Consulting Unavailable VERONICA, DR DAY Attending Unavailable VERONICA, DR DAY Admitting Unavailable MISC, DR DEJESUS Primary Care Unavailable [...] Attending Provider DO Shay Muro Attending Provider VIVIAN DENIS Attending Unavailable DO Shay Muro Primary Care Provider DO Shay Muro Attending Provider [phone] DO Shay Muro Primary Care Provider [phone] DO Shay Muro Attending Provider Self, Referral Attending Provider Unavailable DO Shay Muro Primary Care Provider Shay Muro DO Primary Care Provider Johnna Evangelista MD Attending Provider [phone] Johnna Evangelista Admitting Unavailable Johnna Evangelista Attending Unavailable Kuns, Shay Primary Care Unavailable Kuns, Shay Primary Care Unavailable Kuns, Shay Attending Unavailable Kuns, Shay Admitting Unavailable Kuns, Shay Attending Unavailable Kuns, Shay Admitting Unavailable Kuns, Shay Primary Care Unavailable Johnna Evangelista Admitting Unavailable Johnna Evangelista Attending Unavailable Nunos, Shay Primary Care Unavailable Self, Referral Admitting Unavailable Self, Referral Attending Unavailable Kuns, Shay Primary Care Unavailable Allergies Allergy Classification Reported Allergen(s) Allergy Type Date of Onset Reaction(s) Facility Estradiol (1 source) Estradiol Drug Allergy 10-25-19 24 vaginal itching [facility] Norethindrone (1 source) Norethindrone Drug Allergy 10-25-19 24 vaginal itching [facility] (2 sources) Estradiol / Norethindrone Drug Allergy vaginal itching [facility] Other (7 sources) Seasonal allergy Propensity to adverse reactions 06-20-19 24 Unknown, Congested [facility] (4 sources) Estradiol Drug Allergy 06-20-19 24 vaginal itching [facility] (4 sources) Norethindrone Drug Allergy 06-20-19 24 vaginal itching [facility] Medications Current Medications Medication Drug Class(es) Dates Sig (Normalized) Sig (Original) acetaminophen 325 mg / HYDROcodone bitartrate 5 mg oral tablet (1 source) Opioid Agonist Start: 04-16-2024 take 1 tablet by mouth every four to six hours as needed for pain Hydrocodone-Acet aminophen 5-325 mg tablet Active 1 - 2 TAB PO EVERY 4-6 HOURS as needed for pain 50 7 April 16, 2024 acyclovir 400 mg oral tablet (15 sources) [...] as directed Orally as directed Jul, Active 120 actuat budesonide 0.16 mg/actuat / formoterol fumarate 0.0048 mg/actuat / glycopyrrolate 0.009 mg/actuat metered dose inhaler (2 sources) Corticosteroid, beta2-Adrenergic Agonist Start: 04-05-2024 Budesonide-Glyco pyr-Formoterol (Breztri Aerosphere) 160-9-4.8 mcg/actuation HFA aerosol inhaler Active 2 INH INHALATION Twice daily as needed for allergies April 05, 2024 12:00am doxycycline hyclate 100 mg oral tablet (1 source) Tetracycline-class Drug Start: 04-16-2024 take 1 tablet by mouth twice daily Doxycycline Hyclate 100 mg tablet Active 100 MG PO Twice daily 10 April 16, 2024 12:00am mimvey 1-0.5 mg tablet (1 source) Estrogen [...] Jul, Active montelukast 10 mg oral tablet (7 sources) Leukotriene Receptor Antagonist Start: 10-25-2023 take 1 tablet by mouth once daily in the morning Montelukast 10 mg tablet Active 1 TAB PO Every morning October 24, 2023 11:00pm take 1 tablet by libia th every twenty-four hours Montelukast Sodium 10 MG 1 tablet Orally Once a day Active naproxen sodium 220 mg oral tablet (2 sources) Nonsteroidal Anti-inflammatory Drug Start: 04-05-2024 take 2 tablets by mouth once daily as needed for pain Naproxen Sodium (Aleve) 220 mg tablet Active 440 MG PO Daily as needed for pain April 05, 2024 12:00am Completed/Discontinued Medications Medication Drug Class(es) Dates Sig (Normalized) Sig (Original) diclofenac sodium 0.01 mg/mg topical gel (7 sources) Nonsteroidal Anti-inflammatory Drug Start: 10-25-2023 End: 04-05-2024 apply 2 g topically four times daily Diclofenac Sodium 1 % gel Discontinued TOPICAL October 24, 2023 11:00pm April 05, 2024 5:01pm [facility] grams Externally Four times a day; Note: Source Status: [facility]; Provider: Veronica Otero Start: 10-25-2023 apply 2 g topically four times daily Diclofenac Sodium Active TOPICAL October 25, 2023 12:00am [facility] grams Externally Four times a day; Note: Source Status: [facility]; Provider: Veronica Otero Start: 05-31-2023 Diclofenac Sod ium 1 % 2 grams Externally Four times a day OTC May, Active Problems Active Problems Problem Classification Problem [...] [ESSENTIAL PRIMARY HYPERTENSION] Onset: 07-13-2022 Chronic Osteoarthritis (10 sources) Primary osteoarthritis, left ankle and foot; Translations: [Arthritis of first carpometacarpal joint of left hand] Onset: 04-26-2022 10-25-2023 Chronic Other connective tissue disease (1 source) Plantar fascial fibromatosis; Translations: [PLANTAR FASCIAL FIBROMATOSIS] Onset: 04-26-2022 Episodic Other connective tissue disease (6 sources) Pain in left hand; Translations: [Pain in limb] Onset: 04-16-2024 Episodic Other connective tissue disease (2 sources) Pain in left finger(s) Episodic Other connective tissue disease (1 source) Other specified disorders of synovium and tendon, other site Episodic Other connective tissue disease (1 source) Trigger finger, unspecified finger Episodic Other connective tissue disease (4 sources) Hand pain; Translations: [Pain in left hand] 10-25-2023 Episodic Other connective tissue disease (1 source) Pain in unspecified limb; Translations: [Pain in unspecified limb] Onset: 04-16-2024 Episodic Other injuries and conditions due to [...] pain; Translations: [Other chronic pain] Chronic Other nervous system disorders (4 sources) Numbness and tingling sensation of skin; Translations: [Anesthesia of skin] 10-25-2023 Episodic Other nervous system disorders (4 sources) Anesthesia of skin; Translations: [Disturbance of skin sensation] 10-25-2023 Episodic Other nervous system disorders (1 source) Pain in limb; Translations: [Other acute postprocedural pain] 04-16-2024 Episodic Other nervous system disorders (1 source) Other acute postprocedural pain; Translations: [Other acute postprocedural pain] Onset: 04-16-2024 Episodic Other non-traumatic joint disorders (15 sources) Shoulder [...] medical examination without abnormal findings] Onset: 06-20-2023 Past or Other Problems Problem Classification Problem Date Documented Da te Episodic/Chronic Other connective tissue disease (4 sources) Pain in left foot; Translations: [PAIN IN LEFT FOOT] Onset: 03-09-2022 Episodic Other screening for suspected conditions (not mental disorders or infectious disease) (4 sources) Other specified abnormal findings of blood chemistry; Translations: [Abnormal results of thyroid function studies] Onset: 05-31-2023 Episodic Unclassified (2 sources) Exposure to COVID-19 virus Z20.822 Onset: 09-01-2021 Resolved: 10-28-2021 Unclassified (2 sources) Cough R05.9 Onset: 10-28-2021 Resolved: 10-28-2021 Unclassified (1 source) CONTACT W/AND (SUSP) EXPOS COVID-19; Translations: [CONTACT W/AND (SUSP) EXPOS COVID-19] Onset: 10-28-2021 Unclassified (1 source) Acute cough R05.1 Unclassified (1 source) Persistent cough R05.3 Urinary tract infections (3 sources) Urinary tract infection, site not specified; Translations: [Urinary tract infection, site not specified] Onset: 06-20-2023 Episodic Viral infection (1 source) COVID-19 Results Test Name Value Interpretation Reference Range Facility XR finger LT thumbon 024 XR finger LT thumb [facility] Main [place] [id number] XRay Report Signed Patient: Shefali Zavala MR#: [id number] : 1965 Acct:[id number] Age/Sex: 59 / F ADM Date: 04/16/24 [facility]: [facility] Room: Type[facility] Attending Dr: Johnna Evangelista MD Copies to: Johnna Evangelista MD Ordering Provider: Johnna Evangelista MD Date of Service: 04/16/24 XR/XR finger LT thumb: LEFT THUMB [facility] FUSION Fluoroscopic assessment for left carpal metacarpal fusion HISTORY: Left carpometacarpal fusion The one image was obtained. Cumulative Air Kerma in mGy: 0.47 mGy Adequate bony rojelio for first carpometacarpal fusion. XR/XR finger LT thumb IMPRESSION: Unremarkable first carpometacarpal fusion Impression dictated by: Andrew Lockett M.D.04/16/2024 4:22 PM Dictation Location: [place] [address] Transcribed By: [facility] 04/16/241621 Dictated By: Andrew Lockett DO 04/16/241619 Signed By: 04/16/24 1622 Normal [facility] Alanine aminotransferase [En zymatic activity/volume] in Serum or PlasmaOrdered By: Johnna Evangelista on 04-05-2024 ALT [Catalytic activity/Vol] Alanine aminotransferase [Enzymatic activity/volume] in Serum or Plasma 752 [facility] Albumin [Mass/volume] in Ser um or Plasma by Bromocresol green (BCG) dye binding methoOrdered By: Johnna Evangelista on 04-05-2024 Albumin BCG dye [Mass/Vol] Albumin [Mass/volume] in Serum or Plasma by Bromocresol green (BCG) dye binding metho 3.5-5.7 [facility] Alkaline phosphatase [Enzyma tic activity/volume] in Serum or PlasmaOrdered By: Johnna Evangelista on 04-05-2024 ALP [Catalytic activity/Vol] Alkaline phosphatase [Enzymatic activity/volume] in Serum or Plasma 34-104 [facility] Aspartate aminotransferase [ Enzymatic activity/volume] in Serum or PlasmaOrdered By: Johnna Evangelista on 04-05-2024 AST [Catalytic activity/Vol] Aspartate aminotransferase [Enzymatic activity/volume] in Serum or Plasma 13-39 [facility] Basophils Auto (Bld) [#/Vol] Ordered By: Johnna Evangelista on 04-05-2024 Basophils (Bld) [#/Vol] Automated basophil count 0.0-0.2 [facility] Basophils/100 WBC Auto (Bld) Ordered By: Johnna Evangelista on 04-05-2024 Basophils/100 WBC (Bld) Automated basophil % . [facility] Bilirubin.total [Mass/volume ] in Serum or PlasmaOrdered By: Johnna Evangelista on 04-05-2024 Bilirubin [Mass/Vol] Bilirubin.total [Mass/volume] in Serum or Plasma 0.3-1.0 [facility] CMP with reflex to A1Con Albumin [Mass/Vol] 4.2 g/dL Normal 3.5-5.7 [facility] Comment on above: Performed By: #### C MP wRFX A1C, CBC #### [address] Albumin/Globulin [Mass ratio] 2.1 {ratio} Normal [facility] Comment on above: Performed By: #### C MP wRFX A1C, CBC #### [address] ALP [Catalytic activity/Vol] 43 U/L Normal 34-104 [facility] Comment on above: Result Comment: PERF ORMED BY: [place] [address] PATHOLOGIST PROJECT SPECIALIST LISANDRA OLVERA M.D. Performed By: #### C MP wRFX A1C, CBC #### [place] [address] [place] ALT [Catalytic activity/Vol] 31 U/L Normal 7-52 [facility] Comment on above: Performed By: #### C MP wRFX A1C, CBC #### [facility] [address] [place] [id number] [place] Anion gap [Moles/Vol] 11.1 mmol/L Normal 6.0-15.0 [facility] Comment on above: Performed By: #### C MP wRFX A1C, CBC #### [address] AST [Catalytic activity/Vol] 23 U/L Normal 13-39 [facility] Comment on above: Performed By: #### C MP wRFX A1C, CBC #### [address] Bilirubin [Mass/Vol] 0.4 mg/dL Normal 0.3-1.0 [facility] Comment on above: Performed By: #### C MP wRFX A1C, CBC #### [address] Calcium [Mass/Vol] 9.3 mg/dL Normal 8.6-10.3 [facility] Comment on above: Performed By: #### C MP wRFX A1C, CBC #### [address] Chloride [Moles/Vol] 105 mmol/L Normal 98-107 [facility] Comment on above: Performed By: #### C MP wRFX A1C, CBC #### [address] CO2 [Moles/Vol] 25.2 mmol/L Normal 21.0-31.0 [facility] Comment on above: Performed By: #### C MP wRFX A1C, CBC #### [address] Creatinine [Mass/Vol] 0.88 mg/dL Normal 0.60-1.20 [facility] Comment on above: Performed By: #### C MP wRFX A1C, CBC #### [place] [address] [place] GFR/1.73 sq M.predicted MDRD (S/P/Bld) [Vol rate/Area] mL/min/{1.73_m2} Normal [facility] Comment on above: Performed By: #### C MP wRFX A1C, CBC #### [place] [address] [place] Globulin (S) [Mass/Vol] 2.0 g/dL Normal [facility] Comment on above: Performed By: #### C MP wRFX A1C, CBC #### [facility] [address] Glucose [Mass/Vol] 75 mg/dL Normal 70-100 [facility] Comment on above: Performed By: #### C MP wRFX A1C, CBC #### [facility] [address] Potassium [Moles/Vol] 4.3 mmol/L Normal 3.5-5.1 [facility] Comment on above: Performed By: #### C MP wRFX A1C, CBC #### [facility] [address] Protein [Mass/Vol] 6.2 g/dL Low 6.4-8.9 [facility] Comment on above: Performed By: #### C MP wRFX A1C, CBC #### [facility] [address] Sodium [Moles/Vol] 137 mmol/L Normal 136-145 [facility] Comment on above: Performed By: #### C MP wRFX A1C, CBC #### [facility] [address] [place] [address] [place] Urea nitrogen [Mass/Vol] 20 mg/dL Normal 7-25 [facility] Comment on above: Performed By: #### C MP wRFX A1C, CBC #### [facility] [address] Calcium [Mass/volume] in Ser um or PlasmaOrdered By: Johnna Evangelista on 04-05-2024 Calcium [Mass/Vol] Calcium [Mass/volume ] in Serum or Plasma 8.6-10.3 [facility] Carbon dioxide, total [Moles /volume] in Serum or PlasmaOrdered By: Johnna Evangelista on 04-05-2024 CO2 [Moles/Vol] Carbon dioxide, tota l [Moles/volume] in Serum or Plasma 21.0-31.0 [facility] Chloride [Moles/volume] in S francis or PlasmaOrdered By: Johnna Evangelista on 04-05-2024 Chloride [Moles/Vol] Chloride [Moles/vol ume] in Serum or Plasma 98-107 [facility] Complete Blood Count Auto Di ffon 04-05-2024 Basophils (Bld) [#/Vol] 0.0 10*3/uL Normal 0.0-0.2 [facility] Comment on above: Result Comment: PERF ORMED BY: [place] [address] PATHOLOGIST PROJECT SPECIALIST LISANDRA OLVERA M.D. Performed By: #### C MP wRFX A1C, CBC #### [place] [address] [place] Basophils/100 WBC (Bld) 0.7 % Normal . [facility] Comment on above: Performed By: #### C MP wRFX A1C, CBC #### [address] Eosinophils (Bld) [#/Vol] 0.4 10*3/uL Normal 0.0-0.45 [facility] Comment on above: Performed By: #### C MP wRFX A1C, CBC #### [place] [address] [place] Eosinophils/100 WBC (Bld) 7.3 % Normal . [facility] Comment on above: Performed By: #### C MP wRFX A1C, CBC #### [place] [address] [place] Erythrocyte distribution width (RBC) [Ratio] 15.5 % High 11.9-15.3 [facility] Comment on above: Performed By: #### C MP wRFX A1C, CBC #### [place] [address] [place] Hematocrit (Bld) [Volume fraction] 37.9 % Normal 34.0-46.4 [facility] Comment on above: Performed By: #### C MP wRFX A1C, CBC #### [place] [address] [place] Hemoglobin (Bld) [Mass/Vol] 12.7 g/dL Normal 11.8-15.4 [facility] Comment on above: Performed By: #### C MP wRFX A1C, CBC #### [address] Lymphocytes (Bld) [#/Vol] 1.3 10*3/uL Normal 1.00-4.8 [facility] Comment on above: Performed By: #### C MP wRFX A1C, CBC #### [address] Lymphocytes/100 WBC (Bld) 27.6 % Normal . [facility] Comment on above: Performed By: #### C MP wRFX A1C, CBC #### [address] MCH (RBC) [Entitic mass] 28.8 pg Normal 24.7-34.3 [facility] Comment on above: Performed By: #### C MP wRFX A1C, CBC #### [address] MCV (RBC) [Entitic vol] 85.9 fL Normal 80-100 [facility] Comment on above: Performed By: #### C MP wRFX A1C, CBC #### [address] Mean Corpuscular HGB Conc 33.5 g/dL Normal 32.0-35.0 [facility] Comment on above: Performed By: #### C MP wRFX A1C, CBC #### [address] Monocytes (Bld) [#/Vol] 0.6 10*3/uL Normal 0.0-0.8 [facility] Comment on above: Performed By: #### C MP wRFX A1C, CBC #### [address] Monocytes/100 WBC (Bld) 11.5 % Normal . [facility] Comment on above: Performed By: #### C MP wRFX A1C, CBC #### [address] Neutrophils (Bld) [#/Vol] 2.6 10*3/uL Normal 1.8-7.7 [facility] Comment on above: Performed By: #### C MP wRFX A1C, CBC #### [facility] [address] Neutrophils/100 WBC (Bld) 52.9 % Normal . [facility] Comment on above: Performed By: #### C MP wRFX A1C, CBC #### [facility] [address] NRBC% 0.1 /100{WBC} Normal 0-0.5 [facility] Comment on above: Performed By: #### C MP wRFX A1C, CBC #### [facility] [address] Platelet mean volume (Bld) [Entitic vol] 9.0 fL Normal 6.3-10.7 [facility] Comment on above: Performed By: #### C MP wRFX A1C, CBC #### [facility] [address] [place] [address] [place] Platelets (Bld) [#/Vol] 197 10*3/uL Normal 150-450 [facility] Comment on above: Performed By: #### C MP wRFX A1C, CBC #### [facility] [address] [place] [address] [place] RBC (Bld) [#/Vol] 4.41 10*6/uL Normal 3.60-5.00 [facility] Comment on above: Performed By: #### C MP wRFX A1C, CBC #### [facility] [address] [place] [id number] [place] WBC (Bld) [#/Vol] 4.9 10*3/uL Normal 3.8-11.6 [facility] Comment on above: Performed By: #### C MP wRFX A1C, CBC #### [facility] [address] [place] [id number] [place] Creatinine [Mass/volume] in Serum or PlasmaOrdered By: Johnna Evangelista on 04-05-2024 Creatinine [Mass/Vol] Creatinine [Mass/v olume] in Serum or Plasma 0.60-1.20 [facility] ECG 12 lead ECGon 04-05-2024 ECG 12 lead ECG [facility] [address] [place] [id number] Electrocardiograph Report Signed Patient: Shefali Zavala MR#: [id number] : 1965 Acct:[id number] Age/Sex: 59 / F ADM Date: 04/05/24 Loc: [place] Room: Type: [facility] Attending Dr: Johnna Evangelista MD Ordering Provider: Johnna Evangelista MD Date of Service: 04/05/2412/20/1636 ECG/ECG 12 lead ECG: Pre op Copies to: Test Reason : Blood Pressure : */* mmHG Vent. Rate : 55 BPM Atrial Rate : 55 BPM P-R Int : 168 ms QRS Dur : 86 ms QT Int : 396 ms P-R-T Axes : 47 20 36 degrees QTcB Int : 378 ms Sinus bradycardia Septal infarct , age undetermined Abnormal ECG No previous ECGs available Confirmed by SUKHWINDER FRIEDMAN [facility], JAIRO ([id number]) on 04/06/2024 11:13:30 AM Referred By: Electronically Signed By: JAIRO WHITTINGTON MD [facility] Transcribed By: MUS Signed By Jairo Whittington MD, FACC 04/06/24 1113 Normal [facility] Eosinophils Auto (Bld) [#/Vo l]Ordered By: Johnna Evangelista on 04-05-2024 Eosinophils (Bld) [#/Vol] Automated eosinophil count 0.0-0.45 [facility] Eosinophils/100 WBC Auto (Bl d)Ordered By: Johnna Evangelista on 04-05-2024 Eosinophils/100 WBC (Bld) Automated eosinophil % . [facility] Erythrocyte distribution wid th Auto (RBC) [Ratio]Ordered By: Johnna Evangelista on 04-05-2024 Erythrocyte distribution width (RBC) [Ratio] Erythrocyte distribution width [Ratio] by Automated count High 11.9-15.3 [facility] Globulin Calc (S) [Mass/Vol] Ordered By: Johnna Evangelista on 04-05-2024 Globulin (S) [Mass/Vol] Serum globulin measurement by calculation (mass/volume) [facility] Glucose [Mass/volume] in Ser um or PlasmaOrdered By: Johnna Evangelista on 04-05-2024 Glucose [Mass/Vol] Glucose [Mass/volume ] in Serum or Plasma 70-100 [facility] Hematocrit Auto (Bld) [Volum e fraction]Ordered By: Johnna Evangelista on 04-05-2024 Hematocrit (Bld) [Volume fraction] Hematocrit [Volume Fraction] of Blood by Automated count 34.0-46.4 [facility] Hemoglobin [Mass/volume] in BloodOrdered By: Johnna Evangelista on 04-05-2024 Hemoglobin (Bld) [Mass/Vol] Hemoglobin [Mass/volume] in Blood 11.8-15.4 [facility] Leukocytes [#/volume] correc hermelinda for nucleated erythrocytes in Blood by Automated counOrdered By: Johnna Evangelista on 04-05-2024 WBC corrected for nucl RBC Auto (Bld) [#/Vol] Leukocytes [#/volume] corrected for nucleated erythrocytes in Blood by Automated coun 3.8-11.6 [facility] Lymphocytes Auto (Bld) [#/Vo l]Ordered By: Johnna Evangelista on 04-05-2024 Lymphocytes (Bld) [#/Vol] Lymphocytes [#/volume] in Blood by Automated count 1.00-4.8 [facility] Lymphocytes/100 WBC Auto (Bl d)Ordered By: Johnna Evangelista on 04-05-2024 Lymphocytes/100 WBC (Bld) Lymphocytes/100 leukocytes in Blood by Automated count . [facility] MCH Auto (RBC) [Entitic mass ]Ordered By: Johnna Evangelista on 04-05-2024 MCH (RBC) [Entitic mass] MCH [Entitic mass] by Automated count 24.7-34.3 [facility] MCHC Auto (RBC) [Mass/Vol]Or dered By: Johnna Evangelista on 04-05-2024 MCHC (RBC) [Mass/Vol] MCHC [Mass/volume] by Automated count 32.0-35.0 [facility] MCV Auto (RBC) [Entitic vol] Ordered By: Johnna Evangelista on 04-05-2024 MCV (RBC) [Entitic vol] MCV [Entitic volume] by Automated count 80-100 [facility] Monocytes Auto (Bld) [#/Vol] Ordered By: Johnna Evangelista on 04-05-2024 Monocytes (Bld) [#/Vol] Automated blood monocyte count 0.0-0.8 [facility] Monocytes/100 WBC Auto (Bld) Ordered By: Johnna Evangelista on 04-05-2024 Monocytes/100 WBC (Bld) Automated monocyte % . [facility] Neutrophils Auto (Bld) [#/Vo l]Ordered By: Johnna Evangelista on 04-05-2024 Neutrophils (Bld) [#/Vol] Neutrophils [#/volume] in Blood by Automated count 1.8-7.7 [facility] Neutrophils/100 WBC Auto (Bl d)Ordered By: Johnna Evangelista on 04-05-2024 Neutrophils/100 WBC (Bld) Automated neutrophil % . [facility] No Panel InformationOrdered By: Johnna Evangelista on 04-05-2024 Estimated GFR (CKD-EPI) > 60.0 mL/Min [facility] Creatinine Clearance (Chem N/A [facility] Nucleated erythrocytes [Pres ence] in Blood by Automated countOrdered By: Johnna Evangelista on 04-05-2024 Nucleated RBC Auto Ql (Bld) Nucleated erythrocytes [Presence] in Blood by Automated count 0-0.5 [facility] Platelet mean volume Auto (B ld) [Entitic vol]Ordered By: Johnna Evangelista on 04-05-2024 Platelet mean volume (Bld) [Entitic vol] Platelet mean volume [Entitic volume] in Blood by Automated count 6.3-10.7 [facility] Platelets Auto (Bld) [#/Vol] Ordered By: Johnna Evangelista on 04-05-2024 Platelets (Bld) [#/Vol] Platelets [#/volume] in Blood by Automated count 150-450 [facility] Potassium [Moles/volume] in Serum or PlasmaOrdered By: Johnna Evangelista on 04-05-2024 Potassium [Moles/Vol] Potassium [Moles/v olume] in Serum or Plasma 3.5-5.1 [facility] Protein [Mass/volume] in Ser um or PlasmaOrdered By: Johnna Evangelista on 04-05-2024 Protein [Mass/Vol] Protein [Mass/volume ] in Serum or Plasma Low 6.4-8.9 [facility] RBC Auto (Bld) [#/Vol]Ordere d By: Johnna Evangelista on 04-05-2024 RBC (Bld) [#/Vol] Erythrocytes [#/volu me] in Blood by Automated count 3.60-5.00 [facility] Serum or plasma albumin/glob ulin mass ratioOrdered By: Johnna Evangelista on 04-05-2024 Albumin/Globulin [Mass ratio] Serum or plasma albumin/globulin mass ratio [facility] Serum or plasma anion gap de terminationOrdered By: Johnna Evangelista on 04-05-2024 Anion gap [Moles/Vol] Serum or plasma an ion gap determination 6.0-15.0 [facility] Sodium [Moles/volume] in Ser um or PlasmaOrdered By: Johnna Evangelista on 04-05-2024 Sodium [Moles/Vol] Sodium [Moles/volume ] in Serum or Plasma 136-145 [facility] Urea nitrogen [Mass/volume] in Serum or PlasmaOrdered By: Johnna Evangelista on 04-05-2024 Urea nitrogen [Mass/Vol] Urea nitrogen [Mass/volume] in Serum or Plasma 7-25 [facility] WBC Auto (Bld) [#/Vol]Ordere d By: Johnna Evangelista on 04-05-2024 WBC (Bld) [#/Vol] Leukocytes [#/volume ] in Blood by Automated count 3.8-11.6 [facility] MM screening mammo BI w/CADo n 09-02-2023 MM screening mammo BI w/CAD [facility] [address] Mammography Report Signed Patient: Shefali Zavala MR#: [id number] : 1965 Acct:[id number] Age/Sex: 58 / F ADM Date: 09/02/23 Loc: [place] Room: Type: [facility] Attending Dr: Referral Self Copies to: Shay Muro,DO SELF,REFERRAL Ordering Provider: SELF,REFERRAL Date of Service: 09/02/23 MM/MM screening mammo BI w/CAD: SCREENING CLINICAL DATA: Screening for malignancy. SCREENING MAMMOGRAM - FULL FIELD DIGITAL WITH TOMOSYNTHESIS AND CAD COMPARISON:Mammograms dating back to 2019 Tomosynthesis craniocaudal and mediolateral oblique views of both breasts were obtained using low- dose digital technique. This examination was reviewed with the aid of CAD. FINDINGS: The breast tissue is composed of scattered fibroglandular densities. There are no dominant masses, typically malignant calcifications or architectural distortion. There has been no significant interval change. MM/MM screening mammo BI w/CAD IMPRESSION: NO MAMMOGRAPHIC EVIDENCE OF MALIGNANCY. ROUTINE FOLLOW-UP IS RECOMMENDED IN ONE YEAR. RESULT CODE: 1 Negative DENSITY CODE: 2 (approximately 25-50% glandular) FOLLOW UP: 1YR The false-negative rate of mammography is approximately 10-percent. Management of a palpable abnormality must be based on clinical grounds. Patient was entered into a reminder system with a target due date for the next mammogram. Impression dictated by: Jaquan Greer Jr., Kathy09/02/2023 8:56 AM Dictation Location: [facility] Transcribed By: [facility] 09/02/23 0856 Dictated By: Jaquan Greer Jr, DO 09/02/23 0855 Signed By: 09/02/23 0856 Normal [facility] Alanine aminotransferase [En zymatic activity/volume] in Serum or PlasmaOrdered By: Shay Muro on 06-20-2023 ALT [Catalytic activity/Vol] 27 U/L Normal 7-52 [facility] Comment on above: Order Comment: Reaso n for Exam Wellness examination Performed By: #### C BC, CUU, CMP, TSH3, LIPID #### [facility] [address] Albumin [Mass/volume] in Ser um or Plasma by Bromocresol green (BCG) dye binding methoOrdered By: Shay Muro on 06-20-2023 Albumin BCG dye [Mass/Vol] 4.4 g/dL 3.5-5.7 [facility] Alkaline phosphatase [Enzyma tic activity/volume] in Serum or PlasmaOrdered By: Shay Muro on 06-20-2023 ALP [Catalytic activity/Vol] 51 U/L Normal 34-104 [facility] Comment on above: Order Comment: Reaso n for Exam Wellness examination Performed By: #### C BC, CUU, CMP, TSH3, LIPID #### [facility] [address] [place] [address] Aspartate aminotransferase [ Enzymatic activity/volume] in Serum or PlasmaOrdered By: Shay Muro on 06-20-2023 AST [Catalytic activity/Vol] 25 U/L Normal 13-39 [facility] Comment on above: Order Comment: Reaso n for Exam Wellness examination Performed By: #### C BC, CUU, CMP, TSH3, LIPID #### [facility] [address] [place] [address] Automated basophil %Ordered By: Shay Muro on 06-20-2023 Basophils/100 WBC (Bld) 1.0 % Normal . [facility] Comment on above: Order Comment: Reaso n for Exam Wellness examination Performed By: #### C BC, CUU, CMP, TSH3, LIPID #### [facility] [address] [place] [address] Automated basophil countOrde red By: Shay Muro on 06-20-2023 Basophils (Bld) [#/Vol] 0.0 10*3/uL Normal 0.0-0.2 [facility] Comment on above: Order Comment: Reaso n for Exam Wellness examination Result Comment: PERF ORMED BY: [place] [address] PATHOLOGIST PROJECT SPECIALIST LISANDRA OLVERA M.D. Performed By: #### C BC, CUU, CMP, TSH3, LIPID #### [facility] [address] [place] [address] Automated blood monocyte cou ntOrdered By: Shay Muro on 06-20-2023 Monocytes (Bld) [#/Vol] 0.4 10*3/uL Normal 0.0-0.8 [facility] Comment on above: Order Comment: Reaso n for Exam Wellness examination Performed By: #### C BC, CUU, CMP, TSH3, LIPID #### [facility] [address] Automated eosinophil %Ordere d By: Shay Muro on 06-20-2023 Eosinophils/100 WBC (Bld) 6.2 % Normal . [facility] Comment on above: Order Comment: Reaso n for Exam Wellness examination Performed By: #### C BC, CUU, CMP, TSH3, LIPID #### [facility] [address] Automated eosinophil countOr dered By: Shay Muro on 06-20-2023 Eosinophils (Bld) [#/Vol] 0.3 10*3/uL Normal 0.0-0.45 [facility] Comment on above: Order Comment: Reaso n for Exam Wellness examination Performed By: #### C BC, CUU, CMP, TSH3, LIPID #### [address] Automated monocyte %Ordered By: Shay Muro on 06-20-2023 Monocytes/100 WBC (Bld) 10.4 % Normal . [facility] Comment on above: Order Comment: Reaso n for Exam Wellness examination Performed By: #### C BC, CUU, CMP, TSH3, LIPID #### [address] Automated neutrophil %Ordere d By: Shay Muro on 06-20-2023 Neutrophils/100 WBC (Bld) 56.7 % Normal . [facility] Comment on above: Order Comment: Reaso n for Exam Wellness examination Performed By: #### C BC, CUU, CMP, TSH3, LIPID #### [address] Bilirubin.total [Mass/volume ] in Serum or PlasmaOrdered By: Shay Muro on 06-20-2023 Bilirubin [Mass/Vol] 0.3 mg/dL Normal 0.3-1.0 [facility] Comment on above: Order Comment: Reaso n for Exam Wellness examination Performed By: #### C BC, CUU, CMP, TSH3, LIPID #### [place] [id number] [place] Calcium [Mass/volume] in Ser um or PlasmaOrdered By: Shay Muro on 06-20-2023 Calcium [Mass/Vol] 9.6 mg/dL Normal 8.6-10.3 [facility] Comment on above: Order Comment: Reaso n for Exam Wellness examination Performed By: #### C BC, CUU, CMP, TSH3, LIPID #### [facility] [address] [place] [id number] [place] Carbon dioxide, total [Moles /volume] in Serum or PlasmaOrdered By: Shay Muro on 06-20-2023 CO2 [Moles/Vol] 29.9 mmol/L Normal 21.0-31.0 [facility] Comment on above: Order Comment: Reaso n for Exam Wellness examination Performed By: #### C BC, CUU, CMP, TSH3, LIPID #### [facility] [address] [place] [address] [place] Chloride [Moles/volume] in S francis or PlasmaOrdered By: Shay Muro on 06-20-2023 Chloride [Moles/Vol] 108 mmol/L High 98-107 [facility] Comment on above: Order Comment: Reaso n for Exam Wellness examination Performed By: #### C BC, CUU, CMP, TSH3, LIPID #### [facility] [address] [place] [id number] [place] Cholesterol [Mass/volume] in Serum or PlasmaOrdered By: Shay Muro on 06-20-2023 Cholesterol [Mass/Vol] 185 mg/dL Normal 140-200 [facility] Comment on above: Chol less than 200 m g/dl low riskChol 201-239 mg/dl borderline riskChol 240 mg/dl and greater high risk Order Comment: Reaso n for Exam Wellness examination Result Comment: Chol less than 200 mg/dl low risk Chol 201-239 mg/dl borderline risk Chol 240 mg/dl and greater high risk Performed By: #### C BC, CUU, CMP, TSH3, LIPID #### [facility] [address] [place] [address] [place] Cholesterol in LDL Calc [Mas s/Vol]Ordered By: Shay Muro on 06-20-2023 Cholesterol in LDL [Mass/Vol] 116 mg/dL 0-100 [facility] Comment on above: LDL ATP III CLASSIFI CATIONLDL less than 100 mg/dL OptimalLDL 100-129 mg/dL Near or above optimalLDL 130-159 mg/dL Borderline highLDL 160-189 mg/dL HighLDL greater than 189 mg/dL Very high Cholesterol in VLDL Calc [Ma ss/Vol]Ordered By: Shay Muro on 06-20-2023 Cholesterol in VLDL [Mass/Vol] 23 mg/dL [facility] Complete Blood Count Auto Di ffon 06-20-2023 Basophils (Bld) [#/Vol] 0.358300776 10*3/uL Normal 0.0-0.2 10*3/uL [facility] Other Basophils/100 WBC (Bld) 1.000 % . % [facility] Other Eosinophils (Bld) [#/Vol] 0.118431164 10*3/uL Normal 0.0-0.45 10*3/uL [facility] Other Eosinophils/100 WBC (Bld) 6.200 % . % [facility] Other Erythrocyte distribution width (RBC) [Ratio] 13.200 % Normal 11.9-15.3 % [facility] Other Hematocrit (Bld) [Volume fraction] 38.800 % Normal 34.0-46.4 % [facility] Other Hemoglobin (Bld) [Mass/Vol] 13.314804 g/dL Normal 11.8-15.4 g/dL [facility] Other Lymphocytes (Bld) [#/Vol] 1.377439409 10*3/uL Normal 1.00-4.8 10*3/uL [facility] Other Lymphocytes/100 WBC (Bld) 25.700 % . % [facility] Other MCH (RBC) [Entitic mass] 29.9000 pg Normal 24.7-34.3 pg [facility] Other MCV (RBC) [Entitic vol] 89.2000 fL Normal 80-100 fL [facility] Other Monocytes (Bld) [#/Vol] 0.678667171 10*3/uL Normal 0.0-0.8 10*3/uL [facility] Other Monocytes/100 WBC (Bld) 10.400 % . % [facility] Other Neutrophils (Bld) [#/Vol] 2.879524212 10*3/uL Normal 1.8-7.7 10*3/uL [facility] Other Neutrophils/100 WBC (Bld) 56.700 % . % [facility] Other Platelet mean volume (Bld) [Entitic vol] 9.5000 fL Normal 6.3-10.7 fL [facility] Other WBC (Bld) [#/Vol] 4.258351392 10*3/uL Normal 3.8 -11.6 10*3/uL [facility] Other Complete Blood Count Auto Diff 4.3 10*3/uL Normal 3.8-11.6 10*3/uL [facility] Other Complete Blood Count Auto Diff 33.5 g/dL Normal 32.0-35.0 g/dL [facility] Other Complete Blood Count Auto Diff 0.0 /100{WBC} Normal 0-0.5 /100{WBC} [facility] Other Mean Corpuscular HGB Conc 33.5 g/dL Normal 32.0-35.0 [facility] Comment on above: Order Comment: Reaso n for Exam Wellness examination Performed By: #### C BC, CUU, CMP, TSH3, LIPID #### [facility] [address] [place] [address] NRBC% 0.0 /100{WBC} Normal 0-0.5 [facility] Comment on above: Order Comment: Reaso n for Exam Wellness examination Performed By: #### C BC, CUU, CMP, TSH3, LIPID #### [facility] [address] [place] [id number] [facility] Comprehensive Metabolic Pane pino 06-20-2023 Albumin [Mass/Vol] 4.064275 g/dL Normal 3.5-5.7 g/dL [facility] Other Bilirubin [Mass/Vol] 0.2201237 mg/dL Normal 0.3- 1.0 mg/dL [facility] Other Calcium [Mass/Vol] 9.6147117 mg/dL Normal 8.6-10 .3 mg/dL [facility] Other CO2 [Moles/Vol] 29.17653766 mmol/L Normal 21.0-3 1.0 mmol/L [facility] Other Creatinine [Mass/Vol] 0.73874905 mg/dL Normal 0. 60-1.20 mg/dL [facility] Other Potassium [Moles/Vol] 4.80681958 mmol/L Normal 3 .5-5.1 mmol/L [facility] Other Protein [Mass/Vol] 6.682029 g/dL Normal 6.4-8.9 g/dL [facility] Other Comprehensive Metabolic Panel 2.1 g/dL [facility] Other Albumin [Mass/Vol] 4.4 g/dL Normal 3.5-5.7 [facility] Comment on above: Order Comment: Reaso n for Exam Wellness examination Performed By: #### C BC, CUU, CMP, TSH3, LIPID #### [facility] [address] [place] [id number] [facility] GFR/1.73 sq M.predicted MDRD (S/P/Bld) [Vol rate/Area] mL/min/{1.73_m2} Normal [facility] Other Comment on above: Order Comment: Reaso n for Exam Wellness examination Performed By: #### C BC, CUU, CMP, TSH3, LIPID #### [facility] [address] Creatinine [Mass/volume] in Serum or PlasmaOrdered By: Shay Muro on 06-20-2023 Creatinine [Mass/Vol] 0.98 mg/dL Normal 0.60-1.20 [facility] Comment on above: Order Comment: Reaso n for Exam Wellness examination Performed By: #### C BC, CUU, CMP, TSH3, LIPID #### [facility] [address] Erythrocyte distribution wid th [Ratio] by Automated countOrdered By: Shay Muro on 06-20-2023 Erythrocyte distribution width (RBC) [Ratio] 13.2 % Normal 11.9-15.3 [facility] Comment on above: Order Comment: Reaso n for Exam Wellness examination Performed By: #### C BC, CUU, CMP, TSH3, LIPID #### [place] [address] [place] Erythrocytes [#/volume] in B lood by Automated countOrdered By: Shay Muro on 06-20-2023 RBC (Bld) [#/Vol] 4.34 10*6/uL Normal 3.60-5.00 [facility] Comment on above: Order Comment: Reaso n for Exam Wellness examination Performed By: #### C BC, CUU, CMP, TSH3, LIPID #### [facility] [address] Glucose [Mass/volume] in Ser um or PlasmaOrdered By: Shay Muro on 06-20-2023 Glucose [Mass/Vol] 97 mg/dL Normal 70-100 [facility] Comment on above: ADA recommended refe rence rangeRandom Glucose Reference Range is dependent on time and content of last meal. Glucose of more than 200 mg/dL in a nonstressed, ambulatory subject supports the diagnosis of Diabetes Mellitus. Order Comment: Reaso n for Exam Wellness examination Result Comment: [facility] Glucose Reference Range is dependent on time and content of last meal. Glucose of more than 200 mg/dL in a nonstressed, ambulatory subject supports the diagnosis of Diabetes Mellitus. ADA recommended reference range Performed By: #### C BC, CUU, CMP, TSH3, LIPID #### [address] Hematocrit [Volume Fraction] of Blood by Automated countOrdered By: Shay Muro on 06-20-2023 Hematocrit (Bld) [Volume fraction] 38.8 % Normal 34.0-46.4 [facility] Comment on above: Order Comment: Reaso n for Exam Wellness examination Performed By: #### C BC, CUU, CMP, TSH3, LIPID #### [address] Hemoglobin [Mass/volume] in BloodOrdered By: Shay Muro on 06-20-2023 Hemoglobin (Bld) [Mass/Vol] 13.0 g/dL Normal 11.8-15.4 [facility] Comment on above: Order Comment: Reaso n for Exam Wellness examination Performed By: #### C BC, CUU, CMP, TSH3, LIPID #### [address] Leukocytes [#/volume] correc hermelinda for nucleated erythrocytes in Blood by Automated counOrdered By: Shay Muro on 06-20-2023 WBC corrected for nucl RBC Auto (Bld) [#/Vol] 4.3 10*3/uL 3.8-11.6 [facility] Leukocytes [#/volume] in Blo od by Automated countOrdered By: Shay Muro on 06-20-2023 WBC (Bld) [#/Vol] 4.3 10*3/uL Normal 3.8-11.6 [facility] Comment on above: Order Comment: Reaso n for Exam Wellness examination Performed By: #### C BC, CUU, CMP, TSH3, LIPID #### [address] Lipid Panelon 06-20-2023 Cholesterol in LDL Elph Qn 116 mg/dL High 0-100 mg/dL [facility] [employer] Other Lipid Panel 116 mg/dL Normal 0-149 mg/dL [facility] [employer] Other Lipid Panel 23 mg/dL [facility] [employer] Other LDL Cholesterol,Calculate d 116 mg/dL High 0-100 [facility] Comment on above: Order Comment: Reaso n for Exam Wellness examination Result Comment: LDL ATP III CLASSIFICATION LDL less than 100 mg/dL Optimal LDL 100-129 mg/dL Near or above optimal LDL 130-159 mg/dL Borderline high LDL 160-189 mg/dL High LDL greater than 189 mg/dL Very high Performed By: #### C BC, CUU, CMP, TSH3, LIPID #### [facility] [address] Triglyceride w/Reflex 116 mg/dL Normal 0-149 [facility] Comment on above: Order Comment: Reaso n for Exam Wellness examination Result Comment: TRIG ATP III CLASSIFICATION TRIG less than 150 mg/dL Normal TRIG 150-199 mg/dL Borderline high TRIG 200-500 mg/dL High TRIG greater than 500 mg/dL Very high Standard traceable to the Center for Disease Conrtrol and Prevention (CDC) test method. Performed By: #### C BC, CUU, CMP, TSH3, LIPID #### [facility] [address] VLDL CHOLESTEROL 23 mg/dL Normal [facility] Comment on above: Order Comment: Reaso n for Exam Wellness examination Performed By: #### C BC, CUU, CMP, TSH3, LIPID #### [facility] [address] [place] [address] [place] Lymphocytes [#/volume] in Bl ood by Automated countOrdered By: Shay Muro on 06-20-2023 Lymphocytes (Bld) [#/Vol] 1.1 10*3/uL Normal 1.00-4.8 [facility] Comment on above: Order Comment: Reaso n for Exam Wellness examination Performed By: #### C BC, CUU, CMP, TSH3, LIPID #### [facility] [address] [place] [address] Lymphocytes/100 leukocytes i n Blood by Automated countOrdered By: Shay Muro on 06-20-2023 Lymphocytes/100 WBC (Bld) 25.7 % Normal . [facility] Comment on above: Order Comment: Reaso n for Exam Wellness examination Performed By: #### C BC, CUU, CMP, TSH3, LIPID #### [address] MCH [Entitic mass] by Automa hermelinda countOrdered By: Shay Muro on 06-20-2023 MCH (RBC) [Entitic mass] 29.9 pg Normal 24.7-34.3 [facility] Comment on above: Order Comment: Reaso n for Exam Wellness examination Performed By: #### C BC, CUU, CMP, TSH3, LIPID #### [address] MCHC Auto (RBC) [Mass/Vol]Or dered By: Shay Muro on 06-20-2023 MCHC (RBC) [Mass/Vol] 33.5 g/dL 32.0-35.0 [facility] MCV [Entitic volume] by Auto mated countOrdered By: Shay Muro on 06-20-2023 MCV (RBC) [Entitic vol] 89.2 fL Normal 80-100 [facility] Comment on above: Order Comment: Reaso n for Exam Wellness examination Performed By: #### C BC, CUU, CMP, TSH3, LIPID #### [address] Neutrophils [#/volume] in Bl ood by Automated countOrdered By: Shay Muro on 06-20-2023 Neutrophils (Bld) [#/Vol] 2.4 10*3/uL Normal 1.8-7.7 [facility] Comment on above: Order Comment: Reaso n for Exam Wellness examination Performed By: #### C BC, CUU, CMP, TSH3, LIPID #### [address] No Panel InformationOrdered By: Shay Muro on 06-20-2023 Estimated GFR (CKD-EPI) > 60.0 mL/Min [facility] Creatinine Clearance (Chem N/A [facility] Nucleated erythrocytes [Pres ence] in Blood by Automated countOrdered By: Shay Muro on 06-20-2023 Nucleated RBC Auto Ql (Bld) 0.0 /100{WBC} 0-0.5 [facility] Platelet mean volume [Entiti c volume] in Blood by Automated countOrdered By: Shay Muro on 06-20-2023 Platelet mean volume (Bld) [Entitic vol] 9.5 fL Normal 6.3-10.7 [facility] Comment on above: Order Comment: Reaso n for Exam Wellness examination Performed By: #### C BC, CUU, CMP, TSH3, LIPID #### [facility] [address] [place] [address] [place] Platelets [#/volume] in Bloo d by Automated countOrdered By: Shay Muro on 06-20-2023 Platelets (Bld) [#/Vol] 182 10*3/uL Normal 150-450 [facility] Comment on above: Order Comment: Reaso n for Exam Wellness examination Performed By: #### C BC, CUU, CMP, TSH3, LIPID #### [facility] [address] [place] [address] [place] Potassium [Moles/volume] in Serum or PlasmaOrdered By: Shay Muro on 06-20-2023 Potassium [Moles/Vol] 4.6 mmol/L Normal 3.5-5.1 [facility] Comment on above: Order Comment: Reaso n for Exam Wellness examination Performed By: #### C BC, CUU, CMP, TSH3, LIPID #### [facility] [address] [place] [address] [place] Protein [Mass/volume] in Ser um or PlasmaOrdered By: Shay Muro on 06-20-2023 Protein [Mass/Vol] 6.5 g/dL Normal 6.4-8.9 [facility] Comment on above: Order Comment: Reaso n for Exam Wellness examination Performed By: #### C BC, CUU, CMP, TSH3, LIPID #### [facility] [address] [place] [address] Serum globulin measurement b y calculation (mass/volume)Ordered By: Shay Muro on 06-20-2023 Globulin (S) [Mass/Vol] 2.1 g/dL [facility] Comment on above: Order Comment: Reaso n for Exam Wellness examination Performed By: #### C BC, CUU, CMP, TSH3, LIPID #### [facility] [address] [place] [address] Serum or plasma albumin/glob ulin mass ratioOrdered By: Shay Muro on 06-20-2023 Albumin/Globulin [Mass ratio] 2.1 {ratio} [facility] Comment on above: Order Comment: Reaso n for Exam Wellness examination Performed By: #### C BC, CUU, CMP, TSH3, LIPID #### [address] Serum or plasma anion gap de terminationOrdered By: Shay Muro on 06-20-2023 Anion gap [Moles/Vol] 7.7 mmol/L Normal 6.0-15.0 [facility] Comment on above: Order Comment: Reaso n for Exam Wellness examination Performed By: #### C BC, CUU, CMP, TSH3, LIPID #### [address] Serum or plasma high density lipoprotein (HDL) cholesterol measurementOrdered By: Shay Muro on 06-20-2023 Cholesterol in HDL [Mass/Vol] 46 mg/dL Normal 23-92 [facility] Comment on above: HDL CHOL ATP-III CLA SSIFICATION Cardiovascular RiskHDL > or equal to 60 mg/dL LOWHDL < 40 mg/dL HIGH Order Comment: Reaso n for Exam Wellness examination Result Comment: HDL CHOL ATP-III CLASSIFICATION Cardiovascular Risk HDL > or equal to 60 mg/dL LOW HDL < 40 mg/dL HIGH Performed By: #### C BC, CUU, CMP, TSH3, LIPID #### [facility] [address] [place] [address] Serum or plasma total choles terol/high density lipoprotein (HDL) cholesterol mass ratOrdered By: Shay Muro on 06-20-2023 Cholesterol.total/Cho lesterol in HDL [Mass ratio] 4.0 {ratio} Normal <5.0 [facility] Comment on above: Order Comment: Reaso n for Exam Wellness examination Performed By: #### C BC, CUU, CMP, TSH3, LIPID #### [facility] [address] [place] [id number] [facility] Sodium [Moles/volume] in Ser um or PlasmaOrdered By: Shay Muro on 06-20-2023 Sodium [Moles/Vol] 141 mmol/L Normal 136-145 [facility] Comment on above: Order Comment: Reaso n for Exam Wellness examination Performed By: #### C BC, CUU, CMP, TSH3, LIPID #### [facility] [address] [place] [id number] [facility] Thyroid Stimulating Hormoneo n 06-20-2023 TSH Qn 3.17707884119 m[IU]/L Normal 0.45-5 .33 u[iU]/mL [facility] Other Thyrotropin [Units/volume] i n Serum or PlasmaOrdered By: Shay Muro on 06-20-2023 TSH Qn 3.62 m[IU]/L Normal 0.45-5.33 [facility] Comment on above: Order Comment: Reaso n for Exam Wellness examination Result Comment: PERF ORMED BY: [place] [address] PATHOLOGIST PROJECT SPECIALIST LISANDRA OLVERA M.D. Performed By: #### C BC, CUU, CMP, TSH3, LIPID #### [facility] [address] [place] [id number] [facility] Triglyceride [Mass/volume] i n Serum or PlasmaOrdered By: Shay Muro on 06-20-2023 Triglyceride [Mass/Vol] 116 mg/dL 0-149 [facility] Comment on above: TRIG ATP III CLASSIF ICATIONTRIG less than 150 mg/dL NormalTRIG 150-199 mg/dL Borderline highTRIG 200-500 mg/dL High TRIG greater than 500 mg/dL Very highStandard traceable to the Center for Disease Conrtrol and Prevention (CDC) test method. Urea nitrogen [Mass/volume] in Serum or PlasmaOrdered By: Shay Muro on 06-20-2023 Urea nitrogen [Mass/Vol] 15 mg/dL Normal 7-25 [facility] Comment on above: Order Comment: Reaso n for Exam Wellness examination Performed By: #### C BC, CUU, CMP, TSH3, LIPID #### [facility] [address] [place] [address] [place] Urine 10 SGon 06-20-2023 Albumin DL <= 20 mg/L (U) [Mass/Vol] Negative [facility] Other Albumin DL <= 20 mg/L (U) [Mass/Vol] small [facility] Other pH (U) 5.5 [pH] [facility] Other Urine 10 SG Negative [facility] Other Urine 10 SG >=1.030 [facility] Other Urine 10 SG 0.2 [facility] Other Urine Cultureon 06-20-2023 Bacteria identified Cx Nom (U) Reason for Exam Leukocytes in urine Urine Reason for Exam: Leukocytes in urine : Urine ORGANISM: Lactobacillus jensenii (O:LACJEN) [place] Count >100,000 PERFORMED BY: [facility] [address] [place] [address] PATHOLOGIST PROJECT SPECIALIST LISANDRA OLVERA M.D. Normal [facility] Comment on above: Performed By: #### C BC, CUU, CMP, TSH3, LIPID #### [facility] [address] [place] [address] [facility] Bacteria identified Cx Nom (U) [facility] Other Urine culture routineOrdered By: Shay Muro on 06-20-2023 Bacteria identified Cx Nom (U) Lactobacillus jensenii [facility] Serum or plasma thyroglobuli n antibody assay (units/volume)Ordered By: Shay Muro on 05-31-2023 Thyroglobulin Ab Qn [IU]/mL 0.0-0.9 [facility] [facility] Comment on above: Thyroglobulin Antibo dy measured by PUSH WellnessMethodologyPerformed at: [facility] [id number] Director: Arben Avelar PhD, Phone: [phone] Serum or plasma thyroperoxid ase antibody assay (units/volume)Ordered By: Shay Muro on 05-31-2023 TPO Ab Qn [IU]/mL 0-34 [facility] Thyroid Antibodies TPO+Tg Ab on 05-31-2023 Antithyroglobulin Ab <1.0 Normal 0.0-0.9 [facility] Comment on above: Order Comment: Reaso n for Exam Wellness examination Result Comment: Thyr oglobulin Antibody measured by [facility] [employer] Performed at: [facility] [address] [id number] Sustainability Engineer: Arben Avelar PhD, Phone: [phone] PERFORMED BY: [place] [address] PATHOLOGIST PROJECT SPECIALIST LISANDRA OLVERA M.D. Performed By: #### C BC, CUU, CMP, TSH3, LIPID #### [facility] [address] [place] [address] Thyroid Peroxidase Antibodies <9 Normal 0-34 [facility] Comment on above: Order Comment: Reaso n for Exam Wellness examination Performed By: #### C BC, CUU, CMP, TSH3, LIPID #### [facility] [address] [place] [address] Thyrotropin [Units/volume] i n Serum or PlasmaOrdered By: Shay Muro on 05-31-2023 TSH Qn 3.37 m[IU]/L Normal 0.45-5.33 [facility] Comment on above: Order Comment: Reaso n for Exam Wellness examination Result Comment: PERF ORMED BY: [place] [address] PATHOLOGIST PROJECT SPECIALIST LISANDRA OLVERA M.D. Performed By: #### C BC, CUU, CMP, TSH3, LIPID #### [facility] [address] [id number] [facility] RSVon 01-17-2023 RSV Ag IA Ql (Unsp spec) Negative [facility] Other Alanine aminotransferase [En zymatic activity/volume] in Serum or PlasmaOrdered By: Shay Muro on 08-17-2022 ALT [Catalytic activity/Vol] 26 U/L Normal 7-52 U/L [facility] Albumin [Mass/volume] in Ser um or Plasma by Bromocresol green (BCG) dye binding methoOrdered By: Shay Muro on 08-17-2022 Albumin BCG dye [Mass/Vol] 4.5 g/dL 3.5-5.7 [facility] Alkaline phosphatase [Enzyma tic activity/volume] in Serum or PlasmaOrdered By: Shay Muro on 08-17-2022 ALP [Catalytic activity/Vol] 59 U/L Normal 34-104 U/L [facility] Aspartate aminotransferase [ Enzymatic activity/volume] in Serum or PlasmaOrdered By: Shay Muro on 08-17-2022 AST [Catalytic activity/Vol] 26 U/L Normal 13-39 U/L [facility] Basophils Auto (Bld) [#/Vol] Ordered By: Shay Muro on 08-17-2022 Basophils (Bld) [#/Vol] 0.0 10*3/uL 0.0-0.2 [facility] Basophils/100 WBC Auto (Bld) Ordered By: Shay Muro on 08-17-2022 Basophils/100 WBC (Bld) 0.4 % . [facility] Bilirubin.total [Mass/volume ] in Serum or PlasmaOrdered By: Shay Muro on 08-17-2022 Bilirubin [Mass/Vol] 0.2 mg/dL 0.3-1.0 [facility] Calcium [Mass/volume] in Ser um or PlasmaOrdered By: Shay Muro on 08-17-2022 Calcium [Mass/Vol] 10.0 mg/dL 8.6-10.3 [facility] Carbon dioxide, total [Moles /volume] in Serum or PlasmaOrdered By: Shay Muro on 08-17-2022 CO2 [Moles/Vol] 25.6 mmol/L 21.0-31.0 [facility] Chloride [Moles/volume] in S francis or PlasmaOrdered By: Shay Muro on 08-17-2022 Chloride [Moles/Vol] 106 mmol/L Normal 98-107 mmol/L [facility] Complete Blood Count Auto Di ffon 08-17-2022 Basophils (Bld) [#/Vol] 0.869859837 10*3/uL Normal 0.0-0.2 10*3/uL [facility] Other Basophils/100 WBC (Bld) 0.400 % . % [facility] Other Eosinophils (Bld) [#/Vol] 0.969997547 10*3/uL Normal 0.0-0.45 10*3/uL [facility] Other Eosinophils/100 WBC (Bld) 0.900 % . % [facility] Other Erythrocyte distribution width (RBC) [Ratio] 13.500 % Normal 11.9-15.3 % [facility] Other Hematocrit (Bld) [Volume fraction] 38.800 % Normal 34.0-46.4 % [facility] Other Hemoglobin (Bld) [Mass/Vol] 12.442871 g/dL Normal 11.8-15.4 g/dL [facility] Other Lymphocytes (Bld) [#/Vol] 0.671461519 10*3/uL Low 1.00-4.8 10*3/uL [facility] Other Lymphocytes/100 WBC (Bld) 10.900 % . % [facility] Other MCH (RBC) [Entitic mass] 28.2000 pg Normal 24.7-34.3 pg [facility] Other MCV (RBC) [Entitic vol] 86.7000 fL Normal 80-100 fL [facility] Other Monocytes (Bld) [#/Vol] 0.279776402 10*3/uL Normal 0.0-0.8 10*3/uL [facility] Other Monocytes/100 WBC (Bld) 2.600 % . % [facility] Other Neutrophils (Bld) [#/Vol] 5.863003701 10*3/uL Normal 1.8-7.7 10*3/uL [facility] Other Neutrophils/100 WBC (Bld) 85.200 % . % [facility] Other Platelet mean volume (Bld) [Entitic vol] 9.7000 fL Normal 6.3-10.7 fL [facility] Other WBC (Bld) [#/Vol] 5.243794533 10*3/uL Normal 3.8 -11.6 10*3/uL [facility] Other Complete Blood Count Auto Diff 5.8 10*3/uL Normal 3.8-11.6 10*3/uL [facility] Other Complete Blood Count Auto Diff 32.5 g/dL Normal 32.0-35.0 g/dL [facility] Other Complete Blood Count Auto Diff 0.0 /100{WBC} Normal 0-0.5 /100{WBC} [facility] Other Comprehensive Metabolic Pane lOrdered By: Shay Muro on 08-17-2022 GFR/1.73 sq M.predicted MDRD (S/P/Bld) [Vol rate/Area] mL/min/{1.73_m2} [facility] Comprehensive Metabolic Pane pino 08-17-2022 Albumin [Mass/Vol] 4.873634 g/dL Normal 3.5-5.7 g/dL [facility] Other Bilirubin [Mass/Vol] 0.5454821 mg/dL Low 0.3- 1.0 mg/dL [facility] Other Calcium [Mass/Vol] 10.0141934 mg/dL Normal 8.6-1 0.3 mg/dL [facility] Other CO2 [Moles/Vol] 25.78443787 mmol/L Normal 21.0-3 1.0 mmol/L [facility] Other Creatinine [Mass/Vol] 0.93510707 mg/dL Normal 0. 60-1.20 mg/dL [facility] Other Potassium [Moles/Vol] 4.07048104 mmol/L Normal 3 .5-5.1 mmol/L [facility] Other Protein [Mass/Vol] 6.784071 g/dL Normal 6.4-8.9 g/dL [facility] Other Comprehensive Metabolic Panel 2.2 g/dL [facility] Other Creatinine [Mass/volume] in Serum or PlasmaOrdered By: Shay Muro on 08-17-2022 Creatinine [Mass/Vol] 0.92 mg/dL 0.60-1.20 [facility] Eosinophils Auto (Bld) [#/Vo l]Ordered By: Shay Muro on 08-17-2022 Eosinophils (Bld) [#/Vol] 0.1 10*3/uL 0.0-0.45 [facility] Eosinophils/100 WBC Auto (Bl d)Ordered By: Shay Muro on 08-17-2022 Eosinophils/100 WBC (Bld) 0.9 % . [facility] Erythrocyte distribution wid th Auto (RBC) [Ratio]Ordered By: Shay Muro on 08-17-2022 Erythrocyte distribution width (RBC) [Ratio] 13.5 % 11.9-15.3 [facility] Erythrocytes [#/volume] in B lood by Automated countOrdered By: Shay Muro on 08-17-2022 RBC (Bld) [#/Vol] 4.48 10*6/uL Normal 3.60-5.00 [facility] Globulin Calc (S) [Mass/Vol] Ordered By: Shay Muro on 08-17-2022 Globulin (S) [Mass/Vol] 2.2 g/dL [facility] Glucose [Mass/volume] in Ser um or PlasmaOrdered By: Shay Muro on 08-17-2022 Glucose [Mass/Vol] 134 mg/dL High 74-109 mg/dL [facility] Comment on above: ADA recommended refe rence rangeRandom Glucose Reference Range is dependent on time and content of last meal. Glucose of more than 200 mg/dL in a nonstressed, ambulatory subject supports the diagnosis of Diabetes Mellitus. Hematocrit Auto (Bld) [Volum e fraction]Ordered By: Shay Muro on 08-17-2022 Hematocrit (Bld) [Volume fraction] 38.8 % 34.0-46.4 [facility] Hemoglobin [Mass/volume] in BloodOrdered By: Shay Muro on 08-17-2022 Hemoglobin (Bld) [Mass/Vol] 12.6 g/dL 11.8-15.4 [facility] Leukocytes [#/volume] correc hermelinda for nucleated erythrocytes in Blood by Automated counOrdered By: Shay Muro on 08-17-2022 WBC corrected for nucl RBC Auto (Bld) [#/Vol] 5.8 10*3/uL 3.8-11.6 [facility] Lymphocytes Auto (Bld) [#/Vo l]Ordered By: Shay Muro on 08-17-2022 Lymphocytes (Bld) [#/Vol] 0.6 10*3/uL 1.00-4.8 [facility] Lymphocytes/100 WBC Auto (Bl d)Ordered By: Shay Muro on 08-17-2022 Lymphocytes/100 WBC (Bld) 10.9 % . [facility] MCH Auto (RBC) [Entitic mass ]Ordered By: Shay Muro on 08-17-2022 MCH (RBC) [Entitic mass] 28.2 pg 24.7-34.3 [facility] MCHC Auto (RBC) [Mass/Vol]Or dered By: Shay Muro on 08-17-2022 MCHC (RBC) [Mass/Vol] 32.5 g/dL 32.0-35.0 [facility] MCV Auto (RBC) [Entitic vol] Ordered By: Shay Muro on 08-17-2022 MCV (RBC) [Entitic vol] 86.7 fL 80-100 [facility] Monocytes Auto (Bld) [#/Vol] Ordered By: Shay Muro on 08-17-2022 Monocytes (Bld) [#/Vol] 0.1 10*3/uL 0.0-0.8 [facility] Monocytes/100 WBC Auto (Bld) Ordered By: Shay Muro on 08-17-2022 Monocytes/100 WBC (Bld) 2.6 % . [facility] Neutrophils Auto (Bld) [#/Vo l]Ordered By: Shay Muro on 08-17-2022 Neutrophils (Bld) [#/Vol] 5.0 10*3/uL 1.8-7.7 [facility] Neutrophils/100 WBC Auto (Bl d)Ordered By: hSay Muro on 08-17-2022 Neutrophils/100 WBC (Bld) 85.2 % . [facility] No Panel InformationOrdered By: Shay Muro on 08-17-2022 Pharmacy Creatinine Clearance (Chem N/A [facility] Nucleated erythrocytes [Pres ence] in Blood by Automated countOrdered By: Shay Muro on 08-17-2022 Nucleated RBC Auto Ql (Bld) 0.0 /100{WBC} 0-0.5 [facility] Platelet mean volume Auto (B ld) [Entitic vol]Ordered By: Shay Muro on 08-17-2022 Platelet mean volume (Bld) [Entitic vol] 9.7 fL 6.3-10.7 [facility] Platelets [#/volume] in Bloo d by Automated countOrdered By: Shay Muro on 08-17-2022 Platelets (Bld) [#/Vol] 190 10*3/uL Normal 150-450 10*3/uL [facility] Potassium [Moles/volume] in Serum or PlasmaOrdered By: Shay Muro on 08-17-2022 Potassium [Moles/Vol] 4.5 mmol/L 3.5-5.1 [facility] Protein [Mass/volume] in Ser um or PlasmaOrdered By: Shay Muro on 08-17-2022 Protein [Mass/Vol] 6.7 g/dL 6.4-8.9 [facility] Serum or plasma albumin/glob ulin mass ratioOrdered By: Shay Muro on 08-17-2022 Albumin/Globulin [Mass ratio] 2.0 {ratio} [facility] Serum or plasma anion gap de terminationOrdered By: Shay Muro on 08-17-2022 Anion gap [Moles/Vol] 10.9 mmol/L 6.0-15.0 [facility] Sodium [Moles/volume] in Ser um or PlasmaOrdered By: Shay Muro on 08-17-2022 Sodium [Moles/Vol] 138 mmol/L Normal 136-145 mmol/L [facility] Urea nitrogen [Mass/volume] in Serum or PlasmaOrdered By: Shay Muro on 08-17-2022 Urea nitrogen [Mass/Vol] 16 mg/dL Normal 7-25 mg/dL [facility] WBC Auto (Bld) [#/Vol]Ordere d By: Shay Muro on 08-17-2022 WBC (Bld) [#/Vol] 5.8 10*3/uL 3.8-11.6 [facility] XR chest 2V*on 08-17-2022 SARS-CoV-2 (COVID-19) RNA JOSÉ MIGUEL+probe Ql (Unsp spec) XR/XR chest 2V*: COVID-19;Shortness of breath on exertion [facility] [employer] Other XR chest 2V* [facility] [employer] Other XR chest 2V* [facility] [employer] Other XR chest 2V* [address] [place] [address] [employer] Other XR chest 2V* [place] [address] [facility] [employer] Other XR chest 2V* XRay Report [facility] Other XR chest 2V* Signed [facility] Other XR chest 2V* Patient: Lurdes Zavala MR#: [id number] [facility] Other XR chest 2V* 683 [facility] Other XR chest 2V* : 1965 Acct:[id number] [facility] Other XR chest 2V* Age/Sex: 57 / F ADM Date: 08/17/22 [facility] Other XR chest 2V* Loc: CT Room: Type: [facility] Other XR chest 2V* Attending Dr: Shay Muro DO [facility] Other XR chest 2V* Copies to: Shay Muro, [facility] Other XR chest 2V* Ordering Provider: Tereso Muro DO [facility] Other XR chest 2V* Date of Service: 08/17/22 [facility] Other XR chest 2V* Plain film chest2 view [facility] Other XR chest 2V* HISTORY:Shortness of breath [facility] Other XR chest 2V* COMPARISON:04/02/2020 No [facility] Other XR chest 2V* FINDINGS: [facility] Other XR chest 2V* SUPPORT DEVICES: None [employer] Other XR chest 2V* POSTSURGICAL CHANGES:None [facility] Other XR chest 2V* HEART: Within normal limits [facility] Other XR chest 2V* PULMONARY COLIN:Withi n normal limits [facility] Other XR chest 2V* MEDIASTINUM:Unremarkable [facility] Other XR chest 2V* LUNGS AND PLEURA: No acute lung process, pleural effusion or pneumothorax identified. [facility] Other XR chest 2V* BONY STRUCTURES: Intact [facility] Other XR chest 2V* ADDITIONAL FINDINGS None [facility] Other XR chest 2V* X R/XR chest 2V* [facility] Other XR chest 2V* IMPRESSION: No acute process. [facility] Other XR chest 2V* Impression dictated by: Andrew Lockett M.D.08/17/2022 7:08 PM [facility] Other XR chest 2V* Dictation Location: [facility]--03 [facility] Other XR chest 2V* Transcribed By: PWS 08/17/221907 [facility] Other XR chest 2V* Dictated By: James Lockett DO 08/17/221906 [facility] Other XR chest 2V* Signed By: [facility] Other XR chest 2V* 08/17/221907 [employer] Other POINT OF CARE GLUCOSEon 02-0 Glucose [Mass/Vol] 103 mg/dL Normal 74-106 [facility] Comment on above: Performed By: #### P OCGLUC #### [facility] [address] [place] [address] Dr. Nhung Henao Glucose [Mass/Vol] 97 mg/dL Normal 74-106 [facility] Comment on above: Performed By: #### P OCGLUC #### [facility] [address] [address] [address] Nhung Henao Covid-19 PCR (CVDTB)on 05-31 SARS-CoV-2 (COVID-19) RNA JOSÉ MIGUEL+probe Ql (Unsp spec) Not detected Normal NOT DETECTED [facility] Comment on above: Result Comment: This test is not yet approved or cleared by the [place] FDA. When there are no FDA-approved or cleared tests available, and other criteria are met, FDA can make tests available under an emergency access mechanism called an Emergency Use Authorization (EUA). The EUA for this test is supported by the Title I Director of Health and Human Service's (HHS's) declaration [...] SARS-CoV-2. Performed By: #### C VDTBH #### [facility] [address] [place] [address] Dr. Nhung Henao PROF CHEM 8 (BAS METB)on Anion gap [Moles/Vol] 13.5 mmol/L Normal [facility] Comment on above: Performed By: #### B MP #### [facility] [address] [place] [address] Dr. Nhung Henao Calcium [Mass/Vol] 9.4 mg/dL Normal 8.5-10.1 [facility] Comment on above: Performed By: #### B MP #### [facility] [address] [place] [address] Dr. Nhung Henao Chloride [Moles/Vol] 104 mmol/L Normal 98-107 [facility] Comment on above: Performed By: #### B MP #### [facility] [address] [place] [address] Dr. Nhung Henao CO2 [Moles/Vol] 28.2 mmol/L Normal 21.0-32.0 [facility] Comment on above: Performed By: #### B MP #### [facility] [address] [address] [address] Nhung Henao Creatinine [Mass/Vol] 0.82 mg/dL Normal 0.55-1.02 [facility] Comment on above: Performed By: #### B MP #### [facility] [address] [address] [address] Nhung Henao EGFR-AF SAMOAN >60 Normal >=60 [facility] Comment on above: Performed By: #### B MP #### [facility] [address] [address] [address] Nhung Henao EGFR-NON AF SAMOAN >60 Normal >=60 [facility] Comment on above: Performed By: #### B MP #### [facility] [address] [address] [address] Nhung Henao Glucose [Mass/Vol] 88 mg/dL Normal 74-106 [facility] Comment on above: Performed By: #### B MP #### [facility] [address] [address] [address] Nhung Henao Potassium [Moles/Vol] 4.7 mmol/L Normal 3.5-5.1 [facility] Comment on above: Performed By: #### B MP #### [facility] [address] [address] [address] Nhung Henao Sodium [Moles/Vol] 141 mmol/L Normal 136-145 [facility] Comment on above: Performed By: #### B MP #### [facility] [address] [address] [address] Nhung Henao Urea nitrogen [Mass/Vol] 20.0 mg/dL Critically high 7.0-18.0 [facility] Comment on above: Performed By: #### B MP #### [facility] [address] [address] [address] Nhung Henao Urea nitrogen/Creatinine [Mass ratio] 24.4 mg/mg Normal [facility] Comment on above: Performed By: #### B MP #### [facility] [address] [address] [address] Nhung Henao MRI FOOT LT WO CONon 2 022 MRI FOOT LT WO CON EXAM: [...] POLO DELGADO Date: 2022-04-24 13:21 Normal [facility] Covid-19 PCR (CVDTB)on SARS-CoV-2 (COVID-19) RNA JOSÉ MIGUEL+probe Ql (Unsp spec) Not detected Normal NOT DETECTED [facility] Comment on above: Result Comment: This test is not yet approved or cleared by the [place] FDA. When there are no FDA-approved or cleared tests available, and other criteria are met, FDA can make tests available under an emergency access mechanism called an Emergency Use Authorization (EUA). The EUA for this test is supported by the Title I Director of Health and Human Service's (HHS's) declaration [...] consistent with SARS-CoV-2. Performed By: #### C VDNEW [facility] #### [facility] [address] [place] [address] Dr. Nhung Henao Covid-19 PCR (CVDTB)on SARS-CoV-2 (COVID-19) RNA JOSÉ MIGUEL+probe Ql (Unsp spec) Not detected Normal NOT DETECTED [facility] Comment on above: Result Comment: This test is not yet approved or cleared by the [place] FDA. When there are no FDA-approved or cleared tests available, and other criteria are met, FDA can make tests available under an emergency access mechanism called an Emergency Use Authorization (EUA). The EUA for this test is supported by the [place] of Health and Human Service's (HHS's) declaration [...] consistent with SARS-CoV-2. Performed By: #### C TB #### [facility] [address] [address] [address] Nhung Henao Vital Signs Date Time Vital Sign Value Performing Clinician Facility 04-16-2024 14:15-0500 Diastolic blood pressure 92 mm[Hg] Shay Kuns DO Work Phone: [facility] 04-16-2024 14:15-0500 Heart rate 53 /min Shay Kuns DO Work Phone: [facility] 04-16-2024 14:15-0500 Respiratory rate 20 /min Shay Kuns DO Work Phone: [facility] 04-16-2024 14:15-0500 SaO2% (BldA) [Mass fraction] 97 % Shay Kuns DO Work Phone: [facility] 04-16-2024 14:15-0500 Systolic blood pressure 129 mm[Hg] Shay Kuns DO Work Phone: [facility] 04-16-2024 10:29-0500 Body height 170.18 cm Shay Kuns DO Work Phone: [facility] 04-16-2024 10:29-0500 Body temperature 97.8 [degF] Shay Kuns DO Work Phone: [facility] 04-16-2024 10:29-0500 Body weight 88.3 kg Shay Kuns DO Work Phone: [facility] 07-04-2023 10:30-0500 Body height 170.18 cm Shay [email or web address] Other [facility] Other 06-20-2023 07:45-0500 Body height 170.18 cm Shay [email or web address] Other [facility] 06-20-2023 07:45-0500 Body mass index (BMI) [Ratio] 31.48 kg/m2 Shay Kuns Other [facility] Other 06-20-2023 07:45-0500 Body weight 91.17 kg Shay Kuns Other [facility] 06-20-2023 07:45-0500 Diastolic blood pressure 84 mm[Hg] Shay Kuns Other [facility] 06-20-2023 07:45-0500 Respiratory rate 16 /min Shay Kuns Other [facility] Other 06-20-2023 07:45-0500 SaO2% (BldA) [Mass fraction] 97 % Shay Kuns Other [place] [facility] Other 06-20-2023 07:45-0500 Systolic blood pressure 122 mm[Hg] Shay Kuns Other [facility] 05-31-2023 13:45-0500 Body height 170.18 cm Shay Kuns Other [facility] Other 05-31-2023 13:45-0500 Body mass index (BMI) [Ratio] 31.01 kg/m2 Shay Kuns Other [facility] Other 05-31-2023 13:45-0500 Body weight 89.81 kg Shay Kuns Other [facility] Other 05-31-2023 13:45-0500 Diastolic blood pressure 84 mm[Hg] Shay Kuns Other [facility] Other 05-31-2023 13:45-0500 Respiratory rate 18 /min Shay Kuns Other [facility] Other 05-31-2023 13:45-0500 SaO2% (BldA) [Mass fraction] 98 % Shay Kuns Other [facility] Other 05-31-2023 13:45-0500 Systolic blood pressure 130 mm[Hg] Shay Kuns Other [facility] Other 01-17-2023 10:30-0400 Body height 170.18 cm Shay Kuns Other [facility] Other 01-17-2023 10:30-0400 Body mass index (BMI) [Ratio] 30.22 kg/m2 Shay Kuns Other [facility] Other 01-17-2023 10:30-0400 Body weight 87.54 kg Shay Kuns Other [facility] Other 01-17-2023 10:30-0400 Diastolic blood pressure 78 mm[Hg] Shay Kuns Other [facility] Other 01-17-2023 10:30-0400 Respiratory rate 16 /min Shay Kuns Other [facility] Other 01-17-2023 10:30-0400 SaO2% (BldA) [Mass fraction] 97 % Shay Kuns Other [facility] Other 01-17-2023 10:30-0400 Systolic blood pressure 108 mm[Hg] Shay Kuns Other [facility] Other Encounters Encounter Date Encounter Type Care Provider Facility Start: 04-16-2024 Non-patient / Non-visit Shay Kuns DO Work Phone: [facility] Work Phone: Start: 04-16-2024 End: 04-16-2024 Admission to same day surgery center Shay Kuns DO Work Phone: [facility] [place] Start: 04-16-2024 End: 04-16-2024 ambulatory Shay Kuns DO Work Phone: [facility] Work Phone: Start: 04-05-2024 End: 04-05-2024 Patient encounter procedure Shay Kuns DO Work Phone: [facility] Work Phone: Start: 04-05-2024 End: 04-05-2024 ambulatory Shay Kuns DO Work Phone: [facility] Work Phone: Start: 03-30-2024 End: 03-30-2024 ambulatory [facility] Work Phone: Start: 03-30-2024 End: 03-30-2024 Patient encounter procedure [facility] Work Phone: Start: 10-25-2023 End: 10-25-2023 ambulatory DO Shay Kuns Work Phone: [facility] Work Phone: Start: 10-25-2023 End: 10-25-2023 Patient encounter procedure DO Shay Kuns Work Phone: [facility] Work Phone: Start: 09-02-2023 End: 09-02-2023 Patient encounter procedure DO Shay Kuns Work Phone: [facility] Work Phone: Start: 09-02-2023 End: 09-02-2023 ambulatory DO Shay Kuns Work Phone: [facility] Work Phone: Start: 07-04-2023 (Televisit) Televisit Shay Muro [facility] Start: 07-04-2023 End: 07-04-2023 [address] [address] [facility] [employer] Other Start: 06-20-2023 Encounter for genera l adult medical examination without abnormal findings Shay Muro [facility] Start: 06-20-2023 Periodic preventive med est patient 40-64yrs Shay Muro [facility] Start: 06-20-2023 End: 06-20-2023 Patient encounter procedure DO Shay Kuns Work Phone: [facility] [place] Work Phone: Start: 06-20-2023 End: 06-20-2023 ambulatory DO Shay Kuns Work Phone: [facility] Work Phone: Start: 06-20-2023 End: 06-20-2023 Patient encounter procedure DO Shay Kuns Work Phone: [facility]- Start: 05-31-2023 End: 05-31-2023 Patient encounter procedure DO Shay Kuns Work Phone: [facility] Work Phone: Start: 05-31-2023 End: 05-31-2023 ambulatory DO Shay Kuns Work Phone: [facility] Work Phone: Start: 05-31-2023 Office outpatient vi sit 25 minutes Shay Muro [facility] Start: 05-31-2023 End: 05-31-2023 Patient encounter procedure DO Shay Kuns Work Phone: [facility] [place] Work Phone: Start: 05-12-2023 End: 05-12-2023 ambulatory Shay Kuns Other [facility] Other Start: 05-12-2023 Telephone encounter Shay Kuns [facility] [place] Start: 05-11-2023 End: 05-11-2023 ambulatory VIVIAN STEVENSAPRAWIRA Not Available Start: 01-25-2023 End: 01-25-2023 ambulatory Shay Kuns Other [facility] Other Start: 01-25-2023 Telephone encounter Shay Kuns [facility] Start: 01-24-2023 End: 01-24-2023 ambulatory Shay Kuns Other [facility] Other Start: 01-24-2023 Telephone encounter Shay Nunos [facility] [place] Start: 01-17-2023 (Acute) Acute Visit Shay Kuns [facility] Start: 01-17-2023 End: 01-17-2023 ambulatory Shay Kuns Other [facility] Other Start: 01-13-2023 End: 01-13-2023 ambulatory Shay Kuns Other [facility] Other Start: 01-13-2023 Telephone encounter Shay Kuns [facility] [place] Start: 01-10-2023 End: 01-10-2023 ambulatory Shay Kuns Other [facility] Other Start: 01-10-2023 Telephone encounter Shay Kuns [facility] Start: 08-17-2022 End: 08-17-2022 Patient encounter procedure DO Shay Kuns Work Phone: [facility] [place] Work Phone: Start: 08-17-2022 End: 08-17-2022 ambulatory DO Shay Nunos Work Phone: [facility] Work Phone: Start: 08-17-2022 Telephone encounter Shay Kuns [facility] [address] Start: 08-09-2022 End: 08-09-2022 Patient encounter procedure DO Shay Kuns Work Phone: [facility] Work Phone: Start: 07-01-2022 End: 07-01-2022 ambulatory RAYMOND DOMINGOSHERIF Facility:H1 Start: 06-28-2022 Encounter for preprocedural laboratory examination RAYMOND SMITH [facility] Start: 06-25-2022 End: 06-26-2022 ambulatory RAYMOND Bach [facility] Facility:H1 Start: 06-25-2022 End: 06-26-2022 Encounter for preprocedural laboratory examination RAYMOND Bach [facility] Facility:H1 Start: 06-09-[address] DOCTOR LOPEZ Facility :H1 Start: 04-21-2022 End: 04-22-2022 ambulatory RAYMOND Mikala [facility] Facility:H1 Start: 04-02-2022 End: 04-02-2022 ambulatory Shaymaria t Reinas Other [facility] Other Start: 04-02-2022 Telephone encounter Shay Kuns [facility] [place] Start: 03-15-2022 End: 03-15-2022 ambulatory Shay Nunos Other [facility] Other Start: 03-15-2022 Telephone encounter Shay Kuns [facility] [place] Start: 03-09-2022 End: 03-10-2022 ambulatory RENETTA SORTO Facility:H1 Start: 12-10-2021 End: 12-10-2021 ambulatory Shay Kuns Other [facility] Other Start: 12-10-2021 Telephone encounter Shay Muro [facility] Start: 10-28-2021 Telephone encounter Shay Muro [facility] Start: 10-28-2021 End: 10-28-[address] [facility] Other Start: 09-01-2021 Telephone encounter Shay Muro [facility] Start: 09-01-2021 End: 09-01-[address] DEJESUS [facility] Other Procedures Date Procedure Procedure Detail Performing Clinician Start: 04-16-2024 Arthroplasty of join t of the thumb Shay Muro DO Work Phone: Start: 09-02-2023 Screening mammograph y of bilateral breasts DO Shay Muro Work Phone: Start: 06-20-2023 Urine culture DO Shay Veronica Work Phone: Start: 08-17-2022 Plain chest X-ray DO Br diana Veronica Work Phone: Start: 08-09-2022 Screening mammograph y of bilateral breasts DO Shaymaria t Reinademetri Work Phone: Plan of Treatment Date Care Activity Detail Author Start: 04-16-2024 [facility] Start: 04-16-2024 Plain X-ray of left thumb XR finger LT thumb [facility] Start: 04-16-2024 XR Thumb - left Views F [facility] Start: 04-16-2024 [facility] Start: 06-20-2023 Bacteria identified in Urine by Culture [facility] Patient Education [facility] Work Phone: Patient referral [facility] Work Phone: Thyroglobulin Ab [Units/volume] in Serum or Plasma [facility] Thyroperoxidase Ab [Units/volume] in Serum or Plasma [facility] Immunizations Immunization Date Immunization Notes Care Provider Fa cility 03-25-2023 Flu Shot - Documenta tion Purposes Only Shay Kuns Other [facility] 04-21-2021 COVID-19 Vaccine Pfi zer - Documentation Purposes Only Shay Kuns Other [facility] 02-27-2021 influenza, seasonal, injectable Shay Kuns Other [facility] 09-03-2020 COVID-19 Vaccine Pfi zer - Documentation Purposes Only Shay Kuns Other [facility] 08-13-2020 COVID-19 Vaccine Pfi zer - Documentation Purposes Only Shay Kuns Other [facility] 03-14-2019 influenza, seasonal, injectable Shay Kuns Other [facility] 04-12-2018 influenza, seasonal, injectable Shay Kuns Other [facility] Payers Date Payer Category Payer Self-pay [id number] 1965 Unknown [id number] 2.16.84 [id number] 1965 Unknown [id number] 2.16.84 [id number] 1964 Unknown [id number] 2.16.84 [id number] 1964 Unknown [id number] 2.16.84 [id number] 1964 Unknown [id number] 2.16.84 [id number] 1964 Unknown [id number] 2.16.84 [id number] 1964 Unknown [id number] 2.16.84 [id number] 1964 Unknown [id number] 2.16.840 .[id number] 1960 [facility] [id number] Unknown [employer] BC/BS [id number] Unknown [id number] 2.16.8 [id number] Unknown [id number] 2.16.8 [id number] Social History Date Type Detail Facility Unknown if ever smoked [facility] Other Sex Assigned At Sex Assigned At Bir th [facility] Other Start: 1965 Sex Assigned At Female F [facility] Start: 06-08-2018 End: 04-16-2024 Tobacco smoking status NHIS Never smoked tobacco (finding) [facility] Start: 04-06-2024 End: 04-16-2024 Sex Female (finding) [facility] Goals Date Patient Goal Desired Activity /State Clinical Notes 05-29-2015 to 03-30-2024 Note Date & Type Note Facility 03-30-2024 Evaluation note Diagnosis Onset Date Resolution Arthritis of carpometacarpal (CMC) joint of left thumb acute March 8:34am Left hand pain acute March 302023 8:34am Numbness and tingling acute Nov 2023 8:34am [facility] Work Phone: 1(301) 142-699702-05-2024 Evaluation note* Encounter Date Diagnosis Assessment Notes Treatment Notes Treatment Clinical Notes Jun, Hyperlipidemia (ICD-10 - E78.5) Blood work results reviewed with the patient. Cholesterol levels have improved from last check. Patient is to continue to monitor diet and exercise. Jun, Abnormal thyroid blood test (ICD-10 - R94.6) Blood work results reviewed Jun, Bacteria in urine (ICD-10 - N39.0) Urine culture noted lactobacillus jensenii. Patient is to continue to follow with Dr. Vivian as scheduled. Jun, Diseases of lips (ICD-10 - K13.0) Refill provided of the above medication. [facility] Other 01-22-2024 Evaluation note* Encounter Date Diagnosis Assessment Notes [...] limitations to undergoing general anesthesia and surgery. 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 She states air quality measures were determined to be safe. Masking is optional at job site. [facility] Other 08-14-2023 Evaluation note* Encounter Date Diagnosis Assessment Notes Treatment Notes Treatment Clinical Notes Dec, Acute cough (ICD-10 - R05.1) [facility] Other 07-16-2023 History general Narrative - Reported* Type Description Date Medical History Follows with Dr. De Anda for her O B [employer] care Medical History 2010 Mammogram Medical History [...] Dr. 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 Hospitalization History see [employer] Other 03-21-2023 Evaluation note* Encounter Date Diagnosis Assessment Notes Treatment Notes Treatment Clinical Notes Jul, COVID-19 (ICD-10 - U07.1) Jul, Shortness of breath on exertion (ICD-10 - R06.02) [facility] Other 10-17-2022 Evaluation note* Encounter Date Diagnosis Assessment Notes Treatment Notes Treatment Clinical Notes Feb, Diseases of lips (ICD-10 - K13.0) [facility] Other 10-12-2022 NotePROCEDURE: XR FOOT LT MIN [...] by: JOSEFINA CLAYTON Date: 2022-03-09 22:44[facility]07-16-2022 History general Narrative - Reported* Type Description Date Medical History 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 Smith 03/30/2021 Hospitalization History see [employer] Other 06-01-2022 Evaluation note* Encounter Date Diagnosis Assessment Notes Treatment Notes Treatment Clinical Notes Oct, Cough (ICD-10 - R05.9) Oct, Exposure to COVID-19 virus (ICD-10 - Z20.822) [facility] Other 04-05-2022 Evaluation note* Encounter Date Diagnosis Assessment Notes Treatment Notes Treatment Clinical Notes Aug, Exposure to COVID-19 virus (ICD-10 - Z20.822) [facility] Other 12-31-2015 History general Narrative - Reported* Type Description Date Medical History Follows with Dr. De Anda for her O B [employer] care Medical History 2010 Mammogram Medical History [...] Dr. 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 Other [facility] Other Evaluation noteNo assessment information available [facility] Work Phone: Evaluation note* Diagnosis Onset Date Resolution Status Arthritis of carpometacarpal (CMC) joint of left thumb acute Left hand pain acute Numbness and tingling acute [facility] Work Phone: Summary Purpose Family History No Family History Records Found Relationship Condition Age at Onset Recorded Date/T breezy grandparent Leukemia Unknown Malignant neoplasm Unknown grandparent Hypertension Unknown Relationship Condition Age at Onset Recorded Date/T breezy grandparent Leukemia Unknown Malignant neoplasm Unknown grandparent Hypertension Unknown mother Hypertension Unknown sister Multiple sclerosis Unknown father Myasthenia gravis Unknown Advance Directives No Advanced Directives Records Found Advance Directive Response Recorded Date/ Time Advance Directives No April 04, 2017 4:31pm Advance Directive Response Recorded Date/ Time Advance Directives No April 04, 2017 3:31pm Chief Complaint and Reason for Visit Chief Complaint Z12.31 U07.1 R06.02 Chief Complaint Left Hand Pain/ Want ing Mri R79.89 Chief Complaint Wellness z00.00 n39.0 Screening Chief Complaint Screening LT Thumb Pain, Trigger Finger of LT Hand Reason for Visit Arthritis of carpome tacarpal (CMC) joint of left thumb Left hand pain Numbness and tingling Chief Complaint OP SP LT THUMB PAIN Reason for Visit Arthritis of carpome tacarpal (CMC) joint of left thumb Left hand pain Numbness and tingling Chief Complaint Admit Date OP SP LT THUMB PAIN March 30, 2024 8 :34am left hand pain April 05, 2024 4 :32pm Reason for Visit Admit Date Arthritis of carpometacarpal (CMC) joint of left thumb March 30, 2024 8:34am Left hand pain March 30, 2024 8 :34am Numbness and tingling March 30, 2024 8:34am Chief Complaint Admit Date OP SP LT THUMB PAIN March 30, 2024 8 :34am left hand pain April 05, 2024 4 :32pm left hand pain April 16, 2024 9:34am left hand pain April 16, 2024 1:44pm Reason for Referral Reason *FU 06/27 consult and treat Diagnosis 1 Trigger finger of le ft hand (M65.30) Diagnosis 2 Thumb pain, left (M7 9.645) Referral Organization [facility] [place] Referring Provider First Name Shay Referring Provider Last Name Veronica Referring Provider Specialty Family Prac haider Referred Organization [facility] Referred Provider Johnna Evangelista Referred Address [address] [facility] [place] Referred Provider Specialty Hand Surgery Referral Priority Routine General Notes Ameena Carrera 09:30:14 AM > received today. Sent p2p Reason *FU 02/03 consult and treat; soonest available Diagnosis 1 Persistent cough (R0 5.3) [facility] [place] Referring Provider First Name Shay Referring Provider Last Name Veronica Referring Provider Specialty Family Prac haider Referred Organization [facility] Referred Provider Richardson Nolen Referred Address [address], [place],[address] Referred Provider Specialty Pulmonary Di seases Referral Priority Routine General Notes Cassandra James 023 12:06:00 PM >Received today and referral was fax. They will review and call patient to schedule Clinical Notes Office Additional Source Comments REASON FOR VISIT (unrecogniz ed section and content) clinicalclinicalno showRefil lsclinicalSOBClinical Acute IllnessClinicalcough wants referralClinicalclinicalClinicalLeft hand pain/ wanting MRIwellnessREVIEW LABS INFORMATION SOURCE (unrecogn ized section and content) DATE CREATED AUTHOR 07/13/2022 [facility] pital DATE CREATED AUTHOR AUTHOR'S ORGANIZ ATION 05/14/2023 [facility] EPIC DATE CREATED AUTHOR AUTHOR'S ORGANIZ ATION 04/18/2024 [facility] Care Teams (unrecognized sec tion and content) Team Status: Active Member Role Status Dates Shay Kuns , DO Primary Care Provider Active Team Status: Inactive Member Role Status Rafat Muro DO Primary Care Provider Active Vivian Nataprawira , DO Attending Provider Active Team Status: Inactive Member Role Status Rafat Muro DO Primary Care Provider, Attending Provi rae Active Team Status: Inactive Member Role Status Dates Shay Muro , DO Attending Provider Active Start: May 31, 2023 End: May 31, 2023 Team Status: Inactive Member Role Status Rafat Muro DO Primary Care Provide r, Attending Provider Active Start: May 31, 2023 End: May 31, 2023 Team Status: Inactive Member Role Status Rafat Muro DO Primary Care Provide r, Attending Provider Active Start: June 20, 2023 End: June 20, 2023 Team Status: Inactive Member Role Status Rafat Muro DO Attending Provider Active Start: June 20, 2023 End: June 20, 2023 Team Status: Inactive Member Role Status Rafat Muro DO Primary Care Provider Active Sta rt: September 02, 2023 End: September 02, 2023 Referral Self Attending Provider Active Start: A 2023 End: September 02, 2023 Team Status: Inactive Member Role Status Rafat Muro DO Primary Care Provider Active Sta rt: October 25, 2023 End: October 25, 2023 Johnna Evangelista MD Attending Provider Active Start: October 25, 2023 End: October 25, 2023 Team Status: Inactive Member Role Status Rafat Muro DO Primary Care Provider Active Sta rt: March 30, 2024 End: March 30, 2024 Johnna Evangelista MD Attending Provider Active Start: March 30, 2024 End: March 30, 2024 Team Status: Inactive Member Role Status Rafat Muro DO Primary Care Provider Active Sta rt: April 05, 2024 End: April 05, 2024 Johnna Evangelista MD Attending Provider Active Start: April 05, 2024 End: April 05, 2024 Team Status: Inactive Member Role Status Rafat Muro DO Primary Care Provider Active Sta rt: April 16, 2024 End: April 16, 2024 Johnna Evangelista MD Attending Provider Active Start: April 16, 2024 End: April 16, 2024 Team Status: Active Member Role Status Rafat Muro DO Primary Care Provider Active Sta rt: April 16, 2024 Johnna Evangelista MD Attending Provider , Other Provider Active Start: April 16, 2024 Goals (unrecognized section and content) Goals may [...] BE BASED ON THE PRIMARY CLINICAL RECORDS. [employer] provides no warranty or guarantee of the accuracy or completeness of information in this document.
== END 2024-05-09 07:40 | disposition home or self-care (01) ==
LOC: MRI 07:39
PROVIDERS: PCP Family Medicine; Visit Provider Podiatrist Foot & Ankle Surgery
DX: M25.372 Other instability, left ankle (principal); Z98.890 Other specified postprocedural states; M76.62 Achilles tendinitis, left leg; M72.2 Plantar fascial fibromatosis; M77.32 Calcaneal spur, left foot
CPT/HCPCS: 73721